=== PATIENT | female | born 1930 | race Hispanic/Latino ===

== ENCOUNTER → 2018-09-15 | Outpatient (CLI) | payer MEDICARE, OTHER ==
[~2018-09-15] MED LIST: ALENDRONATE SOD70 MG PO; AMLODIPINE BESYL5 MG PO; CIPRO500 MG PO; COUMADIN3 MG PO; DIOVAN HCT 1601 EACH PO; DIOVAN160 MG PO; FENOFIBRATE145 MG PO; FLECAINIDE ACE100 MG PO; FOSAMAX70 MG PO; GEMFIBROZIL600 MG PO; HYDROCHLOROTH12.5 MG PO; IOPAMIDOL 370 MG/ML 200 ML INFUS..BTL INJ ONE; JANTOVEN3 MG PO; METOPROLOL SUCC50 MG PO; OMEPRAZOLE MAGN20 MG PO; PANTOPRAZOLE SO40 MG PO; PRAVASTATIN SOD40 MG PO; SODIUM CHLORIDE 0.9% 50ML 50 ML ONE
[2018-09-15 09:09] LABS: BLOOD UREA NITROGEN 20 mg/dL (7-26); BUN/CREATININE RATIO 23 (6-25); CREATININE, SERUM 0.86 mg/dL (0.57-1.11); EST GLOMERULAR FILTRATION RATE > 60 ML/MIN (60-)
--- NOTE | 2018-09-15 10:07 | Diagnostic Imaging Report ---
EXAMINATION: CT of the abdomen and pelvis with contrast. TECHNIQUE: Spiral CT images of the abdomen and pelvis were performed from the lung bases to the lesser trochanters after the intravenous administration of 100 cc of Isovue-370 and the oral administration of water. Coronal and sagittal reformatted images were obtained. COMPARISON: None. CLINICAL HISTORY:Abdominal pain. Patient reports history of appendectomy, cholecystectomy, hysterectomy, and prior intestinal surgery. DISCUSSION: ABDOMEN/PELVIS: LOWER THORAX:Patchy opacity in the right middle lobe and lower lobe, partially visualized, likely representing atelectasis or scar. HEPATOBILIARY: No focal hepatic lesions. No intra-or extrahepatic biliary ductal dilation. The gallbladder has been removed. SPLEEN: No splenomegaly. PANCREAS: No focal masses or ductal dilatation. ADRENALS: No adrenal nodules. KIDNEYS/URETERS: Bilateral extrarenal pelves. No hydronephrosis or calculi. 4 cm exophytic hypoattenuating lesion projecting from the interpolar left kidney, average internal attenuation 5-10 Hounsfield units compatible with a simple cyst. Additional 1.6 cm simple cyst projecting from the lower pole of the left kidney. Additional subcentimeter hypoattenuating lesions bilaterally, too small to further characterize though likely to represent additional small cysts. PELVIC ORGANS/BLADDER: The urinary bladder is collapsed and poorly evaluated. The uterus is not identified and has presumably been removed. Peripherally calcified nodular structure in the rectovesical space may represent a calcified lymph node. PERITONEUM/RETROPERITONEUM: No ascites. No pneumoperitoneum. LYMPH NODES: No pelvic sidewall, retroperitoneal, or mesenteric lymphadenopathy. 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 Celiac and JEMAL origins are patent. Portal vein, splenic vein, and central superior mesenteric vein are patent. GI TRACT: The large bowel is notable for multiple diverticula scattered along the course of the sigmoid colon, without wall thickening or adjacent inflammatory change. The appendix is not identified compatible with prior appendectomy. There is no small bowel dilatation to suggest obstruction. BONES AND SOFT TISSUE: No osseous destructive lesions. Degenerative disc changes and facet arthropathy of the lumbar spine. Status post vertebral plasty at L3. Age indeterminate moderate compression deformity of T12 with approximately 50% loss of height and small amount of fragment retropulsion into the spinal canal. Postsurgical scar of the anterior abdominal wall. No additional focal soft tissue abnormalities. IMPRESSION: Age-indeterminate moderate compression deformity of T12 with superior endplate retropulsion into the spinal canal, without significant spinal canal stenosis. Correlate for point tenderness. No acute intra-abdominal or pelvic CT abnormalities. Large bowel diverticulosis without evidence of diverticulitis. 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 Partially visualized patchy opacity in the right middle lobe may reflect atelectasis or inflammatory process. CT scan of the chest without contrast should be considered for further evaluation. Signed by: Dr. Bradly Garcia M.D. on 09/15/2018 10:03 AM
== END ==
LOC: CT 08:31
PROVIDERS: ATTEND Internal Medicine Gastroenterology
DX: R10.84 Generalized abdominal pain (principal)
CPT/HCPCS: 36415; 74177; 82565; 84520; Q9967

== ENCOUNTER → 2018-10-05 | Outpatient (CLI) | payer MEDICARE, OTHER ==
[~2018-10-05] MED LIST changes: -IOPAMIDOL 370 MG/ML 200 ML INFUS..BTL INJ ONE; -SODIUM CHLORIDE 0.9% 50ML 50 ML ONE
--- NOTE | 2018-10-05 12:37 | Diagnostic Imaging Report ---
EXAMINATION: CT scan of the chest without contrast. TECHNIQUE: Spiral CT images of the chest were performed from the lung apices to the level of the adrenal glands. No intravenous contrast was administered per referring physician request. Coronal and sagittal reformatted images were obtained. COMPARISON: CT abdomen and pelvis 09/15/2018 CLINICAL HISTORY:Right middle lobe opacity identified on CT abdomen and pelvis DISCUSSION: ABSENCE OF INTRAVENOUS CONTRAST DECREASES SENSITIVITY FOR DETECTION OF FOCAL LESIONS AND VASCULAR PATHOLOGY. LINES/TUBES: None. LUNGS AND AIRWAYS: Cluster of small nodules in a Y shaped configuration in the right middle lobe corresponding to the abnormality identified on the comparison CT abdomen and pelvis. Superolateral to this, also within the right lower lobe is an additional cluster of nodular opacities in a tree-in-bud configuration. A cluster of nodules in a similar configuration laterally within the left upper lobe just lateral to the minor fissure seen on series 3 image 39. A similar tubular/nodular opacity anteriorly within the left lower lobe seen on series 3 image 65. Trace groundglass opacity in the dependent portions of the lower lobes compatible with subsegmental atelectasis. The trachea, mainstem bronchi, and central lobar bronchi are patent. PLEURA: No pneumothorax or pleural effusions. HEART AND MEDIASTINUM: Visualized portions of the thyroid gland are normal. There is borderline ectasia of the ascending thoracic aorta (3.8 cm). Great vessel origins are normal in configuration, with marked tortuosity of the central great vessels. Pulmonary outflow tract is of normal caliber. No pericardial effusion. H LYMPH NODES: No axillary, hilar, or mediastinal lymphadenopathy. ABDOMEN: Visualized portions of the liver, spleen, pancreas, and adrenals are unremarkable. BONES AND SOFT TISSUES: No osseous destructive lesions. Osteopenia with multilevel degenerative disc disease of the thoracic spine. Anterior compression deformity of T12 is again noted. Healed fracture deformities of multiple left-sided ribs. IMPRESSION: Clustered nodules in tree-in-bud/Y shaped and tubular configurations involving the right middle lobe, right upper lobe, and left lower lobe. Differential considerations include allergic bronchopulmonary aspergillosis (ABPA) as well as atypical mycobacterial infection. Bronchial atresia or endobronchial neoplasm is felt to be unlikely given the multifocality. Pulmonary consultation for possible bronchoscopy is suggested. Atherosclerotic vascular disease with borderline ectasia of the ascending thoracic aorta (3.8 cm). Signed by: Dr. Bradly Garcia M.D. on 10/05/2018 12:34 PM
== END ==
LOC: CT 11:24
PROVIDERS: ATTEND Internal Medicine Gastroenterology
DX: R91.8 Other nonspecific abnormal finding of lung field (principal)
CPT/HCPCS: 71250

== ENCOUNTER → 2018-12-01 | Outpatient (CLI) | payer MEDICARE, OTHER ==
--- NOTE | 2018-12-04 07:38 | Diagnostic Imaging Report ---
EXAM: CT Chest WITHOUT contrast 12/01/2018 4:21 PM INDICATION: ^[id number] ^[id number] ^CHRONIC BRONCHITIS COMPARISON: CT chest 10/05/2018 TECHNIQUE: Chest was scanned utilizing a multidetector helical scanner from the lung apex through the level of the adrenal glands without administration of IV contrast. Absence of intravenous contrast decreases sensitivity for detection of lymphadenopathy and vascular pathology. Coronal and sagittal reformations were obtained. Routine protocol was performed. IV CONTRAST: None COMPLICATIONS: None RADIATION DOSE: Total DLP: 418.3 mGy*cm Estimated effective dose: (DLP x 0.015 x size factor) mSv CTDIvol has been reviewed. It is below the limits set by the Radiation Protocol Committee (RPC). FINDINGS: LINES/ TUBES: None. LUNGS AND AIRWAYS: Persistent few bilateral small multifocal areas of tree-in-bud and tubular pulmonary nodules, worse in the right middle lobe, and mild central peribronchial wall thickening without bronchiectasis. No new consolidations or suspicious pulmonary nodules. PLEURA: The pleural spaces are clear. HEART AND MEDIASTINUM: The thyroid gland is normal. Round fluid attenuation structure in the left lower paratracheal region on series 2, image 47 is unchanged and may reflect fluid in the pericardial recess. No mediastinal, hilar or axillary lymphadenopathy. Left atrium enlargement. There is no pericardial effusion. Mild coronary artery calcifications. Borderline size of the ascending thoracic aorta (3.8 cm). Mild scattered atherosclerotic calcifications of the thoracic aorta. The main pulmonary artery is mildly enlarged measuring 3.3 cm and suggestive of mild pulmonary hypertension. UPPER ABDOMEN: Cholecystectomy. Suboptimally evaluated few small subcortical left renal cysts. BONES: Stable T12 compression deformity and remote posttraumatic deformity of a few left-sided ribs. SOFT TISSUES: Unremarkable. IMPRESSION: Stable bilateral few multifocal areas of tree-in-bud and tubular pulmonary nodules, worse in the right middle lobe, suggestive of bronchopulmonary aspergillosis (ABPA) or atypical mycobacterial infection. Consider correlation with bronchoscopy. No new consolidations or lymphadenopathy in the chest. Signed by: Dr. Dianne Phelps M.D. on 12/04/2018 7:34 AM
== END ==
LOC: CT 16:12
PROVIDERS: ATTEND Internal Medicine Critical Care Medicine
DX: J42 Unspecified chronic bronchitis (principal); J98.4 Other disorders of lung; K21.9 Gastro-esophageal reflux disease without esophagitis
CPT/HCPCS: 71250

== ENCOUNTER → 2019-08-03 | Outpatient (CLI) | payer MEDICARE, OTHER ==
--- NOTE | 2019-08-03 17:43 | Diagnostic Imaging Report ---
CT of the chest, without contrast, 08/03/2019. History: Chronic bronchitis. Comparison: 2018, 10/05/2018. Technique: Multidetector CT scanning of the chest was performed from the level of the thoracic inlet to the upper abdomen without IV or oral contrast. Dose reduction: The examination was performed according to departmental dose-optimization program which includes automated exposure control, adjustment of the mA and/or kV according to patient size and/or use of iterative reconstruction technique. Findings: The visualized portions of the thyroid gland are unremarkable. There is no axillary, mediastinal, or hilar adenopathy The heart is stably enlarged. There is unchanged fluid density structure in the lower left peritracheal region which may represent fluid within the pericardial recess. The ascending thoracic aorta is ectatic measuring 3.8 cm in diameter. The main pulmonary artery is stably prominent measuring 3.3 cm in diameter and may be suggestive of underlying pulmonary hypertension. The trachea and central airways are clear. Unchanged tree-in-bud opacities are present in the right upper lobe and are best appreciated on series 3 image 55 and in the right middle lobe which are best appreciated on series 3 image 64. No new consolidation or pulmonary nodules are identified. There is no pleural effusion. There is no pneumothorax. Limited evaluation of the upper abdomen is no focal hepatic lesions in the visualized portions of the liver. The patient is status post cholecystectomy. No acute osseous abnormalities are identified. IMPRESSION: 1. Unchanged tree-in-bud opacities in the right upper and middle lobe. No new consolidation or pulmonary nodules. 2. Ectasia of the ascending thoracic aorta, unchanged. 3.Mild prominence of the main pulmonary artery. Correlate with underlying pulmonary hypertension. Signed by: Hiram Cancino MD on 08/03/2019 5:40 PM
== END ==
LOC: CT 15:53
PROVIDERS: ATTEND Internal Medicine Critical Care Medicine
DX: J42 Unspecified chronic bronchitis (principal); K21.9 Gastro-esophageal reflux disease without esophagitis; J98.4 Other disorders of lung
CPT/HCPCS: 71250

== ENCOUNTER → 2019-08-14 | Outpatient (CLI) | payer MEDICARE, OTHER ==
[~2019-08-14] MED LIST changes: +LOSARTAN POTASS25 MG PO
--- NOTE | 2019-08-14 14:15 | Diagnostic Imaging Report ---
History:Fall, syncope Comparison studies:None Technique: Axial images were obtained from the skull base to the vertex. Coronal and sagittal images reconstructed from the axial data. Intravenous contrast: None Dose modulation, iterative reconstruction, and/or weight based adjustment of the mA/kV was utilized to reduce the radiation dose to as low as reasonably achievable. Findings: Scalp/skull: No abnormalities. Extra-axial spaces: No masses. No fluid collections. Brain sulci: Mildly prominent. Ventricles: Mild compensatory dilatation. No hydrocephalus. Parenchyma: Few hypodensities in the supratentorial white matter are small vessel ischemic changes. 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 No masses, hemorrhage, acute or chronic cortical vascular insults. Sellar/suprasellar region: No abnormalities. Craniocervical junction: Patent foramen magnum. No Chiari one malformation. Incidental findings: Atherosclerotic calcifications in the carotid siphons . Bilateral cataract surgery changes Impression: No acute abnormalities. Chronic findings: 1. Mild generalized volume loss. 2. Mild supratentorial white matter small vessel ischemic changes. Signed by: DR Haseeb Serrato M.D. on 08/14/2019 2:12 PM
== END ==
LOC: CT 12:53
DX: R55 Syncope and collapse (principal); Z91.81 History of falling; Z79.01 Long term (current) use of anticoagulants
CPT/HCPCS: 70450

== ENCOUNTER 2019-08-17 11:37 | Emergency (ER) | payer MEDICARE, OTHER ==
[~2019-08-17] VITALS: Ht 152.4 cm; Wt 51.3 kg
[~2019-08-17 11:37] MED LIST changes: -LOSARTAN POTASS25 MG PO
[2019-08-17] MEDS ORDERED: DEXAMETHASONE SOD PHOS 10 MG/1 ML VIAL IM ONE (12:45)
[2019-08-17] MEDS ORDERED: KETOROLAC TROMETHAMINE 60 MG/2 ML VIAL IM ONE (12:45)
--- OUTSIDE RECORDS SUMMARY | 2019-08-17 14:11 | XMS REPORT | Summary of Care ---
Author Author Wes Lopez, November Unknown Address [facility] Phone Unavailable Care Team Providers Care Shredder Operator Name Role Phone KEMAR PATRICIA M.D. Unavailable Unavailable BREN BYRD MD Unavailable Unavailable ANGELIQUE PRINGLE, MISAEL Fajardo Unavailable Unavailable BREN CASIANO MD Unavailable Unavailable NOÉ PRINGLE, NIDIA LIMON Unavailable Unavailable Unavailable Unavailable Functional Status Name Dates Details Functional status health issues are not documented Status: Name Dates Details Cognitive status health issues are not documented Status: Problems Name Dates Details Bilateral leg edema (782.3, R60.0) Status: Active Varicose veins (454.9, I83.90) Status: Active Coronary artery disease (414.00, I25.10) Status: Active Essential (primary) hypertension (401.9, I10) Status: Active Hyperlipidemia (272.4, E78.5) Status: Active Sinus bradycardia (427.89, R00.1) Status: Active Headache (784.0, R51) Status: Active Dizziness (780.4, R42) Status: Active Paroxysmal atrial fibrillation (427.31, I48.0) Status: Active Medications Name Dates Details Nitroglycerin 0.4 MG Sublingual Tablet Sublingual DESUELVA MICHAEL (1) TABLETA DEBAJO DE LA LENGUA ANDREAS NECESARIO PARA DOLOR DE PECHO. Quantity: 25 KEMAR PATRICIA M.D. * Start : 28-Mar-2018 Active Metoprolol Succinate ER 25 MG Oral Tablet Extended Release 24 Hour TOME MICHAEL (1) TABLETA(S) POR LA BOCA MICHAEL VEZ AL CHERI AL ACOSTARSE. * Quantity: 90 Refills: 1 * Start : 23-Dec-2014 Active Flecainide Acetate 100 MG Oral Tablet TOME MICHAEL (1) TABLETA(S) POR LA BOCA DOS VECES AL CHERI. * Quantity: 180 Refills: 0 BREN BYRD MD * Start : 23-Dec-2014 Active amLODIPine Besylate 5 MG Oral Tablet TAKE 1 TABLET IN THE AM THEN HALF A TAB IN THE PM * Quantity: 90 Refills: 0 BREN BYRD MD * Start : 09-Sep-2014 Active Pantoprazole Sodium 40 MG Oral Tablet Delayed Release TOME MICHAEL (1) TABLETA(S) POR LA BOCA DOS VECES AL CHERI. * Quantity: 180 Refills: 0 BREN BYRD MD * Start : 11-Jun-2015 Active Furosemide 40 MG Oral Tablet TOME MICHAEL (1) TABLETA(S) POR LA BOCA MICHAEL VEZ AL CHERI EN LA MANANA. NEEDED * Quantity: 90 Refills: 1 * Start : 28-Nov-2015 Active Compression Stocking 15-20 MMHD bilateral knee high * Quantity: 30 Refills: 1 KEMAR PATRICIA M.D. * Start : 11-Feb-2016 Active Jantoven 2 MG Oral Tablet TOME MICHAEL (1) TABLETA(S) POR LA BOCA DIARIO. * Quantity: 90 Refills: 1 BREN BYRD MD * Start : 05-May-2016 Active Losartan Potassium 50 MG Oral Tablet TOME MICHAEL (1) TABLETA(S) POR LA BOCA DOS VECES AL CHERI. * Quantity: 180 Refills: 2 BREN BYRD MD * Start : 21-Mar-2018 Active Atorvastatin Calcium 40 MG Oral Tablet TAKE 1 TABLET BEDTIME * Quantity: 90 Refills: 2 BREN BYRD MD * Start : 20-Apr-2019 Active Aspirin EC 81 MG Oral Tablet Delayed Release TAKE 1 TABLET DAILY. * Refills: 0 Active Allergies and Adverse Reactions Name Dates Details No Known Drug Allergies (Allergy) Status: Active Past Medical History Name Dates Details History of Atherosclerosis (440.9, I70.90) Status: Resolved History of Atrial fibrillation (427.31, I48.91) Status: Resolved History of Coronary Artery Disease (V12.59) Status: Resolved History of esophageal reflux (V12.79, Z87.19) Status: Resolved History of essential hypertension (V12.59, Z86.79) Status: Resolved History of hyperlipidemia (V12.29, Z86.39) Status: Resolved History of Osteoporosis (733.00, M81.0) Status: Resolved Procedures Procedure Dates Details History of Hysterectomy Completed History of Cataract Surgery Completed History of Appendectomy Completed History of Cholecystectomy Completed History of Shoulder Surgery Completed Immunization Name Dates Details Immunizations not documented Family History Name Dates Details Family history of Heart Disease (V17.49) Status: Active Family history of Hypertension (V17.49) Status: Active Social History Name Dates Details - Status: Name Dates Details Former smoker Current every day smoker Vital Signs Date Test Result Details [id number] BP Systolic 179 mm[Hg] Status: Comments: Location: RUE; Position: Sitting BP Diastolic 81 mm[Hg] Status: Comments: Location: RUE; Position: Sitting [id number] BP Systolic 170 mm[Hg] Status: Comments: Location: LUE; Position: Sitting BP Diastolic 79 mm[Hg] Status: Comments: Location: LUE; Position: Sitting Height 60 in Status: Weight 136 lb Status: Body Mass Index Calculated 26.56 kg/m2 Status: Body Surface Area Calculated 1.58 m2 Status: Heart Rate 60 /min Status: Results Date Description Value Details [id number] [QLH] PROTHROMBIN TIME-INR Comments: Reference Range 0.9-1.1Moderate-intensity Warfarin Therapy 2.0-3.0Higher-intensity Warfarin Therapy 3.0-4.0 REPORT COMMENT:FASTING:NO INR 2.4 (Above high threshold) Comments: Reference Range 0.9-1.1Moderate-intensity Warfarin Therapy 2.0-3.0Higher-intensity Warfarin Therapy 3.0-4.0 PT 23.7 {sec} (Above high threshold) Range: 9.0-11.5 Comments: For more information on this test, go to:http://education.[employer] Daily/faq/XKE302 Plan of Care Name Dates Details Planned Observations Planned Goals not documented Planned Encounters Appointment; BREN BYRD MD On: 15-Jun-2019 11:20 Interventions Provided Medication Changes* Flecainide Acetate 100 MG Oral Tablet - Renew Instructions Name Dates Details Instructions not documented Encounters Appointment; KEMAR PATRICIA M.D. Encounter Diagnosis: Problem not documented On: 25-Aug-2017 9:10 Appointment; KEMAR PATRICIA M.D. Encounter Diagnosis: Problem not documented On: 25-Aug-2017 9:15 Appointment; KEMAR PATRICIA M.D. Encounter Diagnosis: Problem not documented On: 23-Sep-2017 9:40 Appointment; SE, ECHO Encounter Diagnosis: Problem not documented On: 04-Oct-2017 13:00 Appointment; KEMAR PATRICIA M.D. Encounter Diagnosis: Problem not documented On: 13-Oct-2017 13:20 Appointment; SE, NUCLEAR Encounter Diagnosis: Problem not documented On: 15-Nov-2017 8:15 Appointment; KEMAR PATRICIA M.D. Encounter Diagnosis: Problem not documented On: 02-Dec-2017 11:00 Appointment; KEMAR PATRICIA M.D. Encounter Diagnosis: Problem not documented On: 02-Jun-2018 10:15 Appointment; KEMAR PATRICIA M.D. Encounter Diagnosis: Problem not documented On: 05-Sep-2018 14:00 Appointment; SE, VENOUS Encounter Diagnosis: Problem not documented On: 13-Sep-2018 14:00 Appointment; KEMAR PATRICIA M.D. Encounter Diagnosis: Problem not documented On: 22-Sep-2018 8:30 Appointment; BREN BYRD MD Encounter Diagnosis: Problem not documented On: 19-Jan-2019 9:30 Appointment; BREN BYRD MD Encounter Diagnosis: Problem not documented On: 19-Jan-2019 9:40 Appointment; SE, ECHO Encounter Diagnosis: Problem not documented On: 19-Jan-2019 11:00 Appointment; LEDON MODI Encounter Diagnosis: Problem not documented On: 22-Feb-2019 14:15 Appointment; BREN BYRD MD Encounter Diagnosis: Problem not documented On: 20-Apr-2019 10:40 Appointment; SE, ECHO Encounter Diagnosis: Problem not documented On: 24-Apr-2019 11:00 Appointment; BREN BYRD MD Encounter Diagnosis: Problem not documented On: 18-May-2019 10:20
--- OUTSIDE RECORDS SUMMARY | 2019-08-17 14:11 | XMS REPORT ---
Author Author [facility] Address Unknown Phone Unavailable Care Team Providers Care Chief Learning Officer Name Role Phone MISAEL MERINO Unavailable Unavailable Colton FRANKLIN Unavailable Unavailable MAL MERINO Unavailable Unavailable Problems This patient has no known problems. Allergies, Adverse Reactions, Alerts This patient has no known allergies or adverse reactions. Medications This patient has no known medications. Encounters Start Date/Time End Date/Time Encounter Type Admission Type Attending [facility] Facility Care Department Encounter ID 2019-07-24 11:54:00 2019-07-24 11:54:00 Outpatient [facility] [id number] Results Test Description Test Time Test Comments Text Results Atomic Results Result Comments CT BRAIN WO 2019-08-14 14:02:00 [place] [address] Patient Name: DENIA MORRELL MR #: [id number] : 1930 Age/Sex: 89/F Req #: [id number] Adm Physician: Ordered by: MISAEL MERINO MD Report #: [id number] Location: CT Room/Bed: Procedure: [id number] CT/CT BRAIN WO Exam Date: 08/14/19 Exam Time: 1339 REPORT STATUS: Signed History:Fall, syncope Comparison studies:None Techniqu e: Axial images were obtained from the skull base to the vertex. Coronal and sagittal images reconstructed from the axial data. Intravenous contrast: None Dose modulation, iterative reconstruction, and/or weight based adjustment of the mA/kV was utilized to reduce the radiation dose to as low as reasonably achievable. Findings: Scalp/skull: No abnormalities. Extra-axial spaces: No masses. No fluid collections. Brain sulci: Mildly prominent. Ventricles: Mild compensatory dilatation. No hydrocephalus. Parenchyma: Few hypodensities in the supratentorial white matter are small vessel ischemic changes. 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 No masses, hemorrhage, acute or chronic cortical vascular insults. Sellar/suprasellar region: No abnormalities. Craniocervical junction: Patent foramen magnum. No Chiari one malformation. Incidental findings: Atherosclerotic calcifications in the carotid siphons . Bilate ral cataract surgery changes Impression: No acute abnormalities. Chronic findings: 1. Mild generalized volume loss. 2. Mild supratentorial white matter small vessel ischemic changes. Signed by: DR Haseeb Serrato M.D. on 08/14/2019 2:12 PM Dictated By: HAESEB GUNTER MD 1412 Transcribed By: SILVINO on 08/14/19 141 COPY TO: MISAEL MERINO MD CT CHEST WO 2019-08-03 17:31:00 [place] [address] Patient Name: DENIA MORRELL MR #: [id number] : 1930 Age/Sex: 89/F Req #: [id number] Adm Physician: Ordered by: DEISY STACK MD Report #: [id number] Location: CT Room/Bed: Procedure: [id number] CT/CT CHEST WO Exam Date: 08/03/19 Exam Time: 1619 REPORT STATUS: Signed CT of the chest, without contrast, 08/03/2019. Histo ry: Chronic bronchitis. Comparison: 2018, 10/05/2018. Technique: Multidetector CT scanning of the chest was performed from the level of the thoracic inlet to the upper abdomen without IV or oral contrast. Dose reduction: The examination was performed according to departmental dose- optimization program which includes automated exposure control, adjustment of the mA and/or kV according to patient size and/or use of iterative reconstruction technique. Findings: The visualized portions of the thyroid gland are unremarkable. There is no axil mc, mediastinal, or hilar adenopathy The heart is stably enlarged. There is unchanged fluid density structure in the lower left peritracheal region which may represent fluid within the pericardial recess. The ascending thoracic aorta is ectatic measuring 3.8 cm in diameter. The main pulmonary artery is stably prominent measuring 3.3 cm in diameter and may be suggestive of underlying pulmonary hypertension. The trachea and central airways are clear. Unchanged tree-in-bud opacities are present in the right upper lobe and are best appreciated on series 3 image 55 and in the right middle lobe which are best appreciated on series 3 image 64. No new consolidation or pulmonary nodules are identified. There is no pleural effusion. There is no pneumothorax. Limited evaluation of the upper abdomen is no focal hepatic lesions in the visualized portions of the liver. The patient is status post cholecystectomy. No acute osseous abnormalities are identified. IMPRESSION: 1. Unchanged tree-in-bud opacities in the right upper and middle lobe. No new consolidation or pulmonary nodules. 2. Ectasia of the ascending thoracic aorta, unchanged. 3.Mild prominence of the main pulmonary artery. Correlate with underlying pulmonary hypertension. Signed by: Hiram Villalta MD on 08/03/2019 5:40 PM Dictated By: HIRAM VILLALTA MD 39 Transcribed By: SILVINO on 08/03/191739 COPY TO: DEISY STACK MD CT CHEST WO 2018-12-04 07:25:00 [place] [address] Patient Name: DENIA MORRELL MR #: [id number] : 1930 Age/Sex: 88/F Req #: [id number] Adm Physician: Ordered by: DEISY FRANKLIN MD Report #: [id number] Location: CT Room/Bed: Procedure: [id number] CT/CT CHEST WO Exam Date: 12/01/18 Exam Time: 1643 REPORT STATUS: Signed EXAM: CT Chest WITHOUT contrast 12/01/2018 4:21 PM INDICATION: [id number] CHRONIC BRONCHITIS COMPARISON: CT chest 10/05/2018 TECHNIQUE: Chest was scanned utilizing a multidetector helical scanner from the lung apex through the level of the adrenal glands without administration of IV contrast. Absence of intravenous contrast decreases sensitivity for detection of lymphadenopathy and vascular pathology. Coronal and sagittal reformations were obtained. Routine protocol was performed. IV CONTRAST: None COMPLICATIONS: None RADIATION DOSE: Total DLP: 418.3 mGy*cm Estimated effective dose: (DLP x 0.015 x size factor) mSv CTDIvol has been reviewed. It is below the limits set by the Radiation Protocol Committee (RPC). FINDINGS: LINES/ TUBES: None. LUNGS AND AIRWAYS: Persistent few bilateral small multifocal areas of tree-in-bud and tubular pulmonary nodules, worse in the right middle lobe, and mild central peribronchial wall thickening without bronchiectasis. No new consolidations or suspicious pulmonary nodules. PLEURA: The pleural spaces are clear. HEART AND MEDIASTINUM: The thyroid gland is normal. Round fluid attenuation structure in the left lower paratracheal region on series 2, image 47 is unchanged and may reflect fluid in the pericardial recess. No mediastinal, hilar or axillary lymphadenopathy. Left atrium enlargement. There is no pericardial effusion. Mild coronary artery calcifications. Borderline size of the ascending thoracic aorta (3.8 cm). Mild scattered atherosclerotic calcifications of the thoracic aorta. The main pulmonary artery is mildly enlarged measuring 3.3 cm and suggestive of mild pulmonary hypertension. UPPER ABDOMEN: Cholecystectomy. Suboptimally evaluated few small subcortical left renal cysts. BONES: Stable T12 compression deformity and remote posttraumatic deformity of a few left-sided ribs. SOFT TISSUES: Unremarkable. IMPRESSION: Stable bilateral few multifocal areas of tree-in-bud and tubular pulmonary nodules, worse in the right middle lobe, suggestive of bronchopulmonary aspergillosis (ABPA) or atypical mycobacterial infection. Consider correlation with bronchoscopy. No new consolidations or lymphadenopathy in the chest. Signed by: Dr. Mateo Gómez M.D. on 12/04/2018 7:34 AM Dictated By: MATEO GÓMEZ MD 3 Transcribed By: SILVINO on 12/04/18733 COPY TO: DEISY FRANKLIN MD, [facility] CT CHEST WO 2018-10-05 12:26:00 [place] [address] Patient Name: DENIA MORRELL MR #: [id number] : 1930 Age/Sex: 88/F Req #: [id number] Adm Physician: Ordered by: MAL MERINO MD Report #: [id number] Location: CT Room/Bed: Procedure: [id number] CT/CT CHEST WO Exam Date: 10/05/18 Exam Time: 1214 REPORT STATUS: Signed EXAMINATION: CT scan of the chest without contrast. BALBINA HNIQUE: Spiral CT images of the chest were performed from the lung apices to the level of the adrenal glands. No intravenous contrast was administered per referring physician request. Coronal and sagittal reformatted images were obtained. COMPARISON: CT abdomen and pelvis 09/15/2018 CLINICAL HISTORY:Right middle lobe opacity identified on CT abdomen and pelvis DISCUSSION: ABSENCE OF INTRAVENOUS CONTRAST DECREASES SENSITIVITY FOR DETECTION OF FOCAL LESIONS AND VASCULAR PATHOLOGY. LINES/TUBES: None. LUNGS AND AIRWAYS: Cluster of small nodules in a Y shaped configuration in the right middle lobe corresponding to the abnormality identified on the comparison CT abdomen and pelvis. Superolateral to this, also within the right lower lobe is an additional cluster of nodular opacities in a tree-in-bud configuration. A cluster of nodules in a similar configuration laterally within the left upper lobe just lateral to the minor fissure seen on series 3 image 39. A similar tubular/nodular opacity anteriorly within the left lower lobe seen on series 3 image 65. Trace groundglass opacity in the dependent portions of the lower lobes compatible with subsegmental atelectasis. The trachea, mainstem bronchi, and central lobar bronchi are patent. PLEURA: No pneumothorax or pleural effusions. HEART AND MEDIASTINUM: Visualized portions of the thyroid gland are normal. There is borderline ectasia of the ascending thoracic aorta (3.8 cm). Great vessel origins are normal in configuration, with marked tortuosity of the central great vessels. Pulmonary outflow tract is of normal caliber. No pericardial effusion. H LYMPH NODES: No axillary, hilar, or mediastinal lymphadenopathy. ABDOMEN: Visualized portions of the liver, spleen, pancreas, and adrenals are unremarkable. BONES AND SOFT TISSUES: No osseous destructive lesions. Osteopenia with multilevel degenerative disc disease of the thoracic spine. Anterior compression deformity of T12 is again noted. Healed fracture deformities of multiple left-sided ribs. IMPRESSION: Clustered nodules in tree-in-bud/Y shaped and tubular configurations involving the right middle lobe, right upper lobe, and left lower lobe. Differential considerations include allergic bronchopulmonary aspergillosis (ABPA) as well as atypical mycobacterial infection. Bronchial a tresia or endobronchial neoplasm is felt to be unlikely given the multifocality. Pulmonary consultation for possible bronchoscopy is suggested. Atherosclerotic vascular disease with borderline ectasia of the ascending thoracic aorta (3.8 cm). Signed by: Dr. Damari Alvarado M.D. on 10/05/2018 12:34 PM Dictated By: DAMARI ALVARADO MD 1234 Transcribed By: SILVINO on 10/05/18 1234 COPY TO: MAL MERINO MD CT ABDOMEN/PELVIS W 2018-09-15 09:51:00 [place] [address] Patient Name: DENIA MORRELL MR #: [id number] : 1930 Age/Sex: 88/F Req #: [id number] Adm Physician: Ordered by: MAL MERINO MD Report #: [id number] Location: CT Room/Bed: Procedure: [id number] CT/CT ABDOMEN/PELVIS W Exam Date: 09/15/18 Exam Time: 0936 REPORT STATUS: Signed EXAMINATION: CT of the abdomen and pelvis with contra st. TECHNIQUE: Spiral CT images of the abdomen and pelvis were performed from the lung bases to the lesser trochanters after the intravenous administration of 100 cc of Isovue-370 and the oral administration of water. Coronal and sagittal reformatted images were obtained. COMPARISON: None. CLINICAL HISTORY:Abdominal pain. Patient reports history of appendectomy, cholecystectomy, hysterectomy, and prior intestinal surgery. DISCUSSION: ABDOMEN/PELVIS: LOWER THORAX:Patchy opacity in the right middle lobe and lower lobe, partially visualized, likely representing atelectasis or scar. HEPATOBILIARY: No focal hepatic lesions. No intra-or extrahepatic biliary ductal dilation. The gallbladder has been removed. SPLEEN: No splenomegaly. PANCREAS: No focal masses or ductal dilatation. ADRENALS: No adrenal nodules. KIDNEYS/URETERS: Bilateral extrarenal pelves. No hydronephrosis or calculi. 4 cm exophytic hypoattenuating lesion projecting from the interpolar left kidney, average internal attenuation 5-10 Hounsfield units compatible with a simple cyst. Additional 1.6 cm simple cyst projecting from the lower pole of the left kidney. Additional subcentimeter hypoattenuating lesions bilaterally, too small to further characterize though likely to represent additional small cysts. PELVIC ORGANS/BLADDER: The urinary bladder is collapsed and poorly evaluated. The uterus is not identified and has presumably been removed. Peripherally calcified nodular structure in the rectovesical space may represent a calcified lymph node. PERITONEUM/RETROPERITONEUM: No ascites. No pneumoperitoneum. LYMPH NODES: No pelvic sidewall, retroperitoneal, or mesenteric lymphadenopathy. 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 Celiac and JEMAL origins are patent. Portal vein, splenic vein, and central superior mesenteric vein are patent. GI TRACT: The large bowel is notable for multiple diverticula scattered along the course of the sigmoid colon, without wall thickening or adjacent inflammatory change. The appendix is not identified compatible with prior appendectomy. There is no small bowel dilatation to suggest obstruction. BONES AND SOFT TISSUE: No osseous destructive lesions. Degenerative disc changes and facet arthropathy of the lumbar spine. Status post vertebral plasty at L3. Age indeterminate moderate compression deformity of T12 with approximately 50% loss of height and small amount of fragment retropulsion into the spinal canal. Postsurgical scar of the anterior abdominal wall. No additional focal soft tissue abnormalities. IMPRESSION: Age-indeterminate moderate compression deformity of T12 with superior endplate retropulsion into the spinal canal, without significant spinal canal stenosis. Correlate for point tenderness. No acute intra-abdominal or pelvic CT abnormalities. Large bowel diverticulosis without evidence of diverticulitis. 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 Partially visualized patchy opacity in the right middle lobe may reflect atelectasis or inflammatory process. CT scan of the chest without contrast should be considered for further evaluation. Signed by: Dr. Damari Alvarado M.D. on 09/15/2018 10:03 AM Dictated By: DAMARI ALVARADO MD 1003 Transcribed By: SILVINO on 09/15/18 1003 COPY TO: MAL MERINO MD
--- NOTE | 2019-08-17 14:16 | Diagnostic Imaging Report ---
TECHNIQUE: Frontal, oblique, and lateral views of the right wrist. INDICATION: 89-year-old woman with pain and swelling. COMPARISON: None. FINDINGS: Abnormal osseous structure adjacent to trapezium and second metacarpal. Otherwise, no acute fractures or dislocations. Degenerative changes at the first carpometacarpal joint. Other joint spaces are within normal limits. Calcifications in the region of the triangular fibrocartilage complex. Soft tissues are grossly unremarkable. IMPRESSION: Abnormal osseous structure adjacent to the trapezium and second metacarpal may represent an osteophyte or sequela of age-indeterminate trauma. Degenerative changes at the first carpometacarpal joint. Signed by: Lexx Connors MD on 08/17/2019 2:12 PM
[2019-08-17 15:31] VITALS: BP 127/65
[2019-09-19] MEDS ORDERED: LOSARTAN POTASS25 MG PO (09:49)
[2019-09-21] MEDS ORDERED: FLECAINIDE ACE100 MG PO (11:57)
== END 2019-08-17 15:15 | disposition home or self-care (01) ==
LOC: ER 11:37
DX: M19.031 Primary osteoarthritis, right wrist (principal); I10 Essential (primary) hypertension; I48.91 Unspecified atrial fibrillation
CPT/HCPCS: 29125; 36415; 73110; 84550; 99284; J1100; J1885

== ENCOUNTER → 2020-02-25 | Outpatient (CLI) | payer MEDICARE, OTHER ==
[~2020-02-25] MED LIST changes: +LOSARTAN POTASS25 MG PO
== END ==
LOC: RESP 13:56
PROVIDERS: ATTEND Internal Medicine Critical Care Medicine
DX: R06.09 Other forms of dyspnea (principal); J42 Unspecified chronic bronchitis; J98.4 Other disorders of lung; K21.9 Gastro-esophageal reflux disease without esophagitis
CPT/HCPCS: 94060; 94727; 94729

== ENCOUNTER 2020-07-13 17:45 | Emergency (ER) | payer MEDICARE, OTHER ==
[~2020-07-13] VITALS: Ht 152.4 cm; Wt 51.3 kg
--- NOTE | 2020-07-13 17:53 | NUR ---
CALLED TO TRIAGE PATIENT IN BATHROOM
--- NOTE | 2020-07-13 18:25 | NUR ---
OBTAINED BLOOD. IV NOT FUNCTIONING PATIENT EVALUATED BY DR. IGLESIAS IN TRIAGE
--- OUTSIDE RECORDS SUMMARY | 2020-07-13 18:35 | XMS REPORT | Continuity of Care Document ---
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 06/02/2020 [facility] LEFT HEART CATH Active 05/16/2020 [facility] ANTICOAG Active 04/02/2020 [facility] DYSPNEA ON EXERTION, CHEST PRESSURE Active 01/13/2020 [facility] RAPID HEART RATE Active 01/13/2020 [facility] CHEST PAIN Active 01/11/2020 [facility] ACUTE CHEST PAIN Active 01/11/2020 [facility] LEFT HEART CATH POSS PCI Active 01/09/2020 [facility] Weakness 10/02/2019 [facility] HYPOMAGNESEMIA, PALPITATIONS A ctive 08/24/2019 [facility] AFIB Active 08/24/2019 [facility] Encounter for screening mammogram for ma lignant neoplasm of breast 08/04/2018 02/18/2019 [facility] DX: Z12.31/M81.0NO PAIN,LUMPS OR DC* Active 07/25/2018 [facility] Unspecified fall, initial encounter 01/30/2018 02/02/2018 [facility] Multiple fractures of ribs, unspecified side, initial encounter for closed fracture 01/30/2018 02/02/2018 [facility] Urinary tract infection, site not specified 01/30/2018 02/02/2018 [facility] FAL Active 0 01/30/2018 [facility] Cervicalgia 07/25/2017 07/28/2017 [facility] Contusion of unspecified part of head, i nitial encounter 07/25/2017 07/28/2017 [facility] FALL Active 07/25/2017 [facility] DX:I65.29= OCCLUSION AND STENOSIS OF UNS Active 08/06/2016 [facility] Discharge Diagnosis: Acute lower UTI 12/26/2015 12/29/2015 [facility] UTI Active 0 12/26/2015 [facility] I86.8; VARICOSE VEINS OF OTHER SPECIFIED Active 12/01/2015 [facility] R92.8=OTHER ABNORMAL AND INCONCLUSIVE FI Active 10/07/2015 [facility] ROUTINE Active 09/17/2015 [facility] SCREENING Active 07/03/2014 [facility] UNK Active 0 12/26/2012 [facility] A-FIB WITH RVR Active 07/09/2011 [facility] OTHER Active 07/09/2011 [facility] [D]Chest pain Active Problem 12/26/2011 [facility] Atrial fibrillation Active Problem 12/26/2011 [facility] [D]Chest pain (context-dependent category) Active Problem 06/30/2020 [facility] Atrial fibrillation (disorder) Active Problem 09/2019 [facility] Hypertensive disorder, systemic arterial (disorder) Resolved Problem 06/30/2020 [facility] Reflux (finding) Resolved Problem 06/30/2020 [facility] Pain in left hip 08/06/2017 [facility] Age-related osteoporosis without current pathological fracture 02/18/2019 [facility] Hypertension Active 12/21/2013 well- controlled. [facility] Hyperlipidemia Active 12/21/2013 [facility] Coronary Artery Disease Active 12/21/2013 Stable with no angina [facility] Paroxysmal Atrial Fibrillation Active 12/21/2013 [facility] Osteoporosis Active 04/03/2013 [facility] Esophageal Reflux Active 04/03/2013 [facility] ATRIAL FIBRILLATION Active [facility] SCREEN MAMMOGRAM NEC Active [facility] JOINT PAIN-SHLDER Active [facility] ENCNTR SCREEN MAMMOGRAM FOR MALIGNANT NE Active [facility] OTH SYMPTOMS AND SIGNS INVOLVING THE CIR Active [facility] OTH ABN AND INCONCLUSIVE FINDINGS ON DX Active [facility] E78.5 Active [facility] HYPERLIPIDEMIA, UNSPECIFIED Ac tive [facility] PAROXYSMAL ATRIAL FIBRILLATION Active [facility] BRADYCARDIA, UNSPECIFIED Active [facility] VARICOSE VEINS OF OTHER SPECIFIED SITES Active [facility] PAIN IN UNSPECIFIED LIMB Active [facility] OCCLUSION AND STENOSIS OF UNSPECIFIED CA Active [facility] LOW BACK PAIN Active [facility] PLEURODYNIA Active [facility] HISTORY OF FALLING Active [facility] PAIN IN LEFT HIP Active [facility] AGE-RELATED OSTEOPOROSIS W/O CURRENT PAT Active [facility] HYPOMAGNESEMIA Active [facility] PALPITATIONS Active [facility] ANGINA PECTORIS, UNSPECIFIED A ctive [facility] Medications Medication Details Route Status Patient Instructions Ordering Provider Order Date Source Acetaminophen Notes: Do not ex ceed 4 gm/day. (Same as: Tylenol) Inactive 06/28/2020 [facility] Acetaminophen 300 MG / Codeine Phosphate 30 MG Oral Tablet [Tylenol with Codeine #3] Notes: Do not exceed 4gm/day of acetamin ophen. (Same as: Tylenol with Codeine # 3) Inactive 06/15/2020 [facility] Acetaminophen 300 MG / Codeine Phosphate 30 MG Oral Tablet [Tylenol with Codeine #3] Notes: Do not exceed 4gm/day of acetamin ophen. (Same as: Tylenol with Codeine # 3) No Longer Active 06/15/2020 [facility] Bumex Notes: (Same As: Bumex) No Longer Active 06/14/2020 [facility] clopidogrel Notes: (Same As: P lavix) No Longer Active 06/14/2020 [facility] Amlodipine Notes: (Same as: No rvasc) No Longer Active 06/14/2020 [facility] atorvastatin Notes: (Same as: Lipitor) No Longer Active 06/14/2020 [facility] Flecainide Notes: (Same as: Ta mbocor) No Longer Active 06/14/2020 [facility] Losartan Notes: (Same as: Coza ar) No Longer Active 06/14/2020 [facility] pantoprazole Notes: Tablet yobani uld not be chewed or crushed. (Same as: Protonix) N o Longer Active 06/13/2020 [facility] influenza virus vaccine, inactivated hig h-dose preservative-free intramuscular suspension Notes: (Same as: Fluzone High-Dose Quad) For 65 years of age of older (0.7 ml IM) Shake well before use No Longer Active 06/13/2020 [facility] Tylenol Notes: Max acetaminoph en 4000 mg/day (4 gm/day). (Same as: Tylenol Extra Strength) No Longer Active 06/13/2020 [facility] Morphine Notes: (Same as:MORPh ine Sulfate) No Longer Active 06/13/2020 [facility] Minocycline Notes: (Same as:Mi nocin) No milk/antacids/iron. No Longer Active 06/13/2020 [facility] minocycline 100 mg oral capsule 100 mg, PO, [id number], # 24 tab, 0 Refill(s), Pharmacy: [id number], 152.4, cm, 06/13/20 6:58:00 CDT, Height, 58.182, kg, 06/13/20 6:58:00 CDT, Weight Active 06/13/2020 [facility] Sodium Chloride 0.9% IV 1,000 mL 1,000 mL, Rate: 100 ml/hr, Infuse over: 10 hr, Route: IV, Dosing Weight 58.182 kg, Total Volume: 1,000, Start date: 05/30/20 10:15:00 CDT, Duration: 10 hr, Stop date: 05/30/20 20:14:00 CDT, 1.59, m2, 0 Inactive 05/30/2020 [facility] Acetaminophen Notes: Do not ex ceed 4 gm/day. (Same as: Tylenol) Inactive 05/30/2020 [facility] Morphine Notes: (Same as:MORPh ine Sulfate) Inactive 05/30/2020 [facility] Sodium Chloride 0.9% (Bolus) IV 174 mL, 100 ml/hr, Infuse Over: 1.7 hr, Route: IV, 174, Drug form: INJ, ONCE, Dosing Weight 58.182 kg, Start date: 05/30/20 7:32:00 CDT, Stop date: 05/30/20 7:32:00 CDT, 0 Inactive 05/30/2020 [facility] Ventolin HFA 2 puff, INHALATIO N, Q6H, 0 Refill(s) Active 05/30/2020 [facility] Bumex 1 mg, PO, Daily, 0 Refil l(s) Active 05/30/2020 [facility] Aspirin 81 MG Enteric Coated Tablet Notes: Do not crush or chew. (Same As: Ecotrin) Inactive 01/14/2020 [facility] Flecainide Notes: (Same as: Ta mbocor) Inactive 01/14/2020 [facility] 24 HR Metoprolol Tartrate 25 MG Extended Release Tablet [Toprol] Notes: (Same as: Toprol XL) Do Not Crush Inactive 01/14/2020 [facility] pantoprazole Notes: Tablet yobani uld not be chewed or crushed. Inactive 01/14/2020 [facility] Simethicone Notes: (Same as: M yl[place] Gas) Inactive 01/14/2020 [facility] clopidogrel Notes: (Same As: P lavix) No Longer Active 01/14/2020 [facility] Amlodipine Notes: (Same as: No rvasc) No Longer Active 01/14/2020 [facility] atorvastatin Notes: (Same as: Lipitor) No Longer Active 01/14/2020 [facility] Losartan Notes: (Same as: Coza ar) No Longer Active 01/14/2020 [facility] Nitroglycerin 0.4 MG Sublingual Tablet Notes: (Same as:Nitroquick, Nitrostat) "Do Not Crush" Sublingual tablet No Longer Active 01/14/2020 [facility] Gas-X Maximum Strength Notes: (Same as: Mylicon) Inactive 01/14/2020 [facility] Coumadin Notes: Nurse to jose j e documentation of patient education per anticoagulation policy. Avoid large intake of vitamin-K containing foods diet. (Same As: Coumadin) WASTE: F/P - P Waste Black; E - P Waste Black Hazardous Drug Group 3:Reproductive risk Hazardous Drug -- Refer to safe handling procedure PPE Matrix Inactive 01/14/2020 [facility] Aspirin 325 mg, Route: PO, Shekhar g form: TAB, ONCE, Dosing Weight 56.818, kg, Priority: STAT, Start date: 01/13/20 10:57:00 CDT, Stop date: 01/13/20 10:57:00 CDT Inactiv e 01/13/2020 [facility] simethicone 125 mg oral tablet, chewable 125 mg = 1 tab, CHEW, QID, X 12 day, # 48 tab, 0 Refill(s), Pharmacy: [facility] [place] [id number] Active 01/13/2020 [facility] clopidogrel 75 mg oral tablet 75 mg = 1 tab, PO, Daily, # 60 tab, 0 Refill(s), Pharmacy: [facility] [place] [facility] Active 01/13/2020 [facility] Aspirin 81 MG Enteric Coated Tablet 81 mg = 1 tab, PO, Daily, 0 Refill(s) Active 01/12/2020 [facility] clopidogrel 75 mg oral tablet 75 mg = 1 tab, PO, Daily, 0 Refill(s) Inactive 01/12/2020 [facility] Simethicone Notes: (Same as: Colton dia) Inactive 01/12/2020 [facility] Simethicone Notes: (Same as: Colton dia) Inactive 01/12/2020 [facility] Aspirin 81 MG Enteric Coated Tablet 81 mg, 1 tab, Route: PO, Drug form: ECTAB, Daily, Dosing Weight 50.909, kg, Start date: 01/12/20 9:00:00 CDT, Duration: 30 day, Stop date: 02/10/20 9:00:00 CDT, 0 Inactive 01/12/2020 [facility] clopidogrel Notes: (Same As: P lavix) Inactive 01/12/2020 [facility] Amlodipine Notes: (Same as: No rvasc) No Longer Active 01/12/2020 [facility] atorvastatin Notes: (Same as: Lipitor) No Longer Active 01/12/2020 [facility] Flecainide Notes: (Same as: Ta mbocor) No Longer Active 01/12/2020 [facility] Losartan Notes: (Same as: Coza ar) No Longer Active 01/11/2020 [facility] pantoprazole 40 mg, 1 tab, Rou te: PO, Drug form: ECTAB, BID, Dosing Weight 50.909, kg, Start date: 01/11/20 17:00:00 CDT, Duration: 30 day, Stop date: 02/10/20 9:00:00 CDT, 0 No Longer Active 01/11/2020 [facility] Warfarin Notes: Nurse to ensur e documentation of patient education per anticoagulation policy. Avoid large intake of vitamin-K containing foods diet. (Same As: Coumadin) WASTE: F/P - P Waste Black; E - P Waste Black Hazardous Drug Group 3:Reproductive risk Hazardous Drug -- Refer to safe handling procedure PPE Matrix No Longer Active 01/11/2020 [facility] Waiting for INR results Waiting for INR results, Waiting for INR results, Drug form: MISC, Route: MISC, ONCALL, 01/11/20 15:00:00 CDT, Duration: 30 day, Stop date: 02/10/20 14:59:00 CDT, 0 Inactive 01/11/2020 [facility] Sodium Chloride 0.9% IV 1,000 mL 1,000 mL, Rate: 100 ml/hr, Infuse over: 10 hr, Route: IV, Dosing Weight 50.909 kg, Total Volume: 1,000, Start date: 01/11/20 14:45:00 CDT, Duration: 10 hr, Stop date: 01/12/20 0:44:00 CDT, 1.48, m2, 0 No Longer Active 01/11/2020 [facility] Nitroglycerin 0.4 mg, 1 tab, R oute: SL, Drug form: TAB, Q5Min, Dosing Weight 50.909, kg, PRN Chest Pain, Start date: 01/11/20 14:45:00 CDT, Duration: 3 doses or times, Stop date: Limited # of times, 0 No Longer Active 01/11/2020 [facility] Albuterol 0.833 MG/ML / Ipratropium Brom rik 0.167 MG/ML Inhalant Solution [DuoNeb] Notes: (Same as: Duoneb) No Longer Active 01/11/2020 [facility] Dextrose 50% Syringe (D50W) 12 .5 gm, 25 mL, Route: IVP, Drug Form: INJ, Dosing Weight 59.091, kg, PRN, PRN Blood Glucose Results, Start date: 01/11/20 8:54:00 CDT, Duration: 30 day, Stop date: 02/10/20 8:53:00 CDT, 0 No Longer Active 01/11/2020 [facility] Glucagon 1 mg, Route: IM, Drug form: PDR/INJ, PRN, Dosing Weight 59.091, kg, PRN Blood Glucose Results, Start date: 01/11/20 8:54:00 CDT, Duration: 30 day, Stop date: 02/10/20 8:53:00 CDT, 0 No Longer Active 01/11/2020 [facility] Ondansetron Notes: (Same as: Anil burkett) MEDICATION WASTE Product Size: 4 mg Product Wasted: ___ mg No Longer Active 01/11/2020 [facility] normal saline 0.9% IV 1,000 mL 1,000 mL, Rate: 100 ml/hr, Infuse over: 10 hr, Route: IV, Dosing Weight 59.091 kg, Total Volume: 1,000, Start date: 01/11/20 8:25:00 CDT, Duration: 30 day, Stop date: 02/10/20 8:24:00 CDT, 1.6, m2, 0 Inactive 01/11/2020 [facility] Saline Flush 0.9% Notes: (Same as: BD Posiflush) No Longer Active 01/11/2020 [facility] Sodium Chloride 0.9% (Bolus) IV 1,000 mL, 1000 ml/hr, Infuse Over: 1 hr, Route: IV, 1,000, Drug form: INJ, ONCE, Priority: STAT, Dosing Weight 81.818 kg, Start date: 09/30/19 13:54:00 MOTOR 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 Avoid large intake of vitamin-K containing foods diet. (Same As: Coumadin) WASTE: F/P - P Waste Black; E - P Waste Black Inactive 08/25/2019 [facility] Calcium Carbonate 1500 MG / Cholecalcife rol 800 UNT Oral Tablet [Caltrate Plus D 600/800] 1 tab, PO, BID, # 60 tab, 0 Refill(s), Pharmacy: [facility] Active 08/25/2019 [facility] magnesium oxide 400 mg oral tablet 400 mg = 1 tab, PO, Daily, X 30 day, # 30 tab, 1 Refill(s), Pharmacy: [facility] [place] [facility] Active 08/25/2019 [facility] Magnesium Sulfate Notes: WASTE : F/P - Sink; E - Municipal Trash Bin Inactive 08/25/2019 [facility] Amlodipine Notes: (Same as: No rvasc) Inactive 08/25/2019 [facility] Losartan Notes: (Same as: Rose Marie ambriz) Inactive 08/25/2019 [facility] metoprolol succinate 25 mg oral capsule, extended release metoprolol succinate 25 mg oral capsule, extended release, 25 mg, Route: PO, Daily, 08/25/19 9:00:00 MOTOR VEHICLE CLERK, Duration: 30 day, Stop date: 09/23/19 9:00:00 MOTOR VEHICLE CLERK Inactive 08/25/2019 [facility] pantoprazole Notes: Tablet yobani uld not be chewed or crushed. (Same as: Protonix) Inactive 08/25/2019 [facility] metoprolol Notes: (Same as: To prol XL) Do Not Crush Inactive 08/25/2019 [facility] Flecainide Notes: (Same as: Ta mbocor) Inactive 08/25/2019 [facility] Amlodipine Notes: (Same as: No rvasc) Inactive 08/25/2019 [facility] amLODIPine 2.5 mg oral tablet 2.5 mg = 1 tab, PO, Bedtime, 0 Refill(s) Active 08/25/2019 [facility] calcium gluconate + Sodium Chloride 0.9% IV 100 mL Notes: WASTE: F/P - Sink; E - Municipal Trash Bin No Longer Active 08/25/2019 [facility] Dextrose 50% Syringe (D50W) 12 .5 gm, 25 mL, Route: IVP, Drug Form: INJ, Dosing Weight 59.091, kg, PRN, PRN Blood Glucose Results, Start date: 08/24/19 21:24:00 MOTOR VEHICLE CLERK, Duration: 30 day, Stop date: 09/23/19 21:23:00 MOTOR VEHICLE CLERK, 0 No Longer Active 08/25/2019 [facility] Glucagon 1 mg, Route: IM, Drug form: PDR/INJ, PRN, Dosing Weight 59.091, kg, PRN Blood Glucose Results, Start date: 08/24/19 21:24:00 MOTOR VEHICLE CLERK, Duration: 30 day, Stop date: 09/23/19 21:23:00 MOTOR VEHICLE CLERK, 0 No Longer Active 08/25/2019 [facility] Acetaminophen Notes: Do not ex ceed 4 gm/day. (Same as: Tylenol) No Longer Active 08/25/2019 [facility] Calcium Gluconate 3,000 mg, Ro brooks: IVPB, Drug form: INJ, ONCE, Dosing Weight 59.091, kg, Priority: STAT, Start date: 08/24/19 21:24:00 MOTOR VEHICLE CLERK, Stop date: 08/24/19 21:24:00 MOTOR VEHICLE CLERK Inactive 08/25/2019 [facility] Magnesium Sulfate Notes: WASTE : F/P - Sink; E - Municipal Trash Bin Inactive 08/25/2019 [facility] Calcium Gluconate Notes: WASTE : F/P - Sink; E - Municipal Trash Bin Inactive 08/25/2019 [facility] metoprolol succinate 25 mg oral capsule, extended release 25 mg = 1 cap, PO, Daily, 0 Refill(s) Active 07/24/2019 [facility] losartan 50 mg oral tablet 50 mg = 1 tab, PO, BID, 0 Refill(s) Active 07/24/2019 [facility] warfarin 2 mg oral tablet 2 mg = 1 tab, PO, Daily, 0 Refill(s) Active 07/24/2019 [facility] pantoprazole 40 mg oral enteric coated tablet 40 mg = 1 tab, PO, Daily, 0 Refill(s) Active 07/24/2019 [facility] amLODIPine 5 mg oral tablet 5 mg = 1 tab, PO, Daily, 0 Refill(s) Active 07/24/2019 [facility] atorvastatin 40 mg oral tablet 40 mg = 1 tab, PO, Bedtime, # 30 tab, 0 Refill(s) Active 07/24/2019 [facility] tramadol hydrochloride 50 MG Oral Tablet 50 mg = 1 tab, PO, Q8H, PRN Pain, X 7 day, # 21 tab, 0 Refill(s) Active 01/30/2018 [facility] tizanidine 2 mg oral tablet 2 mg = 1 tab, PO, Q8H, PRN for muscle spasms, # 21 tab, 0 Refill(s) Active 01/30/2018 [facility] Acetaminophen 300 MG / Codeine Phosphate 30 MG Oral Tablet [Tylenol with Codeine #3] 1 tab, PO, Q6H, PRN Pain, X 7 day, # 28 tab, 0 Refill(s) Active 01/30/2018 [facility] Fentanyl Notes: (Same as: Subl imaze) Preservative free. Inactive 01/30/2018 [facility] Cephalexin 500 MG Oral Capsule [Keflex] 500 mg = 1 cap, PO, TID, X 10 day, # 30 cap, 0 Refill(s) Active 12/26/2015 [facility] Rocephin 1 gm, Route: IVPB, Dr ug form: PDR/INJ, ONCE, Dosing Weight 61.818, kg, Priority: STAT, Start date: 12/26/15 10:51:00 CDT, Stop date: 12/26/15 10:51:00 CDT Inactive 12/26/2015 [facility] Tylenol 650 mg, Route: PO, Shekhar g form: TAB, ONCE, Dosing Weight 62.727, kg, Priority: STAT, Start date: 12/26/15 8:23:00 CDT, Stop date: 12/26/15 8:23:00 CDT Inactive 12/26/2015 [facility] Enoxaparin Sodium 40 MG/0.4ML Subcutaneous Solution ; Start Date: 07/16/2013; End Date: (Active) Active 07/16/2013 [facility] Diovan 160 MG Oral Tablet ; St art Date: 12/21/2012; End Date: (Active) Active 12/21/2012 [facility] Enoxaparin Sodium 40 MG/0.4ML Subcutaneous Solution ; Start Date: 12/21/2012; End Date: (Active) Active 12/21/2012 [facility] Pravastatin Sodium 40 MG Oral Tablet ; Start Date: 09/14/2012; End Date: (Active) Active 09/14/2012 [facility] Warfarin Sodium 3 MG Oral Tablet ; Start Date: 03/15/2012; End Date: (Active) Active 03/15/2012 [facility] Coumadin 5 mg, 1 tab, Route: P O, Drug form: TAB, Q5PM, Start date: 07/12/11 17:00:00, Duration: 30 day, Stop date: 08/10/11 17:00:00 PO No Longer Active Bapat 07/12 [facility] Sodium Chloride 0.45% IV 1,000 mL 1,000 mL, Rate: 125 ml/hr, Infuse over: 8 hr, Route: IV, Total Volume: 1,000, Start date: 07/12/11 11:03:00, Duration: 6 hr, Stop date: 07/13/11 1:02:00 IV No Longer Active Nm-Caze 07/12/2011 [facility] Protonix 40 mg, 1 tab, Route: PO, Drug form: ECTAB, Before Dinner, Start date: 07/11/11 16:30:00, Duration: 30 day, Stop date: 08/09/11 16:30:00 PO No Longer Active Bapat 07/11/2011 [facility] nitroglycerin 0.4 mg sublingual tablet 0.4 mg, 1 tab, Route: SL, Drug form: TAB, Q5Min, PRN Chest Pain, Start date: 07/11/11 15:22:00, Duration: 30 day, Stop date: 08/10/11 15:21:00 SL No Longer Active Bapat 07/11/2011 [facility] atropine 0.5 mg, 5 mL, Route: IVP, Drug form: INJ, PRN, PRN Bradycardia, Start date: 07/11/11 15:22:00, Duration: 30 day, Stop date: 08/10/11 15:21:00 IVP No Longer Active Bapat 07/11/2011 [facility] Lanoxin 0.125 mg, 0.5 mL, Rout e: IV, Drug form: INJ, QAM, Start date: 07/11/11 9:00:00, Duration: 30 day, Stop date: 08/09/11 9:00:00 IV No Longer Active Orellana 06/29 [facility] Prilosec 20 mg, Route: PO, Shekhar g form: DRC, Daily, Start date: 07/11/11 9:00:00, Duration: 30 day, Stop date: 08/09/11 9:00:00 PO No Longer Active Steve [facility] Diovan HCT 80 mg-12.5 mg oral tablet 2 tab, Route: PO, Drug Form: TAB, Daily, Start date: 07/11/11 9:00:00, Duration: 30 day, Stop date: 08/09/11 9:00:00 PO No Longer Active Steve 07/11/2011 [facility] gemfibrozil 600 mg, 1 tab, Rou te: PO, Drug form: TAB, BID, Start date: 07/11/11 9:00:00, Duration: 30 day, Stop date: 08/09/11 17:00:00 PO No Longer Active Steve 07/11/2011 [facility] hydrochlorothiazide 25 mg oral tablet 25 mg, 1 tab, Route: PO, Drug form: TAB, Daily, Start date: 07/11/11 9:00:00, Duration: 30 day, Stop date: 08/09/11 9:00:00 PO No Longer Active Steve 07/11/2011 [facility] Diovan 160 mg, 2 tab, Route: P O, Drug form: TAB, Daily, Start date: 07/11/11 9:00:00, Duration: 30 day, Stop date: 08/09/11 9:00:00 PO No Longer Active Steve 011 [facility] Lanoxin 0.25 mg, 1 mL, Route: IV, Drug form: INJ, ONCE, Start date: 07/10/11 19:20:00, Stop date: 07/10/11 19:20:00 IV No Longer Active Bapat 07/11/2011 [facility] Tylenol 650 mg, 2 tab, Route: PO, Drug form: TAB, Q6H, PRN Pain, Start date: 07/10/11 19:01:00, Duration: 30 day, Stop date: 08/09/11 19:00:00 PO No Longer Active Steve 07/11/2011 [facility] morphine Sulfate 2 mg, 1 mL, R oute: IVP, Drug form: INJ, Q4H, PRN Pain, Start date: 07/10/11 19:01:00, Duration: 30 day, Stop date: 08/09/11 19:00:00 IVP No Longer Active Steve 07/11/2011 [facility] [place] 5/325 oral tablet 1 tab, Route: PO, Drug Form: TAB, Q6H, PRN Pain, Start date: 07/10/11 19:01:00, Duration: 30 day, Stop date: 08/09/11 19:00:00 PO No Longer Active Steve 07/11/2011 [facility] Zofran 4 mg, 2 mL, Route: IV, Drug form: INJ, Q6H, PRN Nausea, Start date: 07/10/11 19:01:00, Duration: 30 day, Stop date: 08/09/11 19:00:00 IV No Longer Active [facility] 07/11/2011 [facility] Lopressor 5 mg, 5 mL, Route: I V, Drug form: INJ, Q4H, PRN Other -See Comment, Start date: 07/10/11 18:39:00, Duration: 30 day, Stop date: 08/09/11 18:38:00 [facility] Lovenox 60 mg, 0.6 mL, Route: SUB-Q, Drug form: INJ, [id number], Start date: 07/10/11 18:00:00, Duration: 30 day, Stop date: 08/09/11 6:00:00 SUB-Q No Longer Active Steve 07/11/2011 [facility] Lanoxin 0.25 mg, 1 mL, Route: IV, Drug form: INJ, ONCE, Start date: 07/10/11 13:20:00, Stop date: 07/10/11 13:20:00 IV No Longer Active Bapat 07/10/2011 [facility] metoprolol 50 mg, 1 tab, Route : PO, Drug form: TAB, Q12H, Hold for SBP < 90mmHg or HR < 60. First dose now., Start date: 07/10/11 9:00:00, Duration: 30 day, Stop date: 08/08/11 21:00:00 PO No Longer Active [facility] 07/10/2011 [facility] Saline Flush 0.9% 5 ml, Route: IVP, Drug Form: INJ, Q12H, Start date: 07/10/11 9:00:00, Duration: 30 day, Stop date: 08/08/11 21:00:00 IVP No Longer Active [facility] 07/10/2011 [facility] famotidine 20 mg, 1 tab, Route : PO, Drug form: TAB, Q12H, Start date: 07/10/11 9:00:00, Duration: 30 day, Stop date: 08/08/11 21:00:00 PO No Longer Active [facility] 07/10/2011 [facility] aspirin 325 mg tablet 325 mg, 1 tab, Route: PO, Drug form: TAB, Daily, Start date: 07/10/11 9:00:00, Duration: 30 day, Stop date: 08/08/11 9:00:00 PO No Longer Active [facility] 07/10/2011 [facility] diltiazem 125 mg + Sodium Chloride 0.9% (titrate) 100 mL 100 mL, Rate: Start at 5mg/hr. Titrate t o maintain HR < 100., Route: IV, Total Volume: 125, Titrate to off after metoprolol started, Duration: 30 day, Stop date: 08/09/11 6:53:00, Replace Every: 24 hr IV No Longer Active [facility] 07/10/2011 [facility] Saline Flush 0.9% 5 ml, Route: IVP, Drug Form: INJ, PRN, PRN Line Flush, Start date: 07/10/11 6:53:00, Duration: 30 day, Stop date: 08/09/11 6:52:00 IVP No Longer Active [facility] 07/10/2011 [facility] Saline Flush 0.9% 5 ml, Route: IVP, Drug Form: INJ, PRN, PRN Line Flush, Start date: 07/10/11 3:21:00, Duration: 30 day, Stop date: 08/09/11 3:20:00 IVP No Longer Active [facility] 07/10/2011 [facility] nitroglycerin 0.4 mg sublingual tablet 0.4 mg, 1 tab, SL, Q5Min, PRN, as needed for chest pain, Substitution Allowed SL Active 07/10/2011 [facility] Diovan HCT 160 mg-25 mg oral tablet 1 tab, PO, Daily, 30 tab, Substitution Allowed, Maintenance, TAB PO Active [facility] 07/10/2011 [facility] metoprolol 50 mg oral tablet 1 tab, PO, BID, 180 tab, Substitution Allowed, TAB PO Active 07/10/2011 [facility] gemfibrozil 600 mg oral tablet 600 mg, 1 tab, PO, BID, Substitution Allowed PO Active [facility] 07/10/2011 [facility] Fosamax PO, Daily, Substitutio n Allowed PO Active 07/10/2011 [facility] Prilosec 20 mg oral delayed release capsule 1 cap, PO, Daily, 30 cap, Substitution Allowed PO Active [facility] 07/10/2011 [facility] magnesium sulfate 2 gm, Route: IVPB, Drug form: INJ, ONCE, Total dose = 2 gm, Start date: 07/10/11 1:32:00, Duration: 1 doses or times, Stop date: 07/10/11 1:32:00 IVPB No Longer Active [facility] 07/10/2011 [facility] K-Dur 20 40 mEq, Route: PO, Dr quezada form: ERTAB, ONCE, Start date: 07/10/11 1:32:00, Stop date: 07/10/11 1:32:00 PO No Longer Active [facility] 07/10/2011 [facility] diltiazem 125 mg + Sodium Chloride 0.9% (titrate) 100 mL 100 mL, Rate: Titrate, Route: IV, Total Volume: 125 ml, Duration: 30 day, Stop date: 08/09/11 0:37:00, Replace Every: 24 hr IV No Longer Active [facility] 07/10/2011 [facility] Cardizem 15 mg, Route: IVP, Dr quezada form: INJ, ONCE, Priority: STAT, Start date: 07/09/11 22:12:00, Stop date: 07/09/11 22:12:00 IVP No Longer Active Bhupinder 07/2011 [facility] aspirin 325 mg tablet 325 mg, 1 tab, Route: PO, Drug form: TAB, ONCE, Priority: STAT, Start date: 07/09/11 22:06:00, Stop date: 07/09/11 22:06:00 PO No Longer Active [facility] 07/10/2011 [facility] Saline Flush 0.9% 5 ml, Route: IVP, Drug Form: INJ, PRN, PRN Line Flush, Start date: 07/09/11 22:06:00, Duration: 24 hr, Stop date: 07/10/11 22:05:00 IVP No Longer Active [facility] 07/10/2011 [facility] Alendronate Sodium 70 MG Oral Tablet ; Start Date: ; End Date: (Active) Inactive [facility] Omeprazole 20 MG Oral Capsule Delayed Release ; Start Date: ; End Date: (Active) Inactive [facility] Hydrochlorothiazide 12.5 MG Oral Capsule ; Start Date: ; End Date: (Active) Inactive [facility] Nitrostat 0.4 MG Sublingual Tablet Sublingual ; Start Date: ; End Date: (Active) Inactive [facility] Flecainide Acetate 100 MG Oral Tablet ; Start Date: ; End Date: (Active) Inactive [facility] Metoprolol Succinate ER 50 MG Oral Table t Extended Release 24 Hour ; Start Date: ; End Date: 08/1899 (Active) Inactive [facility] Gemfibrozil 600 MG Oral Tablet ; Start Date: ; End Date: (Active) Inactive [facility] AmLODIPine Besylate 5 MG Oral Tablet ; Start Date: ; End Date: (Active) Inactive [facility] Metoprolol Succinate ER 50 MG Oral Table t Extended Release 24 Hour ; Start Date: ; End Date: 08/1899 (Active) Inactive [facility] Lopid 600 MG Oral Tablet (Act billy) Active [facility] Hydrochlorothiazide 12.5 MG Oral Capsule (Active) Active [facility] Allergies, Adverse Reactions, Alerts Substance Category Reaction Severity Reaction type Status Date Reported Comments Source No Known Medication Allergies Assertion Drug aller gy [facility] No Known Drug Allergies drug a llergy drug aller gy Active [facility] Immunizations Immunization Date Given Site Status Last Updated Comments Source influenza virus vaccine, inactivated 08/25/2019 Left deltoid completed [facility] Results Order Name Results Value Reference Range Date Interpretation Comments Source IMMUNOLOGY Coronavirus (COVID-19) NA A Not Detected *NA* (06/27/20 8:15 PM) Not Detected 06/28/2020 [facility] URINE AND STOOL UA Color Yellow *NA* (06/27/20 6:56 PM) Yellow 06/27/2020 [facility] URINE AND STOOL UA Turbidity Clear (06/27/20 6:56 PM) Clear 06/27/2020 [facility] URINE AND STOOL UA Spec Grav 1.015 <=1.030 06/27/2020 [facility] URINE AND STOOL UA pH 6.0 5.0 - 8.0 06/27/2020 [facility] URINE AND STOOL UA Protein 100 mg/dL Negative mg/dL 06/27/2020 [facility] URINE AND STOOL UA Glucose Negative (06/27/20 6:56 PM) Negative 06/27/2020 [facility] URINE AND STOOL UA Ketones Negative *NA* (06/27/20 6:56 PM) Negative 06/27/2020 [facility] URINE AND STOOL UA Bili Negative *NA* (06/27/20 6:56 PM) Negative 06/27/2020 [facility] URINE AND STOOL UA Blood Small *ABN* (06/27/20 6:56 PM) Negative 06/27/2020 [facility] URINE AND STOOL UA Urobilinogen 0.2 0.1 - 1.0 06/27/2020 [facility] URINE AND STOOL UA Nitrite Negative (06/27/20 6:56 PM) Negative 06/27/2020 [facility] URINE AND STOOL UA Leuk Est Trace *ABN* (06/27/20 6:56 PM) Negative 06/27/2020 [facility] URINE AND STOOL UA Sq Epi Few /LPF Few /LPF 06/27/2020 [facility] URINE AND STOOL UA WBC 0-2 /HPF 0 - 5 06/27/2020 [facility] URINE AND STOOL UA RBC None Seen (06/27/20 6:56 PM) 0 - 2 06/27/2020 [facility] URINE AND STOOL UA Bacteria Occasional /HPF None Seen /HPF 06/27/[address] [facility] [address] CARDIAC ENZYMES Total CK 34 12 - 191 06/27/2020 [facility] CARDIAC ENZYMES Troponin-I <0.02 0.00 - 0.40 06/27/2020 [facility] CHEM PANEL Glucose Lvl 117 70 - 99 06/27/2020 [facility] BUN 19 7 - 22 06/27/2020 [facility] CHEM PANEL Creatinine Lvl 0.98 0.50 - 1.40 06/27/2020 [facility] PANEL Sodium Lvl 137 135 - 145 06/27/2020 [facility] PANEL Potassium Lvl 4.1 3.5 - 5.1 06/27/2020 [facility] PAN[facility] Chloride Lvl 101 95 - 109 06/27/2020 [facility] PAN[facility] CO2 25 24 - 32 06/27/2020 [facility] Calcium Lvl 8.9 8.5 - 10.5 06/27/2020 [facility] Total Protein 7.0 6.4 - 8.4 06/27/2020 [facility] PANEL Albumin Lvl 3.3 3.5 - 5.0 06/27/2020 [facility] PAN[facility] ALT 32 0 - 65 06/27/2020 [facility] AST 21 0 - 37 06/27/2020 [facility] Alk Phos 76 39 - 136 06/27/2020 [facility] PANEL Bili Total 0.5 0.2 - 1.3 06/27/2020 [facility] AGAP 15.1 10.0 - 20.0 06/27/2020 [facility] B/C Ratio 19 6 - 25 06/27/2020 [facility] Globulin 3.7 2.7 - 4.2 06/27/2020 [facility] A/G Ratio 0.9 0.7 - 1.6 06/27/2020 [facility] PANEL eGFR 52 06/27/2020 Result Comment: The eGFR is calculated using the CKD-EPI formula. In most young, healthy individuals the eGFR will be >90 mL/min/1.73m2. The eGFR declines with age. An eGFR of 60-89 may be normal in some populations, particularly the elderly, for whom the CKD-EPI formula has not been extensively validated. Use of the eGFR is not recommended in the following populations:

Individuals with unstable creatinine concentrations, including patients and those with serious co-morbid conditions.

Patients with extremes in muscle mass or diet.

The data above are obtained from the National Kidney Disease Education Program (NKDEP) which additionally recommends that when the eGFR is used in patients with extremes of body mass index for purposes of drug dosing, the eGFR should be multiplied by the estimated BMI. [facility] CHEM PANEL Magnesium Lvl 1.7 1.8 - 2.4 06/27/2020 [facility] CHEM PANEL Phosphorus 3.2 2.5 - 4.5 06/27/2020 [facility] HEMATOLOGY WBC 10.9 3.7 - 10.4 06/27/2020 [facility] HEMATOLOGY RBC 3.61 4.20 - 5.40 06/27/2020 [facility] HEMATOLOGY Hgb 11.2 12.0 - 16.0 06/27/2020 [facility] HEMATOLOGY Hct 33.3 36.0 - 48.0 06/27/2020 [facility] MCV 92.1 80.0 - 98.0 06/27/2020 [facility] MCH 31.0 27.0 - 31.0 06/27/2020 [facility] MCHC 33.6 32.0 - 36.0 06/27/2020 [facility] RDW 14.0 11.5 - 14.5 06/27/2020 [facility] Platelet 192 133 - 450 06/27/2020 [facility] HEMATOLOGY MPV 9.6 7.4 - 10.4 06/27/2020 [facility] HEMATOLOGY PT 14.4 12.0 - 14.7 06/27/2020 [facility] HEMATOLOGY INR 1.11 0.85 - 1.17 06/27/2020 [facility] HEMATOLOGY PTT 24.7 22.9 - 35.8 06/27/2020 [facility] HEMATOLOGY Segs 76.1 45.0 - 75.0 06/27/2020 [facility] HEMATOLOGY Lymphocytes 10.6 20.0 - 40.0 06/27/2020 [facility] HEMATOLOGY Monocytes 9.6 2.0 - 12.0 06/27/2020 [facility] HEMATOLOGY Eosinophils 3.3 0.0 - 4.0 06/27/2020 [facility] HEMATOLOGY Basophils 0.4 0.0 - 1.0 06/27/2020 [facility] HEMATOLOGY Neutrophils # 8.3 1.5 - 8.1 06/27/2020 [facility] HEMATOLOGY Lymphocytes # 1.1 1.0 - 5.5 06/27/2020 [facility] HEMATOLOGY Monocytes # 1.0 0.0 - 0.8 06/27/2020 [facility] HEMATOLOGY Eosinophils # 0.4 0.0 - 0.5 06/27/2020 [facility] CHEM PANEL Glucose Lvl 116 70 - 99 06/13/2020 [facility] CHEM PANEL BUN 20 7 - 22 06/13/2020 [facility] CHEM PANEL Creatinine Lvl 1.14 0.50 - 1.40 06/13/2020 [facility] CHEM PANEL Sodium Lvl 141 135 - 145 06/13/2020 [facility] CHEM PANEL Potassium Lvl 4.1 3.5 - 5.1 06/13/2020 [facility] CHEM PANEL Chloride Lvl 108 95 - 109 06/13/2020 [facility] CHEM PANEL CO2 27 24 - 32 06/13/2020 [facility] CHEM PANEL Calcium Lvl 9.6 8.5 - 10.5 06/13/2020 [facility] CHEM PANEL AGAP 10.1 10.0 - 20.0 06/13/2020 [facility] CHEM PANEL eGFR 43 06/13/2020 Result Comment: The eGFR is calculated using the CKD-EPI formula. In most young, healthy individuals the eGFR will be >90 mL/min/1.73m2. The eGFR declines with age. An eGFR of 60-89 may be normal in some populations, particularly the elderly, for whom the CKD-EPI formula has not been extensively validated. Use of the eGFR is not recommended in the following populations:

Individuals with unstable creatinine concentrations, including patients and those with serious co-morbid conditions.

Patients with extremes in muscle mass or diet.

The data above are obtained from the National Kidney Disease Education Program (NKDEP) which additionally recommends that when the eGFR is used in patients with extremes of body mass index for purposes of drug dosing, the eGFR should be multiplied by the estimated BMI. [facility] HEMATOLOGY WBC 8.2 3.7 - 10.4 06/13/2020 [facility] HEMATOLOGY RBC 3.71 4.20 - 5.40 06/13/2020 [facility] HEMATOLOGY Hgb 11.4 12.0 - 16.0 06/13/2020 [facility] HEMATOLOGY Hct 33.6 36.0 - 48.0 06/13/2020 [facility] HEMATOLOGY MCV 90.5 80.0 - 98.0 06/13/2020 [facility] HEMATOLOGY MCH 30.6 27.0 - 31.0 06/13/2020 [facility] HEMATOLOGY MCHC 33.9 32.0 - 36.0 06/13/2020 [facility] HEMATOLOGY RDW 13.5 11.5 - 14.5 06/13/2020 [facility] HEMATOLOGY Platelet 257 133 - 450 06/13/2020 [facility] HEMATOLOGY MPV 9.3 7.4 - 10.4 06/13/2020 [facility] HEMATOLOGY PT 14.7 12.0 - 14.7 06/13/2020 [facility] HEMATOLOGY INR 1.14 0.85 - 1.17 06/13/2020 [facility] HEMATOLOGY PTT 23.0 22.9 - 35.8 06/13/2020 [facility] HEMATOLOGY Segs 68.1 45.0 - 75.0 06/13/2020 [facility] HEMATOLOGY Lymphocytes 23.8 20.0 - 40.0 06/13/2020 [facility] HEMATOLOGY Monocytes 6.2 2.0 - 12.0 06/13/2020 [facility] HEMATOLOGY Eosinophils 1.3 0.0 - 4.0 06/13/2020 [facility] HEMATOLOGY Basophils 0.6 0.0 - 1.0 06/13/2020 [facility] HEMATOLOGY Neutrophils # 5.6 1.5 - 8.1 06/13/2020 [facility] HEMATOLOGY Lymphocytes # 2.0 1.0 - 5.5 06/13/2020 [facility] HEMATOLOGY Monocytes # 0.5 0.0 - 0.8 06/13/2020 [facility] HEMATOLOGY Eosinophils # 0.1 0.0 - 0.5 06/13/2020 [facility] HEMATOLOGY Basophils # 0.1 0.0 - 0.2 06/13/2020 [facility] IMMUNOLOGY Coronavirus (COVID-19) NA A Not Detected *NA* (06/10/20 9:54 AM) Not Detected 06/10/2020 [facility] CHEM PANEL Glucose Lvl 113 70 - 99 05/30/2020 [facility] CHEM PANEL BUN 22 7 - 22 05/30/2020 [facility] CHEM PANEL Creatinine Lvl 1.24 0.50 - 1.40 05/30/2020 [facility] CHEM PANEL Sodium Lvl 140 135 - 145 05/30/2020 [facility] CHEM PANEL Potassium Lvl 3.9 3.5 - 5.1 05/30/2020 [facility] CHEM PANEL Chloride Lvl 106 95 - 109 05/30/2020 [facility] CHEM PANEL CO2 27 24 - 32 05/30/2020 [facility] CHEM PANEL Calcium Lvl 9.9 8.5 - 10.5 05/30/2020 [facility] CHEM PANEL AGAP 10.9 10.0 - 20.0 05/30/2020 [facility] CHEM PANEL eGFR 39 05/30/2020 Result Comment: The eGFR is calculated using the CKD-EPI formula. In most young, healthy individuals the eGFR will be >90 mL/min/1.73m2. The eGFR declines with age. An eGFR of 60-89 may be normal in some populations, particularly the elderly, for whom the CKD-EPI formula has not been extensively validated. Use of the eGFR is not recommended in the following populations:

Individuals with unstable creatinine concentrations, including patients and those with serious co-morbid conditions.

Patients with extremes in muscle mass or diet.

The data above are obtained from the National Kidney Disease Education Program (NKDEP) which additionally recommends that when the eGFR is used in patients with extremes of body mass index for purposes of drug dosing, the eGFR should be multiplied by the estimated BMI. [facility] HEMATOLOGY WBC 9.9 3.7 - 10.4 05/30/2020 [facility] HEMATOLOGY RBC 3.93 4.20 - 5.40 05/30/2020 [facility] HEMATOLOGY Hgb 12.2 12.0 - 16.0 05/30/2020 [facility] HEMATOLOGY Hct 35.5 36.0 - 48.0 05/30/2020 [facility] HEMATOLOGY MCV 90.4 80.0 - 98.0 05/30/2020 [facility] HEMATOLOGY MCH 30.9 27.0 - 31.0 05/30/2020 [facility] HEMATOLOGY MCHC 34.2 32.0 - 36.0 05/30/2020 [facility] HEMATOLOGY RDW 13.7 11.5 - 14.5 05/30/2020 [facility] HEMATOLOGY Platelet 235 133 - 450 05/30/2020 [facility] MPV 9.1 7.4 - 10.4 05/30/2020 [facility] PT 15.6 12.0 - 14.7 05/30/2020 [facility] HEMATOLOGY INR 1.23 0.85 - 1.17 05/30/2020 [facility] HEMATOLOGY PTT 24.4 22.9 - 35.8 05/30/2020 [facility] HEMATOLOGY Segs 63.9 45.0 - 75.0 05/30/2020 [facility] HEMATOLOGY Lymphocytes 26.1 20.0 - 40.0 05/30/2020 [facility] HEMATOLOGY Monocytes 7.6 2.0 - 12.0 05/30/2020 [facility] HEMATOLOGY Eosinophils 1.8 0.0 - 4.0 05/30/2020 [facility] HEMATOLOGY Basophils 0.6 0.0 - 1.0 05/30/2020 [facility] HEMATOLOGY Neutrophils # 6.3 1.5 - 8.1 05/30/2020 [facility] HEMATOLOGY Lymphocytes # 2.6 1.0 - 5.5 05/30/2020 [facility] HEMATOLOGY Monocytes # 0.8 0.0 - 0.8 05/30/2020 [facility] HEMATOLOGY Eosinophils # 0.2 0.0 - 0.5 05/30/2020 [facility] HEMATOLOGY Basophils # 0.1 0.0 - 0.2 05/30/2020 [facility] IMMUNOLOGY Coronavirus (COVID-19) NA A Not Detected *NA* (05/27/20 9:30 AM) Not Detected 05/27/2020 [facility] HEMATOLOGY POC INR 3.3 0.9 - 1.2 02/19/2020 [facility] HEMATOLOGY POC PT 37.4 12.0 - 14.7 02/19/2020 [facility] HEMATOLOGY POC INR 2.7 0.9 - 1.2 01/22/2020 [facility] HEMATOLOGY POC PT 30.9 12.0 - 14.7 01/22/2020 [facility] CARDIAC ENZYMES Troponin-I <0.02 0.00 - 0.40 01/14/2020 [facility] CHEM PANEL Glucose Lvl 94 70 - 99 01/14/2020 [facility] CHEM PANEL BUN 15 7 - 22 01/14/2020 [facility] CHEM PANEL Creatinine Lvl 0.84 0.50 - 1.40 01/14/2020 [facility] CHEM PANEL Sodium Lvl 141 135 - 145 01/14/2020 [facility] CHEM PANEL Potassium Lvl 4.2 3.5 - 5.1 01/14/2020 [facility] CHEM PANEL Chloride Lvl 108 95 - 109 01/14/2020 [facility] CHEM PANEL CO2 27 24 - 32 01/14/2020 [facility] CHEM PANEL Calcium Lvl 9.0 8.5 - 10.5 01/14/2020 [facility] CHEM PANEL Total Protein 6.6 6.4 - 8.4 01/14/2020 [facility] CHEM PANEL Albumin Lvl 3.3 3.5 - 5.0 01/14/2020 [facility] CHEM PANEL ALT 22 0 - 65 01/14/2020 [facility] CHEM PANEL AST 21 0 - 37 01/14/2020 [facility] CHEM PANEL Alk Phos 52 39 - 136 01/14/2020 [facility] CHEM PANEL Bili Total 0.7 0.2 - 1.3 01/14/2020 [facility] CHEM PANEL AGAP 10.2 10.0 - 20.0 01/14/2020 [facility] CHEM PANEL B/C Ratio 18 6 - 25 01/14/2020 [facility] CHEM PANEL Globulin 3.3 2.7 - 4.2 01/14/2020 [facility] CHEM PANEL A/G Ratio 1.0 0.7 - 1.6 01/14/2020 [facility] CHEM PANEL eGFR 63 01/14/2020 Result Comment: The eGFR is calculated using the CKD-EPI formula. In most young, healthy individuals the eGFR will be >90 mL/min/1.73m2. The eGFR declines with age. An eGFR of 60-89 may be normal in some populations, particularly the elderly, for whom the CKD-EPI formula has not been extensively validated. Use of the eGFR is not recommended in the following populations:

Individuals with unstable creatinine concentrations, including patients and those with serious co-morbid conditions.

Patients with extremes in muscle mass or diet.

The data above are obtained from the National Kidney Disease Education Program (NKDEP) which additionally recommends that when the eGFR is used in patients with extremes of body mass index for purposes of drug dosing, the eGFR should be multiplied by the estimated BMI. [facility] HEMATOLOGY WBC 9.2 3.7 - 10.4 01/14/2020 [facility] HEMATOLOGY RBC 3.43 4.20 - 5.40 01/14/2020 [facility] HEMATOLOGY Hgb 10.7 12.0 - 16.0 01/14/2020 [facility] HEMATOLOGY Hct 30.8 36.0 - 48.0 01/14/2020 [facility] HEMATOLOGY MCV 89.9 80.0 - 98.0 01/14/2020 [facility] HEMATOLOGY MCH 31.3 27.0 - 31.0 01/14/2020 [facility] HEMATOLOGY MCHC 34.8 32.0 - 36.0 01/14/2020 [facility] HEMATOLOGY RDW 13.9 11.5 - 14.5 01/14/2020 [facility] HEMATOLOGY Platelet 203 133 - 450 01/14/2020 [facility] HEMATOLOGY MPV 9.3 7.4 - 10.4 01/14/2020 [facility] HEMATOLOGY PTT 30.5 22.9 - 35.8 01/14/2020 [facility] HEMATOLOGY PT 22.0 12.0 - 14.7 01/14/2020 [facility] HEMATOLOGY INR 1.89 0.85 - 1.17 01/14/2020 [facility] HEMATOLOGY Segs 69.8 45.0 - 75.0 01/14/2020 [facility] HEMATOLOGY Lymphocytes 19.9 20.0 - 40.0 01/14/2020 [facility] HEMATOLOGY Monocytes 7.9 2.0 - 12.0 01/14/2020 [facility] HEMATOLOGY Eosinophils 1.9 0.0 - 4.0 01/14/2020 [facility] HEMATOLOGY Basophils 0.5 0.0 - 1.0 01/14/2020 [facility] HEMATOLOGY Neutrophils # 6.4 1.5 - 8.1 01/14/2020 [facility] HEMATOLOGY Lymphocytes # 1.8 1.0 - 5.5 01/14/2020 [facility] HEMATOLOGY Monocytes # 0.7 0.0 - 0.8 01/14/2020 [facility] HEMATOLOGY Eosinophils # 0.2 0.0 - 0.5 01/14/2020 [facility] CARDIAC ENZYMES Troponin-I <0.02 0.00 - 0.40 01/14/2020 [facility] CARDIAC ENZYMES Total CK 95 12 - 191 01/13/2020 [facility] CARDIAC ENZYMES Troponin-I <0.02 0.00 - 0.40 01/13/2020 [facility] CARDIAC ENZYMES BNP 60 <=100 pg/mL 01/13/2020 [facility] CHEM PANEL Glucose Lvl 96 70 - 99 01/13/2020 [facility] CHEM PANEL BUN 18 7 - 22 01/13/2020 [facility] CHEM PANEL Creatinine Lvl 1.04 0.50 - 1.40 01/13/2020 [facility] CHEM PANEL Sodium Lvl 137 135 - 145 01/13/2020 [facility] CHEM PANEL Potassium Lvl 4.3 3.5 - 5.1 01/13/2020 [facility] CHEM PANEL Chloride Lvl 108 95 - 109 01/13/2020 [facility] CHEM PANEL CO2 22 24 - 32 01/13/2020 [facility] CHEM PANEL Calcium Lvl 9.4 8.5 - 10.5 01/13/2020 [facility] CHEM PANEL Total Protein 7.7 6.4 - 8.4 01/13/2020 [facility] CHEM PANEL Albumin Lvl 3.8 3.5 - 5.0 01/13/2020 [facility] CHEM PANEL ALT 22 0 - 65 01/13/2020 [facility] CHEM PANEL AST 24 0 - 37 01/13/2020 [facility] CHEM PANEL Alk Phos 58 39 - 136 01/13/2020 [facility] CHEM PANEL Bili Total 0.5 0.2 - 1.3 01/13/2020 [facility] CHEM PANEL AGAP 11.3 10.0 - 20.0 01/13/2020 [facility] CHEM PANEL B/C Ratio 17 6 - 25 01/13/2020 [facility] CHEM PANEL Globulin 3.9 2.7 - 4.2 01/13/2020 [facility] CHEM PANEL A/G Ratio 1.0 0.7 - 1.6 01/13/2020 [facility] CHEM PANEL eGFR 48 01/13/2020 Result Comment: The eGFR is calculated using the CKD-EPI formula. In most young, healthy individuals the eGFR will be >90 mL/min/1.73m2. The eGFR declines with age. An eGFR of 60-89 may be normal in some populations, particularly the elderly, for whom the CKD-EPI formula has not been extensively validated. Use of the eGFR is not recommended in the following populations:

Individuals with unstable creatinine concentrations, including patients and those with serious co-morbid conditions.

Patients with extremes in muscle mass or diet.

The data above are obtained from the National Kidney Disease Education Program (NKDEP) which additionally recommends that when the eGFR is used in patients with extremes of body mass index for purposes of drug dosing, the eGFR should be multiplied by the estimated BMI. [facility] CHEM PANEL Magnesium Lvl 2.2 1.8 - 2.4 01/13/2020 [facility] HEMATOLOGY WBC 11.0 3.7 - 10.4 01/13/2020 [facility] HEMATOLOGY RBC 3.86 4.20 - 5.40 01/13/2020 [facility] HEMATOLOGY Hgb 11.9 12.0 - 16.0 01/13/2020 [facility] HEMATOLOGY Hct 35.1 36.0 - 48.0 01/13/2020 [facility] HEMATOLOGY MCV 90.9 80.0 - 98.0 01/13/2020 [facility] HEMATOLOGY MCH 30.9 27.0 - 31.0 01/13/2020 [facility] HEMATOLOGY MCHC 34.0 32.0 - 36.0 01/13/2020 [facility] HEMATOLOGY RDW 14.2 11.5 - 14.5 01/13/2020 [facility] HEMATOLOGY Platelet 237 133 - 450 01/13/2020 [facility] HEMATOLOGY MPV 9.8 7.4 - 10.4 01/13/2020 [facility] HEMATOLOGY PT 21.2 12.0 - 14.7 01/13/2020 [facility] HEMATOLOGY INR 1.81 0.85 - 1.17 01/13/2020 [facility] HEMATOLOGY PTT 26.2 22.9 - 35.8 01/13/2020 [facility] HEMATOLOGY Segs 69.2 45.0 - 75.0 01/13/2020 [facility] HEMATOLOGY Lymphocytes 22.3 20.0 - 40.0 01/13/2020 [facility] HEMATOLOGY Monocytes 7.2 2.0 - 12.0 01/13/2020 [facility] HEMATOLOGY Eosinophils 0.9 0.0 - 4.0 01/13/2020 [facility] HEMATOLOGY Basophils 0.4 0.0 - 1.0 01/13/2020 [facility] HEMATOLOGY Neutrophils # 7.6 1.5 - 8.1 01/13/2020 [facility] HEMATOLOGY Lymphocytes # 2.5 1.0 - 5.5 01/13/2020 [facility] HEMATOLOGY Monocytes # 0.8 0.0 - 0.8 01/13/2020 [facility] HEMATOLOGY Eosinophils # 0.1 0.0 - 0.5 01/13/2020 [facility] HEMATOLOGY PT 20.8 12.0 - 14.7 01/12/2020 [facility] HEMATOLOGY INR 1.77 0.85 - 1.17 01/12/2020 [facility] Trig 119 <=149 mg/dL 01/12/2020 [facility] Chol 125 <=199 mg/dL 01/12/2020 [facility] HDL 58 >=61 mg/dL 01/12/2020 [facility] CHD Risk 2.16 3.90 - 5.80 01/12/2020 [facility] LDL (Calculated) 43 <=99 mg/dL 01/12/2020 [facility] VLDL 24 01/12/2020 [facility] CHEM PANEL Creatinine Lvl 0.87 0.50 - 1.40 01/11/2020 [facility] CHEM PANEL eGFR 60 01/11/2020 Result Comment: The eGFR is calculated using the CKD-EPI formula. In most young, healthy individuals the eGFR will be >90 mL/min/1.73m2. The eGFR declines with age. An eGFR of 60-89 may be normal in some populations, particularly the elderly, for whom the CKD-EPI formula has not been extensively validated. Use of the eGFR is not recommended in the following populations:

Individuals with unstable creatinine concentrations, including patients and those with serious co-morbid conditions.

Patients with extremes in muscle mass or diet.

The data above are obtained from the National Kidney Disease Education Program (NKDEP) which additionally recommends that when the eGFR is used in patients with extremes of body mass index for purposes of drug dosing, the eGFR should be multiplied by the estimated BMI. [facility] HEMATOLOGY PT 20.4 12.0 - 14.7 01/11/2020 [facility] HEMATOLOGY INR 1.72 0.85 - 1.17 01/11/2020 [facility] HEMATOLOGY Hgb 11.9 12.0 - 16.0 01/11/2020 [facility] URINE AND STOOL UA Turbidity Clear (01/11/20 8:23 AM) Clear 01/11/2020 [facility] URINE AND STOOL UA Spec Grav 1.005 <=1.030 01/11/2020 [facility] URINE AND STOOL UA pH 8.0 5.0 - 8.0 01/11/2020 [facility] URINE AND STOOL UA Protein Negative mg/dL Negative mg/dL 01/11/[address] [facility] [address] URINE AND STOOL UA Glucose Negative mg/dL Negative mg/dL 01/11/[address] [facility] [address] URINE AND STOOL UA Ketones Negative mg/dL Negative mg/dL 01/11/[address] [facility] [address] URINE AND STOOL UA Bili Negative *NA* (01/11/20 8:23 AM) Negative 01/11/2020 [facility] URINE AND STOOL UA Blood Negative (01/11/20 8:23 AM) Negative 01/11/2020 [facility] URINE AND STOOL UA Nitrite Negative (01/11/20 8:23 AM) Negative 01/11/2020 [facility] URINE AND STOOL UA Leuk Est Negative (01/11/20 8:23 AM) Negative 01/11/2020 [facility] URINE AND STOOL UA Sq Epi Occasional /LPF Few /LPF 01/11/2020 [facility] URINE AND STOOL UA RBC 4 0 - 2 01/11/2020 [facility] URINE AND STOOL UA Color Ltyellow 01/11/2020 [facility] URINE AND STOOL UA Urobilinogen <=1.0 mg/dL 0.1 - 1.0 01/11/[address] [facility] [address] CARDIAC ENZYMES Total CK 67 12 - 191 01/11/2020 [facility] CARDIAC ENZYMES Troponin-I <0.02 0.00 - 0.40 01/11/2020 [facility] CARDIAC ENZYMES BNP 65 <=100 pg/mL 01/11/2020 [facility] CHEM PANEL Glucose Lvl 122 70 - 99 01/11/2020 [facility] CHEM PANEL BUN 18 7 - 22 01/11/2020 [facility] CHEM PANEL Creatinine Lvl 1.09 0.50 - 1.40 01/11/2020 [facility] CHEM PANEL Sodium Lvl 139 135 - 145 01/11/2020 [facility] CHEM PANEL Potassium Lvl 3.9 3.5 - 5.1 01/11/2020 [facility] CHEM PANEL Chloride Lvl 106 95 - 109 01/11/2020 [facility] CHEM PANEL CO2 22 24 - 32 01/11/2020 [facility] CHEM PANEL Calcium Lvl 9.5 8.5 - 10.5 01/11/2020 [facility] CHEM PANEL Total Protein 7.4 6.4 - 8.4 01/11/2020 [facility] CHEM PANEL Albumin Lvl 3.7 3.5 - 5.0 01/11/2020 [facility] CHEM PANEL ALT 24 0 - 65 01/11/2020 [facility] CHEM PANEL AST 27 0 - 37 01/11/2020 [facility] CHEM PANEL Alk Phos 53 39 - 136 01/11/2020 [facility] CHEM PANEL Bili Total 0.7 0.2 - 1.3 01/11/2020 [facility] CHEM PANEL AGAP 14.9 10.0 - 20.0 01/11/2020 [facility] CHEM PANEL B/C Ratio 17 6 - 25 01/11/2020 [facility] CHEM PANEL Globulin 3.7 2.7 - 4.2 01/11/2020 [facility] CHEM PANEL A/G Ratio 1.0 0.7 - 1.6 01/11/2020 [facility] CHEM PANEL eGFR 46 01/11/2020 Result Comment: The eGFR is calculated using the CKD-EPI formula. In most young, healthy individuals the eGFR will be >90 mL/min/1.73m2. The eGFR declines with age. An eGFR of 60-89 may be normal in some populations, particularly the elderly, for whom the CKD-EPI formula has not been extensively validated. Use of the eGFR is not recommended in the following populations:

Individuals with unstable creatinine concentrations, including patients and those with serious co-morbid conditions.

Patients with extremes in muscle mass or diet.

The data above are obtained from the National Kidney Disease Education Program (NKDEP) which additionally recommends that when the eGFR is used in patients with extremes of body mass index for purposes of drug dosing, the eGFR should be multiplied by the estimated BMI. [facility] CHEM PANEL Magnesium Lvl 2.0 1.8 - 2.4 01/11/2020 [facility] CHEM PANEL Phosphorus 1.9 2.5 - 4.5 01/11/2020 [facility] HEMATOLOGY WBC 10.7 3.7 - 10.4 01/11/2020 [facility] RBC 3.98 4.20 - 5.40 01/11/2020 [facility] Hgb 12.1 12.0 - 16.0 01/11/2020 [facility] Hct 35.6 36.0 - 48.0 01/11/2020 [facility] MCV 89.6 80.0 - 98.0 01/11/2020 [facility] MCH 30.5 27.0 - 31.0 01/11/2020 [facility] MCHC 34.1 32.0 - 36.0 01/11/2020 [facility] RDW 14.2 11.5 - 14.5 01/11/2020 [facility] Platelet 260 133 - 450 01/11/2020 [facility] MPV 10.1 7.4 - 10.4 01/11/2020 [facility] D-Dimer <0.27 01/11/2020 [facility] PT 19.5 12.0 - 14.7 01/11/2020 [facility] INR 1.63 0.85 - 1.17 01/11/2020 [facility] PTT 29.0 22.9 - 35.8 01/11/2020 [facility] Segs 71.4 45.0 - 75.0 01/11/2020 [facility] HEMATOLOGY Lymphocytes 20.6 20.0 - 40.0 01/11/2020 [facility] HEMATOLOGY Monocytes 6.1 2.0 - 12.0 01/11/2020 [facility] HEMATOLOGY Eosinophils 1.3 0.0 - 4.0 01/11/2020 [facility] HEMATOLOGY Basophils 0.6 0.0 - 1.0 01/11/2020 [facility] HEMATOLOGY Neutrophils # 7.6 1.5 - 8.1 01/11/2020 [facility] HEMATOLOGY Lymphocytes # 2.2 1.0 - 5.5 01/11/2020 [facility] HEMATOLOGY Monocytes # 0.7 0.0 - 0.8 01/11/2020 [facility] HEMATOLOGY Eosinophils # 0.1 0.0 - 0.5 01/11/2020 [facility] HEMATOLOGY Basophils # 0.1 0.0 - 0.2 01/11/2020 [facility] HEMATOLOGY POC INR 4.0 0.9 - 1.2 11/05/2019 [facility] HEMATOLOGY POC PT 45.0 12.0 - 14.7 11/05/2019 [facility] HEMATOLOGY POC INR 2.8 0.9 - 1.2 10/24/2019 [facility] HEMATOLOGY POC PT 32.2 12.0 - 14.7 10/24/2019 [facility] HEMATOLOGY POC INR 2.9 0.9 - 1.2 10/15/2019 [facility] HEMATOLOGY POC PT 32.9 12.0 - 14.7 10/15/2019 [facility] HEMATOLOGY POC INR 1.5 0.9 - 1.2 10/04/2019 [facility] HEMATOLOGY POC PT 17.5 12.0 - 14.7 10/04/2019 [facility] HEMATOLOGY POC INR 1.3 0.9 - 1.2 10/01/2019 [facility] HEMATOLOGY POC PT 15.9 12.0 - 14.7 10/01/2019 [facility] CARDIAC ENZYMES Total CK 34 12 - 191 09/30/2019 [facility] CARDIAC ENZYMES Troponin-I <0.02 0.00 - 0.40 09/30/2019 [facility] CHEM PANEL Glucose Lvl 104 70 - 99 09/30/2019 [facility] CHEM PANEL BUN 22 7 - 22 09/30/2019 [facility] CHEM PANEL Creatinine Lvl 0.94 0.50 - 1.40 09/30/2019 [facility] CHEM PANEL Sodium Lvl 143 135 - 145 09/30/2019 [facility] CHEM PANEL Potassium Lvl 3.9 3.5 - 5.1 09/30/2019 [facility] CHEM PANEL Chloride Lvl 113 95 - 109 09/30/2019 [facility] CHEM PANEL CO2 26 24 - 32 09/30/2019 [facility] CHEM PANEL Calcium Lvl 9.1 8.5 - 10.5 09/30/2019 [facility] CHEM PANEL Total Protein 6.6 6.4 - 8.4 09/30/2019 [facility] CHEM PANEL Albumin Lvl 3.4 3.5 - 5.0 09/30/2019 [facility] CHEM PANEL ALT 23 0 - 65 09/30/2019 [facility] CHEM PANEL AST 25 0 - 37 09/30/2019 [facility] CHEM PANEL Alk Phos 53 39 - 136 09/30/2019 [facility] CHEM PANEL Bili Total 0.2 0.2 - 1.3 09/30/2019 [facility] CHEM PANEL AGAP 7.9 10.0 - 20.0 09/30/2019 [facility] CHEM PANEL B/C Ratio 23 6 - 25 09/30/2019 [facility] CHEM PANEL Globulin 3.2 2.7 - 4.2 09/30/2019 [facility] CHEM PANEL A/G Ratio 1.1 0.7 - 1.6 09/30/2019 [facility] CHEM PANEL eGFR 55 09/30/2019 Result Comment: The eGFR is calculated using the CKD-EPI formula. In most young, healthy individuals the eGFR will be >90 mL/min/1.73m2. The eGFR declines with age. An eGFR of 60-89 may be normal in some populations, particularly the elderly, for whom the CKD-EPI formula has not been extensively validated. Use of the eGFR is not recommended in the following populations:

Individuals with unstable creatinine concentrations, including patients and those with serious co-morbid conditions.

Patients with extremes in muscle mass or diet.

The data above are obtained from the National Kidney Disease Education Program (NKDEP) which additionally recommends that when the eGFR is used in patients with extremes of body mass index for purposes of drug dosing, the eGFR should be multiplied by the estimated BMI. [facility] CHEM PANEL Lipase Lvl 150 73 - 393 09/30/2019 [facility] HEMATOLOGY WBC 7.7 3.7 - 10.4 09/30/2019 [facility] HEMATOLOGY RBC 3.76 4.20 - 5.40 09/30/2019 [facility] HEMATOLOGY Hgb 11.4 12.0 - 16.0 09/30/2019 [facility] HEMATOLOGY Hct 33.9 36.0 - 48.0 09/30/2019 [facility] HEMATOLOGY MCV 90.0 80.0 - 98.0 09/30/2019 [facility] MCH 30.3 27.0 - 31.0 09/30/2019 [facility] MCHC 33.7 32.0 - 36.0 09/30/2019 [facility] HEMATOLOGY RDW 14.4 11.5 - 14.5 09/30/2019 [facility] HEMATOLOGY Platelet 179 133 - 450 09/30/2019 [facility] MPV 10.4 7.4 - 10.4 09/30/2019 [facility] HEMATOLOGY PT 16.6 12.0 - 14.7 09/30/2019 [facility] HEMATOLOGY INR 1.33 0.85 - 1.17 09/30/2019 [facility] PTT 25.7 22.9 - 35.8 09/30/2019 [facility] HEMATOLOGY Segs 77.3 45.0 - 75.0 09/30/2019 [facility] HEMATOLOGY Lymphocytes 13.6 20.0 - 40.0 09/30/2019 [facility] HEMATOLOGY Monocytes 7.0 2.0 - 12.0 09/30/2019 [facility] HEMATOLOGY Eosinophils 1.7 0.0 - 4.0 09/30/2019 [facility] HEMATOLOGY Basophils 0.4 0.0 - 1.0 09/30/2019 [facility] Neutrophils # 5.9 1.5 - 8.1 09/30/2019 [facility] Lymphocytes # 1.0 1.0 - 5.5 09/30/2019 [facility] Monocytes # 0.5 0.0 - 0.8 09/30/2019 [facility] HEMATOLOGY Eosinophils # 0.1 0.0 - 0.5 09/30/2019 [facility] URINE AND STOOL UA Turbidity Clear (09/30/19 2:31 PM) Clear 09/30/2019 [facility] URINE AND STOOL UA Spec Grav 1.004 <=1.030 09/30/2019 [facility] URINE AND STOOL UA pH 7.0 5.0 - 8.0 09/30/2019 [facility] URINE AND STOOL UA Protein Negative mg/dL Negative mg/dL 09/30/2019 [facility] URINE AND STOOL UA Glucose Negative mg/dL Negative mg/dL 09/30/[address] [facility] [address] URINE AND STOOL UA Ketones Negative mg/dL Negative mg/dL 09/30/2019 [facility] URINE AND STOOL UA Bili Negative *NA* (09/30/19 2:31 PM) Negative 09/30/2019 [facility] URINE AND STOOL UA Blood Small *ABN* (09/30/19 2:31 PM) Negative 09/30/2019 [facility] URINE AND STOOL UA Nitrite Negative (09/30/19 2:31 PM) Negative 09/30/2019 [facility] URINE AND STOOL UA Leuk Est Negative (09/30/19 2:31 PM) Negative 09/30/2019 [facility] URINE AND STOOL UA Sq Epi Occasional /LPF Few /LPF 09/30/2019 [facility] URINE AND STOOL UA WBC <1 0 - 5 09/30/2019 [facility] URINE AND STOOL UA RBC 1 0 - 2 09/30/2019 [facility] URINE AND STOOL UA Bacteria Occasional /HPF None Seen /HPF 09/30/2019 [facility] URINE AND STOOL UA Color Ltyellow 09/30/2019 [facility] URINE AND STOOL UA Urobilinogen <=1.0 mg/dL 0.1 - 1.0 09/30/2019 [facility] HEMATOLOGY POC INR 1.6 0.9 - 1.2 09/18/2019 [facility] HEMATOLOGY POC PT 19.0 12.0 - 14.7 09/18/2019 [facility] HEMATOLOGY POC INR 3.9 0.9 - 1.2 08/27/2019 [facility] HEMATOLOGY POC PT 43.6 12.0 - 14.7 08/27/2019 [facility] CARDIAC ENZYMES Troponin-I <0.02 0.00 - 0.40 08/25/2019 [facility] CHEM PANEL Magnesium Lvl 1.6 1.8 - 2.4 08/25/2019 [facility] CHEM PANEL Phosphorus 3.2 2.5 - 4.5 08/25/2019 [facility] CHEM PANEL Glucose Lvl 97 70 - 99 08/25/2019 [facility] CHEM PANEL BUN 15 7 - 22 08/25/2019 [facility] CHEM PANEL Creatinine Lvl 0.71 0.50 - 1.40 08/25/2019 [facility] CHEM PANEL Sodium Lvl 144 135 - 145 08/25/2019 [facility] CHEM PANEL Potassium Lvl 3.4 3.5 - 5.1 08/25/2019 [facility] CHEM PANEL Chloride Lvl 108 95 - 109 08/25/2019 [facility] CHEM PANEL CO2 30 24 - 32 08/25/2019 [facility] CHEM PANEL AGAP 9.4 10.0 - 20.0 08/25/2019 [facility] CHEM PANEL Calcium Lvl 8.0 8.5 - 10.5 08/25/2019 [facility] CHEM PANEL B/C Ratio 21 6 - 25 08/25/2019 [facility] CHEM PANEL Total Protein 6.7 6.4 - 8.4 08/25/2019 [facility] CHEM PANEL Albumin Lvl 2.9 3.5 - 5.0 08/25/2019 [facility] CHEM PANEL Globulin 3.8 2.7 - 4.2 08/25/2019 [facility] CHEM PANEL A/G Ratio 0.8 0.7 - 1.6 08/25/2019 [facility] CHEM PANEL ALT 20 0 - 65 08/25/2019 [facility] CHEM PANEL AST 20 0 - 37 08/25/2019 [facility] CHEM PANEL Alk Phos 63 39 - 136 08/25/2019 [facility] CHEM PANEL Bili Total 0.4 0.2 - 1.3 08/25/2019 [facility] CHEM PANEL eGFR 77 08/25/2019 Result Comment: The eGFR is calculated using the CKD-EPI formula. In most young, healthy individuals the eGFR will be >90 mL/min/1.73m2. The eGFR declines with age. An eGFR of 60-89 may be normal in some populations, particularly the elderly, for whom the CKD-EPI formula has not been extensively validated. Use of the eGFR is not recommended in the following populations:

Individuals with unstable creatinine concentrations, including patients and those with serious co-morbid conditions.

Patients with extremes in muscle mass or diet.

The data above are obtained from the National Kidney Disease Education Program (NKDEP) which additionally recommends that when the eGFR is used in patients with extremes of body mass index for purposes of drug dosing, the eGFR should be multiplied by the estimated BMI. [facility] HEMATOLOGY WBC 8.4 3.7 - 10.4 08/25/2019 [facility] HEMATOLOGY RBC 3.60 4.20 - 5.40 08/25/2019 [facility] HEMATOLOGY Hgb 10.6 12.0 - 16.0 08/25/2019 [facility] HEMATOLOGY Hct 31.6 36.0 - 48.0 08/25/2019 [facility] HEMATOLOGY MCV 87.9 80.0 - 98.0 08/25/2019 [facility] HEMATOLOGY MCH 29.4 27.0 - 31.0 08/25/2019 [facility] HEMATOLOGY MCHC 33.4 32.0 - 36.0 08/25/2019 [facility] HEMATOLOGY RDW 13.6 11.5 - 14.5 08/25/2019 [facility] HEMATOLOGY Platelet 249 133 - 450 08/25/2019 [facility] HEMATOLOGY MPV 9.8 7.4 - 10.4 08/25/2019 [facility] HEMATOLOGY PTT 43.4 22.9 - 35.8 08/25/2019 [facility] HEMATOLOGY PT 33.0 12.0 - 14.7 08/25/2019 [facility] HEMATOLOGY INR 3.14 0.85 - 1.17 08/25/2019 [facility] CHEM PANEL Vitamin D, 25-OH, Total 3 5.8 30.0 - 100.0 08/25/2019 [facility] PARATHYROID PROFILE PTH Intact 120.6 18.4 - 80.1 08/25/2019 [facility] PARATHYROID PROFILE Ca Ion WB 0.88 1.05 - 1.25 08/25/2019 Result Comment: Critical Result(s) carl d to James Mandujano at 08/24/2019 23:21 by AR. Read back OK. [facility] PARATHYROID PROFILE Ca Norm WB 0.89 1.05 - 1.25 08/25/2019 Result Comment: Critical Result(s) carl d to James Mandujano at 08/24/2019 23:22 by AR. Read back OK. [facility] CARDIAC ENZYMES Troponin-I <0.02 0.00 - 0.40 08/25/2019 [facility] CARDIAC ENZYMES BNP 175 <=100 pg/mL 08/25/2019 [facility] CHEM PANEL Glucose Lvl 110 70 - 99 08/25/2019 [facility] CHEM PANEL BUN 17 7 - 22 08/25/2019 [facility] CHEM PANEL Creatinine Lvl 0.95 0.50 - 1.40 08/25/2019 [facility] CHEM PANEL Sodium Lvl 143 135 - 145 08/25/2019 [facility] CHEM PANEL Potassium Lvl 3.7 3.5 - 5.1 08/25/2019 [facility] CHEM PANEL Chloride Lvl 109 95 - 109 08/25/2019 [facility] CHEM PANEL CO2 25 24 - 32 08/25/2019 [facility] CHEM PANEL AGAP 12.7 10.0 - 20.0 08/25/2019 [facility] CHEM PANEL Calcium Lvl 6.9 8.5 - 10.5 08/25/2019 Result Comment: Specimen slightly hemoly zed. 08/24/2019 19:07 iko

Critical Result(s) called to Nolberto at 08/24/2019 19:07 by armando. Read back OK. [facility] CHEM PANEL B/C Ratio 18 6 - 25 08/25/2019 [facility] CHEM PANEL Total Protein 7.7 6.4 - 8.4 08/25/2019 [facility] CHEM PANEL Albumin Lvl 3.2 3.5 - 5.0 08/25/2019 [facility] CHEM PANEL Globulin 4.5 2.7 - 4.2 08/25/2019 [facility] CHEM PANEL A/G Ratio 0.7 0.7 - 1.6 08/25/2019 [facility] CHEM PANEL ALT 26 0 - 65 08/25/2019 [facility] CHEM PANEL AST 33 0 - 37 08/25/2019 [facility] CHEM PANEL Alk Phos 76 39 - 136 08/25/2019 [facility] CHEM PANEL Bili Total 0.4 0.2 - 1.3 08/25/2019 [facility] CHEM PANEL eGFR 54 08/25/2019 Result Comment: The eGFR is calculated using the CKD-EPI formula. In most young, healthy individuals the eGFR will be >90 mL/min/1.73m2. The eGFR declines with age. An eGFR of 60-89 may be normal in some populations, particularly the elderly, for whom the CKD-EPI formula has not been extensively validated. Use of the eGFR is not recommended in the following populations:

Individuals with unstable creatinine concentrations, including patients and those with serious co-morbid conditions.

Patients with extremes in muscle mass or diet.

The data above are obtained from the National Kidney Disease Education Program (NKDEP) which additionally recommends that when the eGFR is used in patients with extremes of body mass index for purposes of drug dosing, the eGFR should be multiplied by the estimated BMI. [facility] CHEM PANEL Lipase Lvl 196 73 - 393 08/25/2019 [facility] CHEM PANEL Magnesium Lvl 0.8 1.8 - 2.4 08/25/2019 [facility] CHEM PANEL Phosphorus 2.6 2.5 - 4.5 08/25/2019 [facility] HEMATOLOGY WBC 11.5 3.7 - 10.4 08/25/2019 [facility] HEMATOLOGY RBC 4.03 4.20 - 5.40 08/25/2019 [facility] HEMATOLOGY Hgb 12.0 12.0 - 16.0 08/25/2019 [facility] HEMATOLOGY Hct 36.0 36.0 - 48.0 08/25/2019 [facility] HEMATOLOGY MCV 89.1 80.0 - 98.0 08/25/2019 [facility] HEMATOLOGY MCH 29.7 27.0 - 31.0 08/25/2019 [facility] HEMATOLOGY MCHC 33.3 32.0 - 36.0 08/25/2019 [facility] HEMATOLOGY RDW 13.7 11.5 - 14.5 08/25/2019 [facility] HEMATOLOGY Platelet 275 133 - 450 08/25/2019 [facility] HEMATOLOGY MPV 10.1 7.4 - 10.4 08/25/2019 [facility] HEMATOLOGY PT 34.5 12.0 - 14.7 08/25/2019 [facility] HEMATOLOGY INR 3.32 0.85 - 1.17 08/25/2019 [facility] HEMATOLOGY PTT 34.8 22.9 - 35.8 08/25/2019 [facility] HEMATOLOGY Segs 61.1 45.0 - 75.0 08/25/2019 [facility] HEMATOLOGY Lymphocytes 27.2 20.0 - 40.0 08/25/2019 [facility] HEMATOLOGY Monocytes 8.1 2.0 - 12.0 08/25/2019 [facility] HEMATOLOGY Eosinophils 2.7 0.0 - 4.0 08/25/2019 [facility] HEMATOLOGY Basophils 0.9 0.0 - 1.0 08/25/2019 [facility] HEMATOLOGY Neutrophils # 7.0 1.5 - 8.1 08/25/2019 [facility] HEMATOLOGY Lymphocytes # 3.1 1.0 - 5.5 08/25/2019 [facility] HEMATOLOGY Monocytes # 0.9 0.0 - 0.8 08/25/2019 [facility] HEMATOLOGY Eosinophils # 0.3 0.0 - 0.5 08/25/2019 [facility] HEMATOLOGY Basophils # 0.1 0.0 - 0.2 08/25/2019 [facility] HEMATOLOGY POC INR 2.8 0.9 - 1.2 08/13/2019 [facility] HEMATOLOGY POC PT 31.8 12.0 - 14.7 08/13/2019 [facility] HEMATOLOGY POC INR 1.9 0.9 - 1.2 08/01/2019 [facility] HEMATOLOGY POC PT 22.5 12.0 - 14.7 08/01/2019 [facility] HEMATOLOGY POC INR 1.6 0.9 - 1.2 07/24/2019 [facility] HEMATOLOGY POC PT 18.5 12.0 - 14.7 07/24/2019 [facility] URINE AND STOOL UA WBC 4 0 - 5 01/30/2018 [facility] URINE AND STOOL UA RBC 2 0 - 2 01/30/2018 [facility] URINE AND STOOL UA Sq Epi Occasional /LPF Few /LPF 01/30/2018 [facility] URINE AND STOOL UA Bacteria Many /HPF None Seen /HPF 01/30/2018 [facility] URINE AND STOOL UA Color Ltyellow 01/30/2018 [facility] URINE AND STOOL UA Urobilinogen <=1.0 mg/dL 0.1 - 1.0 01/30/2018 [facility] URINE AND STOOL UA Blood Negative (01/30/18 4:01 PM) Negative 01/30/2018 [facility] URINE AND STOOL UA Nitrite Negative (01/30/18 4:01 PM) Negative 01/30/2018 [facility] URINE AND STOOL UA Leuk Est Negative (01/30/18 4:01 PM) Negative 01/30/2018 [facility] URINE AND STOOL UA Glucose Negative mg/dL Negative mg/dL 01/30/2018 [facility] URINE AND STOOL UA Ketones Negative mg/dL Negative mg/dL 01/30/2018 [facility] URINE AND STOOL UA Protein 30 mg/dL Negative mg/dL 01/30/2018 [facility] URINE AND STOOL UA pH 7.0 5.0 - 8.0 01/30/2018 [facility] URINE AND STOOL UA Bili Negative *NA* (01/30/18 4:01 PM) Negative 01/30/2018 [facility] URINE AND STOOL UA Turbidity Clear (01/30/18 4:01 PM) Clear 01/30/2018 [facility] URINE AND STOOL UA Spec Grav 1.010 <=1.030 01/30/2018 [facility] CARDIAC ENZYMES Troponin-I <0.02 0.00 - 0.40 01/30/2018 [facility] CARDIAC ENZYMES BNP 327 <=100 pg/mL 01/30/2018 [facility] CHEM PANEL A/G Ratio 1.1 0.7 - 1.6 01/30/2018 [facility] CHEM PANEL Globulin 3.8 2.7 - 4.2 01/30/2018 [facility] CHEM PANEL AGAP 10.2 10.0 - 20.0 01/30/2018 [facility] CHEM PANEL B/C Ratio 24 6 - 25 01/30/2018 [facility] CHEM PANEL eGFR 55 01/30/2018 Result Comment: The eGFR is calculated using the CKD-EPI formula. In most young, healthy individuals the eGFR will be >90 mL/min/1.73m2. The eGFR declines with age. An eGFR of 60-89 may be normal in some populations, particularly the elderly, for whom the CKD-EPI formula has not been extensively validated. Use of the eGFR is not recommended in the following populations:

Individuals with unstable creatinine concentrations, including patients and those with serious co-morbid conditions.

Patients with extremes in muscle mass or diet.

The data above are obtained from the National Kidney Disease Education Program (NKDEP) which additionally recommends that when the eGFR is used in patients with extremes of body mass index for purposes of drug dosing, the eGFR should be multiplied by the estimated BMI. [facility] CHEM PANEL Alk Phos 44 39 - 136 01/30/2018 [facility] CHEM PANEL AST 45 0 - 37 01/30/2018 [facility] CHEM PANEL ALT 36 0 - 65 01/30/2018 [facility] CHEM PANEL Albumin Lvl 4.0 3.5 - 5.0 01/30/2018 [facility] CHEM PANEL Total Protein 7.8 6.4 - 8.4 01/30/2018 [facility] CHEM PANEL Calcium Lvl 9.3 8.5 - 10.5 01/30/2018 [facility] CHEM PANEL CO2 31 24 - 32 01/30/2018 [facility] CHEM PANEL Chloride Lvl 106 95 - 109 01/30/2018 [facility] CHEM PANEL Potassium Lvl 4.2 3.5 - 5.1 01/30/2018 [facility] CHEM PANEL Sodium Lvl 143 135 - 145 01/30/2018 [facility] CHEM PANEL Creatinine Lvl 0.95 0.50 - 1.40 01/30/2018 [facility] CHEM PANEL BUN 23 7 - 22 01/30/2018 [facility] CHEM PANEL Bili Total 0.5 0.2 - 1.3 01/30/2018 [facility] CHEM PANEL Glucose Lvl 102 70 - 99 01/30/2018 [facility] HEMATOLOGY MPV 10.3 7.4 - 10.4 01/30/2018 [facility] Platelet 229 133 - 450 01/30/2018 [facility] RDW 13.9 11.5 - 14.5 01/30/2018 [facility] MCH 30.3 27.0 - 31.0 01/30/2018 [facility] MCV 89.0 80.0 - 98.0 01/30/2018 [facility] Hct 36.7 36.0 - 48.0 01/30/2018 [facility] Hgb 12.5 12.0 - 16.0 01/30/2018 [facility] MCHC 34.1 32.0 - 36.0 01/30/2018 [facility] WBC 12.0 3.7 - 10.4 01/30/2018 [facility] RBC 4.12 4.20 - 5.40 01/30/2018 [facility] Basophils # 0.1 0.0 - 0.2 01/30/2018 [facility] Monocytes # 0.5 0.0 - 0.8 01/30/2018 [facility] Lymphocytes # 1.5 1.0 - 5.5 01/30/2018 [facility] Segs-Bands # 9.9 1.5 - 8.1 01/30/2018 [facility] Basophils 0.4 0.0 - 1.0 01/30/2018 [facility] Eosinophils 0.3 0.0 - 4.0 01/30/2018 [facility] Lymphocytes 12.4 20.0 - 40.0 01/30/2018 [facility] Monocytes 4.1 2.0 - 12.0 01/30/2018 [facility] Segs 82.8 45.0 - 75.0 01/30/2018 [facility] ELECTROLYTES AGAP 13.0 10.0 - 20.0 07/25/2017 [facility] ELECTROLYTES eGFR 69 07/25/2017 Result Comment: The eGFR is calculated using the CKD-EPI formula. In most young, healthy individuals the eGFR will be >90 mL/min/1.73m2. The eGFR declines with age. An eGFR of 60-89 may be normal in some populations, particularly the elderly, for whom the CKD-EPI formula has not been extensively validated. Use of the eGFR is not recommended in the following populations:

Individuals with unstable creatinine concentrations, including patients and those with serious co-morbid conditions.

Patients with extremes in muscle mass or diet.

The data above are obtained from the National Kidney Disease Education Program (NKDEP) which additionally recommends that when the eGFR is used in patients with extremes of body mass index for purposes of drug dosing, the eGFR should be multiplied by the estimated BMI. [facility] ELECTROLYTES Chloride Lvl 105 95 - 109 07/25/2017 [facility] ELECTROLYTES CO2 25 24 - 32 07/25/2017 [facility] ELECTROLYTES Calcium Lvl 8.4 8.5 - 10.5 07/25/2017 [facility] ELECTROLYTES Potassium Lvl 4.0 3.5 - 5.1 07/25/2017 [facility] ELECTROLYTES Creatinine Lvl 0.7 9 0.50 - 1.40 07/25/2017 [facility] ELECTROLYTES Glucose Lvl 110 70 - 99 07/25/2017 [facility] ELECTROLYTES BUN 20 7 - 22 07/25/2017 [facility] ELECTROLYTES Sodium Lvl 139 135 - 145 07/25/2017 [facility] HEMATOLOGY Basophils # 0.1 0.0 - 0.2 07/25/2017 [facility] HEMATOLOGY Eosinophils # 0.2 0.0 - 0.5 07/25/2017 [facility] HEMATOLOGY Lymphocytes # 1.6 1.0 - 5.5 07/25/2017 [facility] HEMATOLOGY Monocytes # 0.5 0.0 - 0.8 07/25/2017 [facility] RBC Morph Juli l (07/25/17 9:51 AM) 07/25/2017 [facility] Plt Morph Juli l (07/25/17 9:51 AM) 07/25/2017 [facility] HEMATOLOGY Segs 72.4 45.0 - 75.0 07/25/2017 [facility] HEMATOLOGY Basophils 0.6 0.0 - 1.0 07/25/2017 [facility] HEMATOLOGY Lymphocytes 19.0 20.0 - 40.0 07/25/2017 [facility] HEMATOLOGY Monocytes 6.2 2.0 - 12.0 07/25/2017 [facility] HEMATOLOGY Eosinophils 1.8 0.0 - 4.0 07/25/2017 [facility] HEMATOLOGY Segs-Bands # 6.1 1.5 - 8.1 07/25/2017 [facility] HEMATOLOGY INR 2.42 0.85 - 1.17 07/25/2017 [facility] HEMATOLOGY PT 26.6 12.0 - 14.7 07/25/2017 [facility] PTT 35.0 22.9 - 35.8 07/25/2017 [facility] MPV 9.8 7.4 - 10.4 07/25/2017 [facility] HEMATOLOGY Platelet 235 133 - 450 07/25/2017 [facility] HEMATOLOGY RDW 13.8 11.5 - 14.5 07/25/2017 [facility] MCHC 34.8 32.0 - 36.0 07/25/2017 [facility] MCH 31.1 27.0 - 31.0 07/25/2017 [facility] HEMATOLOGY MCV 89.2 80.0 - 98.0 07/25/2017 [facility] HEMATOLOGY Hct 37.1 36.0 - 48.0 07/25/2017 [facility] HEMATOLOGY WBC 8.5 3.7 - 10.4 07/25/2017 [facility] HEMATOLOGY Hgb 12.9 12.0 - 16.0 07/25/2017 [facility] RBC 4.15 4.20 - 5.40 07/25/2017 [facility] CHEM PANEL eGFR 59 08/24/2016 Result Comment: The eGFR is calculated using the CKD-EPI formula. In most young, healthy individuals the eGFR will be >90 mL/min/1.73m2. The eGFR declines with age. An eGFR of 60-89 may be normal in some populations, particularly the elderly, for whom the CKD-EPI formula has not been extensively validated. Use of the eGFR is not recommended in the following populations:

Individuals with unstable creatinine concentrations, including patients and those with serious co-morbid conditions.

Patients with extremes in muscle mass or diet.

The data above are obtained from the National Kidney Disease Education Program (NKDEP) which additionally recommends that when the eGFR is used in patients with extremes of body mass index for purposes of drug dosing, the eGFR should be multiplied by the estimated BMI. [facility] CHEM PANEL POC Creatinine 0.9 0.5 - 1.4 08/24/2016 [facility] CHEM PANEL Lactic Acid Lvl 2.1 0.5 - 2.2 12/26/2015 [facility] ELECTROLYTES AGAP 9.5 10.0 - 20.0 12/26/2015 [facility] ELECTROLYTES eGFR 62 12/26/2015 Result Comment: The eGFR is calculated using the CKD-EPI formula. In most young, healthy individuals the eGFR will be >90 mL/min/1.73m2. The eGFR declines with age. An eGFR of 60-89 may be normal in some populations, particularly the elderly, for whom the CKD-EPI formula has not been extensively validated. Use of the eGFR is not recommended in the following populations:

Individuals with unstable creatinine concentrations, including patients and those with serious co-morbid conditions.

Patients with extremes in muscle mass or diet.

The data above are obtained from the National Kidney Disease Education Program (NKDEP) which additionally recommends that when the eGFR is used in patients with extremes of body mass index for purposes of drug dosing, the eGFR should be multiplied by the estimated BMI. [facility] ELECTROLYTES Glucose Lvl 131 70 - 99 12/26/2015 [facility] ELECTROLYTES BUN 21 7 - 22 12/26/2015 [facility] ELECTROLYTES Sodium Lvl 140 135 - 145 12/26/2015 [facility] ELECTROLYTES Creatinine Lvl 0.8 7 0.50 - 1.40 12/26/2015 [facility] ELECTROLYTES CO2 27 24 - 32 12/26/2015 [facility] ELECTROLYTES Chloride Lvl 107 95 - 109 12/26/2015 [facility] ELECTROLYTES Potassium Lvl 3.5 3.5 - 5.1 12/26/2015 [facility] ELECTROLYTES Calcium Lvl 8.4 8.5 - 10.5 12/26/2015 [facility] HEMATOLOGY PTT 31.9 22.9 - 35.8 12/26/2015 [facility] INR 2.33 0.85 - 1.17 12/26/2015 [facility] PT 25.9 12.0 - 14.7 12/26/2015 [facility] MCHC 33.1 32.0 - 36.0 12/26/2015 [facility] RDW 12.8 11.5 - 14.5 12/26/2015 [facility] Platelet 183 133 - 450 12/26/2015 [facility] MPV 10.8 7.4 - 10.4 12/26/2015 [facility] WBC 14.1 3.7 - 10.4 12/26/2015 [facility] Hgb 10.9 12.0 - 16.0 12/26/2015 [facility] Hct 32.9 36.0 - 48.0 12/26/2015 [facility] MCH 29.5 27.0 - 31.0 12/26/2015 [facility] HEMATOLOGY MCV 89.0 80.0 - 98.0 12/26/2015 [facility] HEMATOLOGY RBC 3.70 4.20 - 5.40 12/26/2015 [facility] HEMATOLOGY Lymphocytes 4.7 20.0 - 40.0 12/26/2015 [facility] HEMATOLOGY Segs 87.1 45.0 - 75.0 12/26/2015 [facility] HEMATOLOGY Lymphocytes # 0.7 1.0 - 5.5 12/26/2015 [facility] HEMATOLOGY Monocytes # 1.0 0.0 - 0.8 12/26/2015 [facility] HEMATOLOGY Segs-Bands # 12.3 1.5 - 8.1 12/26/2015 [facility] HEMATOLOGY Basophils # 0.1 0.0 - 0.2 12/26/2015 [facility] HEMATOLOGY Basophils 0.6 0.0 - 1.0 12/26/2015 [facility] HEMATOLOGY Monocytes 6.8 2.0 - 12.0 12/26/2015 [facility] HEMATOLOGY Eosinophils 0.8 0.0 - 4.0 12/26/2015 [facility] HEMATOLOGY Eosinophils # 0.1 0.0 - 0.5 12/26/2015 [facility] URINE AND STOOL UA Urobilinogen <=1.0 mg/dL 0.1 - 1.0 12/26/2015 [facility] URINE AND STOOL UA Color Ltyellow 12/26/2015 [facility] URINE AND STOOL UA Ketones Negative mg/dL Negative mg/dL 12/26/2015 [facility] URINE AND STOOL UA Bili Negative *NA* (12/26/15 8:29 AM) Negative 12/26/2015 [facility] URINE AND STOOL UA Blood Moderate *ABN* (12/26/15 8:29 AM) Negative 12/26/2015 [facility] URINE AND STOOL UA Protein 100 mg/dL Negative mg/dL 12/26/2015 [facility] URINE AND STOOL UA Glucose Negative mg/dL Negative mg/dL 12/26/[address] [facility] [address] URINE AND STOOL UA Spec Grav 1.012 <=1.030 12/26/2015 [facility] URINE AND STOOL UA pH 5.0 5.0 - 8.0 12/26/2015 [facility] URINE AND STOOL UA Turbidity Clear (12/26/15 8:29 AM) Clear 12/26/2015 [facility] URINE AND STOOL UA RBC 7 0 - 2 12/26/2015 [facility] URINE AND STOOL UA Bacteria Occasional /HPF None Seen /HPF 12/26/2015 [facility] URINE AND STOOL UA Sq Epi Occasional /LPF Few /LPF 12/26/2015 [facility] URINE AND STOOL UA WBC 163 0 - 5 12/26/2015 [facility] URINE AND STOOL UA Nitrite Negative (12/26/15 8:29 AM) Negative 12/26/2015 [facility] URINE AND STOOL UA Leuk Est Moderate *ABN* (12/26/15 8:29 AM) Negative 12/26/2015 [facility] CHEMISTRY CO2 25.0 24 - 32 07/13/2011 Normal [facility] CHEMISTRY Calcium Lvl 9.2 8.5 - 10.5 07/13/2011 Normal [facility] CHEMISTRY Sodium Lvl 142.0 135 - 145 07/13/2011 Normal [facility] CHEMISTRY Creatinine Lvl 0.9 0.5 - 1.4 07/13/2011 Normal [facility] CHEMISTRY Potassium Lvl 3.8 3.5 - 5.1 07/13/2011 Normal [facility] CHEMISTRY Chloride Lvl 106.0 95 - 109 07/13/2011 Normal [facility] CHEMISTRY BUN 22.0 7 - 22 07/13/2011 Normal [facility] CHEMISTRY Glucose Lvl 104.0 07/13/2011 NA <sup>2</sup>Interpretive Data: Reference Ranges : 0 - 7 days : 41 - 90 mg/dL 7 days - 150 yrs : 70 - 99 mg/dL (fasting), based on the clinical recommendations of the [place] [employer]. [facility] CHEMISTRY AGAP 14.8 10.0 - 20.0 07/13/2011 Normal [facility] HEMATOLOGY Basophils # 0.0 0.0 - 0.2 07/13/2011 Normal [facility] HEMATOLOGY Monocytes # 0.5 0.0 - 0.8 07/13/2011 Normal [facility] HEMATOLOGY Eosinophils # 0.1 0.0 - 0.5 07/13/2011 Normal [facility] HEMATOLOGY Lymphocytes # 1.3 1.0 - 5.5 07/13/2011 Normal [facility] HEMATOLOGY Segs-Bands # 2.7 1.5 - 8.1 07/13/2011 Normal [facility] HEMATOLOGY Basophils 0.5 0.0 - 1.0 07/13/2011 Normal [facility] HEMATOLOGY Eosinophils 2.1 0.0 - 4.0 07/13/2011 Normal [facility] HEMATOLOGY Monocytes 10.1 2.0 - 12.0 07/13/2011 Normal [facility] HEMATOLOGY Lymphocytes 29.1 20.0 - 40.0 07/13/2011 Normal [facility] HEMATOLOGY Segs 58.2 45.0 - 75.0 07/13/2011 Normal [facility] HEMATOLOGY MPV 10.9 7.4 - 10.4 07/13/2011 HI [facility] HEMATOLOGY Platelet 204.0 133 - 450 07/13/2011 Normal [facility] HEMATOLOGY RDW 12.7 11.5 - 14.5 07/13/2011 Normal [facility] MCHC 36.3 32.0 - 36.0 07/13/2011 HI [facility] HEMATOLOGY MCH 32.5 27.0 - 31.0 07/13/2011 [facility] HEMATOLOGY MCV 89.4 81.0 - 99.0 07/13/2011 Normal [facility] Hgb 11.0 12.0 - 16.0 07/13/2011 LOW [facility] HEMATOLOGY Hct 30.3 36.0 - 48.0 07/13/2011 LOW [facility] HEMATOLOGY WBC 4.6 3.7 - 10.4 07/13/2011 Normal [facility] RBC 3.39 4.20 - 5.40 07/13/2011 LOW [facility] INR 1.04 0.85 - 1.17 07/13/2011 Normal <sup>6</sup>Interpretive Data: RECOMMEND ED RANGES FOR PROTIME INR: 2.0-3.0 for most medical and surgical thromboembolic states. 2.5-3.5 for artificial heart valves and recurrent embolism. INR SHOULD BE USED ONLY FOR PATIENTS ON STABLE ANTICOAGULANT THERAPY. [facility] HEMATOLOGY PT 13.6 12.0 - 14.7 07/13/2011 Normal [facility] PT 13.7 12.0 - 14.7 07/12/2011 Normal [facility] HEMATOLOGY INR 1.05 0.85 - 1.17 07/12/2011 Normal <sup>7</sup>Interpretive Data: RECOMMEND ED RANGES FOR PROTIME INR: 2.0-3.0 for most medical and surgical thromboembolic states. 2.5-3.5 for artificial heart valves and recurrent embolism. INR SHOULD BE USED ONLY FOR PATIENTS ON STABLE ANTICOAGULANT THERAPY. [facility] HEMATOLOGY Basophils 0.5 0.0 - 1.0 07/11/2011 Normal [facility] HEMATOLOGY Monocytes 9.3 2.0 - 12.0 07/11/2011 Normal [facility] Segs-Bands # 2.6 1.5 - 8.1 07/11/2011 Normal [facility] HEMATOLOGY Lymphocytes # 2.1 1.0 - 5.5 07/11/2011 Normal [facility] HEMATOLOGY Eosinophils 2.7 0.0 - 4.0 07/11/2011 Normal [facility] HEMATOLOGY Lymphocytes 38.8 20.0 - 40.0 07/11/2011 Normal [facility] HEMATOLOGY Segs 48.7 45.0 - 75.0 07/11/2011 Normal [facility] HEMATOLOGY Basophils # 0.0 0.0 - 0.2 07/11/2011 Normal [facility] HEMATOLOGY Eosinophils # 0.1 0.0 - 0.5 07/11/2011 Normal [facility] HEMATOLOGY Monocytes # 0.5 0.0 - 0.8 07/11/2011 Normal [facility] HEMATOLOGY MCHC 35.5 32.0 - 36.0 07/11/2011 Normal [facility] HEMATOLOGY Platelet 202.0 133 - 450 07/11/2011 Normal [facility] HEMATOLOGY MPV 11.1 7.4 - 10.4 07/11/2011 [facility] HEMATOLOGY Hct 31.3 36.0 - 48.0 07/11/2011 LOW [facility] HEMATOLOGY MCH 32.3 27.0 - 31.0 07/11/2011 [facility] HEMATOLOGY RDW 12.8 11.5 - 14.5 07/11/2011 Normal [facility] HEMATOLOGY MCV 91.2 81.0 - 99.0 07/11/2011 Normal [facility] HEMATOLOGY WBC 5.4 3.7 - 10.4 07/11/2011 Normal [facility] HEMATOLOGY Hgb 11.1 12.0 - 16.0 07/11/2011 LOW [facility] HEMATOLOGY RBC 3.43 4.20 - 5.40 07/11/2011 LOW [facility] CHEMISTRY Total CK 75.0 12 - 191 07/10/2011 Normal [facility] CHEMISTRY Troponin-I 0.02 0.00 - 0.40 07/10/2011 Normal [facility] CHEMISTRY Magnesium Lvl 2.4 1.8 - 2.4 07/10/2011 Normal [facility] CHEMISTRY Phosphorus 4.0 2.5 - 4.5 07/10/2011 Normal [facility] CHEMISTRY Albumin Lvl 3.8 3.5 - 5.0 07/10/2011 Normal [facility] CHEMISTRY ALT 24.0 0 - 65 07/10/2011 Normal [facility] CHEMISTRY Calcium Lvl 9.6 8.5 - 10.5 07/10/2011 Normal [facility] CHEMISTRY Alk Phos 38.0 39 - 136 07/10/2011 LOW [facility] CHEMISTRY Bili Total 0.4 0.2 - 1.3 07/10/2011 Normal [facility] CHEMISTRY AST 15.0 0 - 37 07/10/2011 Normal [facility] CHEMISTRY BUN 23.0 7 - 22 07/10/2011 [facility] CHEMISTRY Creatinine Lvl 0.9 0.5 - 1.4 07/10/2011 Normal [facility] CHEMISTRY Sodium Lvl 145.0 135 - 145 07/10/2011 Normal [facility] CHEMISTRY Potassium Lvl 4.3 3.5 - 5.1 07/10/2011 Normal [facility] CHEMISTRY Chloride Lvl 111.0 95 - 109 07/10/2011 [facility] CHEMISTRY CO2 26.0 24 - 32 07/10/2011 Normal [facility] CHEMISTRY Total Protein 7.5 6.4 - 8.4 07/10/2011 Normal [facility] CHEMISTRY Glucose Lvl 106.0 07/10/2011 NA <sup>3</sup>Interpretive Data: Reference Ranges : 0 - 7 days : 41 - 90 mg/dL 7 days - 150 yrs : 70 - 99 mg/dL (fasting), based on the clinical recommendations of the [employer]. [facility] CHEMISTRY B/C Ratio 26.0 6 - 25 07/10/2011 [facility] CHEMISTRY AGAP 12.3 10.0 - 20.0 07/10/2011 Normal [facility] CHEMISTRY A/G Ratio 1.0 0.7 - 1.6 07/10/2011 Normal [facility] CHEMISTRY Globulin 3.7 2.0 - 4.0 07/10/2011 Normal [facility] CHEMISTRY TSH 1.96 0.360 - 3.740 07/10/2011 Normal [facility] HEMATOLOGY MCV 90.6 81.0 - 99.0 07/10/2011 Normal [facility] HEMATOLOGY Hct 31.1 36.0 - 48.0 07/10/2011 LOW [facility] HEMATOLOGY RBC 3.44 4.20 - 5.40 07/10/2011 LOW [facility] HEMATOLOGY Hgb 11.1 12.0 - 16.0 07/10/2011 LOW [facility] HEMATOLOGY MPV 10.8 7.4 - 10.4 07/10/2011 [facility] HEMATOLOGY Platelet 209.0 133 - 450 07/10/2011 Normal [facility] HEMATOLOGY MCH 32.2 27.0 - 31.0 07/10/2011 [facility] HEMATOLOGY RDW 13.1 11.5 - 14.5 07/10/2011 Normal [facility] HEMATOLOGY MCHC 35.6 32.0 - 36.0 07/10/2011 Normal [facility] HEMATOLOGY WBC 5.1 3.7 - 10.4 07/10/2011 Normal [facility] HEMATOLOGY Eosinophils # 0.1 0.0 - 0.5 07/10/2011 Normal [facility] HEMATOLOGY Eosinophils 2.0 0.0 - 4.0 07/10/2011 Normal [facility] HEMATOLOGY Basophils # 0.0 0.0 - 0.2 07/10/2011 Normal [facility] HEMATOLOGY Lymphocytes # 1.8 1.0 - 5.5 07/10/2011 Normal [facility] HEMATOLOGY Segs-Bands # 2.6 1.5 - 8.1 07/10/2011 Normal [facility] HEMATOLOGY Monocytes # 0.5 0.0 - 0.8 07/10/2011 Normal [facility] HEMATOLOGY Basophils 0.4 0.0 - 1.0 07/10/2011 Normal [facility] Lymphocytes 35.7 20.0 - 40.0 07/10/2011 Normal [facility] HEMATOLOGY Monocytes 10.5 2.0 - 12.0 07/10/2011 Normal [facility] HEMATOLOGY Segs 51.4 45.0 - 75.0 07/10/2011 Normal [facility] BACTERIAL - SEROLOGY MRSA by PCR Negative 1 (07/10/2011 03:30:00) ?? 07/10/2011 Normal <sup>1</sup>Interpretive Data: INTERPRETATION: Negative......No MRSA DNA detected by PCR Positive......MRSA DNA detected by PCR ASSAY LIMITATIONS: This is a screening test for colonization by MRSA. A positive test result indicates the patient is colonized by MRSA, but does not necessarily mean that an infection is present or that treatment is necessary. Likewise, a negative test does not exclude colonization or infection. Patients should be evaluated clinically for symptoms and signs of infection before making therapeutic decisions. Routine decolonization is discouraged and should only be considered for select patients after consultation with an infectious diseases specialist. [facility] CHEMISTRY BNP 126.0 <<=100 07/10/2011 [facility] <sup>5</sup>Interpretive Data: Elevated results are in line with increasing severity of congestive heart failure. Minor elevations between 100 and 300 may be seen with Myocardial Ischemia, Sodium retaining drugs, and compensated/treated heart failure. [facility] CHEMISTRY Phosphorus 3.1 2.5 - 4.5 07/10/2011 Normal [facility] CHEMISTRY Magnesium Lvl 1.5 1.8 - 2.4 07/10/2011 LOW [facility] CHEMISTRY Troponin-I <0.02 0.00 - 0.40 07/10/2011 Normal [facility] CHEMISTRY CK MB 1.1 0.5 - 3.6 07/10/2011 Normal [facility] CHEMISTRY Total CK 110.0 12 - 191 07/10/2011 Normal [facility] CHEMISTRY Bili Total 0.4 0.2 - 1.3 07/10/2011 Normal [facility] CHEMISTRY Alk Phos 44.0 39 - 136 07/10/2011 Normal [facility] CHEMISTRY ALT 30.0 0 - 65 07/10/2011 Normal [facility] CHEMISTRY Albumin Lvl 4.1 3.5 - 5.0 07/10/2011 Normal [facility] CHEMISTRY AST 27.0 0 - 37 07/10/2011 Normal [facility] CHEMISTRY A/G Ratio 1.0 0.7 - 1.6 07/10/2011 Normal [facility] CHEMISTRY Globulin 4.0 2.0 - 4.0 07/10/2011 Normal [facility] CHEMISTRY B/C Ratio 24.0 6 - 25 07/10/2011 Normal [facility] CHEMISTRY AGAP 18.4 10.0 - 20.0 07/10/2011 Normal [facility] CHEMISTRY Chloride Lvl 105.0 95 - 109 07/10/2011 Normal [facility] CHEMISTRY Potassium Lvl 3.4 3.5 - 5.1 07/10/2011 LOW [facility] CHEMISTRY Calcium Lvl 9.5 8.5 - 10.5 07/10/2011 Normal [facility] CHEMISTRY CO2 22.0 24 - 32 07/10/2011 LOW [facility] CHEMISTRY Total Protein 8.1 6.4 - 8.4 07/10/2011 Normal [facility] CHEMISTRY Sodium Lvl 142.0 135 - 145 07/10/2011 Normal [facility] CHEMISTRY Glucose Lvl 141.0 07/10/2011 NA <sup>4</sup>Interpretive Data: Reference Ranges : 0 - 7 days : 41 - 90 mg/dL 7 days - 150 yrs : 70 - 99 mg/dL (fasting), based on the clinical recommendations of the [place] [employer]. [facility] CHEMISTRY Creatinine Lvl 1.0 0.5 - 1.4 07/10/2011 Normal [facility] CHEMISTRY BUN 24.0 7 - 22 07/10/2011 [facility] CHEMISTRY CK MB Index 1.0 0.0 - 2.5 07/10/2011 Normal [facility] PTT 25.7 22.9 - 35.8 07/10/2011 Normal <sup>9</sup>Interpretive Data: Heparin T herapeutic Range: 57 - 92 Seconds [facility] HEMATOLOGY PT 13.0 12.0 - 14.7 07/10/2011 Normal [facility] INR 0.98 0.85 - 1.17 07/10/2011 Normal <sup>8</sup>Interpretive Data: RECOMMEND ED RANGES FOR PROTIME INR: 2.0-3.0 for most medical and surgical thromboembolic states. 2.5-3.5 for artificial heart valves and recurrent embolism. INR SHOULD BE USED ONLY FOR PATIENTS ON STABLE ANTICOAGULANT THERAPY. [facility] Pathology Reports No Data Provided for This Section Diagnostic Reports Report Value Date Source Chest 1view DX PROCEDURE INFOR MATION: Exam: XR Chest, 1 View Exam date and time: 06/27/2020 6:01 PM Age: 89 years old Clinical indication: /weakness TECHNIQUE: Imaging protocol: XR of the chest Views: 1 view. COMPARISON: CHEST 2 VIEWS DX 06/15/2020 9:19 AM FINDINGS: Tubes, catheters and devices: Left-sided dual-chamber pacemaker is stable. Lungs: Emphysematous changes of the lungs are seen. No consolidation is noted. Pleural space: Unremarkable. No pleural effusion. No pneumothorax. Heart/Mediastinum: Heart size is within normal limits. Vasculature is unremarkable. Bones/joints: Osseous structures are stable. IMPRESSION: No acute cardiopulmonary disease. Hiram Vargas MD On 06/27/2020 18:10:57; [id number] 06/27/2020 [facility] Chest 2 views DX PROCEDURE INF ORMATION: Exam: XR Chest, 2 Views Exam date and time: 06/15/2020 9:19 AM Age: 89 years old Clinical indication: /follow up on left pneumothorax; () TECHNIQUE: Imaging protocol: XR of the chest Views: 2 views. COMPARISON: CHEST 2 VIEWS DX 06/14/2020 9:50 AM FINDINGS: Tubes, catheters and devices: Customary positioning of pacemaker/cardiac device leads. Lungs: Otherwise no new consolidation. Pleural space: Stable faint pleural line at the left lung apex, not changed. Heart/Mediastinum: Unremarkable. No cardiomegaly. Bones/joints: Unremarkable. IMPRESSION: 1. Stable faint left apical pleural line , suspicious for small pneumothorax. This has not increased in size. 2. Otherwise no change. No new consolida tion. Maricruz Brooks MD On 06/15/2020 09:33:05; [id number] 06/15/2020 [facility] 2 views DX PROCEDURE INF ORMATION: Exam: XR Chest, 2 Views Exam date and time: 06/14/2020 9:50 AM Age: 89 years old Clinical indication: Device placement; Cardiac pacemaker placement or adjustment; Additional info: Line placement/status post ppm/icd implantation TECHNIQUE: Imaging protocol: XR of the chest Views: 2 views. COMPARISON: CHEST 1V FOR PLACEMENT DX 06/13/2020 11:30 AM FINDINGS: Tubes, catheters and devices: Left subclavian pacemaker again seen and stable in position. Lungs: Stable lung volumes. No confluent reticular opacities. Small calcified granulomas suspected in the left lung. Pleural space: No significant pleural effusion. Left-sided pneumothorax is present and estimated at 15% in size. There is no right-sided pneumothorax. Heart/Mediastinum: Heart and mediastinal contours are stable. Bones/joints: Stable in appearance. IMPRESSION: Left-sided pneumothorax now visualized estimated at 15%. Findings discussed with Dr. Wells at the time of dictation. Suzy Guthrie MD On 06/14/2020 15:10:33; [id number] 06/14/2020 [facility] 1 v for Placement DX PRO CEDURE INFORMATION: Exam: XR Chest, 1 View Exam date and time: 06/13/2020 11:30 AM Age: 89 years old Clinical indication: Line placement/status post ppm/icd implantation TECHNIQUE: Imaging protocol: XR of the chest Views: 1 view. COMPARISON: CHEST 1VIEW DX 01/13/2020 10:52 AM FINDINGS: Left chest wall pacemaker obscures portions of this exam. Catheter overlying the right mid thorax is of indeterminate origin. Lungs: Mild decreased lung volumes. No consolidation. Pleural space: Unremarkable. No pleural effusion. No pneumothorax. Heart/Mediastinum: Cardiac silhouette size shows minimal enlargement. Vasculature is unremarkable. Bones/joints: Unremarkable. IMPRESSION: Postprocedural pacemaker placement without visible pneumothorax. Jhonny Marmolejo MD On 06/13/2020 11:57:53; [id number] 06/13/2020 [facility] DX PROCEDURE INFOR MATION: Exam: XR Chest, 1 View Exam date and time: 01/13/2020 10:52 AM Age: 89 years old Clinical indication: Other: Palpitations; Additional info: /palpitations () TECHNIQUE: Imaging protocol: XR of the chest Views: 1 view. COMPARISON: CHEST 1VIEW DX 01/11/2020 6:36 AM FINDINGS: Tubes, catheters and devices: EKG leads overlie the chest. Lungs: There are patchy interstitial changes. There is an indeterminate nodular opacity at the right mid to basilar lung zone. No lobar consolidation. Pleural space: No pleural effusion. No pneumothorax. Heart/Mediastinum: The cardiac silhouette is enlarged. There is a coronary stent in the left coronary distribution. Vasculature: Atheromatous changes are present in the aorta. Bones/joints: There are degenerative changes at the shoulders. There are osteophytes of the thoracolumbar spine. Post treatment changes of cement augmentation visible at the inferior collimation of the radiograph. IMPRESSION: 1. Indeterminate nodular density at the right mid to basilar lung zone. 2. Patchy interstitial changes favored t o be related to scarring or senescent change. Jackelyn Sethi MD On 01/13/2020 11:18:15; [id number] 01/13/2020 [facility] DX PROCEDURE INFOR MATION: Exam: XR Chest, 1 View Exam date and time: 01/11/2020 6:36 AM Age: 89 years old Clinical indication: /cp, SOB TECHNIQUE: Imaging protocol: XR of the chest Views: 1 view. COMPARISON: CHEST 1VIEW DX 09/30/2019 1:51 PM FINDINGS: Lungs: Mild decreased lung volumes. No consolidation. Bibasilar atelectasis. Pleural space: Unremarkable. No pleural effusion. No pneumothorax. Heart/Mediastinum: Heart size is within normal limits. Atherosclerotic calcifications. Bones/joints: Unremarkable. Degenerative changes of the thoracic spine. IMPRESSION: No acute cardiopulmonary findings. Arya Galicia MD On 01/11/2020 07:56:42; [id number] 01/11/2020 [facility] Brain wo contrast CT Radiation Dose CTDIVOL = 0 (mGy): DLP = 977.84 (mGy-cm) PROCEDURE INFORMATION: Exam: CT Head Without Contrast Exam date and time: 09/30/2019 6:47 PM Age: 89 years old Clinical indication: /ams TECHNIQUE: Imaging protocol: Computed tomography of the head without contrast. Total DLP: 977.84 mGy-cm Radiation optimization: All CT scans at this facility use at least one of these dose optimization techniques: automated exposure control; mA and/or kV adjustment per patient size (includes targeted exams where dose is matched to clinical indication); or iterative reconstruction. COMPARISON: No relevant prior studies available. FINDINGS: Brain: There is mild atrophy. No acute infarct or intracranial hemorrhage is present. No significant white matter disease. Ventricles: Normal. No ventriculomegaly. Bones/joints: Unremarkable. No acute fracture. Sinuses: Visualized sinuses are unremarkable. No fluid levels. Mastoid air cells: Visualized mastoid air cells are well aerated. Soft tissues: Unremarkable. Vasculature: Distal internal carotid arterial calcifications. IMPRESSION: No acute intracranial abnormality. Lacho Reyes MD On 09/30/2019 19:14:55; [id number] 09/30/2019 [facility] DX PROCEDURE INFOR MATION: Exam: XR Chest, 1 View Exam date and time: 09/30/2019 1:51 PM Age: 89 years old Clinical indication: Weakness TECHNIQUE: Imaging protocol: XR of the chest Views: 1 view. COMPARISON: No relevant prior studies available. FINDINGS: Lungs: No focal infiltrate identified within the lungs and no edema. Pleural space: No pleural effusions and no pneumothorax. Heart/Mediastinum: Mild enlargement of the cardiac silhouette. Thoracic aorta is mildly tortuous. Mediastinal structures otherwise unremarkable. Bones/joints: Degenerative changes are seen about the thoracic and visualized cervical spine. Degenerative changes are seen about both glenohumeral joints. Decreased bilateral acromiohumeral space suggests changes of chronic bilateral rotator cuff tears. IMPRESSION: 1. Mild enlargement of the cardiac silho uette. 2. No focal infiltrate within the lungs. Kaiser Walker MD On 09/30/2019 14:55:07; [id number] 09/30/2019 [facility] DX PROCEDURE INFOR MATION: Exam: XR Chest, 1 View Exam date and time: 08/24/2019 8:00 PM Age: 89 years old Clinical indication: Chest pain; Additional info: /cp TECHNIQUE: Imaging protocol: XR of the chest Views: 1 view. COMPARISON: CR RIBS UNILATERAL 3 VIEWS W PA CHEST DX, LEFT 01/30/2018 1:54 PM FINDINGS: Lungs: No air space disease appreciated. Pleural space: No pleural effusion or pneumothorax appreciated. Heart/Mediastinum: No acute pathology appreciated. The cardiomediastinal silhouette appears enlarged, though, also exaggerated by portable technique. Bones/joints: Marked degenerative changes of the shoulders bilaterally, likely chronic rotator cuff pathology. IMPRESSION: 1. Cardiomegaly, otherwise no acute path ology appreciated. Follow up recommended if ongoing clinical concern. 2. Degenerative changes of the shoulders as above. Rula Obrien MD On 08/24/2019 20:49:46; [id number] 08/24/2019 [facility] Breast Mammo Scrn SILVANO incl CAD MA BILATERAL DIGITAL SCREENING MAMMOGRAM WITH CAD: 07/31/2018 CLINICAL: /Routine. Current study was evaluated with a Computer Aided Detection (CAD) system. COMPARISON:Comparison is made to exams dated: 10/13/2015 mammogram, 09/17/2015 mammogram, 07/30/2014 mammogram, 07/27/2013 mammogram, 12/24/2011 mammogram, and 12/23/2010 mammogram - [facility]. TECHNIQUE: Mammographic views were obtained using digital acquisition. Storie Version 1.3 was utilized for computer aided detection. FINDINGS: There are scattered fibroglandular densities in both breasts. Technologist indicates the exam is limited secondary to the patient's underlying medical condition. Optimal positioning was not allowed and the patient had difficulty holding still. Best images obtained were submitted. There are benign vascular calcifications and calcifications in the right breast. There also are benign calcifications in the left breast. No significant masses, calcifications, or other findings are seen in either breast. There has been no significant interval change. IMPRESSION: BENIGN RECOMMENDATION:There is no mammographic evidence of malignancy. A 1 year screening mammogram is recommended.(08/01/2019) This exam was interpreted at [id number] for [facility]. Liu rodriguez/danielle:07/31/2018 10:42:47 Executive Assistant To General Counsel(s): Gabriella Carolina, [facility] letter sent: BI-RADS 1/2 Mammogram BI-RADS: 2 Benign 07/31/2018 [facility] Bone Density Scan Study: Bone Density Scan Clinical Indication: - M81.0 Age-related osteoporosis without current pathological fracture; Images of the left forearm and left hip have been performed using Hologic Discovery SL scanner. COMPARISON: None FINDINGS: The left hip bone mineral density is 76% of the peak reference bone mass with a T-score of -1.7. Left hip BMD is 0.737 g/cm2. Left femoral neck BMD is 0.557 g/cm2 and T-score of -2.7. The left forearm bone mineral density is 72% of the peak reference bone mass with a T-score -3.0. Left forearm average BMD is 0.415 g/cm2. IMPRESSION: 1. Osteoporosis of the left femoral neck . 2. Osteopenia of the total left hip. 3. Osteoporosis of the left forearm The World Health Organization has established that OSTEOPOROSIS occurs at -2.5 or more standard deviations (SD) below peak bone mass (T-score on the Hologic report). OSTEOPENIA (low bone mass) occurs at greater than -1.0 standard deviations to -2.5 standard deviations below peak bone mass. SL: [id number] 07/31/2018 [facility] Spine thoracic wo contrast CT Clinical Indication: Fall, upper back pain Comparison: 07/25/2017 Technique: Multi-detector CT imaging of the thoracic spine is performed. Coronal and sagittal reconstructions were obtained. CT Radiation Dose DLP 584.93 mGy-cm FINDINGS: ALIGNMENT AND GENERAL ASSESSMENT: There is mild kyphosis of the thoracic spine. There are no acute fractures or subluxations of the thoracic spine. There is a moderate chronic compression fracture at T12 with 30% height loss. There is osteonecrosis along the superior aspects of the vertebral body. There is 3 mm retropulsion of the posterior superior aspects of T12 without significant spinal stenosis. DISK SPACES AND SOFT TISSUES: MRI has higher sensitivity and specificity for disc and soft tissue disease. There are no disk protrusions or extrusions noted. Mild to moderate multilevel anterolateral osteophytes are again seen. There is no central or foraminal stenosis noted. VISUALIZED THORAX: The lungs are clear and the visualized heart and mediastinum are unremarkable. If there is further concern, CT myelogram or MRI of the thoracic spine may be performed for complete assessment. IMPRESSION: 1. No acute fractures or subluxations of the thoracic spine. 2. Chronic moderate compression fracture at T12 with 30% height loss and 3 mm retropulsion of the posterior superior aspects. No significant spinal stenosis. Osteonecrosis noted along the superior aspects of T12. SL: [id number] 01/30/2018 [facility] Spine cervical wo contrast CT (ER) PROCEDURE: CT CERVICAL SPINE WITHOUT CONTRAST Clinical Indication: Patient tripped and fell while walking in the garage.. Comparison: 07/25/2017 CT cervical spine. Technique: Multi-detector CT imaging of the cervical spine is performed. Coronal and sagittal reconstructions were obtained. DLP 582.02 mGy-cm FINDINGS: ALIGNMENT AND GENERAL ASSESSMENT: No fracture or malalignment through the cervicothoracic junction. The craniocervical junction is normal. The atlantodental alignment is normal. The posterior elements are intact. The intervertebral disc spaces are maintained. SOFT TISSUES: Survey of the intraspinal soft tissues is limited by this modality. The prevertebral and paraspinal soft tissues are normal. IMPRESSION: Negative CT of the cervical spine. END IMPRESSION [id number] 01/30/2018 [facility] Brain wo contrast CT Patient N chikis: DENIA MORRELL : 1930; Age: 87 years y/o Female MR: [id number] Study: Brain wo contrast CT 01/30/2018 1:48 PM CDT Ordering Physician: Andre Peterson MD Clinical Indication: - fall pain; Comparison: 07/25/2017 TECHNIQUE: CT images were obtained from the foramen magnum to the vertex without the use of intravenous contrast on a multidetector CT. Coronal and sagittal reconstructions were obtained. CT radiation dose DLP: 981 mGy-cm FINDINGS: There is no evidence of acute intracranial hemorrhage, subacute territorial infarct, mass effect, midline shift, extra-axial fluid collection, hydrocephalus or other acute abnormalities. There is moderate generalized cerebral volume loss with associated ventricular prominence. There are moderate nonspecific supratentorial white matter ill- defined hypodensities likely representing chronic small vessel ischemic changes in this age. There are no chronic territorial infarcts. There are calcifications in the carotid siphons and intradural vertebral arteries. Advanced degenerative changes in the left TM joint with osteophyte formation. The paranasal sinuses and mastoids are clear. If there is further concern for intracranial pathology or acute stroke, further assessment with an MRI of the brain should be considered. IMPRESSION: Moderate age-related changes without evidence of acute intracranial process. SL: [id number] 01/30/2018 [facility] Ankle 3 views DX Patient Name: DENIA MORRELL : 1930; Age: 87 years y/o Female MR: [id number] * LEFT ANKLE, 3 views History: Injury, trauma to left ankle. Status post fall Technique: Frontal, lateral, and oblique radiographs of the left ankle were obtained. FINDINGS: There is no evidence of fracture, dislocation, or acute change. The ankle mortise is intact. There are no degenerative changes or other significant osseous abnormalities. IMPRESSION: 1. Negative left ankle. SL: [id number] 01/30/2018 [facility] Knee 3 views DX Patient Name: DENIA MORRELL : 1930 Age: 87 years, Female MR: [id number] Study: Knee 3 views DX 01/30/2018 1:16 PM CDT Examination: Knee, left, 3 views Indication: Pain. Fall. Clinical information: - pain, fall. Comparison: None Findings: Bones: No acute displaced fracture. No expansile lytic or sclerotic lesion. Joints: The joint spaces are well-maintained. No dislocation. No effusion. Soft tissues: The soft tissues are unremarkable. IMPRESSION: No acute radiographic abnormality. SL: [id number] 01/30/2018 [facility] Hip 2/3 views uni w pelvis DX Patient Name: DENIA MORRELL : 1930 Age: 87 years, Female MR: [id number] Study: Hip 2/3 views uni w pelvis DX 01/30/2018 1:16 PM CDT Examination: Hip, left, 2 views. Pelvis, one view Indication: Fall. Pain. Clinical information: - pain, fall. Comparison: Left hip 08/03/2017 Findings: Bones: No acute displaced fracture. No expansile lytic or sclerotic lesion. Joints: The joint spaces are well-maintained. No dislocation. No effusion. Soft tissues: The soft tissues are unremarkable. IMPRESSION: No acute radiographic abnormality. SL: [id number] 01/30/2018 [facility] Ribs unilateral 3 views w PA chest DX Patient Name: DENIA MORRELL : 1930 Age: 87 years, Female MR: [id number] Study: Ribs unilateral 3 views w PA chest DX 01/30/2018 1:16 PM CDT Examination: Chest, PA. RIBS, left, 3 views. Indication: Pain. Injury after fall. Clinical information: - fall, pain. Comparison: Portable chest 08/03/2017 Findings: Lines/tubes: None. Heart: Normal cardiac silhouette. Vessels: The pulmonary vasculature is within normal limits. Atherosclerotic calcifications of the aortic arch. Mediastinum: No mediastinal or hilar mass or lymphadenopathy. Lungs: No parenchymal mass. No focal consolidation. Pleura: No pleural effusion. No pneumothorax. Soft tissues: Normal. No axillary mass or lymphadenopathy. Bones: No acute osseous abnormality. Degenerative changes of the thoracic spine. Transverse nondisplaced acute fractures of the left lateral 4th and 5th ribs. Kyphoplasty changes of L3. IMPRESSION: Left lateral 4th and 5th rib fractures. No pneumothorax. Otherwise, no acute radiographic abnormality. : [id number] 01/30/2018 [facility] Hip 2/3 views uni DX Left hip 2views: There is no fracture or dislocation. There are no other significant osseous, articular or soft tissue abnormalities. IMPRESSION: No acute radiographic abnormality of the left hip. [id number] 08/03/2017 [facility] Ribs unilateral DX Left RIBS: There is generalized osteoporosis. There are no visible fractures or other acute osseous abnormalities. Degenerative changes in the thoracic spine are noted. Previous kyphoplasty at L3 is noted. There are no acute intrathoracic abnormalities. IMPRESSION: No acute radiographic abnormalities of the ribs. If there is still a clinical concern, bone scan may be helpful to exclude occult fractures. [id number] 08/03/2017 [facility] Spine lumbar 2 or 3 views DX L umbar spine 3 views: There is generalized osteoporosis. There is mild curvature to the right at L2. There is mild superior endplate compression of L3 with cement in the L3 vertebral body consistent with previous vertebroplasty. No other compressions or acute osseous abnormalities are seen. Mild osteophyte formation at L2-L3 is noted. The disc spaces are normal in width. Atherosclerotic calcification in the aortoiliac segment is noted. The SI joints are normal. IMPRESSION: Old L3 compression, post vertebroplasty. There are no other acute radiographic abnormalities in the lumbar spine. [id number] 08/03/2017 [facility] Brain wo contrast CT EXAM: Bra in wo contrast CT PROVIDED CLINICAL HISTORY: Fall. Contusion. Patient taking anticoagulants. TECHNIQUE: Contiguous axial images from the skull base to the vertex without intravenous contrast. Coronal and sagittal reformats. EXPOSURE: Total exam DLP is 981.8 mGy-cm. COMPARISON: CT Brain performed 06/16/2008. FINDINGS: BRAIN: No acute transcortical infarct. No brain parenchymal contusion or edema. No intracranial hemorrhage or other fluid collection. No intracranial mass. No clinically significant white matter disease. Prominent but age- consistent global parenchymal volume loss. Atherosclerotic calcifications in the intracranial carotid arteries. VENTRICLES / CISTERNS / SHIFT: No hydrocephalus. No significant effacement of the basal cisterns or foramen magnum. No significant midline shift. BONES / SCALP: Superficial soft tissue injury, including a moderate-sized left parietal-occipital scalp contusion/hematoma. No acute depressed fracture of the calvarium or skull base. No aggressive bone lesions. IMAGED SINUSES / MASTOIDS: No significant paranasal sinus fluid. No significant sinus mucosal thickening. No significant fluid in the imaged mastoid air cells. IMPRESSION: Superficial soft tissue injury. No definite CT evidence of acute intracranial abnormality. No acute calvarial or skull base fracture. No significant interval change of the intracranial findings. SL: MAYTE 07/25/2017 [facility] Spine cervical wo contrast CT Study: Spine cervical wo contrast CT Clinical Indication: CT DLP-475.16 - fall, neck pain Comparison: None Technique: Multiple axial CT images of the cervical spine were performed without the administration of intravenous contrast. Coronal and sagittal reconstructions were obtained. CT Radiation Dose DLP 475.16 mGy-cm FINDINGS: Anatomic alignment is maintained across the cervical spine. No acute fracture or dislocation is seen. There is mild degenerative disc disease throughout cervical spine with superimposed areas of uncovertebral arthrosis. Moderate-severe facet arthrosis throughout cervical spine is also seen. Moderate right neural foraminal narrowing at C4-C5 is seen. Moderate-severe left neural foraminal narrowing at C5-C6 is present. Paravertebral soft tissues are unremarkable. The lung apices are clear. IMPRESSION: 1. No acute bony abnormality of the cerv ical spine. SL: [id number] 07/25/2017 [facility] Chest/Abdomen/Pelvis wo IV contrast CT Study: Chest/Abdomen/Pelvis wo IV contrast CT Clinical Indication: CT DLP-1071.42 - fall, midline thoracic and lumbar pain Comparison: None Technique: Multiple axial CT images of the chest, abdomen, and pelvis were acquired without the administration of intravenous contrast. Coronal and sagittal reconstructions were obtained. CT Radiation Dose DLP 1071.42 mGy-cm Findings: Heart is mildly enlarged. Pericardium is unremarkable. Aortic annular, coronary artery, and thoracic aortic calcifications are seen. No pathologic mediastinal, hilar, or axillary adenopathy is seen. Calcified right hilar lymph node are seen. Peripheral cluster of nodules measuring 1.4 x 1.2 cm in the right middle lobe is seen. Larger peripheral cluster of nodules measuring 2 x 1.1 cm is also noted in the right middle lobe. Additional linear cluster of nodules measuring 1.3 cm in the left lower lobe is also seen. There is no pleural effusion or pneumothorax. Patient is status post cholecystectomy. Multiple bilateral renal hypodense cysts are seen with largest measuring 3.8 cm in the left kidney. Liver, pancreas, spleen, and adrenal glands are within the normal limits imposed by the lack of intravenous contrast. Extensive arterial calcifications are seen. Urinary bladder is well-distended. Patient is status post hysterectomy. Scattered sigmoid diverticula are seen. The appendix is not clearly visualized. No intraperitoneal free air, free fluid, or pathologic adenopathy is seen. Small, fat-containing bilateral inguinal hernias are seen. Contusions in the lateral subcutaneous soft tissues overlying the left buttocks are seen. Bones are demineralized. Chronic, mild compression deformity of the L3 vertebral body is seen, status post prior vertebral body augmentation. No acute bony fracture is seen. IMPRESSION: 1. No evidence of acute injury to the ch est, abdomen, or pelvis. 2. Multiple nodular opacities in the rig ht middle and left lower lobes. This may represent sequela of prior atypical infectious disease process. Follow-up CT of the chest in 3 months time is recommended to assess stability. SL: [id number] 07/25/2017 [facility] Neck CTA Patient Name: DENIA MORRELL : 1930; Age: 86 years y/o Female MR: [id number] Study: Neck CTA 08/24/2016 8:22 AM [employer] VEH[employer] Clinical Indication: I65.29 Occlusion and stenosis of unspecified carotid artery; CT dose DLP 272 mGycm; Cre - 0.9; GFR - 59; 75 visi Comparison: CT cervical spine from 06/28/2008 TECHNIQUE: Sequential trans-axial images of the neck were obtained with a multi- detector helical CT after iodinated contrast administration. Coronal and sagittal reconstructions and were obtained, along with 3D post-processing imaging for exam interpretation. FINDINGS: CTA NECK: VASCULAR EVALUATION: Normal 3 vessel arch anatomy is seen. Mild atherosclerotic disease of the origins of the great vessels is noted. The common carotid arteries are widely patent bilaterally. There is a small, noncalcified atherosclerotic plaque in the right carotid bulb, producing up to 10% luminal narrowing. Minimal atherosclerotic disease of the left carotid bulb is seen without significant narrowing. The internal and external carotid artery origins are widely patent. The cervical internal carotid arteries are widely patent. There is no significant stenosis by NASCET criteria. Bilateral cervical segments of the vertebral arteries are widely patent. The source images show no evidence of dissections. Any reported ICA stenosis directly references the distal internal carotid diameter as the denominator for stenosis measurement. NON-VASCULAR STRUCTURES: Degenerative changes of the cervical spine are seen. IMPRESSION: Mild atherosclerotic disease of the bilateral carotid bulbs. No significant stenosis by NASCET criteria. : [id number] 08/24/2016 [facility] Ext Lower Venous Doppler Unilat US Clinical Indication: I86.8 Varicose veins of other specified sites; right leg pain and swelling Comparison: None Right lower extremity venous Doppler ultrasound exam Common femoral, superficial femoral and popliteal venous segments demonstrate normal flow and compressibility. Normal distal augmentation. Specifically no evidence for deep vein thrombosis. Greater saphenous vein is normal caliber 3 mm proximal thigh and 2.7 mm in the calf. There is relatively insignificant short duration reflux noted within the greater saphenous vein up to 0.6 seconds only in the proximal calf. No varicose veins are demonstrated sonographically. The lesser saphenous vein is 2 mm in diameter with no significant reflux. IMPRESSION: No evidence for deep vein thrombosis within the right lower extremity. No significant varicose veins are demonstrated. No significant superficial venous incompetence is otherwise noted. : [id number] 12/03/2015 [facility] Foot 2 views DX Right foot 2 v iews: There is no fracture or dislocation. There are no other significant osseous, articular or soft tissue abnormalities. IMPRESSION: No acute radiographic abnormality of the right foot. [id number] 10/27/2015 [facility] Breast Complete Uni US - BREAS T COMPLETE UNI US/R ULTRASOUND OF RIGHT BREAST AND RIGHT AXILLA: 10/13/2015 CLINICAL: Density abnormal mammogram, mammographic nodule/density. Comparison is made to exams dated: 10/13/2015 mammogram, 09/17/2015 mammogram, 07/30/2014 mammogram, 07/27/2013 mammogram, 12/24/2011 mammogram and 12/23/2010 mammogram - [facility]. Color flow and real-time ultrasound of the right breast and axilla were performed. Nathan scale images of the real-time examination were reviewed. All 4 quadrants, the retroareolar region and axilla are evaluated in this exam. No abnormalities were seen sonographically in the right breast or the right axilla. IMPRESSION: BENIGN There is no sonographic evidence of malignancy. There is no sonographic abnormality seen in the right breast to correspond with the initial mammographic density which is consistent with normal fibroglandular tissue. Return to annual mammogram screening schedule is recommended. Liu Bower M.D. jt/:10/13/2015 11:34:41 Executive Assistant To General Counsel: Eder Summers, [facility] This exam was dictated and interpreted by [id number] for [facility]. letter sent: Normal exam Ultrasound BI-RADS: 2 Benign 10/13/2015 [facility] Digital Mammo DX Uni MA - DIGI NOAH MAMMO DX UNI MA/R UNILATERAL RIGHT DIGITAL DIAGNOSTIC MAMMOGRAM WITH CAD: 10/13/2015 CLINICAL: Mammographic Abnormality. Current study was evaluated with a Computer Aided Detection (CAD) system. Comparison is made to exams dated: 09/17/2015 mammogram, 07/30/2014 mammogram, 07/27/2013 mammogram, 12/24/2011 mammogram, 12/23/2010 mammogram and 12/09/2009 mammogram - [facility]. There are scattered fibroglandular densities in the right breast. The previously described nodular density in the right breast largely effaces on today's additional imaging, representing fibroglandular tissue. However ultrasound will be performed for confirmation. There are benign vascular calcifications in the right breast. There also are benign scattered calcifications in the right breast. No significant masses, calcifications, or other findings are seen in the breast. There has been no significant interval change. IMPRESSION: INCOMPLETE: NEEDS ADDITIONAL IMAGING EVALUATION The previously described nodular density in the right breast largely effaces on today's additional imaging, representing fibroglandular tissue. However ultrasound will be performed for confirmation and to exclude underlying pathology. SUMMARY: Ultrasound will be performed at this time; please see dedicated separate report. Liu Bower M.D. jt/penrad:10/13/2015 11:29:41 Executive Assistant To General Counsel: Padma Sheffield, [facility] This exam was dictated and interpreted by [id number] for [facility]. Mammogram BI-RADS: 0 Indeterminate 10/13/2015 [facility] Digital Mammo Screening Silvano MA - DIGITAL MAMMO SCREENING SILVANO MA BILATERAL DIGITAL SCREENING MAMMOGRAM WITH CAD: 09/17/2015 CLINICAL: Routine. Current study was evaluated with a Computer Aided Detection (CAD) system. Comparison is made to exams dated: 07/30/2014 mammogram, 07/27/2013 mammogram, 12/24/2011 mammogram, 12/23/2010 mammogram, 12/09/2009 mammogram and 12/06/2008 mammogram - [facility]. There are scattered fibroglandular densities in both breasts. There are benign vascular calcifications in both breasts. There also are benign scattered calcifications in both breasts. There is a nodular density in the right breast anterior depth central to the nipple seen on the craniocaudal view only. No other significant masses, calcifications, or other findings are seen in either breast. IMPRESSION: INCOMPLETE: NEEDS ADDITIONAL IMAGING EVALUATION The nodular density in the right breast is indeterminate. Right diagnostic mammogram with possible ultrasound is recommended (spot compression, rolled views, and lateral view). Liu Bower M.D. jt/penrad:09/17/2015 13:26:50 Executive Assistant To General Counsel: Mariama Sanchez, [facility] This exam was dictated and interpreted by [id number] for [facility]. letter sent: Additional Imaging Mammogram BI-RADS: 0 Indeterminate 09/17/2015 [facility] Chest 2 views DX Examination: Chest x-ray, 2 views History: R05 Cough, R09.89 Other specified symptoms and signs involving the circulatory and respiratory systems Comparison: 12/26/2012 Findings: The lungs are clear and without focal consolidation. The cardiomediastinal silhouette is within normal limits. No pleural effusion or pneumothorax is seen. The osseous structures are without focal abnormality. IMPRESSION: No acute cardiopulmonary disease. SL: 16 07/30/2015 [facility] Consultation Notes No Data Provided for This Section Discharge Summaries No Data Provided for This Section History and Physicals No Data Provided for This Section Vital Signs Vital Sign Value Date Comments Source Temperature Oral (F) 98.4 F 06/28/2020 [facility] Heart Rate 83 06/28/2020 [facility] Respitory Rate 18 06/28/2020 [facility] Systolic (mm Hg) 138 06/28/2020 [facility] Diastolic (mm Hg) 86 06/28/2020 [facility] Height 152.4 cm 06/27/2020 [facility] BMI Calculated 25.44 06/27/2020 [facility] Weight 59.091 06/27/2020 [facility] Systolic (mm Hg) 150 06/27/2020 [facility] Diastolic (mm Hg) 65 06/27/2020 [facility] Heart Rate 84 06/27/2020 [facility] Respitory Rate 16 06/27/2020 [facility] Temperature Oral (F) 100.3 F 06/27/2020 [facility] Respitory Rate 18 06/15/2020 [facility] Temperature Oral (F) 98.1 F 06/15/2020 [facility] Heart Rate 65 06/15/2020 [facility] Systolic (mm Hg) 104 06/15/2020 [facility] Diastolic (mm Hg) 59 06/15/2020 [facility] Temperature Oral (F) 98.2 F 06/15/2020 [facility] Heart Rate 67 06/15/2020 [facility] Respitory Rate 18 06/15/2020 [facility] Systolic (mm Hg) 125 06/15/2020 [facility] Diastolic (mm Hg) 59 06/15/2020 [facility] Respitory Rate 16 06/15/2020 [facility] Systolic (mm Hg) 123 06/15/2020 [facility] Diastolic (mm Hg) 63 06/15/2020 [facility] Heart Rate 75 06/15/2020 [facility] Temperature Oral (F) 98 F 06/14/2020 [facility] Height 152.4 cm 06/13/2020 [facility] Weight 58.182 06/13/2020 [facility] BMI Calculated 25.05 06/13/2020 [facility] Respitory Rate 30 05/30/2020 [facility] Systolic (mm Hg) 173 05/30/2020 [facility] Diastolic (mm Hg) 75 05/30/2020 [facility] Respitory Rate 30 05/30/2020 [facility] Systolic (mm Hg) 176 05/30/2020 [facility] Diastolic (mm Hg) 79 05/30/2020 [facility] Respitory Rate 23 05/30/2020 [facility] Systolic (mm Hg) 176 05/30/2020 [facility] Diastolic (mm Hg) 70 05/30/2020 [facility] Temperature Oral (F) 98.1 F 05/30/2020 [facility] Height 152.4 cm 05/30/2020 [facility] Weight 58.182 05/30/2020 [facility] BMI Calculated 25.05 05/30/2020 [facility] Temperature Oral (F) 97.8 F 01/14/2020 [facility] Heart Rate 66 01/14/2020 [facility] Respitory Rate 18 01/14/2020 [facility] Systolic (mm Hg) 115 01/14/2020 [facility] Diastolic (mm Hg) 69 01/14/2020 [facility] Temperature Oral (F) 98.1 F 01/14/2020 [facility] Heart Rate 76 01/14/2020 [facility] Respitory Rate 18 01/14/2020 [facility] Systolic (mm Hg) 146 01/14/2020 [facility] Diastolic (mm Hg) 73 01/14/2020 [facility] Temperature Oral (F) 98.3 F 01/14/2020 [facility] Heart Rate 73 01/14/2020 [facility] Respitory Rate 18 01/14/2020 [facility] Systolic (mm Hg) 125 01/14/2020 [facility] Diastolic (mm Hg) 64 01/14/2020 [facility] Height 152.4 cm 01/13/2020 [facility] Weight 58.182 01/13/2020 [facility] BMI Calculated 25.05 01/13/2020 [facility] Height 165.1 cm 01/13/2020 [facility] BMI Calculated 20.84 01/13/2020 [facility] Weight 56.818 01/13/2020 [facility] Temperature Oral (F) 98.6 F 01/12/2020 [facility] Heart Rate 70 01/12/2020 [facility] Respitory Rate 18 01/12/2020 [facility] Systolic (mm Hg) 119 01/12/2020 [facility] Diastolic (mm Hg) 57 01/12/2020 [facility] Temperature Oral (F) 98.4 F 01/12/2020 [facility] Heart Rate 79 01/12/2020 [facility] Respitory Rate 18 01/12/2020 [facility] Systolic (mm Hg) 106 01/12/2020 [facility] Diastolic (mm Hg) 54 01/12/2020 [facility] Temperature Oral (F) 98.7 F 01/12/2020 [facility] Heart Rate 68 01/12/2020 [facility] Respitory Rate 17 01/12/2020 [facility] Systolic (mm Hg) 126 01/12/2020 [facility] Diastolic (mm Hg) 63 01/12/2020 [facility] Height 152.4 cm 01/11/2020 [facility] Weight 50.909 01/11/2020 [facility] BMI Calculated 21.92 01/11/2020 [facility] BMI Calculated 25.44 01/11/2020 [facility] Height 152.4 cm 01/11/2020 [facility] BMI Calculated 25.44 01/11/2020 [facility] Weight 59.091 01/11/2020 [facility] Heart Rate 65 10/01/2019 [facility] Respitory Rate 18 10/01/2019 [facility] Systolic (mm Hg) 163 10/01/2019 [facility] Diastolic (mm Hg) 63 10/01/2019 [facility] Temperature Oral (F) 98.3 F 09/30/2019 [facility] Heart Rate 72 09/30/2019 [facility] Respitory Rate 17 09/30/2019 [facility] Systolic (mm Hg) 138 09/30/2019 [facility] Diastolic (mm Hg) 56 09/30/2019 [facility] Systolic (mm Hg) 150 09/30/2019 [facility] Diastolic (mm Hg) 84 09/30/2019 [facility] Heart Rate 70 09/30/2019 [facility] Respitory Rate 18 09/30/2019 [facility] Temperature Oral (F) 98.7 F 09/30/2019 [facility] Height 162.56 cm 09/30/2019 [facility] BMI Calculated 30.96 09/30/2019 [facility] Weight 81.818 09/30/2019 [facility] Temperature Oral (F) 98.9 F 08/25/2019 [facility] Heart Rate 59 08/25/2019 [facility] Respitory Rate 18 08/25/2019 [facility] Systolic (mm Hg) 135 08/25/2019 [facility] Diastolic (mm Hg) 73 08/25/2019 [facility] Heart Rate 62 08/25/2019 [facility] Temperature Oral (F) 98.1 F 08/25/2019 [facility] Heart Rate 59 08/25/2019 [facility] Respitory Rate 17 08/25/2019 [facility] Systolic (mm Hg) 143 08/25/2019 [facility] Diastolic (mm Hg) 77 08/25/2019 [facility] Respitory Rate 16 08/25/2019 [facility] Systolic (mm Hg) 137 08/25/2019 [facility] Diastolic (mm Hg) 64 08/25/2019 [facility] Temperature Oral (F) 97.9 F 08/25/2019 [facility] Height 152.4 cm 08/25/2019 [facility] Weight 60.455 08/25/2019 [facility] BMI Calculated 26.03 08/25/2019 [facility] Height 154.94 cm 08/24/2019 [facility] BMI Calculated 24.61 08/24/2019 [facility] Weight 59.091 08/24/2019 [facility] Heart Rate 65 01/30/2018 [facility] Systolic (mm Hg) 145 01/30/2018 [facility] Diastolic (mm Hg) 64 01/30/2018 [facility] Respitory Rate 17 01/30/2018 [facility] Temperature Oral (F) 97.9 F 01/30/2018 [facility] Heart Rate 59 01/30/2018 [facility] Systolic (mm Hg) 159 01/30/2018 [facility] Diastolic (mm Hg) 56 01/30/2018 [facility] Respitory Rate 20 01/30/2018 [facility] Respitory Rate 20 01/30/2018 [facility] Heart Rate 58 01/30/2018 [facility] Systolic (mm Hg) 159 01/30/2018 [facility] Diastolic (mm Hg) 56 01/30/2018 [facility] Weight 59.545 01/30/2018 [facility] BMI Calculated 25.64 01/30/2018 [facility] Height 152.4 cm 01/30/2018 [facility] Temperature Oral (F) 98.7 F 01/30/2018 [facility] Systolic (mm Hg) 145 07/25/2017 [facility] Diastolic (mm Hg) 54 07/25/2017 [facility] Temperature Oral (F) 98.2 F 07/25/2017 [facility] Respitory Rate 15 07/25/2017 [facility] Temperature Oral (F) 97.9 F 07/25/2017 [facility] Systolic (mm Hg) 145 07/25/2017 [facility] Diastolic (mm Hg) 54 07/25/2017 [facility] Respitory Rate 14 07/25/2017 [facility] Respitory Rate 16 07/25/2017 [facility] Systolic (mm Hg) 164 07/25/2017 [facility] Diastolic (mm Hg) 58 07/25/2017 [facility] Temperature Oral (F) 98 F 07/25/2017 [facility] Weight 59.091 07/25/2017 [facility] BMI Calculated 25.44 07/25/2017 [facility] Height 152.4 cm 07/25/2017 [facility] Heart Rate 60 07/25/2017 [facility] Systolic (mm Hg) 108 12/26/2015 [facility] Diastolic (mm Hg) 48 12/26/2015 [facility] Temperature Oral (F) 99.3 F 12/26/2015 [facility] Heart Rate 58 12/26/2015 [facility] Respitory Rate 20 12/26/2015 [facility] Systolic (mm Hg) 116 12/26/2015 [facility] Diastolic (mm Hg) 53 12/26/2015 [facility] Heart Rate 64 12/26/2015 [facility] Temperature Oral (F) 99.9 F 12/26/2015 [facility] Respitory Rate 20 12/26/2015 [facility] Respitory Rate 20 12/26/2015 [facility] Systolic (mm Hg) 140 12/26/2015 [facility] Diastolic (mm Hg) 54 12/26/2015 [facility] Heart Rate 66 12/26/2015 [facility] Temperature Oral (F) 102.4 F 12/26/2015 [facility] Weight 61.818 12/26/2015 [facility] Height 152.4 cm 12/26/2015 [facility] BMI Calculated 26.62 12/26/2015 [facility] Diastolic (mm Hg) 65.0 07/13/2011 [facility] Systolic (mm Hg) 132.0 07/13/2011 [facility] Respitory Rate 20.0 07/13/2011 [facility] Heart Rate 58.0 07/13/2011 [facility] Temperature Oral (F) 98.3 F 07/13/2011 [facility] Diastolic (mm Hg) 62.0 07/13/2011 [facility] Respitory Rate 20.0 07/13/2011 [facility] Heart Rate 56.0 07/13/2011 [facility] Temperature Oral (F) 98.4 F 07/13/2011 [facility] Systolic (mm Hg) 114.0 07/13/2011 [facility] Temperature Oral (F) 97.3 F 07/13/2011 [facility] Diastolic (mm Hg) 57.0 07/13/2011 [facility] Heart Rate 63.0 07/13/2011 [facility] Systolic (mm Hg) 115.0 07/13/2011 [facility] Respitory Rate 18.0 07/13/2011 [facility] Weight 62.727 07/10/2011 [facility] Height 152.4 cm 07/10/2011 [facility] Encounters Location Location Details Encounter Type Encounter Number Reason For Visit Attending Provider ADM Date DC Date Status Source [facility] Inpatient [id number] JULIANNA KRAFTAT 07/09/2011 07/13/2011 Discharged [facility] Outpatient [id number] SCREENING LUIS HINOJOSA 12/24/2011 Active [facility] [id number] 12/21/2012 12/22/2012 [facility] [id number] 02/19/2013 02/19/2013 [facility] [id number] 02/21/2013 02/22/2013 [facility] [id number] 03/12/2013 03/13/2013 [facility]UD[facility] [id number] 04/02/2013 04/03/2013 [facility]UDIT [id number] 07/16/2013 07/16/2013 [facility] AUDIT [id number] 07/30/2013 07/30/2013 [facility]UD[facility] [id number] 09/12/2013 09/12/2013 [facility] EST, Provi yesica: BAPAT,JULIANNA, Status: Pen, Time: 9:30 AM [id number] 09/13/19 14 07/30/2013 [facility]UD[facility] [id number] 09/13/2013 09/13/2013 [facility] [id number] 09/17/2013 09/17/2013 [facility] [id number] 09/24/2013 09/24/2013 [facility] [id number] 10/09/2013 10/09/2013 [facility] [id number] 10/26/2013 10/26/2013 [facility] [id number] 11/06/2013 11/06/2013 [facility] AUD[facility] [id number] 11/21/2013 11/21/2013 [facility]UD[facility] [id number] 12/21/2013 12/21/2013 [facility] EST, Provi yesica: BAPAT,JULIANNA, Status: Pen, Time: 10:15 AM [id number] 01/12/20 14 12/21/[address] [facility] Outpatient [id number] Souheil Grady 07/30/2014 07/31/2014 [facility] Outpatient [id number] Souheil Grady 07/30/2015 07/31/2015 [facility] Outpatient [id number] Souheil Grady 09/17/2015 09/18/2015 [facility] Outpatient [id number] Souheil Grady 10/13/2015 10/14/2015 [facility] Outpatient [id number] Eitan Delgado 016 10/28/2015 [facility] Outpatient [id number] Eitan Argueta Delgado 016 12/04/2015 [facility] [id number] [place] Nazarioeal 12/26/2015 12/26/2015 [facility] Outpatient [id number] Eiatn Argueta Delgado 016 08/25/2016 [facility] Emergency [id number] Jayson Chukwuma 07/25/2017 07/25/2017 [facility] Outpatient [id number] Souheil Grady 08/03/2017 08/04/2017 [facility] Emergency [id number] Jayson Chukwuma 01/30/2018 01/30/2018 [facility] Outpatient [id number] Souheil Grady 05/09/2018 05/09/2018 [facility] Outpatient [id number] Souheil Grady 07/31/2018 08/01/2018 [facility] Recurring [id number] Jean Eduard 07/24/2019 08/23/2019 [facility] Observation [id number] Marcial Fungyas 08/24/2019 08/25/2019 [facility] Recurring [id number] Jean Eduard 08/27/2019 08/29/2019 [facility] Recurring [id number] Jean Heltonrique 09/07/2019 10/07/2019 [facility] Emergency [id number] Maria G Stacy 09/30/2019 10/01/2019 [facility] Recurring [id number] Jean Eduard 10/08/2019 11/07/2019 [facility] Recurring [id number] Jean Eduard 11/20/2019 12/20/2019 [facility] Recurring [id number] Jean Eduard 12/26/2019 01/25/2020 [facility] Observation [id number] Felipe Movva 01/11/2020 01/13/2020 [facility] Observation [id number] Loni Mcneill 01/13/2020 01/14/2020 [facility] Recurring [id number] [facility] 02/19/2020 03/20/2020 [facility] Recurring [id number] [facility] 04/02/2020 05/02/2020 [facility] Recurring [id number] Jean Cooper 020 06/14/2020 [facility] Bedded Outpatient [id number] [facility] 05/30/2020 05/30/2020 [facility] Bedded Outpatient [id number] [facility] 06/13/2020 06/15/2020 [facility] Emergency [id number] Jayson Melchor 06/27/2020 06/28/2020 [facility] DS [id number] UNK NIDIA ZUNIGAN Active [facility] Procedures Procedure Code Date Perfomer Comments Source Appendectomy [id number] [facility] Cataract extraction<sup>1</sup> [id number] OU [facility] Cholecystectomy [id number] [facility] Hysterectomy [id number] [facility] Operation<sup>2</sup> [id number] bladder suspension [facility] Primary decompression of thoracic spinal cord and fusion of joint of thoracic spine [id number] [facility] Assessment and Plan Assessment and Plan Date Source Extracted from:Title: Clinical Document Author: Neeraj Peterson MD Date: 06/15/20 Pulmonary/Critical Care Medicine progess note Neeraj Peterson MD SUBJECTIVE: Seen and examined. Patient is breathing much better. Patient daughter is at the bedside. X-ray results reviewed and discussed with them OBJECTIVE: Vitals Tmp(F) Tmp(C) Ttype BP MAP Pulse RR SpO2 FIO2 ETCO2 06/15 07:41 ---- ---- ---- - ---- --- --- 18 99 5.0L/m --- 06/15 07:19 98.1 36.72 oral 104/59 --- 65 -- 100 --- --- 06/14 23:00 98.2 36.78 oral 125/59 --- 67 18 99 --- --- 06/14 21:09 ---- ---- ---- - ---- --- --- -- 100 5.0L/m --- 06/14 21:07 ---- ---- ---- - ---- --- --- 16 100 5.0L/m --- 24 Hr Tmax: 98.2F (36.78c) at 06/14 23:0 0 Vital Signs are the last 5 in the past 48 hours. 24 Hr Tmin: 98F (36.67c) at 06/14 15:27 Weights are the last 5 in 60 days, plus initial. Date Wt(kg) Wt(lb) Ht(cm) Ht(in) Method BMI BSA 06/13 (initial) 58.18 128.00 Estimated 25.1 1.57 06/13 152.40 60.00 Stated (no point of care glucose results charte d in last 24 hours) Most Recent Scores: 06/15/20 [place] Coma Score 15 06/15/20 Yash Score 21 06/15/20 [place] Fall Score 10 Lines, Tubes, and Drains: 06/13/2020 20:00 Peripheral Lines: Forea rm Right 20 gauge Over the needle catheter Surgical Procedures: (no date) DUAL CHAMBER PACEMAKER IMPL ANT [id number] (primary surgeon unspecified) Labs (Last four charted values) WBC 8.2 (JUN 13) Hgb L 11.4 (JUN 13) Hct L 33.6 (JUN 13) Plt 257 (JUN 13) Na 141 (JUN 13) K 4.1 (JUN 13) CO2 27 (JUN 13) Cl 108 (JUN 13) Cr 1.14 (JUN 13) BUN 20 (JUN 13) Glucose Random H 116 (JUN 13) Ca 9.6 (JUN 13) PT 14.7 (JUN 13) INR 1.14 (JUN 13) PTT 23.0 (JUN 13) RADIOLOGY: 1. Stable faint left apical pleural line , suspicious for small pneumothorax. This has not increased in size. 2. Otherwise no change. No new consolida tion. ASSESSMENT and EXAM: HEENT:normocephalic, atraumatic Skin: no rash Chest: symmetrical expansion, no wheezing, no rales, no crackles, left subclavian area pacemaker in the place Heart: Regular rhythm, no murmurs Abdomen: Soft, nontender, bowel sounds present Ext: no edema POWER EQUIPMENT TECHNOLOGY INSTRUCTOR: alert and oriented, no focal neurological deficits DIAGNOSES and PROBLEMS: Left small pneumothorax Status post pacemaker placement for sick sinus syndrome PLAN and TREATMENT: Seen and examined. Patient is hemodynamically stable. She is oxygenating very well. Her pneumothorax appears smaller on current chest x-ray. Precautions to be taken discussed with patient and her daughter. She will undergo chest x-ray on Tuesday Current medications reviewed Okay to discharge home Scheduled Meds (8): 06/13/20 amLODIPine 2.5 mg PO Bedtime 06/13/20 atorvastatin 40 mg PO Bedtime 06/14/20 bumetanide (Bumex) 1 mg PO Adiel y 06/14/20 clopidogrel 75 mg PO Daily 06/13/20 flecainide 100 mg PO Q12H 06/13/20 losartan 50 mg PO BID 06/13/20 minocycline 100 mg PO [id number] 06/13/20 pantoprazole 40 mg PO BID-Befor e Meals Unscheduled Meds (1): 06/13/20 influenza virus vaccine, inacti vated (influenza virus vaccine, inactivated high-dose preservative-free intramuscular suspension) 0.7 mL IM ONCALL Extracted from:Title: Consult Note Author: Neeraj Peterson MD Date: 06/14/20 Sick sinus syndrome(I49.5) Left-sided pneumothorax From pulmonary standpoint patient is a 50% pneumothorax which was not seen yesterday after pacemaker placement. She is hemodynamic stable. She is oxygenating well. I spoke with the patient's daughter and the wooden fence erector gas station attendant. We will keep her in the hospital. Initiate on 5 L of humidified oxygen overnight. Chest x-ray PA and lateral in the morningif stable she can be discharged home. 06/15/2020 [facility] Extracted from:Title: Progress Note Author: Angelito Segovia MD Date: 01/12/20 Unstable anginastatus post cardiac catheterizationwith severe disease in the LAD, status post angioplasty and stenting of the LAD with the deployment of a 2.0 x 15 mm Resolute [place] drug-eluting stent in the distal LAD to cover the distal lesion. Patient with no recurrent symptomswill continue on aspirinPlavixand warfarinas recommended by cardiologyand await clearancefor discharge Hypertensionblood pressure remains adequately controlled Paroxysmal atrial fibrillation, ventricular rate controlled , continue on anticoagulant Dyslipidemiawe will continue on statins Pending clearance from cardiologyfor discharge Extracted from:Title: General Admission H&P * Author: Felipe Negron MD Date: 01/11/20 Impression and Plan CP: Pt scheduled for OP angioram to evaluate for CAD. Cardiology consulted from ER and possible angiogram today AF: On flecainide and metoprolol at home and warfarin for anticoag. Now rate controlled. Hold meds for now. Warfarin held HTN: On losartan at home. Hold for now COPD: Well controlled. Prn nebs DVT prophylaxis SCD Code status CPR Dispo: Home once stable 01/13/2020 [facility] Extracted from:Title: Clinical Document Author: Marcial Canela MD Date: 08/25/19 Discharge Summary Name: Marielos Alicea Record Number: [id number] Admission Date: 08/24/2019 Discharge Date: 08/25/2019 Copies to: Dr. Hema Grady Diagnoses: Hypocalcemia A. fib with RVR Hyp hypokalemia Hypomagnesemia Hypocalcemia Diabetes Hypertension next hyperlipidemia Osteoporosis Procedures: Chief Complaint I have a palpitation and weakness HPI: See the HPI PMH: See the HPI Hospital course: 89-year-old female with multiple medical problem came to the ER with after having A. fib with RVR and palpitation and generalized weakness. Patient heart rate is back to the baseline after starting home medication. Patient was seen by the wooden fence erector. Patient has a low magnesium. The magnesium has been replaced. Patient also has a low calcium. The calcium has been replaced. Patient was seen by the first aid teacher and the wooden fence erector. Tobacco Buyer thinks patient has A. fib with because of the low magnesium and calcium. Now patient is back to the baseline. Endocrine recommended to having a calcium and magnesium at home to take every day. Right now patient is symptomatically free. Discharge condition: Stable Recent signficant physical findings: Vitals are stable Recent significant lab and radiology results: Labs (Last four charted values) WBC 8.4 (AUG 25) H 11.5 (AUG 24) Hgb L 10.6 (AUG 25) 12.0 (AUG 24) Hct L 31.6 (AUG 25) 36.0 (AUG 24) Plt 249 (AUG 25) 275 (AUG 24) Na 144 (AUG 25) 143 (AUG 24) K L 3.4 (AUG 25) 3.7 (AUG 24) CO2 30 (AUG 25) 25 (AUG 24) Cl 108 (AUG 25) 109 (AUG 24) Cr 0.71 (AUG 25) 0.95 (AUG 24) BUN 15 (AUG 25) 17 (AUG 24) Glucose Random 97 (AUG 25) H 110 (AUG 24) Mg L 1.6 (AUG 25) C 0.8 (AUG 24) Phos 3.2 (AUG 25) 2.6 (AUG 24) Ca L 8.0 (AUG 25) C 6.9 (AUG 24) PT H 33.0 (AUG 25) H 34.5 (AUG 24) INR H 3.14 (AUG 25) H 3.32 (AUG 24) PTT H 43.4 (AUG 25) 34.8 (AUG 24) Troponin <0.02 (AUG 25) <0.02 (AUG 24) Discharge therapy: Medications continue home medications We will add magnesium oxide 4 mg p.o. daily also Caltrate D1 tablet twice daily Diet healthy heart diet Activity as tolerated Follow up with Dr. Dominic redd Extracted from:Title: History and Physical Author: Siria Estrada MD Date: 08/24/19 89-year-old F with PMH of paroxysmal atr ial fibrillation,and HTN admitted for hypocalcemia, paroxysmal atrial fibrillation hypomagnesemia 1.Hypocalcemia(E83.51) Calcium 6.9, corrected for albumin 7.5, PTH 120 --Endocrinology consult --Calcium gluconate 3 g IV ordered --Follow-up vitamin D level 2.Paroxysmal atrial fibrillation(I48.0) CHADSVASC 4 on coumadin, INR 3.2 --Continue flecainide, metoprolol --Monitor INR and resume Coumadin --Cardiology consult 3.Hypomagnesemia(E83.42) Magnesium 0.8. Likely due to diuretic use --Replace for goal of 2.0 Ordered: Admit/Condition, 08/24/19 21:22:00 [employer], Status: Out Patient with Observation Services, Telemetry Capable Location, Expected LOS: 1 Midnight, Tommy Flores MD, Admit MD Review/Approve Yes, Isolation: No Isolation, [place] Precautions, Hypomagnesemia | Palpitat... 4.HTN (hypertension)(I10) Continue losartanandamlodipine Already on Coumadin Home once stable 08/25/2019 [facility] Plan of Care Plan of Care Date Source UTP Adult Vital Signs 02/01/2012 Routine [QLH] PROTHROMBIN TIME-INR 02/21/2013 Routine[QLH] PROTHROMBIN TIME-INR 03/12/2013 Routine[QLH] PROTHROMBIN TIME-INR 09/13/2013 Routine[QLH] LIPID PANEL Routine[QLH] CMP W/EGFR Routine 12/21/2013 [facility] UTP Adult Vital Signs 02/01/2012 Routine [QLH] PROTHROMBIN TIME-INR 02/21/2013 Routine[QLH] PROTHROMBIN TIME-INR 03/12/2013 Routine[QLH] PROTHROMBIN TIME-INR 09/13/2013 Routine[QLH] LIPID PANEL Routine[QLH] CMP W/EGFR Routine 11/21/2013 [facility] UTP Adult Vital Signs 02/01/2012 Routine [QLH] PROTHROMBIN TIME-INR 02/21/2013 Routine[QLH] PROTHROMBIN TIME-INR 03/12/2013 Routine[QLH] PROTHROMBIN TIME-INR 09/13/2013 Routine[QLH] LIPID PANEL Routine[QLH] CMP W/EGFR Routine 11/06/2013 [facility] UTP Adult Vital Signs 02/01/2012 Routine [QLH] PROTHROMBIN TIME-INR 02/21/2013 Routine[QLH] PROTHROMBIN TIME-INR 03/12/2013 Routine[QLH] PROTHROMBIN TIME-INR 09/13/2013 Routine[QLH] LIPID PANEL Routine[QLH] CMP W/EGFR Routine 10/26/2013 [facility] UTP Adult Vital Signs 02/01/2012 Routine [QLH] PROTHROMBIN TIME-INR 02/21/2013 Routine[QLH] PROTHROMBIN TIME-INR 03/12/2013 Routine[QLH] PROTHROMBIN TIME-INR 09/13/2013 Routine[QLH] LIPID PANEL Routine[QLH] CMP W/EGFR Routine 10/09/2013 [facility] UTP Adult Vital Signs 02/01/2012 Routine [QLH] PROTHROMBIN TIME-INR 02/21/2013 Routine[QLH] PROTHROMBIN TIME-INR 03/12/2013 Routine[QLH] PROTHROMBIN TIME-INR 09/13/2013 Routine[QLH] LIPID PANEL Routine[QLH] CMP W/EGFR Routine 09/24/2013 [facility] UTP Adult Vital Signs 02/01/2012 Routine [QLH] PROTHROMBIN TIME-INR 02/21/2013 Routine[QLH] PROTHROMBIN TIME-INR 03/12/2013 Routine[QLH] PROTHROMBIN TIME-INR 09/13/2013 Routine[QLH] LIPID PANEL Routine[QLH] CMP W/EGFR Routine 09/17/2013 [facility] UTP Adult Vital Signs 02/01/2012 Routine [QLH] LIPID PANEL 01/26/2013 Routine[QLH] PROTHROMBIN TIME-INR 02/21/2013 Routine[QLH] PROTHROMBIN TIME-INR 03/12/2013 Routine[QLH] PROTHROMBIN TIME-INR 09/13/2013 Routine[QLH] LIPID PANEL Routine[QLH] CMP W/EGFR Routine 09/13/2013 [facility] UTP Adult Vital Signs 02/01/2012 Routine [QLH] LIPID PANEL 01/26/2013 Routine[QLH] PROTHROMBIN TIME-INR 02/21/2013 Routine[QLH] PROTHROMBIN TIME-INR 03/12/2013 Routine 09/12/2013 [facility] UTP Adult Vital Signs 02/01/2012 Routine [QLH] LIPID PANEL 01/26/2013 Routine[QLH] PROTHROMBIN TIME-INR 02/21/2013 Routine[QLH] PROTHROMBIN TIME-INR 03/12/2013 Routine 07/30/2013 [facility] UTP Adult Vital Signs 02/01/2012 Routine [QLH] LIPID PANEL 01/26/2013 Routine[QLH] PROTHROMBIN TIME-INR 02/21/2013 Routine[QLH] PROTHROMBIN TIME-INR 03/12/2013 Routine 07/16/2013 [facility] UTP Adult Vital Signs 02/01/2012 Routine [QLH] PROTHROMBIN TIME-INR 03/12/2013 Routine[QLH] LIPID PANEL 01/26/2013 Routine[QLH] PROTHROMBIN TIME-INR 02/21/2013 Routine 04/03/2013 [facility] UTP Adult Vital Signs 02/01/2012 Routine [QLH] PROTHROMBIN TIME-INR 02/21/2013 Routine[QLH] LIPID PANEL 01/26/2013 Routine[QLH] PROTHROMBIN TIME-INR 03/12/2013 Routine 03/13/2013 [facility] [QLH] PROTHROMBIN TIME-INR 02/21/2013 [facility] Vital Signs 02/01/2012 Routine[QLH] LIPID PANEL 01/26/2013 Routine 02/22/2013 [facility] UTP Adult Vital Signs 02/01/2012 Routine [[facility]] LIPID PANEL 01/26/2013 Routine 02/19/2013 [facility] UTP Adult Vital Signs 02/01/2012 Routine [[facility]] LIPID PANEL 01/26/2013 Routine 12/22/2012 [facility] Social History Social History Date Source Social History TypeResponse Alcohol Never Substance Abuse Use: None. Smoking Status Former smoker; Exposure to Tobacco Smoke None; Cigarette Smoking Last 365 Days No; Reg Smoking Cessation Counseling No entered on: 06/13/20 01/11/2020 [facility] Caffeine Use (Active) Former Smoker (V15.82); (Active) Smoking Cigarettes For 1 Pack-years (305.1); (Active) 12/21/2013 [facility] Family History Value Date S ource Sororal history of Heart Disease (V17.49 ); (Active) Sororal history of Hypertension (V17.49); (Active) 12/21/2013 [facility] Sororal history of Heart Disease (V17.49 ); (Active) Sororal history of Hypertension (V17.49); (Active) 11/21/2013 [facility] Sororal history of Heart Disease (V17.49 ); (Active) Sororal history of Hypertension (V17.49); (Active) 11/06/2013 [facility] Sororal history of Heart Disease (V17.49 ); (Active) Sororal history of Hypertension (V17.49); (Active) 10/26/2013 [facility] Sororal history of Heart Disease (V17.49 ); (Active) Sororal history of Hypertension (V17.49); (Active) 10/09/2013 [facility] Sororal history of Heart Disease (V17.49 ); (Active) Sororal history of Hypertension (V17.49); (Active) 09/24/2013 [facility] Sororal history of Heart Disease (V17.49 ); (Active) Sororal history of Hypertension (V17.49); (Active) 09/17/2013 [facility] Sororal history of Heart Disease (V17.49 ); (Active) Sororal history of Hypertension (V17.49); (Active) 09/13/2013 [facility] Sororal history of Heart Disease (V17.49 ); (Active) Sororal history of Hypertension (V17.49); (Active) 09/12/2013 [facility] Sororal history of Heart Disease (V17.49 ); (Active) Sororal history of Hypertension (V17.49); (Active) 07/30/2013 [facility] Sororal history of Heart Disease (V17.49 ); (Active) Sororal history of Hypertension (V17.49); (Active) 07/16/2013 [facility] Sororal history of Heart Disease (V17.49 ); (Active) Sororal history of Hypertension (V17.49); (Active) 04/03/2013 [facility] Sororal history of Hypertension (V17.49) ; (Active) Sororal history of Heart Disease (V17.49); (Active) 03/13/2013 [facility] Sororal history of Hypertension (V17.49) ; (Active) Sororal history of Heart Disease (V17.49); (Active) 02/22/2013 [facility] Sororal history of Heart Disease (V17.49 ); (Active) Sororal history of Hypertension (V17.49); (Active) 02/19/2013 [facility] Sororal history of Heart Disease (V17.49 ); (Active) Sororal history of Hypertension (V17.49); (Active) 12/22/2012 [facility] Advance Directives Order Name Results Value Date Source Advance Directives Advance Dir ectives No Advance Directives available. 12/21/2013 [facility] Advance Directives Advance Dir ectives No Advance Directives available. 11/21/2013 [facility] Advance Directives Advance Dir ectives No Advance Directives available. 11/06/2013 [facility] Advance Directives Advance Dir ectives No Advance Directives available. 10/26/2013 [facility] Advance Directives Advance Dir ectives No Advance Directives available. 10/09/2013 [facility] Advance Directives Advance Dir ectives No Advance Directives available. 09/24/2013 [facility] Advance Directives Advance Dir ectives No Advance Directives available. 09/17/2013 [facility] Advance Directives Advance Dir ectives No Advance Directives available. 09/13/2013 [facility] Advance Directives Advance Dir ectives No Advance Directives available. 09/12/2013 [facility] Advance Directives Advance Dir ectives No Advance Directives available. 07/30/2013 [facility] Advance Directives Advance Dir ectives No Advance Directives available. 07/16/2013 [facility] Advance Directives Advance Dir ectives No Advance Directives available. 04/03/2013 [facility] Advance Directives Advance Dir ectives No Advance Directives available. 03/13/2013 [facility] Advance Directives Advance Dir ectives No Advance Directives available. 02/22/2013 [facility] Advance Directives Advance Dir ectives No Advance Directives available. 02/19/2013 [facility] Advance Directives Advance Dir ectives No Advance Directives available. 12/22/2012 [facility] Functional Status No Data Provided for This Section
--- OUTSIDE RECORDS SUMMARY | 2020-07-13 18:36 | XMS REPORT | Continuity of Care Document ---
Author Author [facility] t Organization [facility] Address [address] [place] [address] Phone Unavailable Care Team Providers Care Teleradiologist Name Role Phone ANGELIQUE PRINGLE, MISAEL PCP Chica Melchor Attphys Silvino Mcneill Attphys Liana Turner Attphys Colton FRANKLIN Attphys Unavailable Liana Byrd Attphys Felipe Negron Attphys CEDRICK MORENO M.D. Attphys Unavailable Nan Stacy Attphys [phone] JEAN BYRD MD Attphys Unavailable SE, ECHO Attphys Unavailable RolaArnie yost Marcial Attphys Lonny LIVINGSTON Attphys Unavailable GRADY, SOUHEIL Attphys Unavailable ELDON MODI Attphys Unavailable MAL GRADY Attphys Unavailable KEMAR MONTESINOS M.D. Attphys Unavailabl e SE, VENOUS Attphys Unavailable Natasha Gradyheil Attphys SE, NUCLEAR Attphys Unavailable Puneet Montesinos Attphys [phone] RobertsEarnest Az Attphys [phone] Silvino Mcneill Admphys Felipe Negron Admphys Arnie Canela Admphys Natasha Grady Admphys Payers Payer Name Policy Type Policy Number Effective Date Expiration Date Tana jimenez Miscellaneous Ppo [id number] 00:00:00 [facility] Medicare A & B [id number] 1997 00:00:00 [facility] Problems Condition Name Condition Details Condition Category Status Onset Date Resolution Date Last Treatment Date Treating Clinician Comments Source ANTICOAGULATION ANTI COAGULATION Active 07/04/2020 [facility] Diagnosis Active 2020-07-04 00:00:00 2020-07-11 12:43:00 [facility] WEAKNESS WEAK NESS Active 06/27/2020 [facility] Diagnosis Active 2020-06-27 00:00:00 2020-06-27 17:47:00 [facility] DUAL CHAMBER PACEMAKER IMPLANT DUAL CHAMBER PACEMAKER IMPLANT Active 06/02/2020 [facility] Diagnosis Active 2020-06-02 00:00 :00 2020-06-13 12:18:00 [facility] LEFT HEART CATH LEFT HEART CATH Active 05/16/2020 [facility] Diagnosis Active 2020-05-16 00:00:00 2020-06-03 13:24:00 [facility] ANTICOAG ANTI COAG Active 04/02/2020 [facility] Diagnosis Active 2020-04-02 00:00:00 2020-04-07 09:22:00 [facility] DYSPNEA ON EXERTION, CHEST PRESSURE DYSPNEA ON EXERTION, CHEST PRESSURE Active 01/13/2020 [facility] Diagnosis Active 2020-01-13 00:00:00 2020-01-14 14:25:00 [facility] RAPID HEART RATE RAPI D HEART RATE Active 01/13/2020 [facility] Diagnosis Active 2020-01-13 00:00:00 2020-01-13 12:50:00 [facility] CHEST PAIN CHES T PAIN Active 01/11/2020 [facility] Diagnosis Active 2020-01-11 00:00:00 2020-01-11 08:55:00 [facility] ACUTE CHEST PAIN ACUT E CHEST PAIN Active 01/11/2020 [facility] Diagnosis Active 2020-01-11 00:00:00 2020-01-14 11:28:00 [facility] LEFT HEART CATH POSS PCI LEFT HEART CATH POSS PCI Active 01/09/2020 [facility] Diagnosis Active 2020-01-09 00:00:00 2020-02-11 13:31:00 [facility] HYPOMAGNESEMIA, PALPITATIONS H YPOMAGNESEMIA, PALPITATIONS Active 08/24/2019 [facility] Active 08-24 00:00:00 2019-08-25 07:39:00 [facility] zuñiga AFIB AFIB Active 08/24/2019 [facility] Diagnosis Active 2019-08-24 00:00:00 2019-08-24 21:25:00 [facility] DX: Z12.31/M81.0NO PAIN,LUMPS OR DC* DX: Z12.31/M81.0NO PAIN,LUMPS OR DC* Active 07/25/2018 [facility] Diagnosis Active 2018-07-25 00:00:00 2018-08-01 15:46:00 [facility] FAL FAL Active 01/30/2018 [facility] Diagnosis Active 2018-01-30 00:00:00 2018-01-30 13:30:00 [facility] F[facility] FALL Active 07/25/2017 [facility] Diagnosis Active 2017-07-25 00:00:00 2017-10-12 11:38:00 [facility] DX:I65.29= OCCLUSION AND STENOSIS OF UNS DX:I65.29= OCCLUSION AND STENOSIS OF UNS Active 08/06/2016 [facility] Diagnosis Active 2016-08-06 00:00:00 2016-08-24 07:59:00 [facility] UTI Active 12/26/2015 [facility] Diagnosis Active 2015-12-26 00:00:00 2015-12-26 08:57:00 [facility] I86.8; VARICOSE VEINS OF OTHER SPECIFIED I86.8; VARICOSE VEINS OF OTHER SPECIFIED Active 12/01/2015 [facility] Diagnosis Ac tive 2015-12-01 00:00:00 2015-12-03 10:51:00 [facility] R92.8=OTHER ABNORMAL AND INCONCLUSIVE FI R92.8=OTHER ABNORMAL AND INCONCLUSIVE FI Active 10/07/2015 [facility] Diagnosis A ctive 2015-10-07 00:00:00 2015-10-13 10:08:00 [place] ROUTINE ROUT INE Active 09/17/2015 [facility] Active 2015-09-17 00:00:00 2015-09-17 09:55:00 [place] Pyelonephritis Pyelonephritis Problem Active 2014-08-12 00:00:00 [facility] SCREENING SCRE ENING Active 07/03/2014 [facility] Active 2014-07-03 00:00:00 2014-07-30 08:35:00 [place] UNK UNK Active 12/26/2012 [facility] Active 2012-12-26 00:00:00 2012-12-26 15:42:00 [place] A-FIB WITH RVR A-FI B WITH RVR Active 07/09/2011 [facility] Active 2011-07-09 00:00:00 2011-07-13 15:34:00 [place] OTHER OTHE R Active 07/09/2011 [facility] Active 2011-07-09 00:00:00 2011-07-09 23:53:00 [place] History of Coronary Artery Disease History of Coronary Artery Di sease Problem Resolved [facility] History of Atherosclerosis History of Atherosclerosis Problem Resolved [facility] History of Atrial fibrillation History of Atrial fibrillation Probl em Resolved [facility] History of esophageal reflux History of esophageal reflux Problem Re solved [facility] History of essential hypertension History of essential hypertens ion Problem Resolved [facility] History of hyperlipidemia History of hyperlipidemia Problem Resolved [facility] History of Osteoporosis History of Osteoporosis Problem Resolved [facility] Bilateral leg edema Bilateral leg edema Problem Active [facility] Varicose veins Varicose veins Problem Active [facility] Coronary artery disease Coronary artery disease Problem Active [facility] Essential (primary) hypertension Essential (primary) hypertensio n Problem Active [facility] Hyperlipidemia Hyperlipidemia Problem Active [facility] Sinus bradycardia Sinus bradycardia Problem Active [facility] Headache [facility] Dizziness Dizziness Problem Active [facility] Paroxysmal atrial fibrillation Paroxysmal atrial fibrillation Problem Active [facility] Ear noise/buzzing Ear noise/buzzing Problem Active [facility] Pain in left hip Pain in left hip 08/06/2017 [facility] Problem 2017-08-06 06:19:18 [place] Hypertensive disorder, systemic arterial (disorder) Hypertensive disorder, systemic arterial (disorder) Resolved Problem 06/30/2020 [facility] Problem Resolved 2020-06-30 09:16:56 [facility] Reflux (finding) Refl ux (finding) Resolved Problem 06/30/2020 [facility] Problem Resolved 2020-06-30 09:16:56 [facility] [D]Chest pain [D]C hest pain Active Problem 12/26/2011 [facility] Problem Active 2011-12-26 08:38:44 [facility] Atrial fibrillation Atri al fibrillation Active Problem 12/26/2011 [facility] Problem Active 2011-12-26 08:38:4 4 [facility] [D]Chest pain (context-dependent category) [D]Chest pain (context-dependent category) Active Problem 06/30/2020 [facility] Problem Active 2020-06-30 09:16:56 [place] Atrial fibrillation (disorder) Atrial fibrillation (disorder) Active Problem 06/30/2020 [facility] Problem Active 2020-06-30 09:16:56 [facility] Hypertension Hype rtension Active 12/21/2013 well-controlled. [facility] Problem Active 2013-12-21 17:03: 25 [facility] Hyperlipidemia Hype rlipidemia Active 12/21/2013 [facility] Problem Active 2013-12-21 17:03:25 [facility] Coronary Artery Disease Syed nary Artery Disease Active 12/21/2013 Stable with no angina [facility] Problem Active 2013-12-21 17:03:25 [facility] Paroxysmal Atrial Fibrillation Paroxysmal Atrial Fibrillation Active 12/21/2013 [facility] Problem Active 2013-12-21 17:03:25 [facility] Osteoporosis Oste oporosis Active 04/03/2013 [facility] Problem Active 2013-04-03 04:23:03 [facility] Esophageal Reflux Esop hageal Reflux Active 04/03/2013 [facility] Problem Active 2013-04-03 04:23:03 [facility] SCREEN MAMMOGRAM NEC SCRE EN MAMMOGRAM NEC Active [facility] Diagnosis Active 2014-07-30 08:35:00 [facility] [place] JOINT PAIN-SHLDER JOIN T PAIN-SHLDER Active [facility] Diagnosis Active 2011-12-24 09:27:00 [facility] ENCNTR SCREEN MAMMOGRAM FOR MALIGNANT NE ENCNTR SCREEN MAMMOGRAM FOR MALIGNANT NE Active [facility] Diagnosis Active 2018-08-01 15:46:00 [facility] OTH SYMPTOMS AND SIGNS INVOLVING THE CIR OTH SYMPTOMS AND SIGNS INVOLVING THE CIR Active [facility] Diagnosis Active 2015-07-30 09:59:00 [facility] OTH ABN AND INCONCLUSIVE FINDINGS ON DX OTH ABN AND INCONCLUSIVE FINDINGS ON DX Active [facility] Diagnosis Active 2015-10-13 10:08:00 [facility] E78.5 E78. 5 Active [facility] Active 2015-10-27 10:56:00 [facility] HYPERLIPIDEMIA, UNSPECIFIED HY PERLIPIDEMIA, UNSPECIFIED Active [facility] Active 2015-10-27 10:56 :00 [facility] PAROXYSMAL ATRIAL FIBRILLATION PAROXYSMAL ATRIAL FIBRILLATION Active [facility] Diagnosis Active 2015-10-27 10:56:00 [facility] BRADYCARDIA, UNSPECIFIED VANDANA YCARDIA, UNSPECIFIED Active [facility] Active 2015-10-27 10:56:00 [facility] VARICOSE VEINS OF OTHER SPECIFIED SITES VARICOSE VEINS OF OTHER SPECIFIED SITES Active [facility] Diagnosis Active 2015-12-03 10:30:00 [facility] PAIN IN UNSPECIFIED LIMB PAIN IN UNSPECIFIED LIMB Active [facility] Diagnosis Active 2015-12-03 10:51:00 [facility] OCCLUSION AND STENOSIS OF UNSPECIFIED CA OCCLUSION AND STENOSIS OF UNSPECIFIED CA Active [facility] Diagnosis Active 2016-08-24 07:59:00 [facility] LOW BACK PAIN LOW BACK PAIN Active [facility] Active 2017-08-03 10:33:00 [facility] PLEURODYNIA PLEU RODYNIA Active [facility] Diagnosis Active 2017-08-03 10:33:00 [place] HISTORY OF FALLING HIST ORY OF FALLING Active [facility] Diagnosis Active 2017-08-03 10:33:00 [facility] [place] PAIN IN LEFT HIP PAIN IN LEFT HIP Active [facility] Diagnosis Active 2017-08-03 10:33:00 [facility] AGE-RELATED OSTEOPOROSIS W/O CURRENT PAT AGE-RELATED OSTEOPOROSIS W/O CURRENT PAT Active [facility] Diagnosis Active 2018-08-01 15:46:00 [facility] HYPOMAGNESEMIA HYPO MAGNESEMIA Active [facility] Diagnosis Active 2019-08-25 07:39:00 [facility] PALPITATIONS PALP ITATIONS Active [facility] Active 2019-08-25 07:39:00 [facility] ANGINA PECTORIS, UNSPECIFIED A NGINA PECTORIS, UNSPECIFIED Active [facility] Diagnosis Active 2020-02-11 1 3:31:00 [facility] Fever, unspecified Feve r, unspecified 06/27/2020 06/30/2020 [facility] Problem 2020-06-27 17:00:00 2020-06-30 09:16 :56 2020-06-30 09:16:56 [place] Other fatigue Othe r fatigue 06/27/2020 06/30/2020 [facility] Problem 2020-06-27 17:00:00 2020-06-30 09:16:56 2 09:16:56 [place] Weakness Weak ness 09/30/2019 10/02/2019 [facility] Problem 2019-09-30 18:00:00 2019-10-02 22:55:24 2019-10-02 22:55:24 [place] Encounter for screening mammogram for malignant neopla sm of breast Encounter for screening mammogram for malignant neoplasm of breast 08/04/2018 02/18/2019 [facility] Problem 2018-08-04 04: 35:21 2019-02-18 11:11:14 2019-02-18 11:11:14 [place] Unspecified fall, initial encounter Unspecified fall, initial encounter 01/30/2018 02/02/2018 [facility] 2018-01-30 05:00:00 2018-02-02 02:47:06 2018-02-02 02:47:06 [place] Multiple fractures of ribs, unspecified side, initial encounter for closed fracture Multiple fractur es of ribs, unspecified side, initial encounter for closed fracture 01/30/2018 02/02/2018 [facility] Problem 2018-01-30 05:00:00 2018-02-02 02:47:06 2018-02-02 02:47:06 [place] Urinary tract infection, site not specified Urinary tract infection, site not specified 01/30/2018 02/02/2018 [facility] 2018-01-30 05:00:00 2018-02-02 02:47:06 2018-02-02 02:47:06 [place] Cervicalgia Cerv icalgia 07/25/2017 07/28/2017 [facility] Problem 2017-07-25 06:00:00 2017-07-28 03:59:02 2 03:59:02 [place] Contusion of unspecified part of head, initial encount er Contusion of unspecified part of head, initial encounter 07/25/2017 07/28/2017 [facility] 2017-07-25 06:00:00 2017-07-28 03:59:02 2017-07-28 03:59:02 [facility] Discharge Diagnosis: Acute lower UTI Discharge Diagnosis: Acute lower UTI 12/26/2015 12/29/2015 [facility] Problem 2015-12-26 05:00:00 2015-12-29 03:00:31 2015-12-29 03:00:31 [place] Allergies, Adverse Reactions, Alerts Allergy Name Allergy Type Status Severity Reaction(s) Onset Date Inacti ve Date Treating Clinician Comments Source No Known Medication Allergies No Known Medication Allergies Active [facility] No Known Drug Allergies No Known Drug Allergies Active [facility] Family History Family Member Diagnosis Comments Start Date Stop Date Source Sister Family history of Heart Disease [facility] Sister Family history of Hypertension [facility] Unknown Family Member Family History 2012-12-22 00:36:22 2 00:36:22 [place] Social History Social Habit Start Date Stop Date Quantity Comments Source Social History 2013-12-21 17:03:25 2013-12-21 17:03:25 [facility] Smoking Status Start Date Stop Date Source Ex-smoker (finding) [facility] Smokes tobacco daily (finding) [facility] Medications Ordered Medication Name Filled Medication Name Start Date Stop Da te Current Medication? Ordering Clinician Indication Dosage Frequency Signature (SIG) Comments Components Source Acetaminophen 2020-06-28 01:11:00 Yes Notes: Do not exceed 4 gm/day. (Same as: Tylenol) [facility] Acetaminophen 300 MG / Codeine Phosphate 30 MG Oral Tablet [Tylenol with Codeine #3] 2020-06-15 07:04:00 No Notes: Do not exceed 4gm/day of acetaminophen. (Same as: Tylenol with Codeine # 3) [facility] Acetaminophen 300 MG / Codeine Phosphate 30 MG Oral Tablet [Tylenol with Codeine #3] 2020-06-15 01:09:00 No Notes: Do not exceed 4gm/day of acetaminophen. (Same as: Tylenol with Codeine # 3) [facility] Bumex 2020-06-14 14:00:00 No Notes: (Same A s: Bumex) [facility] clopidogrel 2020-06-14 14:00:00 No Notes: ( Same As: Plavix) [facility] Amlodipine 2020-06-14 02:00:00 No Notes: (S chikis as: Norvasc) [facility] atorvastatin 2020-06-14 02:00:00 No Notes: (Same as: Lipitor) [facility] Flecainide 2020-06-14 02:00:00 No Notes: (S chikis as: Tambocor) [facility] Losartan 2020-06-14 02:00:00 No Notes: (Mor e as: Cozaar) [facility] pantoprazole 2020-06-13 21:30:00 No Notes: Tablet should not be chewed or crushed. (Same as: Protonix) [facility] influenza virus vaccine, inactivated hig h-dose preservative-free intramuscular suspension 2020-06-13 17:46:19 No Notes: (Same as: Fluzone High-Dose Quad) For 65 years of age of older (0.7 ml IM) Shake well before use [facility] Tylenol 2020-06-13 17:01:00 No Notes: Max acetaminophen 4000 mg/day (4 gm/day). (Same as: Tylenol Extra Strength) [facility] Morphine 2020-06-13 16:49:00 No Not es: (Same as:MORPhine Sulfate) [facility] Minocycline 2020-06-13 16:00:00 No Notes: (Same as:Minocin) No milk/antacids/iron. [facility] minocycline 100 mg oral capsule 2020-06-13 15:29:00 Yes 100 mg, PO, [id number], # 24 tab, 0 Refill(s), Pharmacy: [facility] [place] [address], 152.4, cm, 06/13/20 6:58:00 CDT, Height, 58.182, kg, 06/13/20 6:58:00 CDT, Weight [facility] Sodium Chloride 0.9% IV 1,000 mL 2020-05-30 15:15:00 No 1,000 mL, Rate: 100 ml/hr, Infuse over: 10 hr, Route: IV, Dosing Weight 58.182 kg, Total Volume: 1,000, Start date: 05/30/20 10:15:00 CDT, Duration: 10 hr, Stop date: 05/30/20 20:14:00 CDT, 1.59, m2, 0 [facility] Acetaminophen 2020-05-30 15:15:00 No Notes: Do not exceed 4 gm/day. (Same as: Tylenol) [facility] Morphine 2020-05-30 15:15:00 Yes Not es: (Same as:MORPhine Sulfate) [facility] Sodium Chloride 0.9% (Bolus) IV 2020-05-30 12:32:00 Yes 174 mL, 100 ml/hr, Infuse Over: 1.7 hr, Route: IV, 174, Drug form: INJ, ONCE, Dosing Weight 58.182 kg, Start date: 05/30/20 7:32:00 CDT, Stop date: 05/30/20 7:32:00 CDT, 0 [facility] Ventolin HFA 2020-05-30 12:15:00 Yes 2 puff, INHALATION, Q6H, 0 Refill(s) [facility] Bumex 2020-05-30 12:15:00 Yes 1 mg, PO, Adiel y, 0 Refill(s) [facility] Aspirin 81 MG Enteric Coated Tablet 2020-01-14 14:00:00 No Notes: Do not crush or chew. (Same As: Ecotrin) [facility] Flecainide 2020-01-14 14:00:00 No Notes: (S chikis as: Tambocor) [facility] 24 HR Metoprolol Tartrate 25 MG Extended Release Tablet [Top rol] 2020-01-14 14:00:00 No Notes: (Same as: Toprol XL) D o Not Crush [facility] pantoprazole 2020-01-14 14:00:00 No Notes: Tablet should not be chewed or crushed. [facility] Simethicone 2020-01-14 14:00:00 No Notes: (Same as: Mylanta Gas) [facility] clopidogrel 2020-01-14 04:00:00 No Notes: ( Same As: Plavix) [facility] Amlodipine 2020-01-14 03:30:00 No Notes: (S chikis as: Norvasc) [facility] atorvastatin 2020-01-14 03:30:00 No Notes: (Same as: Lipitor) [facility] Losartan 2020-01-14 03:30:00 No Notes: (Mor e as: Cozaar) [facility] Nitroglycerin 0.4 MG Sublingual Tablet 2020-01-14 03:07:00 No Notes: (Same as:Nitroquick, Nitrostat) "Do Not Crush" Sublingual tablet [place] Gas-X Maximum Strength 2020-01-14 01:30:00 No Notes: (Same as: Sergio) [place] Coumadin 2020-01-14 01:15:00 No Notes: Nurse to ensure documentation of patient education per anticoagulation policy. Avoid large intake of vitamin- K containing foods diet. (Same As: Coumadin) WASTE: F/P - P Waste Black; E - P Waste Black Hazardous Drug Group 3:Reproductive risk Hazardous Drug -- Refer to safe handling procedure PPE [facility] [place] [facility] Aspirin 2020-01-13 15:57:00 No 325 mg, Route: PO, Drug form: TAB, ONCE, Dosing Weight 56.818, kg, Priority: STAT, Start date: 01/13/20 10:57:00 CDT, Stop date: 01/13/20 10:57:00 CDT [facility] simethicone 125 mg oral tablet, chewable 2020-01-13 00:13:00 Yes 125 mg = 1 tab, CHEW, QID, X 12 day, # 48 tab, 0 Refill(s), Pharmacy: [facility] [place] [address] [place] clopidogrel 75 mg oral tablet 2020-01-13 00:12:00 Yes 75 mg = 1 tab, PO, Daily, # 60 tab, 0 Refill(s), Pharmacy: [facility] [place] [address] [facility] Aspirin 81 MG Enteric Coated Tablet 2020-01-12 23:11:00 Yes 81 mg = 1 tab, PO, Daily, 0 Refill(s) [facility] Rebecca colon clopidogrel 75 mg oral tablet 2020-01-12 23:11:00 No 75 mg = 1 tab, PO, Daily, 0 Refill(s) [facility] Simethicone 2020-01-12 14:33:00 No Notes: ( Same as: Sergio) [facility] [place] Simethicone 2020-01-12 14:23:00 No Notes: ( Same as: Sergio) [place] Aspirin 81 MG Enteric Coated Tablet 2020-01-12 14:00:00 No 81 mg, 1 tab, Route: PO, Drug form: ECTAB, Daily, Dosing Weight 50.909, kg, Start date: 01/12/20 9:00:00 CDT, Duration: 30 day, Stop date: 02/10/20 9:00:00 CDT, 0 [facility] clopidogrel 2020-01-12 14:00:00 No Notes: ( Same As: Plavix) [facility] Amlodipine 2020-01-12 02:00:00 No Notes: (S chikis as: Norvasc) [facility] atorvastatin 2020-01-12 02:00:00 No Notes: (Same as: Lipitor) [facility] Flecainide 2020-01-12 02:00:00 No Notes: (S chikis as: Tambocor) [facility] Losartan 2020-01-11 22:00:00 No Notes: (Mor e as: Cozaar) [facility] pantoprazole 2020-01-11 22:00:00 No 40 mg, 1 tab, Route: PO, Drug form: ECTAB, BID, Dosing Weight 50.909, kg, Start date: 01/11/20 17:00:00 CDT, Duration: 30 day, Stop date: 02/10/20 9:00:00 CDT, 0 [facility] Warfarin 2020-01-11 22:00:00 No Notes: Nurse to ensure documentation of patient education per anticoagulation policy. Avoid large intake of vitamin- K containing foods diet. (Same As: Coumadin) WASTE: F/P - P Waste Black; E - P Waste Black Hazardous Drug Group 3:Reproductive risk Hazardous Drug -- Refer to safe handling procedure PPE [facility] [place] Waiting for INR results 2020-01-11 20:00:00 No Waiting for INR results, Waiting for INR results, Drug form: MISC, Route: MISC, ONCALL, 01/11/20 15:00:00 CDT, Duration: 30 day, Stop date: 02/10/20 14:59:00 CDT, 0 [facility] Sodium Chloride 0.9% IV 1,000 mL 2020-01-11 19:45:00 No 1,000 mL, Rate: 100 ml/hr, Infuse over: 10 hr, Route: IV, Dosing Weight 50.909 kg, Total Volume: 1,000, Start date: 01/11/20 14:45:00 CDT, Duration: 10 hr, Stop date: 01/12/20 0:44:00 CDT, 1.48, m2, 0 [facility] Nitroglycerin 2020-01-11 19:45:00 No 0.4 mg, 1 tab, Route: SL, Drug form: TAB, Q5Min, Dosing Weight 50.909, kg, PRN Chest Pain, Start date: 01/11/20 14:45:00 CDT, Duration: 3 doses or times, Stop date: Limited # of times, 0 [place] Albuterol 0.833 MG/ML / Ipratropium Brom rik 0.167 MG/ML Inhalant Solution [DuoNeb] 2020-01-11 14:15:00 No Notes: (S chikis as: Duoneb) [place] Dextrose 50% Syringe (D50W) 2020-01-11 13:54:00 No 12.5 gm, 25 mL, Route: IVP, Drug Form: INJ, Dosing Weight 59.091, kg, PRN, PRN Blood Glucose Results, Start date: 01/11/20 8:54:00 CDT, Duration: 30 day, Stop date: 02/10/20 8:53:00 CDT, 0 [place] Glucagon 2020-01-11 13:54:00 No 1 mg, Route: IM, Drug form: PDR/INJ, PRN, Dosing Weight 59.091, kg, PRN Blood Glucose Results, Start date: 01/11/20 8:54:00 CDT, Duration: 30 day, Stop date: 02/10/20 8:53:00 CDT, 0 [place] Ondansetron 2020-01-11 13:54:00 No Notes: (Same as: Ger) MEDICATION WASTE Product Size: 4 mg Product Wasted: ___ mg [place] normal saline 0.9% IV 1,000 mL 2020-01-11 13:25:00 No 1,000 mL, Rate: 100 ml/hr, Infuse over: 10 hr, Route: IV, Dosing Weight 59.091 kg, Total Volume: 1,000, Start date: 01/11/20 8:25:00 CDT, Duration: 30 day, Stop date: 02/10/20 8:24:00 CDT, 1.6, m2, 0 [facility] Saline Flush 0.9% 2020-01-11 11:49:00 No Notes: (Same as: BD Posiflush) [place] Sodium Chloride 0.9% (Bolus) IV 2019-09-30 19:54:00 No 1,000 mL, 1000 ml/hr, Infuse Over: 1 hr, Route: IV, 1,000, Drug form: INJ, ONCE, Priority: STAT, Dosing Weight 81.818 kg, Start date: 09/30/19 13:54:00 [employer], Stop date: 09/30/19 13:54:00 [employer]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 Avoid large intake of vitamin- K containing foods diet. (Same As: Coumadin) WASTE: F/P - P Waste Black; E - P Waste Black [facility] Calcium Carbonate 1500 MG / Cholecalcife rol 800 UNT Oral Tablet [Caltrate Plus D 600/800] 2019-08-25 17:38:00 Yes 1 tab, PO, BID, # 60 tab, 0 Refill(s), Pharmacy: [facility] magnesium oxide 400 mg oral tablet 2019-08-25 17:38:00 Yes 400 mg = 1 tab, PO, Daily, X 30 day, # 30 tab, 1 Refill(s), Pharmacy: [facility] Magnesium Sulfate 2019-08-25 16:20:00 No Notes: WASTE: F/P - Sink; E - Municipal Trash Bin [facility] Amlodipine 2019-08-25 15:00:00 No Notes: (S chikis as: Norvasc) [facility] Losartan 2019-08-25 15:00:00 No Notes: (Mor e as: Cozaar) [facility] metoprolol succinate 25 mg oral capsule, extended release 2019-08-25 15:00:00 No metoprolol suc cinate 25 mg oral capsule, extended release, 25 mg, Route: PO, Daily, 08/25/19 9:00:00 [employer], Duration: 30 day, Stop date: 09/23/19 9:00:00 [employer]OR [facility] pantoprazole 2019-08-25 15:00:00 No Notes: Tablet should not be chewed or crushed. (Same as: Protonix) M [facility] [place] metoprolol 2019-08-25 15:00:00 No Notes: (Same as: Toprol XL) Do Not Crush [facility] Flecainide 2019-08-25 06:35:00 No Notes: (S chikis as: Tambocor) [facility] Amlodipine 2019-08-25 06:34:00 No Notes: (S chikis as: Norvasc) [facility] amLODIPine 2.5 mg oral tablet 2019-08-25 04:31:00 Yes 2.5 mg = 1 tab, PO, Bedtime, 0 Refill(s) [facility] calcium gluconate + Sodium Chloride 0.9% IV 100 mL 2019-07-30 8 04:14:00 No Notes: WASTE: F/P - Sink; E - Municipal Trash B in [facility] Dextrose 50% Syringe (D50W) 2019-08-25 03:24:00 No 12.5 gm, 25 mL, Route: IVP, Drug Form: INJ, Dosing Weight 59.091, kg, PRN, PRN Blood Glucose Results, Start date: 08/24/19 21:24:00 [employer]OR, Duration: 30 day, Stop date: 09/23/19 21:23:00 H[employer] 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 (Same as: Tylenol) [facility] Calcium Gluconate 2019-08-25 03:24:00 No 3,000 mg, Route: IVPB, Drug form: INJ, ONCE, Dosing Weight 59.091, kg, Priority: STAT, Start date: 08/24/19 21:24:00 [employer]PECTOR, Stop date: 08/24/19 21:24:00 H[employer] INSPECTOR [facility] Magnesium Sulfate 2019-08-25 01:46:00 No Notes: WASTE: F/P - Sink; E - [employer] Trash Bin [facility] Calcium Gluconate 2019-08-25 01:46:00 No Notes: WASTE: F/P - Sink; E - [facility]um[facility] 1 MG Oral Tablet Bumetanide 1 MG Oral Tablet 2019-08-09 00:00:00 Yes JEAN BYRD MD 1 QD TAKE 1 TABLET DAILY [facility] metoprolol succinate 25 mg oral capsule, extended release 2019-07-24 21:06:00 Yes 25 mg = 1 cap, PO, Daily, 0 Refi ll(s) [facility] losartan 50 mg oral tablet 2019-07-24 21:02:00 Yes 50 mg = 1 tab, PO, BID, 0 Refill(s) [facility] warfarin 2 mg oral tablet 2019-07-24 21:02:00 Yes 2 mg = 1 tab, PO, Daily, 0 Refill(s) [facility] pantoprazole 40 mg oral enteric coated tablet 2019-07-24 21:02:0 0 Yes 40 mg = 1 tab, PO, Daily, 0 Refill(s) [facility] amLODIPine 5 mg oral tablet 2019-07-24 21:02:00 Yes 5 mg = 1 tab, PO, Daily, 0 Refill(s) [facility] atorvastatin 40 mg oral tablet 2019-07-24 21:02:00 Yes 40 mg = 1 tab, PO, Bedtime, # 30 tab, 0 Refill(s) [facility] Atorvastatin Calcium 40 MG Oral Tablet Atorvastatin Calcium 40 MG Oral Tablet 2019-04-20 00:00:00 Yes JEAN BYRD MD 1 TOME MICHAEL (1) TABLETA(S) POR LA BOCA AL ACOSTARSE. [facility] Nitroglycerin 0.4 MG Sublingual Tablet Sublingual Nitr oglycerin 0.4 MG Sublingual Tablet Sublingual 2018-03-28 00:00:00 Yes JEAN BYRD MD DESUELVA MICHAEL (1) TABLETA DEBAJO DE LA LENGUA ANDREAS NECESARIO PARA DOLOR DE PECHO. [facility] Losartan Potassium 50 MG Oral Tablet Losartan Potassium 50 M G Oral Tablet 2018-03-21 00:00:00 Yes JEAN BYRD MD 1 Q 0.5D TOME MICHAEL (1) TABLETA(S) POR LA BOCA DOS VECES AL CHERI. [facility] tramadol hydrochloride 50 MG Oral Tablet 2018-01-30 23:20:00 Yes 50 mg = 1 tab, PO, Q8H, PRN Pain, X 7 day, # 21 tab, 0 Refill(s) [place] tizanidine 2 mg oral tablet 2018-01-30 22:33:00 Yes 2 mg = 1 tab, PO, Q8H, PRN for muscle spasms, # 21 tab, 0 Refill(s) [place] Acetaminophen 300 MG / Codeine Phosphate 30 MG Oral Tablet [Tylenol with Codeine #3] 2018-01-30 22:32:00 Yes 1 tab, PO, Q6H, PRN Pain, X 7 day, # 28 tab, 0 Refill(s) [place] Fentanyl 2018-01-30 18:49:00 No Notes: (Same as: Sublimaze) Preservative free. [place] Jantoven 2 MG Oral Tablet Jantoven 2 MG Oral Tablet 2016-05-05 00:00: 00 Yes JEAN BYRD MD 1 QD TOME MICHAEL (1) TABLETA(S) POR LA BOCA DIARIO. [facility] Compression Stocking Compression Stocking 2016-02-11 00:00:00 Yes KEMAR MENDIETA M.D. 15-20 MMHD bilateral knee hig h [facility] Cephalexin 500 MG Oral Capsule [Keflex] 2015-12-26 18:40:00 Yes 500 mg = 1 cap, PO, TID, X 10 day, # 30 cap, 0 Refill(s) [place] Rocephin 2015-12-26 15:51:00 No 1 gm, Route: IVPB, Drug form: PDR/INJ, ONCE, Dosing Weight 61.818, kg, Priority: STAT, Start date: 12/26/15 10:51:00 CDT, Stop date: 12/26/15 10:51:00 CDT [place] Tylenol 2015-12-26 13:23:00 No 650 mg, Route: PO, Drug form: TAB, ONCE, Dosing Weight 62.727, kg, Priority: STAT, Start date: 12/26/15 8:23:00 CDT, Stop date: 12/26/15 8:23:00 CDT [place] Pantoprazole Sodium 40 MG Oral Tablet Delayed Release Pantoprazole Sodium 40 MG Oral Tablet Delayed Release 2015-06-11 00:00:00 Yes CEDRICK MORENO M.D. 1 Q0.5D TOME MICHAEL (1) TABLETA(S) POR LA BOCA DOS VECES AL CHERI. [facility] Flecainide Acetate 100 MG Oral Tablet Flecainide Acetate 100 MG Oral Tablet 2014-12-23 00:00:00 Yes CEDRICK MORENO M.D. Q0 .5D TOME MICHAEL (1) TABLETA(S) POR LA BOCA DOS VECES AL CHERI. [facility] amLODIPine Besylate 5 MG Oral Tablet amLODIPine Besylate 5 M G Oral Tablet 2014-09-09 00:00:00 Yes CEDRICK MORENO M.DJanae TOME MICHAEL (1) TABLETA(S) POR LA BOCA EN LA MANANA Y MEDIA (1/2) TABLETA EN LA TARDE. [facility] Ciprofloxacin Hcl (Cipro) 500 Mg Tablet, 500 Mg Oral C iprofloxacin Hcl (Cipro) 500 Mg Tablet, 500 Mg Oral 2014-08-16 00:00:00 2014-11-19 00:00:00 No Misael Grady Md 500 Every 12 Hours [facility] Hydrochlorothiazide 12.5 MG Oral Capsule 2013-12-21 17:03:25 Yes (Active) [place] Lopid 600 MG Oral Tablet 2013-07-30 23:02:16 Yes (Active) [place] Enoxaparin Sodium 40 MG/0.4ML Subcutaneous Solution 2012-08 06:00:00 Yes ; Start Date: 07/16/2013; End Date: 08/1899 (Active) [place] Diovan 160 MG Oral Tablet 2012-12-21 05:00:00 Yes ; Start Date: 12/21/2012; End Date: (Active) [place] Enoxaparin Sodium 40 MG/0.4ML Subcutaneous Solution 12-21 05:00:00 Yes ; Start Date: 12/21/2012; End Date: 08/1899 (Active) [place] Pravastatin Sodium 40 MG Oral Tablet 2012-09-14 06:00:00 Ye s ; Start Date: 09/14/2012; End Date: (Active) [place] Warfarin Sodium 3 MG Oral Tablet 2012-03-15 05:00:00 Yes ; Start Date: 03/15/2012; End Date: (Active) [place] Coumadin 2011-07-12 23:00:00 No Aguilar N Bapat 5 mg, 1 tab, Route: PO, Drug form: TAB, Q5PM, Start date: 07/12/11 17:00:00, Duration: 30 day, Stop date: 08/10/11 17:00:00 [place] Sodium Chloride 0.45% IV 1,000 mL 2011-07-12 17:03:00 No Haytham Silvino Al-Azzeh 1,000 mL, Rate: 125 ml/hr, Infuse over: 8 hr, Route: IV, Total Volume: 1,000, Start date: 07/12/11 11:03:00, Duration: 6 hr, Stop date: 07/13/11 1:02:00 [place] Protonix 2011-07-11 22:30:00 No Aguilar N Bapat 40 mg, 1 tab, Route: PO, Drug form: ECTAB, Before Dinner, Start date: 07/11/11 16:30:00, Duration: 30 day, Stop date: 08/09/11 16:30:00 [place] nitroglycerin 0.4 mg sublingual tablet 2011-07-11 21:22:00 No Aguilar N Bapat 0.4 mg, 1 tab, R oute: SL, Drug form: TAB, Q5Min, PRN Chest Pain, Start date: 07/11/11 15:22:00, Duration: 30 day, Stop date: 08/10/11 15:21:00 [facility] atropine 2011-07-11 21:22:00 No Aguilar N Bapat 0.5 mg, 5 mL, Route: IVP, Drug form: INJ, PRN, PRN Bradycardia, Start date: 07/11/11 15:22:00, Duration: 30 day, Stop date: 08/10/11 15:21:00 [facility] Lanoxin 2011-07-11 15:00:00 No Leo MatthewLeod Orellana 0.125 mg, 0.5 mL, Route: IV, Drug form: INJ, QAM, Start date: 07/11/11 9:00:00, Duration: 30 day, Stop date: 08/09/11 9:00:[address] [facility] Prilosec 2011-07-11 15:00:00 No Alan Deven Steve 20 mg, Route: PO, Drug form: DRC, Daily, Start date: 07/11/11 9:00:00, Duration: 30 day, Stop date: 08/09/11 9:00:00 [facility] HCT 80 mg-12.5 mg oral tablet 2011-07-11 15:00:00 No Alan Deven Steve 2 tab, Route: PO , Drug Form: TAB, Daily, Start date: 07/11/11 9:00:00, Duration: 30 day, Stop date: 08/09/11 9:00:00 [facility] gemfibrozil 2011-07-11 15:00:00 No Alan Deven Steve 600 mg, 1 tab, Route: PO, Drug form: TAB, BID, Start date: 07/11/11 9:00:00, Duration: 30 day, Stop date: 08/09/11 17:00:00 [facility] hydrochlorothiazide 25 mg oral tablet 2011-07-11 15:00:00 No Alan Deven Steve 25 mg, 1 tab, Ro brooks: PO, Drug form: TAB, Daily, Start date: 07/11/11 9:00:00, Duration: 30 day, Stop date: 08/09/11 9:00:00 [facility] 15[facility]:00 No Alan Deven Steve 160 mg, 2 tab, Route: PO, Drug form: TAB, Daily, Start date: 07/11/11 9:00:00, Duration: 30 day, Stop date: 08/09/11 9:00:00 [facility] Lanoxin 2011-07-11 01:20:00 No Aguilar N Bapat 0.25 mg, 1 mL, Route: IV, Drug form: INJ, ONCE, Start date: 07/10/11 19:20:00, Stop date: 07/10/11 19:20:00 [facility] Tylenol 2011-07-11 01:01:00 No Alan Deven Steve 650 mg, 2 tab, Route: PO, Drug form: TAB, Q6H, PRN Pain, Start date: 07/10/11 19:01:00, Duration: 30 day, Stop date: 08/09/11 19:00:00 Delmy ri Jaya morphine Sulfate 2011-07-11 01:01:00 No Alan Deven Mo k 2 mg, 1 mL, Route: IVP, Drug form: INJ, Q4H, PRN Pain, Start date: 07/10/11 19:01:00, Duration: 30 day, Stop date: 08/09/11 19:00:00 [facility] [place] 5/325 oral tablet 2011-07-11 01:01:00 No Alan Enr ique Steve 1 tab, Route: PO, Drug Form: TAB, Q6H, PRN Pain, Start date: 07/10/11 19:01:00, Duration: 30 day, Stop date: 08/09/11 19:00:00 [facility] Zofran 2011-07-11 01:01:00 No Alan Deven Steve 4 mg, 2 mL, Route: IV, Drug form: INJ, Q6H, PRN Nausea, Start date: 07/10/11 19:01:00, Duration: 30 day, Stop date: 08/09/11 19:00:00 Delmy Fiore Lopressor 2011-07-11 00:39:00 No Aguilar N Bapat 5 mg, 5 mL, Route: IV, Drug form: INJ, Q4H, PRN Other -See Comment, Start date: 07/10/11 18:39:00, Duration: 30 day, Stop date: 08/09/11 18:38:00 [facility] Lovenox 2011-07-11 00:00:00 No Alan Deven Steve 60 mg, 0.6 mL, Route: SUB-Q, Drug form: INJ, [id number], Start date: 07/10/11 18:00:00, Duration: 30 day, Stop date: 08/09/11 6:00:00 [place] Lanoxin 2011-07-10 19:20:00 No Aguilar Townsend Bapat 0.25 mg, 1 mL, Route: IV, Drug form: INJ, ONCE, Start date: 07/10/11 13:20:00, Stop date: 07/10/11 13:20:00 [facility] metoprolol 2011-07-10 15:00:00 No Leo Wolfe Orellana 50 mg, 1 tab, Route: PO, Drug form: TAB, Q12H, Hold for SBP < 90mmHg or HR < 60. First dose now., Start date: 07/10/11 9:00:00, Duration: 30 day, Stop date: 08/08/11 21:00:00 [facility] Saline Flush 0.9% 2011-07-10 15:00:00 No Alan Mirandarique M ok 5 ml, Route: IVP, Drug Form: INJ, Q12H, Start date: 07/10/11 9:00:00, Duration: 30 day, Stop date: 08/08/11 21:00:00 [facility]ot[facility] 2011-07-10 15:00:00 No Alan Mirandarique Steve 20 mg, 1 tab, Route: PO, Drug form: TAB, Q12H, Start date: 07/10/11 9:00:00, Duration: 30 day, Stop date: 08/08/11 21:00:00 [facility] darlene aspirin 325 mg tablet 2011-07-10 15:00:00 No Pierre Tamayo Boester 325 mg, 1 tab, Route: PO, Drug form: TAB, Daily, Start date: 07/10/11 9:00:00, Duration: 30 day, Stop date: 08/08/11 9:00:00 [facility] diltiazem 125 mg + Sodium Chloride 0.9% (titrate) 100 mL 2011-07-10 12:54:00 No Leo Orellana 100 mL, Rate: Start at 5mg/hr. Titrate to maintain HR < 100., Route: IV, Total Volume: 125, Titrate to off after metoprolol started, Duration: 30 day, Stop date: 08/09/11 6:53:00, Replace Every: 24 hr [place] Saline Flush 0.9% 2011-07-10 12:53:00 No Pierre Tamayo Pablo laurent 5 ml, Route: IVP, Drug Form: INJ, PRN, PRN Line Flush, Start date: 07/10/11 6:53:00, Duration: 30 day, Stop date: 08/09/11 6:52:00 [place] Saline Flush 0.9% 2011-07-10 09:21:00 No Alan mendiola 5 ml, Route: IVP, Drug Form: INJ, PRN, PRN Line Flush, Start date: 07/10/11 3:21:00, Duration: 30 day, Stop date: 08/09/11 3:20:00 [place] nitroglycerin 0.4 mg sublingual tablet 2011-07-10 07:53:46 Yes 0.4 mg, 1 tab, SL, Q5Min, PRN, as needed for chest pain, Substitution Allowed [place] Diovan HCT 160 mg-25 mg oral tablet 2011-07-10 07:53:28 Yes Alan Deven Steve 1 tab, PO, Daily, 30 tab, Substitution A llowed, Maintenance, TAB [facility] Jaya metoprolol 50 mg oral tablet 2011-07-10 07:52:21 Yes 1 tab, PO, BID, 180 tab, Substitution Allowed, TAB Bobby rial Jaya gemfibrozil 600 mg oral tablet 2011-07-10 07:51:09 Yes Alan Deven Steve 600 mg, 1 tab, PO, BID, Substitution Allowed [facility] Jaya Fosamax 2011-07-10 07:50:13 Yes PO, Daily, S ubstitution Allowed [facility] [place] Prilosec 20 mg oral delayed release capsule 2011-07-10 07: 50:00 Yes Alan Deven Steve 1 cap, PO, Daily, 30 cap, Substitution Allowed [facility] Jaya magnesium sulfate 2011-07-10 07:32:00 No Pierre Tamayo Pablo ster 2 gm, Route: IVPB, Drug form: INJ, ONCE, Total dose = 2 gm, Start date: 07/10/11 1:32:00, Duration: 1 doses or times, Stop date: 07/10/11 1:32:00 [facility] K-Dur 20 2011-07-10 07:32:00 No Pierre Tamayo Boester 40 mEq, Route: PO, Drug form: ERTAB, ONCE, Start date: 07/10/11 1:32:00, Stop date: 07/10/11 1:32:00 [facility] diltiazem 125 mg + Sodium Chloride 0.9% (titrate) 100 mL 2011-07-10 06:38:00 No Pierre Tamayo Boester 100 mL , Rate: Titrate, Route: IV, Total Volume: 125 ml, Duration: 30 day, Stop date: 08/09/11 0:37:00, Replace Every: 24 hr [facility] Cardizem 2011-07-10 04:12:00 No Pierre Tamayo Boester 15 mg, Route: IVP, Drug form: INJ, ONCE, Priority: STAT, Start date: 07/09/11 22:12:00, Stop date: 07/09/11 22:12:00 [facility] aspirin 325 mg tablet 2011-07-10 04:06:00 No Pierre Tamayo Boester 325 mg, 1 tab, Route: PO, Drug form: TAB, ONCE, Priority: STAT, Start date: 07/09/11 22:06:00, Stop date: 07/09/11 22:06:00 [facility] Saline Flush 0.9% 2011-07-10 04:06:00 No Aguilar Townsend Bapa t 5 ml, Route: IVP, Drug Form: INJ, PRN, PRN Line Flush, Start date: 07/09/11 22:06:00, Duration: 24 hr, Stop date: 07/10/11 22:05:00 [facility] Alendronate Sodium 70 MG Oral Tablet Ye s ; Start Date: ; End Date: (Active) [facility] Omeprazole 20 MG Oral Capsule Delayed Release 06:00:0 0 Yes ; Start Date: ; End Date: (Active) [place] Hydrochlorothiazide 12.5 MG Oral Capsule Yes ; Start Date: ; End Date: (Active) [place] Nitrostat 0.4 MG Sublingual Tablet Sublingual 06:00:0 0 Yes ; Start Date: ; End Date: (Active) [place] Flecainide Acetate 100 MG Oral Tablet Y es ; Start Date: ; End Date: (Active) [place] Metoprolol Succinate ER 50 MG Oral Tablet Extended Release 2 4 Hour Yes ; Start Date: 0; End Date: (Active) [place] Gemfibrozil 600 MG Oral Tablet Yes ; Start Date: ; End Date: (Active) [place] AmLODIPine Besylate 5 MG Oral Tablet Ye s ; Start Date: ; End Date: (Active) [place] Metoprolol Succinate ER 50 MG Oral Tablet Extended Release 2 4 Hour Yes ; Start Date: 0; End Date: (Active) [place] Alendronate Sodium (Fosamax) 70 Mg Tablet Alendronate Sodium (Fosamax) 70 Mg Tablet Yes 70 Wkly [facility] Amlodipine Besylate 5 Mg Tablet Amlodipine Besylate 5 Mg Tablet Yes 5 Twice A Day [facility] Fenofibrate Nanocrystallized (Fenofibrate) 145 Mg Tabl et Fenofibrate Nanocrystallized (Fenofibrate) 145 Mg Tablet Yes 145 Daily [facility] Flecainide Acetate 100 Mg Tablet Flecainide Acetate 100 Mg Tablet Yes 100 Twice A Day [facility] Metoprolol Succinate 50 Mg Tab.er.24h Metoprolol Succinate 50 Mg Ta b.er.24h Yes 50 Bedtime [facility] Pantoprazole Sodium (Protonix) 40 Mg Tablet. Pantopr azole Sodium (Protonix) 40 Mg Tablet. Yes 40 Daily [facility] Pravastatin Sodium 40 Mg Tablet Pravastatin Sodium 40 Mg Tablet Yes 40 Bedtime [facility] Valsartan (Diovan) 160 Mg Tab Valsartan (Diovan) 160 Mg Tab Yes 160 Daily [facility] Warfarin Sodium (Coumadin*) 3 Mg Tablet Warfarin Sodium (Cou madin*) 3 Mg Tablet Yes 1.5 Daily [facility] Aspirin EC 81 MG Oral Tablet Delayed Release Aspirin E C 81 MG Oral Tablet Delayed Release Yes 1 QD TAKE 1 TABLET DAILY. [facility] Alendronate Sodium 70 Mg Tablet, 70 Mg Oral Alendronat e Sodium 70 Mg Tablet, 70 Mg Oral 2016-10-25 00:00:00 No 70 Qweek [facility] Amlodipine Besylate 5 Mg Tablet, 5 Mg Oral Amlodipine Besylate 5 Mg Tablet, 5 Mg Oral 2016-10-25 00:00:00 No 5 Daily [facility] Flecainide Acetate 100 Mg Tablet, 100 Mg Oral Flecaini de Acetate 100 Mg Tablet, 100 Mg Oral 2016-10-25 00:00:00 No 100 Daily [facility] Gemfibrozil 600 Mg Tablet, 600 Mg Oral Gemfibrozil 600 Mg Tablet , 600 Mg Oral 2016-10-25 00:00:00 No 600 Daily [facility] Metoprolol Succinate 50 Mg Tab.er.24h, 50 Mg Oral Meto prolol Succinate 50 Mg Tab.er.24h, 50 Mg Oral 2016-10-25 00:00:00 No 50 D aily [facility] Omeprazole Magnesium 20 Mg Capsule., 20 Mg Oral Omep razole Magnesium 20 Mg Capsule., 20 Mg Oral 2016-10-25 00:00:00 No [facility] Pravastatin Sodium 40 Mg Tablet, 40 Mg Oral Pravastati n Sodium 40 Mg Tablet, 40 Mg Oral 2016-10-25 00:00:00 No 40 Daily [facility] Valsartan/Hydrochlorothiazide (Diovan Hc t 160-12.5 Mg Tab) 1 Each Tablet, Oral Valsartan/Hydrochlorothiazide (Diovan Hc t 160-12.5 Mg Tab) 1 Each Tablet, Oral 2016-10-25 00:00:00 No Daily [facility] Warfarin Sodium (Jantoven) 3 Mg Tablet, 3 Mg Oral Warf charley Sodium (Jantoven) 3 Mg Tablet, 3 Mg Oral 2016-10-25 00:00:00 No 3 Marlena ly [facility] Hydrochlorothiazide 12.5 Mg Tablet, 12.5 Mg Oral [place] chlorothiazide 12.5 Mg Tablet, 12.5 Mg Oral 2015-04-01 00:00:00 No 12.5 Marlena ly [facility] Valsartan (Diovan) 160 Mg Tab, 160 Mg Oral Valsartan ( Diovan) 160 Mg Tab, 160 Mg Oral 2015-04-01 00:00:00 No 160 Twice A Day [facility] Vital Signs Vital Name Observation Time Observation Value Comments Source Temperature Oral (F) 2020-06-28 01:17:00 98.4 F [facility] Heart Rate 2020-06-28 01:17:00 [facility] [place] Respitory Rate 2020-06-28 01:17:00 Delmy cohn [place] Systolic (mm Hg) 2020-06-28 01:17:00 Bobby rial [place] Diastolic (mm Hg) 2020-06-28 01:17:00 Mem orial [facility] Height 2020-06-27 22:15:00 152.4 cm [facility] BMI Calculated 2020-06-27 22:15:00 Delmy al Jaya Weight 2020-06-27 22:15:00 [facility] Jaya Systolic (mm Hg) 2020-06-27 22:15:00 Bobby rial [place] Diastolic (mm Hg) 2020-06-27 22:15:00 Mem orial Jaya Heart Rate 2020-06-27 22:15:00 [facility] Respitory Rate 2020-06-27 22:15:00 Memori al [place] Temperature Oral (F) 2020-06-27 22:15:00 100.3 F [facility] [place] Respitory Rate 2020-06-15 12:41:00 Memori al Jaya Temperature Oral (F) 2020-06-15 12:19:00 98.1 F [facility] [place] Heart Rate 2020-06-15 12:19:00 [facility] [place] Systolic (mm Hg) 2020-06-15 12:19:00 Bobby rial Jaya Diastolic (mm Hg) 2020-06-15 12:19:00 Mem orial [place] Temperature Oral (F) 2020-06-15 04:00:00 98.2 F [facility] Heart Rate 2020-06-15 04:00:00 [facility] [place] Respitory Rate 2020-06-15 04:00:00 Memori al [facility] Systolic (mm Hg) 2020-06-15 04:00:00 Bobby rial [place] Diastolic (mm Hg) 2020-06-15 04:00:00 Mem orial [place] Respitory Rate 2020-06-15 02:07:00 Memori al [place] Systolic (mm Hg) 2020-06-15 01:31:00 Bobby rial [place] Diastolic (mm Hg) 2020-06-15 01:31:00 Mem orial Jaya Heart Rate 2020-06-15 01:31:00 [facility] Temperature Oral (F) 2020-06-14 20:27:00 98 F [facility] [place] Height 2020-06-13 11:58:00 152.4 cm [facility] [place] Weight 2020-06-13 11:58:00 [facility] [place] BMI Calculated 2020-06-13 11:58:00 Memori al [facility] Respitory Rate 2020-05-30 17:47:00 Memori al [place] Systolic (mm Hg) 2020-05-30 17:47:00 Bobby rial Jaya Diastolic (mm Hg) 2020-05-30 17:47:00 Mem orial [place] Respitory Rate 2020-05-30 17:30:00 Memori al [place] Systolic (mm Hg) 2020-05-30 17:30:00 Bobby rial [place] Diastolic (mm Hg) 2020-05-30 17:30:00 Mem orial [place] Respitory Rate 2020-05-30 17:00:00 Memori al [place] Systolic (mm Hg) 2020-05-30 17:00:00 Bobby rial [place] Diastolic (mm Hg) 2020-05-30 17:00:00 Mem orial Jaya Temperature Oral (F) 2020-05-30 12:12:00 98.1 F [facility] Height 2020-05-30 11:52:00 152.4 cm [facility] [place] Weight 2020-05-30 11:52:00 [facility] BMI Calculated 2020-05-30 11:52:00 [facility] [place] Temperature Oral (F) 2020-01-14 16:31:00 97.8 F [facility] Heart Rate 2020-01-14 16:31:00 [facility] Respitory Rate 2020-01-14 16:31:00 [facility] [place] Systolic (mm Hg) 2020-01-14 16:31:00 [facility] Diastolic (mm Hg) 2020-01-14 16:31:00 [facility] [place] Temperature Oral (F) 2020-01-14 12:31:00 98.1 F [facility] Heart Rate 2020-01-14 12:31:00 [facility] Respitory Rate 2020-01-14 12:31:00 [facility] Systolic (mm Hg) 2020-01-14 12:31:00 Bobby rial [place] Diastolic (mm Hg) 2020-01-14 12:31:00 [facility] Temperature Oral (F) 2020-01-14 09:14:00 98.3 F [facility] [place] Heart Rate 2020-01-14 09:14:00 [facility] Respitory Rate 2020-01-14 09:14:00 [facility] Systolic (mm Hg) 2020-01-14 09:14:00 Bobby rial [place] Diastolic (mm Hg) 2020-01-14 09:14:00 [facility] Height 2020-01-13 18:25:00 152.4 cm [facility] Weight 2020-01-13 18:25:00 [facility] [place] BMI Calculated 2020-01-13 18:25:00 [facility] [place] Height 2020-01-13 15:43:00 165.1 cm [facility] [place] BMI Calculated 2020-01-13 15:43:00 [facility] [place] Weight 2020-01-13 15:43:00 [facility] Temperature Oral (F) 2020-01-12 20:35:00 98.6 F [facility] [place] Heart Rate 2020-01-12 20:35:00 [facility] [place] Respitory Rate 2020-01-12 20:35:00 [facility] [place] Systolic (mm Hg) 2020-01-12 20:35:00 Bobby rial [place] Diastolic (mm Hg) 2020-01-12 20:35:00 [facility] Temperature Oral (F) 2020-01-12 16:45:00 98.4 F [facility] [place] Heart Rate 2020-01-12 16:45:00 [facility] [place] Respitory Rate 2020-01-12 16:45:00 [facility] Systolic (mm Hg) 2020-01-12 16:45:00 Bobby rial [place] Diastolic (mm Hg) 2020-01-12 16:45:00 [facility] Temperature Oral (F) 2020-01-12 13:12:00 98.7 F [facility] [place] Heart Rate 2020-01-12 13:12:00 [facility] Respitory Rate 2020-01-12 13:12:00 [facility] Systolic (mm Hg) 2020-01-12 13:12:00 [facility] Diastolic (mm Hg) 2020-01-12 13:12:00 [facility] [place] Height 2020-01-11 14:39:00 152.4 cm [facility] [place] Weight 2020-01-11 14:39:00 [facility] BMI Calculated 2020-01-11 14:39:00 [facility] [place] BMI Calculated 2020-01-11 11:49:00 [facility] Height 2020-01-11 11:24:00 152.4 cm [facility] BMI Calculated 2020-01-11 11:24:00 [facility] Weight 2020-01-11 11:24:00 [facility] Systolic blood pressure 2019-12-11 13:24:00 139 mm[Hg] Loca tion: LUE; Position: Sitting [facility] Diastolic blood pressure 2019-12-11 13:24:00 72 mm[Hg] Loc ation: LUE; Position: Sitting [facility] Body height 2019-12-11 13:24:00 60 [in_us] [facility] Weight 2019-12-11 13:24:00 130 [lb_av] [facility] Body mass index (BMI) [Ratio] 2019-12-11 13:24:00 25.39 kg/m2 [facility] Heart Rate 2019-12-11 13:24:00 80 /min [facility] Systolic blood pressure 2019-11-14 15:23:00 124 mm[Hg] Loca tion: LUE; Position: Sitting [facility] Diastolic blood pressure 2019-11-14 15:23:00 66 mm[Hg] Loc ation: LUE; Position: Sitting [facility] Body height 2019-11-14 15:23:00 60 [in_us] [facility] Weight 2019-11-14 15:23:00 130 [lb_av] [facility] Body mass index (BMI) [Ratio] 2019-11-14 15:23:00 25.39 kg/m2 [facility] Heart Rate 2019-11-14 15:23:00 68 /min [facility] Systolic blood pressure 2019-10-17 10:50:00 129 mm[Hg] Loca tion: LUE; Position: Sitting [facility] Diastolic blood pressure 2019-10-17 10:50:00 78 mm[Hg] Loc ation: LUE; Position: Sitting [facility] Body height 2019-10-17 10:50:00 60 [in_us] [facility] Weight 2019-10-17 10:50:00 130 [lb_av] [facility] Body mass index (BMI) [Ratio] 2019-10-17 10:50:00 25.39 kg/m2 [facility] Heart Rate 2019-10-17 10:50:00 71 /min Location: L Radial; [facility] Heart Rate 2019-10-01 00:00:00 [facility] Rate 2019-10-01 00:00:00 Delmy cohn [place] Systolic (mm Hg) 2019-10-01 00:00:00 Bobby kahn [place] Diastolic (mm Hg) 2019-10-01 00:00:00 [facility] Temperature Oral (F) 2019-09-30 19:20:00 98.3 F [facility] Heart Rate 2019-09-30 19:20:00 [facility] [place] Respitory Rate 2019-09-30 19:20:00 [facility] Systolic (mm Hg) 2019-09-30 19:20:00 [facility] Diastolic (mm Hg) 2019-09-30 19:20:00 [facility] Systolic (mm Hg) 2019-09-30 19:13:00 [facility] Diastolic (mm Hg) 2019-09-30 19:13:00 Mem [facility] [place] Heart Rate 2019-09-30 19:13:00 [facility] [place] Respitory Rate 2019-09-30 19:13:00 [facility] [place] Temperature Oral (F) 2019-09-30 19:13:00 98.7 F [facility] [place] Height 2019-09-30 19:13:00 162.56 cm [facility] BMI Calculated 2019-09-30 19:13:00 [facility] Weight 2019-09-30 19:13:00 [facility] BP Systolic 2019-09-18 10:00:00 124 mm[Hg] Location: JOCELYN Positi on: Sitting [facility] BP Diastolic 2019-09-18 10:00:00 56 mm[Hg] Location: THANH; Positi on: Sitting [facility] Height 2019-09-18 10:00:00 60 [in_us] [facility] Weight 2019-09-18 10:00:00 130 [lb_av] [facility] Body Mass Index Calculated 2019-09-18 10:00:00 25.39 kg/m2 [facility] Heart Rate 2019-09-18 10:00:00 51 /min [facility] Temperature Oral (F) 2019-08-25 17:52:00 98.9 F [facility] [place] Heart Rate 2019-08-25 17:52:00 [facility] [place] Respitory Rate 2019-08-25 17:52:00 [facility] [place] Systolic (mm Hg) 2019-08-25 17:52:00 Bobby rial [place] Diastolic (mm Hg) 2019-08-25 17:52:00 Mem [facility] [place] Heart Rate 2019-08-25 14:30:00 [facility] [place] Temperature Oral (F) 2019-08-25 13:26:00 98.1 F [facility] [place] Heart Rate 2019-08-25 13:26:00 [facility] Respitory Rate 2019-08-25 13:26:00 [facility] [place] Systolic (mm Hg) 2019-08-25 13:26:00 [facility] Diastolic (mm Hg) 2019-08-25 13:26:00 Mem [facility] [place] Respitory Rate 2019-08-25 09:15:00 [facility] Systolic (mm Hg) 2019-08-25 09:15:00 [facility] Diastolic (mm Hg) 2019-08-25 09:15:00 [facility] Temperature Oral (F) 2019-08-25 09:15:00 97.9 F [facility] Height 2019-08-25 04:31:00 152.4 cm [facility] Weight 2019-08-25 04:31:00 [facility] [place] BMI Calculated 2019-08-25 04:31:00 [facility] [place] Height 2019-08-24 23:29:00 154.94 cm [facility] [place] BMI Calculated 2019-08-24 23:29:00 [facility] Weight 2019-08-24 23:29:00 [facility] [place] BP Systolic 2019-05-18 10:27:00 179 mm[Hg] Location: RUE; Positi on: Sitting [facility] BP Diastolic 2019-05-18 10:27:00 81 mm[Hg] Location: RUE; Positi on: Sitting [facility] BP Systolic 2019-05-18 10:21:00 170 mm[Hg] Location: LUE; Positi on: Sitting [facility] BP Diastolic 2019-05-18 10:21:00 79 mm[Hg] Location: LUE; Positi on: Sitting [facility] Height 2019-05-18 10:21:00 60 [in_us] [facility] Weight 2019-05-18 10:21:00 136 [lb_av] [facility] Body Mass Index Calculated 2019-05-18 10:21:00 26.56 kg/m2 [facility] Heart Rate 2019-05-18 10:21:00 60 /min [facility] BP Systolic 2019-04-20 11:18:00 173 mm[Hg] Location: LUE; Positi on: Sitting [facility] BP Diastolic 2019-04-20 11:18:00 78 mm[Hg] Location: LUE; Positi on: Sitting [facility] BP Systolic 2019-04-20 11:15:00 166 mm[Hg] Location: RUE; Positi on: Sitting [facility] BP Diastolic 2019-04-20 11:15:00 72 mm[Hg] Location: RUE; Positi on: Sitting [facility] Height 2019-04-20 11:15:00 60 [in_us] [facility] Weight 2019-04-20 11:15:00 136 [lb_av] [facility] Body Mass Index Calculated 2019-04-20 11:15:00 26.56 kg/m2 [facility] Heart Rate 2019-04-20 11:15:00 58 /min [facility] BP Systolic 2019-01-19 09:20:00 132 mm[Hg] Location: LUE; Positi on: Sitting [facility] BP Diastolic 2019-01-19 09:20:00 64 mm[Hg] Location: NATIVIDADE; Positi on: Sitting [facility] Height 2019-01-19 09:20:00 60 [in_us] [facility] Weight 2019-01-19 09:20:00 136 [lb_av] [facility] Body Mass Index Calculated 2019-01-19 09:20:00 26.56 kg/m2 [facility] Heart Rate 2019-01-19 09:20:00 59 /min [facility] BP Systolic 2018-09-22 08:35:00 140 mm[Hg] [facility] BP Diastolic 2018-09-22 08:35:00 90 mm[Hg] [facility] Height 2018-09-22 08:35:00 60 [in_us] [facility] Weight 2018-09-22 08:35:00 135 [lb_av] [facility] Body Mass Index Calculated 2018-09-22 08:35:00 26.37 kg/m2 [facility] Heart Rate 2018-09-22 08:35:00 56 /min [facility] BP Systolic 2018-09-05 14:33:00 132 mm[Hg] Location: LUE; Positi on: Sitting [facility] BP Diastolic 2018-09-05 14:33:00 76 mm[Hg] Location: LUE; Positi on: Sitting [facility] Height 2018-09-05 14:33:00 60 [in_us] [facility] Weight 2018-09-05 14:33:00 137 [lb_av] [facility] Body Mass Index Calculated 2018-09-05 14:33:00 26.76 kg/m2 [facility] Heart Rate 2018-09-05 14:33:00 52 /min Location: L Radial; [facility] BP Systolic 2018-06-02 10:30:00 142 mm[Hg] Position: Sitting [facility] BP Diastolic 2018-06-02 10:30:00 63 mm[Hg] Position: Sitting [facility] Height 2018-06-02 10:30:00 60 [in_us] [facility] Weight 2018-06-02 10:30:00 133 [lb_av] [facility] Body Mass Index Calculated 2018-06-02 10:30:00 25.98 kg/m2 [facility] Heart Rate 2018-06-02 10:30:00 50 /min Quality: Normal [facility] Heart Rate 2018-01-30 23:23:00 [facility] [place] Systolic (mm Hg) 2018-01-30 23:23:00 [facility] Diastolic (mm Hg) 2018-01-30 23:23:00 [facility] Respitory Rate 2018-01-30 23:23:00 [facility] [place] Temperature Oral (F) 2018-01-30 23:23:00 97.9 F [facility] [place] Heart Rate 2018-01-30 20:29:00 [facility] Systolic (mm Hg) 2018-01-30 20:29:00 [facility] Diastolic (mm Hg) 2018-01-30 20:29:00 [facility] Respitory Rate 2018-01-30 20:29:00 [facility] [place] Respitory Rate 2018-01-30 20:24:00 [facility] [place] Heart Rate 2018-01-30 20:24:00 [facility] [place] Systolic (mm Hg) 2018-01-30 20:24:00 Bobby rial [place] Diastolic (mm Hg) 2018-01-30 20:24:00 [facility] Weight 2018-01-30 18:03:00 [facility] BMI Calculated 2018-01-30 18:03:00 Delmy Fiore Height 2018-01-30 18:03:00 152.4 cm [facility] Oral (F) 2018-01-30 18:03:00 98.7 F [facility] BP Systolic 2017-12-02 11:03:00 146 mm[Hg] [facility] BP Diastolic 2017-12-02 11:03:00 80 mm[Hg] [facility] Height 2017-12-02 11:03:00 60 [in_us] [facility] Weight 2017-12-02 11:03:00 138 [lb_av] [facility] Body Mass Index Calculated 2017-12-02 11:03:00 26.95 kg/m2 [facility] Heart Rate 2017-12-02 11:03:00 55 /min [facility] BP Systolic 2017-10-13 13:09:00 171 mm[Hg] [facility] BP Diastolic 2017-10-13 13:09:00 67 mm[Hg] [facility] Weight 2017-10-13 13:09:00 130 [lb_av] [facility] Body Mass Index Calculated 2017-10-13 13:09:00 25.39 kg/m2 [facility] Height 2017-10-13 13:09:00 60 [in_us] [facility] Heart Rate 2017-10-13 13:09:00 59 /min [facility] BP Systolic 2017-09-23 10:03:00 138 mm[Hg] Location: JOCELYN Aleman on: Sitting [facility] BP Diastolic 2017-09-23 10:03:00 60 mm[Hg] Location: THANH; Ash on: Sitting [facility] Height 2017-09-23 10:03:00 60 [in_us] [facility] Weight 2017-09-23 10:03:00 130.6 [lb_av] [facility] Body Mass Index Calculated 2017-09-23 10:03:00 25.51 kg/m2 [facility] Heart Rate 2017-09-23 10:03:00 51 /min Location: L Radial; [facility] Systolic (mm Hg) 2017-07-25 18:52:00 [facility] Diastolic (mm Hg) 2017-07-25 18:52:00 [facility] Temperature Oral (F) 2017-07-25 18:52:00 98.2 F [facility] [place] Respitory Rate 2017-07-25 18:52:00 [facility] [place] Temperature Oral (F) 2017-07-25 18:24:00 97.9 F [facility] Systolic (mm Hg) 2017-07-25 18:24:00 [facility] Diastolic (mm Hg) 2017-07-25 18:24:00 [facility] Respitory Rate 2017-07-25 18:24:00 [facility] [place] Respitory Rate 2017-07-25 17:45:00 [facility] [place] Systolic (mm Hg) 2017-07-25 17:45:00 Bobby rial [place] Diastolic (mm Hg) 2017-07-25 17:45:00 [facility] Temperature Oral (F) 2017-07-25 15:23:00 98 F [facility] [place] Weight 2017-07-25 15:23:00 [facility] BMI Calculated 2017-07-25 15:23:00 [facility] Height 2017-07-25 15:23:00 152.4 cm [facility] [place] Heart Rate 2017-07-25 15:23:00 [facility] Systolic (mm Hg) 2015-12-26 18:46:00 Bobby rial [place] Diastolic (mm Hg) 2015-12-26 18:46:00 [facility] Temperature Oral (F) 2015-12-26 18:46:00 99.3 F [facility] [place] Heart Rate 2015-12-26 18:46:00 [facility] Respitory Rate 2015-12-26 18:46:00 [facility] Systolic (mm Hg) 2015-12-26 16:35:00 [facility] Diastolic (mm Hg) 2015-12-26 16:35:00 Mem o[facility] [place] Heart Rate 2015-12-26 16:35:00 [facility] [place] Temperature Oral (F) 2015-12-26 16:35:00 99.9 F [facility] [place] Respitory Rate 2015-12-26 16:35:00 [facility] [place] Respitory Rate 2015-12-26 14:34:00 [facility] [place] Systolic (mm Hg) 2015-12-26 14:34:00 [facility] Diastolic (mm Hg) 2015-12-26 14:34:00 [facility] Heart Rate 2015-12-26 14:34:00 [facility] [place] Temperature Oral (F) 2015-12-26 14:34:00 102.4 F [facility] [place] Weight 2015-12-26 13:24:00 [facility] [place] Height 2015-12-26 13:24:00 152.4 cm [facility] BMI Calculated 2015-12-26 13:24:00 [facility] Diastolic (mm Hg) 2011-07-13 18:00:00 [facility] Systolic (mm Hg) 2011-07-13 18:00:00 Bobby rial [place] Respitory Rate 2011-07-13 18:00:00 [facility] [place] Heart Rate 2011-07-13 18:00:00 [facility] [place] Temperature Oral (F) 2011-07-13 18:00:00 98.3 F [facility] [place] Diastolic (mm Hg) 2011-07-13 14:00:00 [facility] Respitory Rate 2011-07-13 14:00:00 [facility] [place] Heart Rate 2011-07-13 14:00:00 [facility] Temperature Oral (F) 2011-07-13 14:00:00 98.4 F [facility] Systolic (mm Hg) 2011-07-13 14:00:00 Bobby rial [place] Temperature Oral (F) 2011-07-13 10:00:00 97.3 F [facility] [place] Diastolic (mm Hg) 2011-07-13 10:00:00 Mem [facility] [place] Heart Rate 2011-07-13 10:00:00 [facility] [place] Systolic (mm Hg) 2011-07-13 10:00:00 Bobby [facility] Respitory Rate 2011-07-13 10:00:00 [facility] Weight 2011-07-10 04:00:00 [facility] Height 2011-07-10 04:00:00 152.4 cm [facility] [place] Procedures Procedure Date / Time Performed Performing Clinician Sour e [QL] BASIC METABOLIC PANEL W/EGFR 2019-09-18 00:00:00 [facility] [QL] TSH, 3RD GENERATION W/REFLEX TO FT4 2019-09-18 00:00:00 [facility] [QLH] MAGNESIUM 2019-09-18 00:00:00 [facility] [L] Calcium, Serum 2019-09-18 00:00:00 [facility] Computed tomography of brain without radiopaque contrast 201 05-10-17 00:00:00 MISAEL GRADY [facility] Computed tomography of chest without contrast 2019-08-03 00: 00:00 DEISY STACK [facility] [[facility]] CMP W/EGFR 2019-07-13 00:00:00 [facility] [[facility]] CBC (INCLUDES DIFF/PLT) 2019-07-13 00:00:00 [facility] [[facility]] PROTHROMBIN W/INR + PARTIAL THROMBOPLASTIN TIMES 00:00:00 [facility] [[facility]] CMP W/EGFR 2019-04-20 00:00:00 [facility] Echo (In Office) 2019-01-19 00:00:00 [facility] [[facility]] CBC (INCLUDES DIFF/PLT) 2019-01-19 00:00:00 [facility] [[facility]] CMP W/EGFR 2019-01-19 00:00:00 [facility] [[facility]] LIPID PANEL 2019-01-19 00:00:00 [facility] [[facility]] PROTHROMBIN TIME-INR 2019-01-19 [facility] PROTHROMBIN TIME-INR 2018-12-19 00:00[facility] Computed tomography of chest without contrast 2018-12-01 00: 00:00 DEISY FRANKLIN [facility] [[facility]] PROTHROMBIN TIME-INR 2018-06-14 00:00:00 [facility] PROTHROMBIN TIME-INR 2017-11-04 00:00:[facility] [N] Nuclear Test-Exercise Treadmill Stress Perfusion 2017-10-17 00:00:00 [facility] [[facility]] LIPID PANEL 2017-09-23 00:00:00 [facility] [QLH] TSH, 3RD GENERATION 2017-09-23 00:00:00 [facility] [QL] HEMOGLOBIN A1c 2017-09-23 00:00:00 [facility] History of Cataract Surgery [facility] History of Appendectomy [facility] of Shoulder Surgery [facility] Appendectomy [facility] Cataract extraction<sup>1</sup> [facility] Cholecystectomy [facility] Hysterectomy [facility] Operation<sup>2</sup> [facility] decompression of thoracic spinal cord and fusion of joint of thoracic spine [facility] Plan of Care Planned Activity Planned Date Details Comments Source Diagnostic Test Pending 2018-12-19 00:00:00 [QL] PROTHROMBI N TIME-INR [code = [QL] PROTHROMBIN TIME-INR] [facility] Diagnostic Test Pending 2017-10-20 00:00:00 [N] Nuclear Test -Exercise Treadmill Stress Perfusion [code = [N] Nuclear Test-Exercise Treadmill Stress Perfusion] [facility] Diagnostic Test Pending 2017-10-20 00:00:00 [N] Nuclear Test -Exercise Treadmill Stress Perfusion [code = [N] Nuclear Test-Exercise Treadmill Stress Perfusion] [facility] Future Scheduled Test 2013-12-21 17:03:25 Plan of Care [code = 1877 6-5] [facility] Scheduled Test 2013-11-21 19:02:16 Plan of Care [code = 1877 6-5] [facility] Scheduled Test 2013-11-06 18:31:55 Plan of Care [code = 1877 6-5] [facility] Scheduled Test 2013-10-26 22:47:26 Plan of Care [code = 1877 6-5] [facility] Scheduled Test 2013-10-09 19:33:25 Plan of Care [code = 1877 6-5] [facility] Scheduled Test 2013-09-24 15:46:34 Plan of Care [code = 1877 6-5] [facility] Scheduled Test 2013-09-17 22:36:23 Plan of Care [code = 1877 6-5] [facility] Scheduled Test 2013-09-13 16:17:25 Plan of Care [code = 1877 6-5] [facility] Scheduled Test 2013-09-12 22:27:11 Plan of Care [code = 1877 6-5] [facility] Scheduled Test 2013-07-30 23:02:16 Plan of Care [code = 1877 6-5] [facility] Scheduled Test 2013-07-16 17:30:11 Plan of Care [code = 1877 6-5] [facility] Scheduled Test 2013-04-03 04:23:03 Plan of Care [code = 1877 6-5] [facility] Scheduled Test 2013-03-13 03:47:36 Plan of Care [code = 1877 6-5] [facility] Scheduled Test 2013-02-22 03:42:32 Plan of Care [code = 1877 6-5] [facility] Scheduled Test 2013-02-19 20:02:08 Plan of Care [code = 1877 6-5] [facility] Scheduled Test 2012-12-22 00:36:22 Plan of Care [code = 1877 6-5] [facility] Scheduled Test [QLH] CMP W/EGFR [code = [ QLH] CMP W/EGFR] Before next appointment [facility] Scheduled Test [QLH] CBC (INCLUDE S DIFF/PLT) [code = [QLH] CBC (INCLUDES DIFF/PLT)] Before next appointment [facility] Future Scheduled Test [QLH] CMP W/EGFR [code = [ QLH] CMP W/EGFR] Before next appointment [facility] Scheduled Test [QLH] CBC (INCLUDE S DIFF/PLT) [code = [QLH] CBC (INCLUDES DIFF/PLT)] Before next appointment [facility] Future Scheduled Test [QLH] CMP W/EGFR [code = [ QLH] CMP W/EGFR] Before next appointment [facility] Scheduled Test [QLH] CBC (INCLUDE S DIFF/PLT) [code = [QLH] CBC (INCLUDES DIFF/PLT)] Before next appointment [facility] Future Scheduled Test [QLH] BASIC METABO LIC PANEL W/EGFR [code = [QLH] BASIC METABOLIC PANEL W/EGFR] Before next appointment [facility] Future Scheduled Test [QLH] TSH, 3RD GEN ERATION W/REFLEX TO FT4 [code = [QLH] TSH, 3RD GENERATION W/REFLEX TO FT4] Before next appointment [facility] Future Scheduled Test [QLH] MAGNESIUM [code = [Q LH] MAGNESIUM] Before next appointment [facility] Future Scheduled Test [L] Calcium, Serum [code = [L] Calcium, Serum] Before next appointment [facility] Future Scheduled Test [QLH] BASIC METABO LIC PANEL W/EGFR [code = [QLH] BASIC METABOLIC PANEL W/EGFR] Before next appointment [facility] Future Scheduled Test [QLH] TSH, 3RD GEN ERATION W/REFLEX TO FT4 [code = [QLH] TSH, 3RD GENERATION W/REFLEX TO FT4] Before next appointment [facility] Future Scheduled Test [QLH] MAGNESIUM [code = [Q LH] MAGNESIUM] Before next appointment [facility] Future Scheduled Test [L] Calcium, Serum [code = [L] Calcium, Serum] Before next appointment [facility] Future Scheduled Test [QLH] BASIC METABO LIC PANEL W/EGFR [code = [QLH] BASIC METABOLIC PANEL W/EGFR] Before next appointment [facility] Future Scheduled Test [QLH] TSH, 3RD GEN ERATION W/REFLEX TO FT4 [code = [QLH] TSH, 3RD GENERATION W/REFLEX TO FT4] Before next appointment [facility] Future Scheduled Test [QLH] MAGNESIUM [code = [Q LH] MAGNESIUM] Before next appointment [facility] Future Scheduled Test [L] Calcium, Serum [code = [L] Calcium, Serum] Before next appointment [facility] Encounters Start Date/Time End Date/Time Encounter Type Admission Type Attendi [facility] Care Department Encounter ID Source 2020-07-10 08:00:00 2020-07-10 08:00:00 Outpatient MHSE CAR [id number] 2020-06-27 17:12:32 2020-06-27 21:32:00 [facility] [id number] 2020-06-27 17:12:32 2020-06-27 21:32:00 Outpatient Jayson Melchor SE SE [id number] 2020-06-27 17:12:00 2020-06-27 17:12:00 Emergency E MHSE MHSE [id number] 2020-06-13 06:12:00 2020-06-15 11:47:00 Outpatient Al-Azze h, Haytham Silvino MHSE MHSE [id number] 2020-06-13 06:12:00 2020-06-15 11:47:00 Outpatient Al-Azze h, Haytham Silvino MHSE MHSE [id number] 2020-05-15 00:00:00 2020-06-13 23:59:00 Outpatient Jean Parada R MHSE MHSE [id number] 2020-06-13 06:12:00 2020-06-13 06:12:00 Outpatient MHSE CAR [id number] 2020-05-30 06:36:00 2020-05-30 12:45:00 Outpatient Al-Azze h, Haytham Silvino MHSE MHSE [id number] 2020-05-30 06:36:00 2020-05-30 12:45:00 Outpatient Al-Azze h, Haytham Silvino MHSE MHSE [id number] 2020-05-30 06:36:00 2020-05-30 06:36:00 Outpatient MHSE CAR [id number] 2020-05-15 00:00:00 2020-05-15 00:00:00 Outpatient MHSE CAR [id number] 2020-04-02 00:00:00 2020-05-01 23:59:00 Outpatient Al-Azze h, Haytham Silvino MHSE MHSE [id number] 2020-04-02 00:00:00 2020-04-02 00:00:00 Outpatient MHSE CAR 9[facility] 2020-02-19 09:45:00 2020-03-19 23:59:00 Outpatient Al-Azze h, Haytham Silvino MHSE MHSE [id number] 2020-02-19 09:45:00 2020-02-19 09:45:00 Outpatient MHSE CAR [id number] 2019-12-26 00:00:00 2020-01-24 23:59:00 Outpatient Jean Byrd R MHSE MHSE [id number] 2020-01-13 10:43:16 2020-01-14 13:20:00 Outpatient Al-Azze h, Haytham Silvino MHSE MHSE [id number] 2020-01-13 12:40:00 2020-01-13 12:40:00 Outpatient E MHSE MED [id number] 2020-01-11 06:23:15 2020-01-12 19:23:00 Outpatient Felipe Negron MHSE MHSE [id number] 2020-01-11 08:27:00 2020-01-11 08:27:00 Outpatient E MHSE MED [id number] 2020-01-09 13:15:00 2020-01-09 13:15:00 Outpatient MHSE CAR [id number] 2019-12-26 00:00:00 2019-12-26 00:00:00 Outpatient MHSE CAR [id number] 2019-11-20 10:00:00 2019-12-19 23:59:00 Outpatient Jean Byrd R MHSE MHSE [id number] 2019-12-11 13:00:00 2019-12-11 13:00:00 Appointment; CEDRICK MORENO M.D. TRANG, AMANDA, M.D. [facility] [place] [id number] [facility] 2019-11-20 10:00:00 2019-11-20 10:00:00 Outpatient MHSE CAR 9[facility] 2019-11-14 15:20:00 2019-11-14 15:20:00 Appointment; CEDRICK MORENO M.D. TRANG, AMANDA, M.D. [facility] [id number] [facility] 2019-11-14 15:00:00 2019-11-14 15:00:00 Appointment; CEDRICK MORENO M.D. TRANG, AMANDA, M.D. [facility] [place] [id number] [facility] 2019-10-08 11:21:00 2019-11-06 23:59:00 Outpatient Jean Byrd R MHSE MHSE [id number] 2019-10-17 10:40:00 2019-10-17 10:40:00 Appointment; CEDRICK MORENO M.D. TRANG, AMANDA, M.D. [facility] [place] [id number] [facility] 2019-10-08 11:21:00 2019-10-08 11:21:00 Outpatient MHSE CAR [id number] 2019-09-07 10:20:00 2019-10-06 23:59:00 Outpatient Jean Byrd MHSE MHSE [id number] 2019-09-30 13:12:13 2019-09-30 21:34:00 Outpatient F Maria G santizo MHSE MHSE [id number] 2019-09-30 13:12:00 2019-09-30 13:12:00 Emergency E MHSE MHSE [id number] 2019-09-18 10:00:00 2019-09-18 10:00:00 Appointment; CEDRICK MORENO M.D. TRANG, AMANDA, M.D. [facility] [id number] [facility] 2019-09-14 09:50:00 2019-09-14 09:50:00 Appointment; EBER BYRD MD MANRIQUE, CARLOS, MD [facility] for Advanced Heart Failure [facility] [id number] [facility] 2019-09-10 08:45:00 2019-09-10 08:45:00 Appointment; SE, ECHO SE, ECHO UTP UTP [id number] [facility] 2019-09-07 10:20:00 2019-09-07 10:20:00 Outpatient MHSE CAR [id number] 2019-08-27 10:58:00 2019-08-28 20:00:00 Outpatient Jean Byrd MHSE MHSE [id number] 2019-08-27 10:58:00 2019-08-27 10:58:00 Outpatient MHSE CAR [id number] 2019-08-24 17:27:51 2019-08-25 13:52:00 Outpatient Selena Canela MHSE MHSE [id number] 2019-08-24 21:22:00 2019-08-24 21:22:00 Outpatient E MHSE MED [id number] 2019-07-24 11:54:00 2019-08-22 23:59:00 Outpatient Jean Byrd MHSE MHSE [id number] 2019-08-17 11:37:00 2019-08-17 15:15:00 Departed Emergency Room 1 [facility] [id number] [facility] 2019-08-14 12:53:00 2019-08-14 12:53:00 Registered Clinic 3 MISAEL GRADY [facility] [id number] [facility] 2019-08-03 15:53:00 2019-08-03 15:53:00 Registered Clinic 3 DEISY FRANKLIN [facility] [id number] [facility] 2019-07-24 11:54:00 2019-07-24 11:54:00 Outpatient [facility] CAR [id number] 2019-07-13 14:40:00 2019-07-13 14:40:00 Appointment; EBER BYRD MD MANRIQUE, CARLOS, MD UTP EP [facility] [id number] [facility] 2019-07-13 14:20:00 2019-07-13 14:20:00 Appointment; EBER BYRD MD MANRIQUE, CARLOS, MD [facility] [id number] [facility] 2019-05-18 10:20:00 2019-05-18 10:20:00 Appointment; EBER BYDR MD MANRIQUE, CARLOS, MD UTP EP [facility] [id number] [facility] 2019-04-24 11:00:00 2019-04-24 11:00:00 Appointment; SE, ECHO SE, ECHO UTP UTP [id number] [facility] 2019-04-20 10:40:00 2019-04-20 10:40:00 Appointment; EBER BYRD MD MANRIQUE, CARLOS, MD UTP EP [facility] [id number] [facility] 2019-02-22 14:15:00 2019-02-22 14:15:00 Appointment; ELDON MODI JOSE UTP UTP [id number] [facility] 2019-01-19 11:00:00 2019-01-19 11:00:00 Appointment; SE, ECHO SE, ECHO [facility] [id number] [facility] 09:40:00 2019-01-19 09:40:00 Appointment; EBER BYRD MD MANRIQUE, CARLOS, MD [facility] [id number] [facility] 2019-01-19 09:30:00 2019-01-19 09:30:00 Appointment; EBER BYRD MD MANRIQUE, CARLOS, MD [facility] [id number] [facility] 2018-12-01 16:12:00 2018-12-01 16:12:00 Registered Clinic 3 DEISY FRANKLIN [facility] [id number] [facility] 2018-09-22 08:30:00 2018-09-22 08:30:00 Appointment; KEMAR MONTESINOS M.D. ESCOBAR CAMARGO, JORGE, M.D. [facility] Cardiology at [facility] outheast [id number] [facility] 2018-09-13 14:00:00 2018-09-13 14:00:00 Appointment; SE, VENOUS SE, VENOUS UTP UTP [id number] [facility] 2018-09-05 14:00:00 2018-09-05 14:00:00 Appointment; KEMAR MONTESINOS M.D. ESCOBAR CAMARGO, JORGE, M.D. UTP Cardiology at [facility] outheast [id number] [facility] 2018-07-31 08:59:00 2018-07-31 23:59:00 Outpatient Grady, S ouheil Sadik [facility] [id number] 2018-06-02 10:15:00 2018-06-02 10:15:00 Appointment; KEMAR MONTESINOS M.D. ESCOBAR CAMARGO, JORGE, M.D. UTP Cardiology at [facility] outheast [id number] [facility] 2018-05-09 10:00:00 2018-05-09 10:00:00 Outpatient Grady, S ouheil Sadik MHSE MHSE [id number] 2018-05-09 10:00:00 2018-05-09 10:00:00 Outpatient Grady, S ouheil Sadik MHSE MHSE [id number] 2018-01-30 13:01:00 2018-01-30 18:27:00 Outpatient Jayson Melchor [facility] [id number] 2017-12-02 11:00:00 2017-12-02 11:00:00 Appointment; KEMAR MONTESINOS M.D. ESCOBAR CAMARGO, JORGE, M.D. UTP [facility] [id number] [facility] 2017-11-15 08:15:00 2017-11-15 08:15:00 Appointment; SE, NUCLEAR SE, NUCLEAR UTP UTP [id number] [facility] 2017-10-25 08:00:00 2017-10-25 08:00:00 Appointment; SE, NUCLEAR SE, NUCLEAR UTP UTP [id number] [facility] 2017-10-13 13:20:00 2017-10-13 13:20:00 Appointment; KEMAR MONTESINOS M.D. ESCOBAR CAMARGO, JORGE, M.D. UTP Cardiology at [facility] [id number] [facility] 2017-10-04 13:00:00 2017-10-04 13:00:00 Appointment; SE, ECHO SE, ECHO UTP UTP [id number] [facility] 2017-09-23 09:40:00 2017-09-23 09:40:00 Appointment; KEMAR MONTESINOS M.D. ESCOBAR CAMARGO, JORGE, M.D. UTP Cardiology at [facility] [id number] [facility] 2017-09-09 09:50:00 2017-09-09 09:50:00 Appointment; KEMAR MONTESINOS M.D. ESCOBAR CAMARGO, JORGE, M.D. UTP Cardiology at [facility] [id number] [facility] 2017-08-25 09:15:00 2017-08-25 09:15:00 Appointment; KEMAR MONTESINOS M.D. ESCOBAR CAMARGO, JORGE, M.D. UTP UTP [id number] [facility] 2017-08-25 09:10:00 2017-08-25 09:10:00 Appointment; KEMAR MONTESINOS M.D. ESCOBAR CAMARGO, JORGE, M.D. [facility] UTP [id number] [facility] 2017-08-03 10:28:00 2017-08-03 23:59:00 Outpatient Tana Grady MHSE MHSE [id number] 2017-07-25 09:16:00 2017-07-25 12:52:00 Outpatient Jayson Melchor MHSE MHSE [id number] 2017-02-24 09:00:00 2017-02-24 09:00:00 Appointment; KEMAR MONTESINOS M.D. ESCOBAR CAMARGO, JORGE, M.D. [facility] UTP [id number] [facility] 2016-08-24 07:49:00 2016-08-24 23:59:00 Outpatient E Kemar Mariano SE MHSE [id number] 2016-08-06 10:45:00 2016-08-06 10:45:00 Appointment; KEMAR MONTESINOS M.D. ESCOBAR CAMARGO, JORGE, M.D. [facility] UTP [id number] [facility] 2016-02-11 15:00:00 2016-02-11 15:00:00 Appointment; KEMAR MONTESINOS M.D. ESCOBAR CAMARGO, JORGE, M.D. [facility] UTP [id number] [facility] 2016-02-06 15:30:00 2016-02-06 15:30:00 Appointment; KEMAR MONTESINOS M.D. ESCOBAR CAMARGO, JORGE, M.D. [facility] UTP [id number] [facility] 2015-12-26 07:59:00 2015-12-26 13:56:00 Outpatient Az Shah MHSE MHSE [id number] 2015-12-03 10:33:00 2015-12-03 23:59:00 Outpatient E Kemar Mariano SE SE [id number] 2015-11-28 14:30:00 2015-11-28 14:30:00 Appointment; KEMAR MONTESINOS M.D. ESCOBAR CAMARGO, JORGE, M.D. UTP UTP [id number] [facility] 2015-10-27 10:53:00 2015-10-27 23:59:00 Outpatient E Kemar Mariano Mario MHSE MHSE [id number] 2015-10-24 15:10:00 2015-10-24 15:10:00 Appointment; KEMAR MONTESINOS M.D. ESCOBAR CAMARGO, JORGE, M.D. [facility] UTP [id number] [facility] 2015-10-22 11:00:00 2015-10-22 11:00:00 Appointment; SE, ECHO SE, ECHO UTP UTP [id number] [facility] 2015-10-13 09:56:00 2015-10-13 23:59:00 Outpatient Grady, S ouheil Sadik MHSE MHSE [id number] 2015-09-17 09:53:00 2015-09-17 23:59:00 Outpatient Grady, S ouheil Sadik MHSE MHSE [id number] 2015-07-30 09:42:00 2015-07-30 23:59:00 Outpatient Grday, S ouheil Sadik MHSE MHSE [id number] 2014-07-30 08:35:00 2014-07-30 23:59:00 Outpatient Grady, S ouheil Sadik MHIE MHIE [id number] 2013-12-21 12:03:26 2013-12-21 12:03:25 Outpatient MHIE MHIE [id number] 2013-11-21 14:02:17 2013-11-21 14:02:16 Outpatient MHIE MHIE [id number] 2013-11-06 13:31:55 2013-11-06 13:31:55 Outpatient MHIE MHIE [id number] 2013-10-26 16:47:27 2013-10-26 16:47:26 Outpatient MHIE MHIE [id number] 2013-10-09 13:33:26 2013-10-09 13:33:25 Outpatient MHIE MHIE [id number] 2013-09-24 09:46:34 2013-09-24 09:46:34 Outpatient IE IE [id number] 2013-09-17 16:36:24 2013-09-17 16:36:23 Outpatient IE IE [id number] 2013-09-13 10:17:26 2013-09-13 10:17:25 Outpatient IE IE [id number] 2013-09-12 16:27:12 2013-09-12 16:27:11 Outpatient IE IE [id number] 2013-07-30 17:02:16 2013-07-30 17:02:16 Outpatient IE [facility] [id number] 2013-07-16 11:30:12 2013-07-16 11:30:11 Outpatient IE IE [id number] 2013-04-02 23:23:24 2013-04-02 23:23:03 Outpatient IE IE [id number] 2013-03-12 22:47:56 2013-03-12 22:47:36 Outpatient IE IE [id number] 2013-02-21 22:42:54 2013-02-21 22:42:32 Outpatient IE [facility] [id number] 2013-02-19 15:02:08 2013-02-19 15:02:08 Outpatient IE [facility] [id number] 2012-12-21 19:36:42 2012-12-21 19:36:22 Outpatient IE [facility] [id number] Results Test Description Test Time Test Comments Results Result Comments Source IMMUNOLOGY 2020-06-28 01:15:00 Not Detected *NA*(06/27/20 8:15 PM) [facility] URINE AND STOOL 2020-06-27 23:56:00 Yellow *NA*(06/27/20 6 :56 PM) [facility] 2020-06-27 23:56:00 Clear (06/27/20 6:56 P M) [facility] URINE AND STOOL 2020-06-27 23:56:00 Test Item UA Spec Grav (test code = UA Spec Grav) 1.015 1 [facility] [id number] 23:56:00* Test Item Value Reference Range Interpretation Comments UA pH (test code = UA pH) 6.0 1 5.0-8.0 [facility] [id number] 23:56:00Negative (06/27/20 6:56 PM) [facility] IEPKJ1594-37-47 23:56:00Negative *NA*(06/27/20 6:56 PM)[facility] KVFYU7567-66-18 23:56:00Negative *NA*(06/27/20 6:56 PM)[facility] NIWWB7769-65-48 23:56:00Small *ABN*(06/27/20 6:56 PM)[facility] RAMCV4915-99-84 23:56:000.2[facility] ADKZE6657-14-38 23:56:00Negative (06/27/20 6:56 PM)[facility] ZXPDL8314-97-10 23:56:00Trace *ABN*(06/27/20 6:56 PM)[facility] TTKTW2514-12-28 23:56:00None Seen (06/27/20 6:56 PM)[facility]ann[facility]ARDIAC HULZOLJ9181-59-22 22:35:0034[facility]ann[facility]IAC XYPATYE7874-20-06 22:35:00< 0.02[facility] HermannCHEM TTAND6139-70-51 22:35:14151Azpzkqkt HermannCHEM PANEL 2020-06-27 22:35:0019[facility]annCHEM HUGVM8081-71-25 22:35:000.98[facility]annCHEM ALSPP2545-82-87 22:35:68657Ndkpwwii HermannCHEM BDFPO8428-98-60 22:35:004.1[facility]annCHEM EROVT8193-47-96 22:35:44744Oeubmexw HermannCHEM XDDTT0027-79-67 22:35:0025[facility] HermannCHEM CULOC2979-09-53 22:35:008.9 [facility] YNGWK8229-98-71 22:35:007.0[facility]annCHEM PANEL 2020-06-27 22:35:003.3[facility]annCHEM JVWQY9933-74-50 22:35:0032[facility]annCHEM SNVEM9398-52-12 22:35:0021[facility] HermannCHEM CHQEA0420-88-64 22:35:0076[facility] HermannCHEM GRGWE4720-02-43 22:35:000.5[facility]annCHEM YRTBK8900-66-33 22:35:0015.1[facility]annCHEM XFDCI7601-41-06 22:35:00* Test Item Value Reference Range Interpretation Comments B/C Ratio (test code = B/C Ratio) 19 1 6-25 [facility] AYDNZ0100-61-34 22:35:003.7[facility]annCHEM PANEL 2020-06-27 22:35:00* Test Item Value Reference Range Interpretation Comments A/G Ratio (test code = A/G Ratio) 0.9 1 0.7-1.6 [facility] RGJFW8842-39-01 22:35:0052[facility] HermannCHEM PANEL 2020-06-27 22:35:001.7[facility]annCHEM OCTZT7798-40-51 22:35:003.2[facility] NgmeqkdMYNNJQUPVP7037-73-82 22:35:0010.9[facility] LwdzawpZGXYCUOCZB0719-53-95 22:35:003.61[facility] JdayecjUDSVLGTJQL2138-17-69 22:35:0011.2[facility] RRZMZOBREY9266-21-41 22:35:0033.3[facility] XijlgzbOOVRUSOPPW2788-01-86 22:35:00 92.1[facility] YrernltDRWEOCBWFU0110-11-16 22:35:00* Test Item Value Reference Range Interpretation Comments MCH (test code = MCH) 31.0 pg 27.0-31.0 [facility] ArncvupDYKEJIZOJO4653-22-46 22:35:0033.6[facility]annHEMATOLOGY 2020-06-27 22:35:0014.0[facility] VqpvebwFACMSSDHMU2917-90-10 22:35:08258Fnxemgnp PtnorghNXMCPCFZMZ6751-95-27 22:35:009.6[facility] PzukzihOXGAOLVYSV6249-10-67 22:35:00* Test Item Value Reference Range Interpretation Comments PT (test code = PT) 14.4 s 12.0-14.7 Memorial YgdokxwRTKMSYNKFI8871-69-67 22:35:00* Test Item Value Reference Range Interpretation Comments INR (test code = INR) 1.11 1 0.85-1.17 Memorial BfmzxgnXJSMWTVEKX1282-52-41 22:35:00* Test Item Value Reference Range Interpretation Comments PTT (test code = PTT) 24.7 s 22.9-35.8 Memorial LxnpvhmSJSMGANNRQ6358-87-86 22:35:0076.1[facility]annHEMATOLOGY 2020-06-27 22:35:0010.6[facility] DadxaaiQXYZRLXRNS0789-51-37 22:35:009.6[facility] YtrmvlcUUOQOALXYO4603-97-43 22:35:003.3[facility] GjcpqeuHQIZJLEMCC5912-59-69 22:35:000.4[facility] GuevdxlPZPLWSPUDR9812-05-64 22:35:008.3[facility] HTWIQIUMZA7209-89-11 22:35:001.1[facility] VrsuqskECNGQNQSYD5969-78-06 22:35:001.0 [facility] RseokstHLEZWXPUGC8809-70-02 22:35:000.4[facility] HermannCHEM PANEL 2020-06-13 12:08:83414Exkmuurq HermannCHEM LCNAH6583-12-26 12:08:0020[facility] HermannCHEM BBPXO9211-96-58 12:08:001.14[facility]annCHEM QHKEX7062-42-86 12:08:39461Zsknyfuf HermannCHEM JNPSB1717-91-83 12:08:004.1[facility] HermannCHEM WDHTY6429-41-76 12:08:17657Hapgnhlx HermannCHEM NDUOM2407-99-64 12:08:0027 [facility]annCHE[facility] FCZVA8830-00-19 12:08:009.6[facility] HermannCHEM PANEL 2020-06-13 12:08:0010.1[facility] HermannCHEM GZMHF4108-88-48 12:08:0043[facility] VohkhuxPUVPDQUTUN6159-16-42 12:08:008.2[facility] ZndjsrtGLNFQVIUHX3204-37-61 12:08:003.71[facility] WpaupdpOQSRIBQCRP0058-15-05 12:08:0011.4[facility] LCYVWSJCYJ1286-47-63 12:08:0033.6[facility] UdbdtuxJKAUBRZOJV3156-39-77 12:08:00 90.5[facility] ZeugaubBVWAZDTYIM1322-69-75 12:08:00* Test Item Value Reference Range Interpretation Comments MCH (test code = MCH) 30.6 pg 27.0-31.0 Memorial LwxmwqkJXFMLRVJGV7406-30-22 12:08:0033.9[facility] HermannHEMATOLOGY 2020-06-13 12:08:0013.5[facility] ZkikhjaANPQUQSCCX2812-58-32 12:08:72603Kndxadvi OlpqikiFMQXGNMFOY8057-62-86 12:08:009.3[facility] UncyffnTLHUZAWEXD2620-85-37 12:08:00* Test Item Value Reference Range Interpretation Comments PT (test code = PT) 14.7 s 12.0-14.7 Memorial HzuodfyKBMTJXHWCQ4686-41-54 12:08:00* Test Item Value Reference Range Interpretation Comments INR (test code = INR) 1.14 1 0.85-1.17 [facility] MucfhsbNLHUXHYPYK3625-22-16 12:08:00* Test Item Value Reference Range Interpretation Comments PTT (test code = PTT) 23.0 s 22.9-35.8 [facility] BufgcglCSOEPSNRRV7217-54-51 12:08:0068.1[facility] HermannHEMATOLOGY 2020-06-13 12:08:0023.8[facility] ZvbpkmsFVRAQSIMUH5697-40-11 12:08:006.2[facility] SmmjxwrQFCDRUWIAO0587-76-53 12:08:001.3[facility] QxgodcnBUVTEMYZSD1176-53-86 12:08:000.6[facility] ClakhjlAVSYCTAGPM9760-19-74 12:08:005.6[facility] IOTXBDQQKQ0127-21-55 12:08:002.0[facility] IbbwplmDRLFYCZWSS2272-05-53 12:08:000.5 Memorial TkobtamVBGUYLVEGC3924-76-87 12:08:000.1[facility]annHEMATOLOGY 2020-06-13 12:08:000.1[facility] DjqkwmmAOILNTWFWE4036-72-61 14:54:00Not Detected *NA*(06/10/20 9:54 AM)[facility]annCHEM WJBLN1412-27-43 12:05:48084Prvzubjd HermannCHEM NZVGC0650-84-09 12:05:0022[facility] HermannCHEM ZCPEU3008-64-90 12:05:001.24[facility] HermannCHEM ITJDF1916-14-42 12:05:09442Xewuhqir HermannCHEM TILYZ9971-92-81 12:05:003.9[facility] HermannCHEM SCRQO6658-58-38 12:05:69715 [facility]annCHEM UAYUK2797-12-88 12:05:0027[facility] HermannCHEM PANEL 2020-05-30 12:05:009.9[facility] HermannCHEM FAEEP6042-33-74 12:05:0010.9[facility] HermannCHEM RYKHL1920-48-51 12:05:0039[facility] LckavqaWEBVUSPLXI3120-26-23 12:05:009.9[facility] PxmxvgsXPCQMVUNPF9918-91-47 12:05:003.93[facility] JNIYGUZIXX2754-49-02 12:05:0012.2[facility] FgxkkroYMNIQTWKGT2117-45-54 12:05:00 35.5[facility] CiezatcWPCDZRLFPL9311-86-44 12:05:0090.4[facility]annHEMATOLOGY 2020-05-30 12:05:00* Test Item Value Reference Range Interpretation Comments MCH (test code = MCH) 30.9 pg 27.0-31.0 [facility] TuupvbrGEYUAIJWFL9709-16-58 12:05:0034.2[facility]annHEMATOLOGY 2020-05-30 12:05:0013.7[facility] WzzbtfmWRFWZLAREG0062-42-88 12:05:11461Qalaupil DpjnwytJLETYUILJR8767-53-36 12:05:009.1[facility] VqclhlbSQFMIXDBSN6150-75-59 12:05:00* Test Item Value Reference Range Interpretation Comments PT (test code = PT) 15.6 s 12.0-14.7 [facility] KzhasysXFEOXQLJLA9433-18-15 12:05:00* Test Item Value Reference Range Interpretation Comments INR (test code = INR) 1.23 1 0.85-1.17 [facility] BzcqgglKIWGTSLMVK1017-68-43 12:05:00* Test Item Value Reference Range Interpretation Comments PTT (test code = PTT) 24.4 s 22.9-35.8 [facility] WbdwfxxVLERJITLJD1126-31-74 12:05:0063.9[facility]OLOGY 2020-05-30 12:05:0026.1[facility] HsnqyndGDFFOFXYQN6550-43-64 12:05:007.6[facility] FjbcremXGFJLDPVRL2974-16-02 12:05:001.8[facility] ZejcsysBZOLHTRSHU6401-44-46 12:05:000.6[facility] RknkbsnILZKYBRLCF0468-22-82 12:05:006.3[facility] J[facility] JKMNZUWTEN1380-08-38 12:05:002.6[facility] WjqbnknVXERFBUSPT7172-10-80 12:05:000.8 [facility] ZmbwpbrAPEMKNCCVO8921-91-81 12:05:000.2[facility]OLOGY 2020-05-30 12:05:000.1[facility] NsxeoggNEQLKONRPC9793-10-84 14:30:00Not Detected *NA*(05/27/20 9:30 AM)[facility] FvmuznuGGDJSWAEKI5854-45-33 15:12:00* Test Item Value Reference Range Interpretation Comments POC INR (test code = POC INR) 3.3 1 0.9-1.2 [facility] SxcrynkRUCULHOEVV0678-97-91 15:12:00* Test Item Value Reference Range Interpretation Comments POC PT (test code = POC PT) 37.4 s 12.0-14.7 [facility] [id number] 13:30:00 [place] [id number] Patient Name: DENIA MORRELL MR #: [id number] : 1930 Age/Sex: 89/F Req #: [id number] Adm Physician: Ordered by: DEISY FRANKLIN MD Report #: [id number] Location: CT Room/Bed: Procedure: [id number] CT/CT CHES T WO Exam Date: 02/11/20 Exam Time: 1351 REPORT STATUS: Signed CT of the chest, with out contrast. History: Bronchitis, lung nodules. Comparison: CT chest without contrast from 08/03/2019, 12/01/2018, 10/05/2018. Technique: Mult idetector CT scanning of the chest was performed from the level of the apices to the upper abdomen without contrast. Coronal and sagittal multiplanar refor mations were obtained. RADIATION DOSE: Total DLP: 458.30 mGy*cm Dose modulation, iterative reconstruction, and/or weight based adjustment of the mA/kV was utilized to reduce the radiation dose to as low as reasonably achievable. FINDINGS: The thyroid and remaining visualized structures wi thin the base of the neck demonstrate no significant abnormalities. The a scending thoracic aorta is ectatic measuring up to 3.8 cm in maximal AP diamet er, unchanged from the prior examination. The thoracic aorta is otherwise norm al in course with atherosclerotic calcifications within its course and branch vessels including the coronary arteries. Suspected stent noted within the LAD. The main pulmonary artery is prominent measuring 3.4 cm in maximal caliber, u nchanged. The heart is enlarged, unchanged from the prior examination. No abno rmal pericardial fluid is present. There is no abnormal axillary, mediastinal, or hilar lymph node enlargement. The trachea and proximal airways are ballesteros nt. Examination of the lungs again demonstrates stable appearing clustered/dolores e-in-bud opacities predominantly within the right middle lobe but also involvi ng to a lesser extent the right upper lobe and left lower lobe. Findings are u nchanged from prior examinations dating back to 10/05/2018. There is no evidence for consolidation, pneumothorax, mass, new/suspicious nodule, or pleural effu rashi. Limited views of the upper abdomen demonstrate no significant abnorma lities. Cholecystectomy clips noted within the right upper quadrant. Partially visualized left renal cyst noted. Stable moderate compression deformity noted of the T12 vertebral body. The osseous structures otherwise demonstrate degenerative changes without evidence for acute fracture or destructive proces s. The extrathoracic soft tissues are unremarkable. IMPRESSION: S table appearing tree-in-bud opacities are again identified, unchanged from mitesh or examinations dating back to 10/05/2018. No new pulmonary nodule or consolidat ion identified. Stable ectasia of the thoracic aorta. Stable prominenc e of the main pulmonary artery. Signed by: Dr. Reno Campos MD on 0 1:47 PM Dictated By: RENO CAMPOS MD 46 Transcribed By: SILVINO on 02/11/201346 COPY T O: DEISY FRANKLIN MD, [facility] OGINQDIFRX4074-39-35 15:29:00* Test Item Value Reference Range Interpretation Comments POC INR (test code = POC INR) 2.7 1 0.9-1.2 [facility] VvbvvfsWYPULUDPFZ4018-57-54 15:29:00* Test Item Value Reference Range Interpretation Comments POC PT (test code = POC PT) 30.9 s 12.0-14.7 [facility] BZVHZJP1917-90-58 08:42:00<0.02[facility]CHE[facility] NRVXU1741-42-23 08:42:0094[facility] VLBQR2100-39-98 08:42:0015 [facility] ICTBY3411-15-01 08:42:000.84[facility]annCHE[facility] PANEL 2020-01-14 08:42:71428Vevzzelc [facility]annCHE[facility] ZVPVX1274-15-08 08:42:004.2[facility] TENJV2316-35-46 08:42:21886Xhpdpxau [facility]annCHE[facility] MYCWT2000-07-30 08:42:0027[facility] KPQIB7223-68-69 08:42:009.0[facility] BOWMF5180-27-02 08:42:006.6[facility] LSUXV8739-74-44 08:42:003.3 [facility] NIIUK1330-44-68 08:42:0022[facility]CHE[facility] PANEL 2020-01-14 08:42:0021[facility] CJZNF0276-73-83 08:42:0052[facility] IUABC8346-89-31 08:42:000.7[facility] ATBMW5041-71-77 08:42:0010.2[facility] XJCNH2302-14-56 08:42:00* Test Item Value Reference Range Interpretation Comments B/C Ratio (test code = B/C Ratio) 18 1 6-25 [facility] XSMPF2826-60-58 08:42:003.3[facility]annCHE[facility] PANEL 2020-01-14 08:42:00* Test Item Value Reference Range Interpretation Comments A/G Ratio (test code = A/G Ratio) 1.0 1 0.7-1.6 [facility] SGDCL7309-82-63 08:42:0063[facility]annHEMATOLOGY 2020-01-14 08:42:009.2[facility] NcyxezjNFCXUPMTOI5368-93-51 08:42:003.43[facility] UrihqkeWPGTFXVVSY9278-36-40 08:42:0010.7[facility] DrrfviaUSRBHGSVDT3937-04-08 08:42:0030.8[facility] GyqciohKKVJNULSVH9218-96-67 08:42:0089.9[facility] KONEAXYUTZ0913-11-08 08:42:00* Test Item Value Reference Range Interpretation Comments MCH (test code = MCH) 31.3 pg 27.0-31.0 [facility] ZpptyetYQTGHXESEG2659-86-69 08:42:0034.8[facility]annHEMATOLOGY 2020-01-14 08:42:0013.9[facility] FjaczgtQXXEBDNRDW0649-19-74 08:42:13086Uuxrujfz GhpmfpyFCLTWUAFBW9042-66-81 08:42:009.3[facility] FxmxzztXQIXPEQQGY3761-07-97 08:42:00* Test Item Value Reference Range Interpretation Comments PTT (test code = PTT) 30.5 s 22.9-35.8 [facility] DejjqphDRKJSBSYTK9968-55-46 08:42:00* Test Item Value Reference Range Interpretation Comments PT (test code = PT) 22.0 s 12.0-14.7 [facility] CnerpzeXSJFCCSVSZ1449-72-34 08:42:00* Test Item Value Reference Range Interpretation Comments INR (test code = INR) 1.89 1 0.85-1.17 [facility] LlganmySIEESITIBC5743-70-65 08:42:0069.8[facility]annHEMATOLOGY 2020-01-14 08:42:0019.9[facility] ZeadprjYEQXSLMUFE9328-34-27 08:42:007.9[facility] JmvyhfjTOSYPZWSUX6115-59-27 08:42:001.9[facility] PbpeehaJCNVWFHBZV8862-37-82 08:42:000.5[facility] TevfrqwXESVUKHRMS5048-66-31 08:42:006.4[facility] UPQOJVBHJJ0389-27-25 08:42:001.8[facility] TovjbitXSCKXZQULT9253-45-76 08:42:000.7 [facility] CgxrblnJRHGNAQHGS5808-95-83 08:42:000.2[facility]annCARDIAC ENZYMES 2020-01-14 04:01:00<0.02[facility] VHNBLRW4297-86-10 15:58:0095 [facility] TCKUTWB5295-00-20 15:58:00<0.02[facility] TXADRQE1370-65-43 15:58:0060[facility]annCHE[facility] ATPLD4963-83-18 15:58:0096 [facility] CBASI1468-99-44 15:58:0018[facility]annCHE[facility] PANEL 2020-01-13 15:58:001.04[facility]CHE[facility] UEGFV7878-19-91 15:58:42202Cjvlugdx [facility]annCHE[facility] WXALX3720-24-73 15:58:004.3[facility] YSCIP0974-89-49 15:58:84856Qoaddeau [facility]annCHE[facility] YCABA7356-12-58 15:58:0022[facility] NRNOQ1946-28-87 15:58:009.4[facility] QACQG6823-59-18 15:58:007.7 [facility] QRKXE7769-85-02 15:58:003.8[facility]annCHE[facility] PANEL 2020-01-13 15:58:0022[facility] AUWMW2230-70-45 15:58:0024[facility] LQHIP3562-73-37 15:58:0058[facility]CHE[facility] EWKIL1372-29-49 15:58:000.5[facility] EWOTJ8165-16-93 15:58:0011.3[facility]CHE[facility] WUHJX2856-54-11 15:58:00* Test Item Value Reference Range Interpretation Comments B/C Ratio (test code = B/C Ratio) 17 1 6-25 [facility] UAREI5765-12-10 15:58:003.9[facility]annCHE[facility] PANEL 2020-01-13 15:58:00* Test Item Value Reference Range Interpretation Comments A/G Ratio (test code = A/G Ratio) 1.0 1 0.7-1.6 [facility] VHJBF6137-99-78 15:58:0048[facility]annCHEM PANEL 2020-01-13 15:58:002.2[facility] WhwkmdcRESIKQNPGZ0557-44-39 15:58:0011.0[facility] MdaxgplYCOEYTWNZT6184-81-31 15:58:003.86[facility] VlbmwduTIVTMTTWSU3754-27-81 15:58:0011.9[facility] DzryrvoLFHYYIVEJD3161-36-43 15:58:0035.1[facility] VMTRTXSSNQ5646-83-89 15:58:0090.9[facility] NldltmdHMXLNNIEHZ4707-96-34 15:58:00* Test Item Value Reference Range Interpretation Comments MCH (test code = MCH) 30.9 pg 27.0-31.0 [facility] FfwcgurIHKBJBXZUA9544-97-79 15:58:0034.0[facility]annHEMATOLOGY 2020-01-13 15:58:0014.2[facility] XhsdxkxHFNEKPWCKX5012-34-81 15:58:14858Hhlbwztx QoplnzjNGURPIBQNC4235-33-04 15:58:009.8[facility] LovrbopDCQZAWNVDF1353-00-05 15:58:00* Test Item Value Reference Range Interpretation Comments PT (test code = PT) 21.2 s 12.0-14.7 [facility] CdmccfqRTUSVPCQHD2392-65-82 15:58:00* Test Item Value Reference Range Interpretation Comments INR (test code = INR) 1.81 1 0.85-1.17 [facility] YkylvykQUJWOIWFBB8391-31-86 15:58:00* Test Item Value Reference Range Interpretation Comments PTT (test code = PTT) 26.2 s 22.9-35.8 [facility] HcphpenTNBANZMBGW5088-62-60 15:58:0069.2[facility]annHEMATOLOGY 2020-01-13 15:58:0022.3[facility] CxpfvixDKEURUFHQU1314-62-03 15:58:007.2[facility] SvcuqtrKBQDFRODXB6257-30-84 15:58:000.9[facility] UywevlpRJUBIWYNZE0137-82-02 15:58:000.4[facility] AlkdxalJLABMPPWHE6935-57-56 15:58:007.6[facility] EHTENNWTUT5508-34-36 15:58:002.5[facility] YydjulyGDIZNFJKDR4339-08-77 15:58:000.8 [facility] CagntfcACTSDLFZNZ8506-25-17 15:58:000.1[facility]annHEMATOLOGY 2020-01-12 12:54:00* Test Item Value Reference Range Interpretation Comments PT (test code = PT) 20.8 s 12.0-14.7 [facility] QmduwvfUHYUNFUNUB5410-86-31 12:54:00* Test Item Value Reference Range Interpretation Comments INR (test code = INR) 1.77 1 0.85-1.17 [facility] LgaajcfYRJXRY5863-65-14 12:54:95795Tmynroft AqlrnubRHHIGZ5543-27-36 12:54:77279Yleypwyf KnvbctjRTHPGT3413-66-78 12:54:0058[facility] HermannLIPIDS 2020-01-12 12:54:00* Test Item Value Reference Range Interpretation Comments CHD Risk (test code = CHD Risk) 2.16 1 3.90-5.80 [facility] UnbsxaqDQQSNH5623-64-91 12:54:0043[facility] LinfuzhVIRTAE6081-12-49 12:54:00* Test Item Value Reference Range Interpretation Comments VLDL (test code = VLDL) 24 1 [facility]annCHE[facility] UJOOP6697-47-94 22:06:000.87[facility]annCHEM PANEL 2020-01-11 22:06:0060[facility] FkctgzeCTMVGAXJMO0722-47-91 22:06:00* Test Item Value Reference Range Interpretation Comments PT (test code = PT) 20.4 s 12.0-14.7 [facility] OecrgewXMMYUULVZI0370-50-26 22:06:00* Test Item Value Reference Range Interpretation Comments INR (test code = INR) 1.72 1 0.85-1.17 [facility] UjetnpoGXBISFPKST9047-11-87 22:06:0011.9[facility]UR[facility] STOOL 2020-01-11 13:23:00Clear (01/11/20 8:23 AM)[facility] 2020-01-11 13:23:00* Test Item Value Reference Range Interpretation Comments UA Spec Grav (test code = UA Spec Grav) 1.005 1 [facility] OFVRW8184-30-07 13:23:00* Test Item Value Reference Range Interpretation Comments UA pH (test code = UA pH) 8.0 1 5.0-8.0 [facility] IKGGY1674-00-55 13:23:00Negative *NA*(01/11/20 8:23 AM) [facility] LXRJY9401-74-94 13:23:00Negative (01/11/20 8:23 AM) [facility] BANMJ4425-74-47 13:23:00Negative (01/11/20 8:23 AM) [facility] FTYEA5490-90-86 13:23:00Negative (01/11/20 8:23 AM) [facility] BAQXV1853-09-45 13:23:004[facility]annCARDIAC OYLEODP3877-68-95 12:23:0067[facility] ZYVYVIM1173-70-06 12:23:00< 0.02[facility]annCARD[facility]AC QENCDDJ5716-75-51 12:23:0065[facility]annCHEM SNNAW1920-04-87 12:23:10688Ckdxmeob [facility]annCHEM YNXSH0905-70-05 12:23:0018 [facility]CHE[facility] ENPSN5897-69-79 12:23:001.09[facility]annCHEM PANEL 2020-01-11 12:23:82586Btagscfs HermannCHEM DAQVO4948-65-13 12:23:003.9[facility]annCHEM LUDRP5349-63-09 12:23:16779Tijdkxkl [facility]CHE[facility] YQXZT1535-19-49 12:23:0022[facility]CHE[facility] KJCMT3864-53-07 12:23:009.5[facility]annCHE[facility] TQLCY9710-03-78 12:23:007.4[facility]annCHE[facility] LBKAU6714-81-00 12:23:003.7 [facility]CHE[facility] XQXPS0968-37-55 12:23:0024[facility]annCHEM PANEL 2020-01-11 12:23:0027[facility]annCHE[facility] IBWMQ7641-41-48 12:23:0053[facility]annCHEM GADSD9255-05-18 12:23:000.7[facility]annCHE[facility] XYDAC9240-64-84 12:23:0014.9[facility]annCHEM AZLIN6179-25-59 12:23:00* Test Item Value Reference Range Interpretation Comments B/C Ratio (test code = B/C Ratio) 17 1 6-25 [facility] MNCZN4317-81-16 12:23:003.7[facility]annCHEM PANEL 2020-01-11 12:23:00* Test Item Value Reference Range Interpretation Comments A/G Ratio (test code = A/G Ratio) 1.0 1 0.7-1.6 [facility] QFJGE4938-97-40 12:23:0046[facility]annCHEM PANEL 2020-01-11 12:23:002.0[facility]annCHEM NECRS3880-91-46 12:23:001.9[facility] IyeqiusOIFVVLYNHX7321-04-29 12:23:0010.7[facility] OuosmerSEJAQPEOMF1689-33-91 12:23:003.98[facility] ZsfzipnXJGNAMUUEL8907-72-76 12:23:0012.1[facility] HDWRICIKQR0848-90-64 12:23:0035.6[facility] XaergthKLYEUXLKHL3264-83-22 12:23:00 89.6[facility] OhqlbcrZCQJCPGPUJ3306-02-82 12:23:00* Test Item Value Reference Range Interpretation Comments MCH (test code = MCH) 30.5 pg 27.0-31.0 [facility] VbtcikwJZJJPDFLBS4227-58-60 12:23:0034.1[facility]annHEMATOLOGY 2020-01-11 12:23:0014.2[facility] FbjbkvqMBZJDBVUFF8874-37-33 12:23:79215Tiakrwny XndouzyWUSJDKCJQV9336-33-85 12:23:0010.1[facility] RkjepgvYFVYXJWZAQ0191-47-58 12:23:00<0.27[facility] VdloxawNXVWOCLLNP4460-87-29 12:23:00* Test Item Value Reference Range Interpretation Comments PT (test code = PT) 19.5 s 12.0-14.7 [facility] VgsnxhkKTHQSHVMMJ5666-81-64 12:23:00* Test Item Value Reference Range Interpretation Comments INR (test code = INR) 1.63 1 0.85-1.17 [facility] LhhftqaFOFLPTTHIY0384-33-56 12:23:00* Test Item Value Reference Range Interpretation Comments PTT (test code = PTT) 29.0 s 22.9-35.8 [facility] OwlpqknRZIQRVBRWC5335-01-44 12:23:0071.4[facility]annHEMATOLOGY 2020-01-11 12:23:0020.6[facility] OnsobaxHBSLYKYKLI2273-36-58 12:23:006.1[facility] KmujwlaDQJIWRAZMF1349-60-54 12:23:001.3[facility] VldsilaLPTUMJAQDK5584-79-38 12:23:000.6[facility] GxrfkowUNCWKTHHTF7184-51-61 12:23:007.6[facility] WIQBDMJVPZ4378-22-33 12:23:002.2[facility] DsxjtpxGAORBPIVAI4078-36-54 12:23:000.7 [facility]GcsphbrGTSWZGNAVK0604-74-60 12:23:000.1[facility]annHEMATOLOGY 2020-01-11 12:23:000.1[facility] JeghsqxRVKCMUOOGF1406-52-10 15:02:00* Test Item Value Reference Range Interpretation Comments POC INR (test code = POC INR) 4.0 1 0.9-1.2 [facility]xqhdAUJWFEKTMN4907-64-14 15:02:00* Test Item Value Reference Range Interpretation Comments POC PT (test code = POC PT) 45.0 s 12.0-14.7 [facility] SystemNxkqgdmNMKTOTKILT3110-46-64 15:32:00* Test Item Value Reference Range Interpretation Comments POC INR (test code = POC INR) 2.8 1 0.9-1.2 [facility] SystemVovpfspVPKTUJFCVB2344-68-47 15:32:00* Test Item Value Reference Range Interpretation Comments POC PT (test code = POC PT) 32.2 s 12.0-14.7 [facility] SystemDabpxsrWCMECXBMDO1628-89-53 16:34:00* Test Item Value Reference Range Interpretation Comments POC INR (test code = POC INR) 2.9 1 0.9-1.2 [facility] SystemKqgvmdqGFIPXZZDTO8957-87-01 16:34:00* Test Item Value Reference Range Interpretation Comments POC PT (test code = POC PT) 32.9 s 12.0-14.7 [facility] SystemFtepcjrKGACQFAMMQ8284-22-70 17:23:00* Test Item Value Reference Range Interpretation Comments POC INR (test code = POC INR) 1.5 1 0.9-1.2 [facility] SystemIvuvwewXPAQVGBFFC0995-23-28 17:23:00* Test Item Value Reference Range Interpretation Comments POC PT (test code = POC PT) 17.5 s 12.0-14.7 [facility] SystemTbqxggfZESIIOGULE2349-61-17 16:07:00* Test Item Value Reference Range Interpretation Comments POC INR (test code = POC INR) 1.3 1 0.9-1.2 [facility] SystemUaggugkRQTIVCOYZH1608-27-84 16:07:00* Test Item Value Reference Range Interpretation Comments POC PT (test code = POC PT) 15.9 s 12.0-14.7 [facility] KNTZYQA8528-56-17 20:31:0034[facility] TKEIVRZ8157-58-29 20:31:00<0.02[facility]annCHEM FBROG9653-33-22 20:31:93707 [facility]CHE[facility] PYMJU2918-42-32 20:31:0022[facility]annCHEM PANEL 2019-09-30 20:31:000.94[facility]annCHEM FHTLC0893-87-98 20:31:64090Pbwpubvd [facility]CHE[facility] GDQFN3777-30-25 20:31:003.9[facility]CHE[facility] YKMTK8343-87-61 20:31:35355Ikuvvqya [facility]annCHEM EKHEA2972-65-96 20:31:0026[facility]annCHE[facility] POYRD9786-69-37 20:31:009.1[facility]annCHE[facility] PBVCL9625-31-10 20:31:006.6 [facility]CHE[facility] DJOYF8521-09-44 20:31:003.4[facility]annCHEM PANEL 2019-09-30 20:31:0023[facility]annCHE[facility] RAZTI6899-32-15 20:31:0025[facility]annCHE[facility] JMCPG8751-06-68 20:31:0053[facility]annCHE[facility] QAFWQ4184-31-79 20:31:000.2[facility]annCHE[facility] HIRML2095-97-81 20:31:007.9[facility]annCHE[facility] SOMEV9829-33-08 20:31:00* Test Item Value Reference Range Interpretation Comments B/C Ratio (test code = B/C Ratio) 23 1 6-25 [facility]CHE[facility] PEKPT9540-77-94 20:31:003.2[facility]annCHEM PANEL 2019-09-30 20:31:00* Test Item Value Reference Range Interpretation Comments A/G Ratio (test code = A/G Ratio) 1.1 1 0.7-1.6 [facility] NDMLH0719-07-18 20:31:0055[facility]annCHEM PANEL 2019-09-30 20:31:87731Cxyvjkdh LozbjrvLQYXHHULHO6392-50-05 20:31:007.7[facility] HbytcmcQSMTJRLSMA3522-43-15 20:31:003.76[facility] GtspdgmACBEKBRAOI2712-20-83 20:31:0011.4[facility] LutgvujEWLKZGSWZM5192-92-62 20:31:0033.9[facility] BVUJRCIFDG4705-39-37 20:31:0090.0[facility] PytqyeaWSRGBHZVLD8010-35-52 20:31:00* Test Item Value Reference Range Interpretation Comments MCH (test code = MCH) 30.3 pg 27.0-31.0 [facility] NfgtakeBKOFUQUJZS3393-58-88 20:31:0033.7[facility]annHEMATOLOGY 2019-09-30 20:31:0014.4[facility] VbolvhzXEUGNJPGNQ9626-15-30 20:31:54468Opazmrvg VrluginFBPCENTWSI0335-37-12 20:31:0010.4[facility] GtfmjyzRDINADWODE3243-53-07 20:31:00* Test Item Value Reference Range Interpretation Comments PT (test code = PT) 16.6 s 12.0-14.7 [facility] XgrhxkrQIAPLKAZIC3791-35-57 20:31:00* Test Item Value Reference Range Interpretation Comments INR (test code = INR) 1.33 1 0.85-1.17 [facility] KfvfsfzTQWZEADYQM0570-58-18 20:31:00* Test Item Value Reference Range Interpretation Comments PTT (test code = PTT) 25.7 s 22.9-35.8 [facility] RhzxxfiZRQPEWTDUV9604-93-48 20:31:0077.3[facility]annHEMATOLOGY 2019-09-30 20:31:0013.6[facility] OvmptsbGFSKQBYNSU3768-49-69 20:31:007.0[facility] BvszqbgQBANPHDRCP9204-35-18 20:31:001.7[facility] BftgehcCGUWMKUSPA1640-07-02 20:31:000.4[facility] PbeyjwsNOOUYEJKBS8866-64-60 20:31:005.9[facility] IQPBEPGGDG4042-15-70 20:31:001.0[facility] BireoibJTWDBOYXGD9972-71-03 20:31:000.5 [facility] SxrcimoULOUCTEGAC7310-48-81 20:31:000.1[facility] 2019-09-30 20:31:00Clear (09/30/19 2:31 PM)[facility] 2019-09-30 20:31:00* Test Item Value Reference Range Interpretation Comments UA Spec Grav (test code = UA Spec Grav) 1.004 1 [facility] UYWTQ9680-19-43 20:31:00* Test Item Value Reference Range Interpretation Comments UA pH (test code = UA pH) 7.0 1 5.0-8.0 [facility] RGQZB9482-04-32 20:31:00Negative *NA*(09/30/19 2:31 PM) [facility] QNFSF9438-61-84 20:31:00Small *ABN*(09/30/19 2:31 PM) [facility] JBWQJ4020-55-97 20:31:00Negative (09/30/19 2:31 PM) [facility] GOPSV7264-36-33 20:31:00Negative (09/30/19 2:31 PM) [facility] YANSY1768-32-28 20:31:00<1[facility] CSCTY7985-17-17 20:31:001[facility] HiaanjpQSXCIBJEWN8085-34-08 15:31:00* Test Item Value Reference Range Interpretation Comments POC INR (test code = POC INR) 1.6 1 0.9-1.2 [facility] UqnddmkMLTZTNBGDJ1685-96-00 15:31:00* Test Item Value Reference Range Interpretation Comments POC PT (test code = POC PT) 19.0 s 12.0-14.7 [facility]] BASIC METABOLIC PANEL W/ONEF3857-88-72 11:10:01* Test Item Value Reference Range Interpretation Comments Glucose Lvl (test code = 2345-7) 95 mg/dl 70-99 Adult reference range values reflect the clinical guidelinesof the [place] [employer]. Blood Urea Nitrogen (test code = 3094-0) 20 mg/dl 7-22 Creatinine Lvl (test code = 2160-0) 1.20 mg/dl 0.50-1.40 Sodium Level (test code = 2951-2) 142 {mEq/l} 135-145 Potassium Level (test code = 2823-3) 4.9 {mEq/l} 3.5-5.1 Chloride Level (test code = 2075-0) 106 {mEq/l} 95-109 Carbon Dioxide (test code = 2027-9) 30 {mEq/l} 24-32 AGAP (test code = 68159-5) 10.9 {mEq/l} 10.0-20.0 Calcium Level Total (test code = 59769-0) 9.9 mg/dl 8.5-10.5 eGFR (test code = 79773-7) 41 {ML/MIN/1.7} The eGFR is calculated using the CKD-EPI formula. In most young, healthyindividuals the eGFR will be >90 mL/min/1.73m2. The eGFR declines with age. AneGFR of 60-89 may be normal in some populations, particularly the elderly, forwhom the CKD-EPI formula has not been extensively validated. Use of the eGFR isnot recommended in the following populations:Individuals with unstable creatinine concentrations, including patients and those with serious co-morbid conditions.Patients with extremes in muscle mass or diet.The data above are obtained from the National Kidney Disease Education Program(NKDEP) which additionally recommends that when the eGFR is used in patientswith extremes of body mass index for purposes of drug dosing, the eGFR shouldbe multiplied by the estimated BMI. [facility]] SSBQZXJJP4252-97-87 11:10:01* Test Item Value Reference Range Interpretation Comments Magnesium Level (test code = 29255-1) 1.8 mg/dl 1.8-2.4 [facility]] TSH, 3RD GENERATION W/REFLEX TO FT4 2019-09-18 11:10:01* Test Item Value Reference Range Interpretation Comments TSH (test code = 70981-9) 2.500 {uIU/ml} 0.360-3.740 [facility][] UYCZQCX5266-20-28 11:04:01* Test Item Value Reference Range Interpretation Comments Calcium Level Total (test code = 03462-6) Cancel Reason: System Can baron [facility] JsvqwmsnneNPVGNQYGQI6692-53-27 17:03:00* Test Item Value Reference Range Interpretation Comments POC INR (test code = POC INR) 3.9 1 0.9-1.2 [facility]MnosvofWWWYJVONTN5937-40-38 17:03:00* Test Item Value Reference Range Interpretation Comments POC PT (test code = POC PT) 43.6 s 12.0-14.7 [facility] HermannCARDIAC TEEXJJG2196-88-88 15:56:00<0.02[facility]annCHEM TBVWY8192-56-03 09:15:001.6[facility]annCHEM NTABU0597-13-99 09:15:003.2 [facility]annCHE[facility] NQIYP4072-22-50 09:15:0097[facility] HermannCHEM PANEL 2019-08-25 09:15:0015[facility] HermannCHEM ECIRB8353-39-08 09:15:000.71[facility]annCHEM PIGMV3663-50-16 09:15:24012Gjwyvyuw HermannCHEM DSLJJ6363-85-30 09:15:003.4[facility]annCHEM HZABY6180-77-59 09:15:45254Ktxevvch HermannCHEM LQHQJ4576-55-24 09:15:0030[facility] HermannCHEM OAZEK5753-39-16 09:15:009.4 [facility]annCHE[facility] GBVWW7763-66-88 09:15:008.0[facility]annCHEM PANEL 2019-08-25 09:15:00* Test Item Value Reference Range Interpretation Comments B/C Ratio (test code = B/C Ratio) 21 1 6-25 [facility] HermannCHEM QBOVY8545-99-07 09:15:006.7[facility] HermannCHEM PANEL 2019-08-25 09:15:002.9[facility] HermannCHEM GYPLF1100-96-56 09:15:003.8[facility] HermannCHEM WRZQU2190-30-24 09:15:00* Test Item Value Reference Range Interpretation Comments A/G Ratio (test code = A/G Ratio) 0.8 1 0.7-1.6 [facility] HermannCHEM OGVKK1007-66-04 09:15:0020[facility] HermannCHEM PANEL 2019-08-25 09:15:0020[facility]annCHEM EENYM3969-54-87 09:15:0063[facility]annCHEM FXWYW3261-49-66 09:15:000.4[facility]annCHEM GJNWP5408-18-45 09:15:0077[facility] KpokpozVAXCETCOPN5911-60-14 09:15:008.4[facility] LTZEBHJCAG4908-46-66 09:15:003.60[facility] AajqjknRZNAFSIHTC8725-40-69 09:15:00 10.6[facility] VwzxdqpZOIVMCRRNP1256-61-90 09:15:0031.6[facility]annHEMATOLOGY 2019-08-25 09:15:0087.9[facility] PcppeopEEUWNJVPYK3271-93-49 09:15:00* Test Item Value Reference Range Interpretation Comments MCH (test code = MCH) 29.4 pg 27.0-31.0 [facility]VzqvfbuUKATKFJSWH0538-72-49 09:15:0033.4[facility]annHEMATOLOGY 2019-08-25 09:15:0013.6[facility] ZibtvugJRVGLPMDCL7267-82-75 09:15:10581Nbaytbcc NoppramXFZAMXFEYQ4579-38-48 09:15:009.8[facility] MbpgwyyIRZTRHYVNE1829-68-16 09:15:00* Test Item Value Reference Range Interpretation Comments PTT (test code = PTT) 43.4 s 22.9-35.8 [facility] HospitalLvwocrwETUNXCULBA9375-51-63 09:15:00* Test Item Value Reference Range Interpretation Comments PT (test code = PT) 33.0 s 12.0-14.7 [facility] SftnasmLTIMMKDLTU4627-26-00 09:15:00* Test Item Value Reference Range Interpretation Comments INR (test code = INR) 3.14 1 0.85-1.17 [facility]annCHEM QGXNU3745-79-87 05:04:0035.8[facility] HermannPARATHYROID NRMCWLL5247-40-38 05:04:93587.6[facility] HermannPARATHYROID ZVOVEOE4430-49-88 05:04:000.88[facility] HermannPARATHYROID XPJJQVK1784-74-46 05:04:000.89[facility] HermannCARDIAC JOFENXJ6610-98-06 00:09:00<0.02[facility]annCARDIAC ENZYMES 2019-08-25 00:09:94212Mykntkef HermannCHEM KCQWY3768-29-87 00:09:50530Fkpgarfv HermannCHEM SEGLM2619-00-72 00:09:0017[facility]annCHEM BIQJC2366-16-51 00:09:000.95[facility]annCHEM IJWYU8213-84-40 00:09:04722Cbailvfc HermannCHEM EIHWY0282-85-89 00:09:003.7[facility]annCHEM OPSYN7301-55-64 00:09:51234 [facility]annCHE[facility] HWNZW7212-81-06 00:09:0025[facility]annCHEM PANEL 2019-08-25 00:09:0012.7[facility]annCHEM PSPLP4937-61-68 00:09:006.9[facility]annCHEM OFZKR5759-44-32 00:09:00* Test Item Value Reference Range Interpretation Comments B/C Ratio (test code = B/C Ratio) 18 1 6-25 [facility]annCHEM MHMVU7524-05-68 00:09:007.7[facility]annCHEM PANEL 2019-08-25 00:09:003.2[facility]annCHEM ECDBY1014-86-98 00:09:004.5[facility]annCHEM ITWDY8703-47-66 00:09:00* Test Item Value Reference Range Interpretation Comments A/G Ratio (test code = A/G Ratio) 0.7 1 0.7-1.6 [facility]annCHEM COJHU0958-70-04 00:09:0026[facility]annCHEM PANEL 2019-08-25 00:09:0033[facility]annCHEM SRVAZ0758-97-32 00:09:0076[facility]annCHEM SMGQZ8038-60-60 00:09:000.4[facility]annCHEM PNULK9356-79-06 00:09:0054[facility]annCHEM WAWNG4715-90-05 00:09:07870Utjamevp HermannCHEM IKQTD3524-01-11 00:09:000.8[facility]annCHEM MRFYB0075-74-89 00:09:002.6 [facility] DbgsfeyNSOLWQEQAZ4688-15-77 00:09:0011.5[facility] HermannHEMATOLOGY 2019-08-25 00:09:004.03[facility] QitrrwmZVDFCHEJBF8947-21-22 00:09:0012.0[facility] ZuauqyjLRVPJDMFOY7045-31-12 00:09:0036.0[facility] LbvzlqpVSKVXKOWGQ7237-26-31 00:09:0089.1[facility] GndmlqrVNPSWVNNJL4864-59-13 00:09:00* Test Item Value Reference Range Interpretation Comments MCH (test code = MCH) 29.7 pg 27.0-31.0 [facility] DnjggthQKGEIWJUNQ8187-14-32 00:09:0033.3[facility] HermannHEMATOLOGY 2019-08-25 00:09:0013.7[facility] RiaadacDNLJWGVZQU6709-47-99 00:09:64300Mnokkhdk NgtwulbJOFELUGCLT9229-46-32 00:09:0010.1[facility] YnqhakrMVLOTWJWSX4665-66-05 00:09:00* Test Item Value Reference Range Interpretation Comments PT (test code = PT) 34.5 s 12.0-14.7 [facility] HospitalEmdgqugJIKUXNZFWN6668-92-36 00:09:00* Test Item Value Reference Range Interpretation Comments INR (test code = INR) 3.32 1 0.85-1.17 [facility] EfwfucgZCTZWAFAAH3823-35-31 00:09:00* Test Item Value Reference Range Interpretation Comments PTT (test code = PTT) 34.8 s 22.9-35.8 [facility] HospitalEhnbumnPLWGWTKTCI6269-73-90 00:09:0061.1[facility] 2019-08-25 00:09:0027.2[facility] XeljrmaLGLPNNTQUJ2046-21-11 00:09:008.1[facility] WdsmsvqJRFHSMYAEL0450-80-03 00:09:002.7[facility] VytybeeTREUXQQOJT5902-95-42 00:09:000.9[facility] WcgexezOANSEIOBIL0875-01-74 00:09:007.0[facility] WLBCIOGWUI6943-48-09 00:09:003.1[facility] JtoijibYARTWPOVFY7015-00-55 00:09:000.9 [facility] IgsuquaCSBZWSIJII3086-89-58 00:09:000.3[facility]ann[facility] 2019-08-25 00:09:000.1[facility] HermannUric Yjqu1904-94-23 14:20:00* Test Item Value Reference Range Interpretation Comments Uric Acid (test code = 3084-1) 5.7 2.6-8.0 [facility] BHKFE8934-41-72 14:04:00 [place] [address] Patient Name: DENIA MORRELL MR #: [id number] : 1929 Age/Sex: 89/F Req #: [id number] Adm Physician: Ordered by: ROCK LIVINGSTON MD Report #: [id number] Location: ER Room/Bed: Procedure: 1220-00 50 DX/WRIST COMPLETE RIGHT Exam Date: 08/17/19 Exam Time: 1339 REPORT STATUS: Signed TECHNIQUE: Frontal, oblique, and lateral views of the right wrist. INDICAT ION: 89-year-old woman with pain and swelling. COMPARISON: None. FINDI NGS: Abnormal osseous structure adjacent to trapezium and second metacarpal. Otherwise, no acute fractures or dislocations. Degenerative changes at the fi rst carpometacarpal joint. Other joint spaces are within normal limits. Calc ifications in the region of the triangular fibrocartilage complex. Soft tissue s are grossly unremarkable. IMPRESSION: Abnormal osseous structure adjace nt to the trapezium and second metacarpal may represent an osteophyte or seque la of age-indeterminate trauma. Degenerative changes at the first carpometa carpal joint. Signed by: Gus Connors MD on 08/17/2019 2:12 PM Di ctated By: GUS CONNORS MD 11 COPY TO: Michelle LIVINGSTON MD CT BRAIN [id number] 14:02:00 [place] [address] Patient Name: DENIA MORRELL MR #: [id number] : 1930 Age/Sex: 89/F Req #: [id number] Adm Physician: Ordered by: MISAEL GRADY MD Report #: [id number] Location: CT Room/Bed: Procedure: [id number] CT/CT BRAIN WO Exam Date: 08/14/19 Exam Time: 1339 REPORT STATUS: Signed History:Fal l, syncope Comparison studies:None Technique: Axial images were obtaine d from the skull base to the vertex. Coronal and sagittal images reconstructed from the axial data. Intravenous contrast: None Dose modulation, iterative reconstruction, and/or weight based adjustment of the mA/kV was utilized to re duce the radiation dose to as low as reasonably achievable. Findings: Scalp/skull: No abnormalities. Extra-axial spaces: No masses. No f luid collections. Brain sulci: Mildly prominent. Ventricles: Mild compens atory dilatation. No hydrocephalus. Parenchyma: Few hypodensities in the supratentorial white matter are small vessel ischemic changes. 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 No masses, hemorrhage, acute or chronic cortical vascular insults. Sellar/suprasellar region: No abnormali ties. Craniocervical junction: Patent foramen magnum. No Chiari one malformat ion. Incidental findings: Atherosclerotic calcifications in the carotid s iphons . Bilateral cataract surgery changes Impression: No acute abnormalities. Chronic findings: 1. Mild generalized volume loss. 2. Mild supratentorial white matter small vessel ischemic changes. Signed by: DR Haseeb Serrato M.D. on 08/14/2019 2:12 PM Dictated By: HASEEB DASILVA MD 11 Transcribed By: SILVINO on 08/14/191411 COPY TO: MISAEL GRADY MD QOTPHDWDPE3779-54-64 15:56:00* Test Item Value Reference Range Interpretation Comments POC INR (test code = POC INR) 2.8 1 0.9-1.2 [facility] HospitalZpvbqxgRXCGQBDIKX5418-34-22 15:56:00* Test Item Value Reference Range Interpretation Comments POC PT (test code = POC PT) 31.8 s 12.0-14.7 [facility] CHEST [id number] 17:31:00 [place] [address] Patient Name: DENIA MORRELL MR #: [id number] : 1930 Age/Sex: 89/F Req #: [id number] Adm Physician: Ordered by: DEISY STACK MD Report #: [id number] Location: [place] Room/Bed: Procedure: [id number] CT/CT CHEST WO Exam Date: 08/03/19 Exam Time: 1619 REPORT STATUS: Signed CT of the chest, without contrast, 08/03/2019. History: Chronic bronchitis. C omparison: 2018, 10/05/2018. Technique: Multidetector CT scanning of the est was performed from the level of the thoracic inlet to the upper abdomen wi thout IV or oral contrast. Dose reduction: The examination was performed a ccording to departmental dose-optimization program which includes automated ex posure control, adjustment of the mA and/or kV according to patient size and/o r use of iterative reconstruction technique. Findings: The visualized portions of the thyroid gland are unremarkable. There is no axillary, mediastinal, or hilar adenopathy The heart is stably enlarged. There is unchanged fluid density structure in the lower left peritra cheal region which may represent fluid within the pericardial recess. The asce nding thoracic aorta is ectatic measuring 3.8 cm in diameter. The main pulm onary artery is stably prominent measuring 3.3 cm in diameter and may be sugge stive of underlying pulmonary hypertension. The trachea and central airways ar e clear. Unchanged tree-in-bud opacities are present in the right upper lob e and are best appreciated on series 3 image 55 and in the right middle lobe w hich are best appreciated on series 3 image 64. No new consolidation or p ulmonary nodules are identified. There is no pleural effusion. There is no pneumothorax. Limited evaluation of the upper abdomen is no focal hepatic l esions in the visualized portions of the liver. The patient is status post cho lecystectomy. No acute osseous abnormalities are identified. IMPRESSIO N: 1. Unchanged tree-in-bud opacities in the right upper and middle lobe. No n ew consolidation or pulmonary nodules. 2. Ectasia of the ascending thoracic aorta, unchanged. 3.Mild prominence of the main pulmonary artery. Correlate wi th underlying pulmonary hypertension. Signed by: Hiram Villalta MD on 08/03/2019 5:40 PM Dictated By: HIRAM VILLALTA MD 3026 Transcribed By: SILVINO on 08/03/19 1 740 COPY TO: DEISY STACK MD VYKVWXCFVL3672-32-13 16:30:00* Test Item Value Reference Range Interpretation Comments POC INR (test code = POC INR) 1.9 1 0.9-1.2 [facility]UVXLPXJSR7769-66-31 16:30:00* Test Item Value Reference Range Interpretation Comments POC PT (test code = POC PT) 22.5 s 12.0-14.7 [facility] System[facility]nlozarGFDMRBWCLR9731-07-59 18:03:00* Test Item Value Reference Range Interpretation Comments POC INR (test code = POC INR) 1.6 1 0.9-1.[address] [facility] [facility]TdmjzbgIPRRIFMQBO9329-91-08 18:03:00* Test Item Value Reference Range Interpretation Comments POC PT (test code = POC PT) 18.5 s 12.0-14.7 [facility]] PROTHROMBIN W/INR + PARTIAL THROMBOPLASTIN [id number] 12:46:00* Test Item Value Reference Range Interpretation Comments PARTIAL THROMBOPLASTIN TIME, ACTIVATED ( test code = PARTIAL THROMBOPLASTIN TIME, ACTIVATED) 36 {sec} 22-34 This test has no t been validated for monitoringunfractionated heparin therapy. For testing thatis validated for this type of therapy, please referto the Heparin Anti-Xa assay (test code 80686). For additional information, please refer tohttp://education.[employer]/faq/TJA695(This link is being provided for informational/educational purposes only.) INR (test code = INR) 2.3 Refere nce Range 0.9-1.1Moderate-intensity Warfarin Therapy 2.0-3.0Higher-intensity Warfarin Therapy 3.0-4.0 PT (test code = PT) 23.5 {sec} 9.0-11.5 [facility]] CBC (INCLUDES DIFF/PLT)2019-07-13 16:31:01* Test Item Value Reference Range Interpretation Comments WBC (test code = 6690-2) 8.1 {K/CMM} 3.7-10.4 RBC; Below Low Threshold (test code = 789-8) 3.83 {M/CMM} 4.20-5.40 Hgb; Below Low Threshold (test code = 718-7) 11.7 g/dl 12.0-16.0 Hct; Below Low Threshold (test code = 23506-9) 34.5 % 36.0-48 .0 MCV (test code = 787-2) 90.1 fL 80.0-98.0 MCH (test code = 785-6) 30.5 pg 27.0-31.0 MCHC (test code = 786-4) 33.9 g/dl 32.0-36.0 RDW (test code = 788-0) 13.2 % 11.5-14.5 Platelet (test code = 19613-0) 286 {K/CMM} 133-450 Mean Platelet Volume (test code = 58870-2) 10.1 fL 7.4-10.4 [facility]] Nmilhgyhjaed1471-54-23 16:31:01* Test Item Value Reference Range Interpretation Comments Segmented Neutrophils (test code = 67685-2) 59.5 % 45.0-75.0 Monocytes (test code = 08201-7) 9.2 % 2.0-12.0 Lymphocytes (test code = 86965-8) 27.1 % 20.0-40.0 Eosinophils (test code = 02802-4) 3.6 % 0.0-4.0 Basophils (test code = 706-2) 0.6 % 0.0-1.0 Segs-Bands # (test code = 74386-2) 4.8 {K/CMM} 1.5-8.1 Lymphocytes # (test code = 88633-7) 2.2 {K/CMM} 1.0-5.5 Monocytes # (test code = 75310-0) 0.7 {K/CMM} 0.0-0.8 Eosinophils # (test code = 49401-7) 0.3 {K/CMM} 0.0-0.5 [facility]] CMP W/[id number] 16:31:01* Test Item Value Reference Range Interpretation Comments Sodium Level; Above High Threshold (test code = 2951-2) 146 {mEq/l} 135-145 Potassium Level (test code = 2823-3) 4.6 {mEq/l} 3.5-5.1 Chloride Level (test code = 5-0) 109 {mEq/l} 95-109 Carbon Dioxide (test code = 2027-9) 28 {mEq/l} 24-32 AGAP (test code = 00842-0) 13.6 {mEq/l} 10.0-20.0 Glucose Lvl; Above High Threshold (test code = 2345-7) 135 mg/dl 70-99 Adult reference range values reflect the clinical guidelinesof the [place] [employer]. Creatinine Lvl (test code = 2160-0) 1.20 mg/dl 0.50-1.40 Blood Urea Nitrogen (test code = 3094-0) 22 mg/dl 7-22 BUN/Creatinine Ratio (test code = 3097-3) 18 6-25 Total Protein (test code = 2885-2) 7.1 g/dl 6.4-8.4 Albumin Lvl (test code = 1751-7) 3.7 g/dl 3.5-5.0 Globulin (test code = 14670-2) 3.4 g/dl 2.7-4.2 A/G Ratio (test code = 1759-0) 1.1 0.7-1.6 Calcium Level Total; Below Low Threshold (test code = 01059- 6) 7.7 mg/dl 8.5-10.5 ALT (test code = 1743-4) 25 u/l 0-65 AST (test code = 63893-4) 30 u/l 0-37 Alk Phos (test code = 1783-0) 75 u/l 39-136 The pediatric reference ranges for this test represent a CLSI-basedtransference of the CALIPER database of pediatric reference intervals to the[facility] analyzer (Clinical Biochemistry 46 (2013): 6842-1081). [facility] [employer] has not internally validated these referenceranges and therefore they should be used only in the context of a thoroughclinical assessment. Bili Total (test code = 1975-2) 0.3 mg/dl 0.2-1.3 eGFR (test code = 55996-2) 41 {ML/MIN/1.7} The eGFR is calculated using the CKD-EPI formula. In most young, healthyindividuals the eGFR will be >90 mL/min/1.73m2. The eGFR declines with age. AneGFR of 60-89 may be normal in some populations, particularly the elderly, forwhom the CKD-EPI formula has not been extensively validated. Use of the eGFR isnot recommended in the following populations:Individuals with unstable creatinine concentrations, including patients and those with serious co-morbid conditions.Patients with extremes in muscle mass or diet.The data above are obtained from the National Kidney Disease Education Program(NKDEP) which additionally recommends that when the eGFR is used in patientswith extremes of body mass index for purposes of drug dosing, the eGFR shouldbe multiplied by the estimated BMI. [facility]] PROTHROMBIN W/INR + PARTIAL THROMBOPLASTIN [id number] 15:43:00* Test Item Value Reference Range Interpretation Comments PARTIAL THROMBOPLASTIN TIME, ACTIVATED ( test code = PARTIAL THROMBOPLASTIN TIME, ACTIVATED) 39 {sec} 22-34 This test has no t been validated for monitoringunfractionated heparin therapy. For testing thatis validated for this type of therapy, please referto the Heparin Anti-Xa assay (test code 53757). For additional information, please refer tohttp://WISHCLOUDS.[employer]/faq/YWL450(This link is being provided for informational/educational purposes only.) INR (test code = INR) 3.0 Refere nce Range 0.9-1.1Moderate-intensity Warfarin Therapy 2.0-3.0Higher-intensity Warfarin Therapy 3.0-4.0 PT (test code = PT) 30.1 {sec} 9.0-11.5 [facility]] PROTHROMBIN W/INR + PARTIAL THROMBOPLASTIN [id number] 16:09:00* Test Item Value Reference Range Interpretation Comments PARTIAL THROMBOPLASTIN TIME, ACTIVATED ( test code = PARTIAL THROMBOPLASTIN TIME, ACTIVATED) 35 {sec} 22-34 This test has no t been validated for monitoringunfractionated heparin therapy. For testing thatis validated for this type of therapy, please referto the Heparin Anti-Xa assay (test code 38275). For additional information, please refer tohttp://WISHCLOUDS.[employer]/faq/TFR244(This link is being provided for informational/educational purposes only.) INR (test code = INR) 2.2 Refere nce Range 0.9-1.1Moderate-intensity Warfarin Therapy 2.0-3.0Higher-intensity Warfarin Therapy 3.0-4.0 PT (test code = PT) 22.4 {sec} 9.0-11.5 [facility]] PROTHROMBIN [id number] 13:30:00* Test Item Value Reference Range Interpretation Comments INR (test code = INR) 2.4 Refere nce Range 0.9-1.1Moderate-intensity Warfarin Therapy 2.0-3.0Higher-intensity Warfarin Therapy 3.0-4.0 PT (test code = PT) 23.7 {sec} 9.0-11.5 For more information on this test, go to:http://education.[employer]/faq/PWH721 [facility]] CMP W/[id number] 09:08:00* Test Item Value Reference Range Interpretation Comments GLUCOSE; Normal (test code = 1547-9) 109 mg/dl 65-139 N Non-fasting reference interval UREA NITROGEN (BUN) (test code = UREA NITROGEN (BUN)) 22 mg/dl 7-25 N CREATININE (test code = CREATININE) 1.04 mg/dl 0.60-0.88 For patients >49 years of age, the reference limitfor Creatinine is approximately 13% higher for peopleidentified as -[place]. eGFR NON- (test code = eGFR NON-LAKSHMI N CITIZEN OF [place]) 49 {ML/MIN/1.7} > OR = 60 eGFR (test code = eGFR ) 56 {ML/MIN/1.7} > OR = 60 BUN/CREATININE RATIO (test code = BUN/CREATININE RATIO) 21 {CALC} 6-22 N SODIUM (test code = SODIUM) 142 mmol/L 135-146 N POTASSIUM (test code = POTASSIUM) 4.5 mmol/L 3.5-5.3 N CHLORIDE (test code = CHLORIDE) 107 mmol/L 98-110 N CARBON DIOXIDE (test code = CARBON DIOXIDE) 27 mmol/L 20-32 N CALCIUM (test code = CALCIUM) 9.5 mg/dl 8.6-10.4 N PROTEIN, TOTAL (test code = PROTEIN, TOTAL) 6.9 g/dl 6.1-8.1 N ALBUMIN (test code = ALBUMIN) 4.1 g/dl 3.6-5.1 N GLOBULIN (test code = GLOBULIN) 2.8 {G/DL CALC} 1.9-3.7 N ALBUMIN/GLOBULIN RATIO (test code = ALBUMIN/GLOBULIN RATIO) 1.5 {CALC} 1.0-2.5 N BILIRUBIN, TOTAL; Normal (test code = 03682-6) 0.4 mg/dl 0.2-1.2 N ALKALINE PHSPHATASE (test code = ALKALINE PHSPHATASE) 55 u/l 33-130 N AST; Normal (test code = 1916-6) 18 u/l 10-35 N ALT; Normal (test code = 1742-6) 13 u/l 6-29 N [facility]] PROTHROMBIN [id number] 15:30:00* Test Item Value Reference Range Interpretation Comments INR (test code = INR) 2.3 Refere nce Range 0.9-1.1Moderate-intensity Warfarin Therapy 2.0-3.0Higher-intensity Warfarin Therapy 3.0-4.0 PT (test code = PT) 23.0 {sec} 9.0-11.5 For more information on this test, go to:http://WISHCLOUDS.[employer]/faq/JLQ177 [facility]] PROTHROMBIN [id number] 16:02:00* Test Item Value Reference Range Interpretation Comments INR (test code = INR) 2.2 Refere nce Range 0.9-1.1Moderate-intensity Warfarin Therapy 2.0-3.0Higher-intensity Warfarin Therapy 3.0-4.0 PT (test code = PT) 22.2 {sec} 9.0-11.5 For more information on this test, go to:http://friendfund/faq/ZOO353 [facility] MO5702-03-51 07:25:00 [place] [address] Patient Name: DENIA MORRELL MR #: [id number] : 1930 Age/Sex: 88/F Req #: [id number] Adm Physician: Ordered by: DEISY FRANKLIN MD Report #: [id number] Location: CT Room/Bed: Procedure: [id number] CT/CT CHEST WO Exam Date: 12/01/18 Exam Time: 1643 REPORT STATUS: Signed EXAM: CT C hest WITHOUT contrast 12/01/2018 4:21 PM INDICATION: [id number] CHRONIC BRONCHITIS COMPARISON: CT chest 10/05/2018 TECHNIQUE: Chest w as scanned utilizing a multidetector helical scanner from the lung apex throug h the level of the adrenal glands without administration of IV contrast. Absen ce of intravenous contrast decreases sensitivity for detection of lymphadenopa thy and vascular pathology. Coronal and sagittal reformations were obtained. Routine protocol was performed. IV CONTRAST: None COMPLICATION S: None RADIATION DOSE: Total DLP: 418.3 mGy*cm Estimated eff ective dose: (DLP x 0.015 x size factor) mSv CTDIvol has been reviewed. I t is below the limits set by the Radiation Protocol Committee (RPC). FIND INGS: LINES/ TUBES: None. LUNGS AND AIRWAYS: Persistent few bilateral small multifocal areas of tree-in-bud and tubular pulmonary nodules, worse in the right middle lobe, and mild central peribronchial wall thickening without bronchiectasis. No new consolidations or suspicious pulmonary nodules. PLEURA: The pleural spaces are clear. HEART AND MEDIASTINUM: The thyroi d gland is normal. Round fluid attenuation structure in the left lower paratr acheal region on series 2, image 47 is unchanged and may reflect fluid in the pericardial recess. No mediastinal, hilar or axillary lymphadenopathy. Left a trium enlargement. There is no pericardial effusion. Mild coronary artery rios cifications. Borderline size of the ascending thoracic aorta (3.8 cm). Mild s cattered atherosclerotic calcifications of the thoracic aorta. The main pulmon jerome artery is mildly enlarged measuring 3.3 cm and suggestive of mild pulmonar y hypertension. UPPER ABDOMEN: Cholecystectomy. Suboptimally evaluated few small subcortical left renal cysts. BONES: Stable T12 compression deformi ty and remote posttraumatic deformity of a few left-sided ribs. SOFT TIS SUES: Unremarkable. IMPRESSION: Stable bilateral few multifocal areas of tree-in-bud and tubular pulmonary nodules, worse in the right middle lobe, reeves ggestive of bronchopulmonary aspergillosis (ABPA) or atypical mycobacterial in fection. Consider correlation with bronchoscopy. No new consolidations or lymphadenopathy in the chest. Signed by: Dr. Dianne Phelps M.D. on 12/04/2018 7:34 AM Dictated By: DIANNE PHELPS MD Electronica lly Signed By: DIANNE PHELPS MD on 12/04/18733 Transcribed By: JAMES BRYANT on 12/04/18733 COPY TO: DEISY FRANKLIN MD, [facility] CT CHEST [id number] 12:26:00 [place] [address] Patient Name: DENIA MORRELL MR #: [id number] : 1930 Age/Sex: 88/F Req #: [id number] Adm Physician: Ordered by: MAL GRADY MD Report #: [id number] Location: CT Room/Bed: Procedure: [id number] CT/CT CHEST WO Exam Date: 10/05/18 Exam Time: 1214 REPORT STATUS: Signed EXAMINATION : CT scan of the chest without contrast. TECHNIQUE: Spiral CT images of th e chest were performed from the lung apices to the level of the adrenal glands . No intravenous contrast was administered per referring physician request. C oronal and sagittal reformatted images were obtained. COMPARISON: CT abdo men and pelvis 09/15/2018 CLINICAL HISTORY:Right middle lobe opacity identif ied on CT abdomen and pelvis DISCUSSION: ABSENCE OF INTRAVENOUS CONTRAST DECREASES SENSITIVITY FOR DETECTION OF FOCAL LESIONS AND VASCULAR PATHOLOGY. LINES/TUBES: None. LUNGS AND AIRWAYS: Cluster of small nodules in a Y shaped configuration in the right middle lobe corresponding to the abnormality identified on the comparison CT abdomen and pelvis. Superolateral to this, al so within the right lower lobe is an additional cluster of nodular opacities i n a tree-in-bud configuration. A cluster of nodules in a similar configuration laterally within the left upper lobe just lateral to the minor fissure seen o n series 3 image 39. A similar tubular/nodular opacity anteriorly within the l eft lower lobe seen on series 3 image 65. Trace groundglass opacity in the dep endent portions of the lower lobes compatible with subsegmental atelectasis. T he trachea, mainstem bronchi, and central lobar bronchi are patent. PLEUR A: No pneumothorax or pleural effusions. HEART AND MEDIASTINUM: Visualiz ed portions of the thyroid gland are normal. There is borderline ectasia of th e ascending thoracic aorta (3.8 cm). Great vessel origins are normal in config uration, with marked tortuosity of the central great vessels. Pulmonary outflo w tract is of normal caliber. No pericardial effusion. H LYMPH NODES: No axillary, hilar, or mediastinal lymphadenopathy. ABDOMEN: Visualized por tions of the liver, spleen, pancreas, and adrenals are unremarkable. BONE S AND SOFT TISSUES: No osseous destructive lesions. Osteopenia with multilevel degenerative disc disease of the thoracic spine. Anterior compression deformi ty of T12 is again noted. Healed fracture deformities of multiple left-sided r ibs. IMPRESSION: Clustered nodules in tree-in-bud/Y shaped and tubula r configurations involving the right middle lobe, right upper lobe, and left l ower lobe. Differential considerations include allergic bronchopulmonary asper gillosis (ABPA) as well as atypical mycobacterial infection. Bronchial atresia or endobronchial neoplasm is felt to be unlikely given the multifocality. Pul monary consultation for possible bronchoscopy is suggested. Atherosclerot ic vascular disease with borderline ectasia of the ascending thoracic aorta (3 .8 cm). Signed by: Dr. Damari Garcia M.D. on 10/05/2018 12:34 PM Dict ated By: DAMARI GARCIA MD 1234 COPY TO: MAL GRADY MD CT ABDOMEN/PELVIS [id number] 09:51:00 [place] [address] Patient Name: DENIA MORRELL MR #: [id number] : 1930 Age/Sex: 88/F Req #: [id number] Adm Physician: Ordered by: MAL GRADY MD Report #: [id number] Location: CT Room/Bed: Procedure: [id number] CT/CT ABDOMEN/PELVIS W Exam Date: 09/15/18 Exam Time : 0936 REPORT STATUS: Signed EXA MINATION: CT of the abdomen and pelvis with contrast. TECHNIQUE: Spiral CT images of the abdomen and pelvis were performed from the lung bases to the lesser trochanters after the intravenous administration of 100 cc of Isovue-37 0 and the oral administration of water. Coronal and sagittal reformatted imag es were obtained. COMPARISON: None. CLINICAL HISTORY:Abdominal pain. Patient reports history of appendectomy, cholecystectomy, hysterectomy, and pr ior intestinal surgery. DISCUSSION: ABDOMEN/PELVIS: LOWER TH ORAX:Patchy opacity in the right middle lobe and lower lobe, partially visuali zed, likely representing atelectasis or scar. HEPATOBILIARY: No focal hepat ic lesions. No intra-or extrahepatic biliary ductal dilation. The gallbladde r has been removed. SPLEEN: No splenomegaly. PANCREAS: No focal bennie s or ductal dilatation. ADRENALS: No adrenal nodules. KIDNEYS/URETERS : Bilateral extrarenal pelves. No hydronephrosis or calculi. 4 cm exophytic hy poattenuating lesion projecting from the interpolar left kidney, average inter nal attenuation 5-10 Hounsfield units compatible with a simple cyst. Additiona l 1.6 cm simple cyst projecting from the lower pole of the left kidney. Additi onal subcentimeter hypoattenuating lesions bilaterally, too small to further c haracterize though likely to represent additional small cysts. PELVIC ORGAN S/BLADDER: The urinary bladder is collapsed and poorly evaluated. The uterus i s not identified and has presumably been removed. Peripherally calcified nodul ar structure in the rectovesical space may represent a calcified lymph node. PERITONEUM/RETROPERITONEUM: No ascites. No pneumoperitoneum. LYMPH NODE S: No pelvic sidewall, retroperitoneal, or mesenteric lymphadenopathy. 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 Celiac and JEMAL origins are patent. Portal vein, splenic vein, and ce ntral superior mesenteric vein are patent. GI TRACT: The large bowel is not able for multiple diverticula scattered along the course of the sigmoid colon, without wall thickening or adjacent inflammatory change. The appendix is not identified compatible with prior appendectomy. There is no small bowel dilatat ion to suggest obstruction. BONES AND SOFT TISSUE: No osseous destructive l esions. Degenerative disc changes and facet arthropathy of the lumbar spine. S tatus post vertebral plasty at L3. Age indeterminate moderate compression defo rmity of T12 with approximately 50% loss of height and small amount of fragmen t retropulsion into the spinal canal. Postsurgical scar of the anterior abdom inal wall. No additional focal soft tissue abnormalities. IMPRESSION: Age-indeterminate moderate compression deformity of T12 with superior endplat e retropulsion into the spinal canal, without significant spinal canal stenosi s. Correlate for point tenderness. No acute intra-abdominal or pelvic CT abnormalities. Large bowel diverticulosis without evidence of diverticuliti s. 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 Partially visualized patchy opacity in the right middle lobe may reflect atelectasis or inflammatory process. CT s can of the chest without contrast should be considered for further evaluation. Signed by: Dr. Damari Garcia M.D. on 09/15/2018 10:03 AM Dictated B y: DAMARI GARCIA MD 1003 Transcribed By: SILVINO on 09/15/18 1003 COPY TO: MAL GRADY MD [[facility]] PROTHROMBIN [id number] 11:39:00* Test Item Value Reference Range Interpretation Comments INR (test code = INR) 2.1 Refere nce Range 0.9-1.1Moderate-intensity Warfarin Therapy 2.0-3.0Higher-intensity Warfarin Therapy 3.0-4.0 PT (test code = PT) 20.7 {sec} 9.0-11.5 For more information on this test, go to:http://[email or web address].Polybiotics/faq/PYS833 [facility]] PROTHROMBIN [id number] 13:59:00* Test Item Value Reference Range Interpretation Comments INR (test code = INR) 2.2 Refere nce Range 0.9-1.1Moderate-intensity Warfarin Therapy 2.0-3.0Higher-intensity Warfarin Therapy 3.0-4.0 PT (test code = PT) 22.0 {sec} 9.0-11.5 For more information on this test, go to:http://WISHCLOUDS.Polybiotics/faq/SOX564 [facility]] PROTHROMBIN [id number] 15:02:00* Test Item Value Reference Range Interpretation Comments INR (test code = INR) 1.8 Refere nce Range 0.9-1.1Moderate-intensity Warfarin Therapy 2.0-3.0Higher-intensity Warfarin Therapy 3.0-4.0 PT (test code = PT) 17.7 {sec} 9.0-11.5 For more information on this test, go to:http://friendfund/faq/FLK003 [facility]] PROTHROMBIN [id number] 15:55:00* Test Item Value Reference Range Interpretation Comments INR (test code = INR) 1.7 Refere nce Range 0.9-1.1Moderate-intensity Warfarin Therapy 2.0-3.0Higher-intensity Warfarin Therapy 3.0-4.0 PT (test code = PT) 17.2 {sec} 9.0-11.5 For more information on this test, go to:http://WISHCLOUDS.Polybiotics/faq/QHN871 [facility]] PROTHROMBIN [id number] 09:56:00* Test Item Value Reference Range Interpretation Comments INR (test code = INR) 1.4 Refere nce Range 0.9-1.1Moderate-intensity Warfarin Therapy 2.0-3.0Higher-intensity Warfarin Therapy 3.0-4.0 PT (test code = PT) 14.5 {sec} 9.0-11.5 For more information on this test, go to:http://friendfund/faq/KZC814 [facility]] PROTHROMBIN [id number] 10:28:00* Test Item Value Reference Range Interpretation Comments INR (test code = INR) 2.0 Refere nce Range 0.9-1.1Moderate-intensity Warfarin Therapy 2.0-3.0Higher-intensity Warfarin Therapy 3.0-4.0 PT (test code = PT) 20.0 {sec} 9.0-11.5 For more information on this test, go to:http://friendfund/faq/YVK315 [facility]] PROTHROMBIN [id number] 07:09:00* Test Item Value Reference Range Interpretation Comments INR (test code = INR) 1.9 Refere nce Range 0.9-1.1Moderate-intensity Warfarin Therapy 2.0-3.0Higher-intensity Warfarin Therapy 3.0-4.0 PT (test code = PT) 19.5 {sec} 9.0-11.5 For more information on this test, go to:http://WISHCLOUDS.Polybiotics/faq/BZF255 [facility]] PROTHROMBIN [id number] 10:34:00* Test Item Value Reference Range Interpretation Comments INR (test code = INR) 2.5 Refere nce Range 0.9-1.1Moderate-intensity Warfarin Therapy 2.0-3.0Higher-intensity Warfarin Therapy 3.0-4.0 PT (test code = PT) 24.4 {sec} 9.0-11.5 For more information on this test, go to:http://friendfund/faq/LUK225 [facility]] PROTHROMBIN [id number] 13:21:00* Test Item Value Reference Range Interpretation Comments INR (test code = INR) 2.2 Refere nce Range 0.9-1.1Moderate-intensity Warfarin Therapy 2.0-3.0Higher-intensity Warfarin Therapy 3.0-4.0 PT (test code = PT) 22.2 {sec} 9.0-11.5 For more information on this test, go to:http://friendfund/faq/WKT048 [facility]] PROTHROMBIN [id number] 11:28:00* Test Item Value Reference Range Interpretation Comments INR (test code = INR) 2.1 Refere nce Range 0.9-1.1Moderate-intensity Warfarin Therapy 2.0-3.0Higher-intensity Warfarin Therapy 3.0-4.0 PT (test code = PT) 20.7 {sec} 9.0-11.5 For more information on this test, go to:http://friendfund/faq/PNF882 [facility] OPFEL4726-15-26 21:01:004[facility] JYRTS4547-89-97 21:01:002[facility] STOOL 2018-01-30 21:01:00Negative (01/30/18 4:01 PM)[facility] 2018-01-30 21:01:00Negative (01/30/18 4:01 PM)[facility] 2018-01-30 21:01:00Negative (01/30/18 4:01 PM)[facility] 2018-01-30 21:01:00* Test Item Value Reference Range Interpretation Comments UA pH (test code = UA pH) 7.0 1 5.0-8.0 [facility] [id number] 21:01:00Negative *NA*(01/30/18 4:01 PM) [facility] [id number] 21:01:00Clear (01/30/18 4:01 PM)[facility] [id number] 21:01:00* Test Item Value Reference Range Interpretation Comments UA Spec Grav (test code = UA Spec Grav) 1.010 1 [facility]annCARDIAC HPNECJS9018-20-74 20:04:00<0.02[facility]annCARDIAC XPTIWPX7357-24-25 20:04:70203Mlmcxmjf HermannCHEM NSUGG3190-33-95 20:04:00* Test Item Value Reference Range Interpretation Comments A/G Ratio (test code = A/G Ratio) 1.1 1 0.7-1.6 [facility]annCHEM QCSCX9926-15-10 20:04:003.8[facility]annCHEM PANEL 2018-01-30 20:04:0010.2[facility]annCHEM ZDDZE6038-27-09 20:04:00* Test Item Value Reference Range Interpretation Comments B/C Ratio (test code = B/C Ratio) 24 1 6-25 [facility]annCHEM OIAQQ9936-67-40 20:04:0055[facility]annCHEM PANEL 2018-01-30 20:04:0044[facility]annCHEM TZSKF4869-18-41 20:04:0045[facility]annCHEM PIJII7037-79-42 20:04:0036[facility]annCHEM MAFDB0585-56-60 20:04:004.0[facility]annCHEM IHCUS8958-98-75 20:04:007.8[facility]annCHEM VJGLB6261-16-59 20:04:009.3[facility]annCHEM SBSMU3483-03-03 20:04:0031 [facility]annCHEM QUEMC8444-93-92 20:04:69674Siwthtpt HermannCHEM PANEL 2018-01-30 20:04:004.2[facility]annCHEM YGPMI0407-81-31 20:04:63386Uyuzfolt HermannCHEM TXSIZ9297-61-10 20:04:000.95[facility]annCHEM QHJTK2504-81-07 20:04:0023[facility]annCHEM JHAYO2881-12-92 20:04:000.5[facility]annCHEM SIJKR2485-58-43 20:04:54365Gagxagwe OccwfaaNUHVVVDDAD7151-21-55 20:04:0010.3 [facility] MlxzfiyURFFGGFISK0444-55-82 20:04:96012Bdkrzfwy HermannHEMATOLOGY 2018-01-30 20:04:0013.9[facility] JzucdekRUBRMRKMPW7377-05-32 20:04:00* Test Item Value Reference Range Interpretation Comments MCH (test code = MCH) 30.3 pg 27.0-31.0 [facility] KorzwnxOHOWFWQIUV9916-46-40 20:04:0089.0[facility]annHEMATOLOGY 2018-01-30 20:04:0036.7[facility] NjhxcieOHBAYILOLL4355-92-16 20:04:0012.5[facility] LahbyvaZIQMXQOBDH0051-85-12 20:04:0034.1[facility] UlcqjxsBIDCYZRKRO5288-74-51 20:04:0012.0[facility] UyygtgqKVCGMCQTXM6585-06-30 20:04:004.12[facility] MXRFSKHSMU4305-55-25 20:04:000.1[facility] MjwugrfSZXWEOHQWL1885-75-95 20:04:000.5 [facility] AszlpovJOCSPZHXBK8689-55-62 20:04:001.5[facility]annHEMATOLOGY 2018-01-30 20:04:009.9[facility] CqqgmriEGHWWHEMFW3761-59-44 20:04:000.4[facility] OxuzcobTRVWKFKLSM7784-88-53 20:04:000.3[facility] LbnivwgXLLGGYLUUJ1505-81-79 20:04:0012.4[facility] EbiixnkBNWMQPLEKA3924-81-75 20:04:004.1[facility] [place] [facility] VNDXKQVKBL6568-86-63 20:04:0082.8[facility]] PROTHROMBIN TIME-INR 2018-01-27 09:14:00* Test Item Value Reference Range Interpretation Comments INR (test code = INR) 2.6 Refere nce Range 0.9-1.1Moderate-intensity Warfarin Therapy 2.0-3.0Higher-intensity Warfarin Therapy 3.0-4.0 PT (test code = PT) 25.9 {sec} 9.0-11.5 For more information on this test, go to:http://friendfund/faq/KPW742 [facility]] PROTHROMBIN [id number] 10:12:00* Test Item Value Reference Range Interpretation Comments INR (test code = INR) 2.1 Refere nce Range 0.9-1.1Moderate-intensity Warfarin Therapy 2.0-3.0Higher-intensity Warfarin Therapy 3.0-4.0 PT (test code = PT) 21.4 {sec} 9.0-11.5 For more information on this test, go to:http://friendfund/faq/JUR155 [facility]] PROTHROMBIN [id number] 10:17:00* Test Item Value Reference Range Interpretation Comments INR (test code = INR) 2.5 Refere nce Range 0.9-1.1Moderate-intensity Warfarin Therapy 2.0-3.0Higher-intensity Warfarin Therapy 3.0-4.0 PT (test code = PT) 25.1 {sec} 9.0-11.5 For more information on this test, go to:http://friendfund/faq/RCG649 [facility]] PROTHROMBIN [id number] 11:03:00* Test Item Value Reference Range Interpretation Comments INR (test code = INR) 3.0 Refere nce Range 0.9-1.1Moderate-intensity Warfarin Therapy 2.0-3.0Higher-intensity Warfarin Therapy 3.0-4.0 PT (test code = PT) 30.0 {sec} 9.0-11.5 For more information on this test, go to:http://WISHCLOUDS.Polybiotics/faq/QJP576 [facility]] PROTHROMBIN [id number] 07:04:00* Test Item Value Reference Range Interpretation Comments INR (test code = INR) 1.6 Refere nce Range 0.9-1.1Moderate-intensity Warfarin Therapy 2.0-3.0Higher-intensity Warfarin Therapy 3.0-4.0 PT (test code = PT) 17.0 {sec} 9.0-11.5 For more information on this test, go to:http://friendfund/faq/EIA940 [facility]] PROTHROMBIN [id number] 07:06:00* Test Item Value Reference Range Interpretation Comments INR (test code = INR) 2.3 Refere nce Range 0.9-1.1Moderate-intensity Warfarin Therapy 2.0-3.0Higher-intensity Warfarin Therapy 3.0-4.0 PT (test code = PT) 23.8 {sec} 9.0-11.5 For more information on this test, go to:http://friendfund/faq/USE232 [facility]] LIPID [id number] 07:04:00* Test Item Value Reference Range Interpretation Comments CHOLESTEROL, TOTAL; Normal (test code = 2093-3) 172 mg/dl <200 N HDL CHOLESTEROL; Below Low Threshold (test code = 2085-9) 48 mg/dl >50 TRIGLYCERIDES; Above High Threshold (test code = 2571-8) 172 mg/dl <150 LDL-CHOLESTEROL; Normal (test code = 08001-1) 97 {MG/DL RIOS} N Reference range: <100 Desirable range <100 mg/dL for patients with CHD ordiabetes and <70 mg/dL for diabetic patients withknown heart disease. LDL-C is now calculated using the Albert-Patino calculation, which is a validated novel method providing better accuracy than the Friedewald equation in the estimation of LDL- C. Albert NAVA et al. VIKRAM. 2013;310(03): 4894-5719 (http://WISHCLOUDS.[employer]/faq/SXC882) CHOL/HDLC RATIO (test code = CHOL/HDLC RATIO) 3.6 {CALC} <5.0 N NON HDL CHOLESTEROL (test code = NON HDL CHOLESTEROL) 124 {MG/DL C AL} <130 N For patients with diabetes plus 1 major ASCVD risk factor, treating to a non-HDL-C goal of <100 mg/dL (LDL-C of <70 mg/dL) is considered a therapeutic option. [facility]] TSH, 3RD [id number] 07:04:00* Test Item Value Reference Range Interpretation Comments TSH; Normal (test code = 34445-3) 3.01 {MIU/L} 0.40-4.50 N [facility]] HEMOGLOBIN [id number] 07:04:00* Test Item Value Reference Range Interpretation Comments HEMOGLOBIN A1c; Normal (test code = 4548-4) 5.3 {% of total} <5.7 N For the purpose of screening for the presence ofdiabetes: <5.7% Consistent with the absence of diabetes5.7-6.4% Consistent with increased risk for diabetes (prediabetes)> or =6.5% Consistent with diabetes This assay result is consistent with a decreased riskof diabetes. Currently, no consensus exists regarding use ofhemoglobin A1c for diagnosis of diabetes in children. According to [place] [employer] (ADA)guidelines, hemoglobin A1c <7.0% represents optimalcontrol in non- diabetic patients. Differentmetrics may apply to specific patient populations. Standards of Medical Care in Diabetes(ADA). [facility]] PROTHROMBIN [id number] 11:38:00* Test Item Value Reference Range Interpretation Comments INR (test code = INR) 3.4 Refere nce Range 0.9-1.1Moderate-intensity Warfarin Therapy 2.0-3.0Higher-intensity Warfarin Therapy 3.0-4.0 PT (test code = PT) 34.1 {sec} 9.0-11.5 For more information on this test, go to:http://friendfund/faq/RPC951 [facility]] PROTHROMBIN [id number] 07:04:00* Test Item Value Reference Range Interpretation Comments INR (test code = INR) 2.5 Refere nce Range 0.9-1.1Moderate-intensity Warfarin Therapy 2.0-3.0Higher-intensity Warfarin Therapy 3.0-4.0 PT (test code = PT) 25.2 {sec} 9.0-11.5 For more information on this test, go to:http://friendfund/faq/QCN179 [facility]] PROTHROMBIN [id number] 10:55:00* Test Item Value Reference Range Interpretation Comments INR (test code = INR) 3.9 Refere nce Range 0.9-1.1Moderate-intensity Warfarin Therapy 2.0-3.0Higher-intensity Warfarin Therapy 3.0-4.0 PT (test code = PT) 39.1 {sec} 9.0-11.5 For more information on this test, go to:http://friendfund/faq/WNA589 [facility]] PROTHROMBIN [id number] 07:05:00* Test Item Value Reference Range Interpretation Comments INR (test code = INR) 1.8 Refere nce Range 0.9-1.1Moderate-intensity Warfarin Therapy 2.0-3.0Higher-intensity Warfarin Therapy 3.0-4.0 PT (test code = PT) 18.8 {sec} 9.0-11.5 For more information on this test, go to:http://friendfund/faq/HNX189 [facility]] PROTHROMBIN [id number] 10:18:00* Test Item Value Reference Range Interpretation Comments INR (test code = INR) 5.3 Verifi ed by repeat analysis. Reference Range 0.9-1.1Moderate-intensity Warfarin Therapy 2.0-3.0Higher-intensity Warfarin Therapy 3.0-4.0 PT (test code = PT) 52.2 {sec} 9.0-11.5 Verified by repeat analysis. For more information on this test, go to:http://WISHCLOUDS.Polybiotics/faq/QBT304 [facility] WcugdwxnjjQJHTMTBPMPWW6866-45-96 15:51:0013.0[facility] RphvhtbMNCBGIFLOKVM5697-15-22 15:51:0069[facility] AxnhfeyKNUJWMEFKZVT6623-09-09 15:51:88622Izwnfxjb VykxjciUAFDMOBNRREX7635-08-68 15:51:0025[facility] PMPEEAFLGZFP5368-95-41 15:51:008.4[facility] MeiwwooVPVYJXDPSUJT6083-98-91 15:51:004.0[facility] IdhxtahVAKGWFQZFURI1749-62-98 15:51:000.79[facility] PUEEUELZQXEE6395-26-44 15:51:77105Ytmcpjhf UlrflmiTNDZMZTPPRPH5444-00-29 15:51:0020[facility] GetlfkqUROLUONTYICX9593-96-87 15:51:97358Oiqtpiqx [place] HVHHNFWAQP6498-93-76 15:51:000.1[facility] YnmpqcnWMFINNMVSU4357-54-99 15:51:000.2 [facility] NjphaeqAOGFJWTCLM1654-29-12 15:51:001.6[facility]annHEMATOLOGY 2017-07-25 15:51:000.5[facility] HbavusbAYVWUECLOE0744-66-72 15:51:00Normal (07/25/17 9:51 AM)[facility] MunbgjiDOIPOZTZER4005-23-63 15:51:00Normal (07/25/17 9:51 AM)[facility] FtbttplIUAEJUNRUE4051-12-15 15:51:0072.4[facility] [place] ZQBBMZRPVH3920-57-10 15:51:000.6[facility] KpmpdohCTPNDTGHMN8416-28-50 15:51:00 19.0[facility] LodjqlcGVZKSSNLAB8279-32-28 15:51:006.2[facility]annHEMATOLOGY 2017-07-25 15:51:001.8[facility] KplgnskZZCUOZODPI5200-00-02 15:51:006.1[facility] QlxqjjgWIEDPCHPDO6411-85-30 15:51:002.42[facility] TeauhajVZLBXUGXAE9351-30-97 15:51:00* Test Item Value Reference Range Interpretation Comments PT (test code = PT) 26.6 s 12.0-14.7 [facility] FljpvxzHHLXJEKYOX8799-14-44 15:51:00* Test Item Value Reference Range Interpretation Comments PTT (test code = PTT) 35.0 s 22.9-35.8 [facility] QabgqvwTSPFGNPVCI2664-71-81 15:51:009.8[facility]annHEMATOLOGY 2017-07-25 15:51:20271Loupvjwv ElxejhoKDFYSMJDJE9294-13-38 15:51:0013.8[facility] GekhhggSCXQMUDANN0956-47-89 15:51:0034.8[facility] LfhglkvOWNLNTYAAX0805-59-95 15:51:00* Test Item Value Reference Range Interpretation Comments MCH (test code = MCH) 31.1 pg 27.0-31.0 [facility] HmkyhdpCYNYPDYVLF8497-03-10 15:51:0089.2[facility]annHEMATOLOGY 2017-07-25 15:51:0037.1[facility] WeocdirSDPDKRSQHR3227-82-35 15:51:008.5[facility] AzjhjouBVUUVDPCLU6987-29-89 15:51:0012.9[facility] XsfjswyOGOIYINNWB8342-69-36 15:51:004.15[facility] HermannCHEM NSMCH2386-94-00 15:47:0059[facility] HermannCHEM BCNJC0864-12-86 15:47:000.9[facility] HermannCHEM DDCSJ3678-19-27 17:55:002.1 [facility] CnbovgqJTWWOIWNHTWV0172-57-95 14:07:299.5[facility] HermannELECTROLYTES 2015-12-26 14:07:2962[facility] FllvbdfCYMIVROOGIHO4396-62-94 14:07:75863Cvibkrrp QkmkiivYMRGIOHLZTYR9587-45-33 14:07:2921[facility] RjhkraxZCUWPRIIEWPL6402-67-59 14:07:61662Mxzwtjjh DzhpyqeDHSNAGNGCJEZ2377-71-11 14:07:290.87[facility] [place] EIQVYCVTRBES1579-96-91 14:07:2927[facility] NetqretBYKLZLXMDSJH1469-49-15 14:07:29 107[facility] HqaypuzVREKQCSZFRDL4503-00-07 14:07:293.5[facility] OXZQQQIOUBZK0212-04-06 14:07:298.4[facility] GqmrgzvFNWPQZVXDS3307-02-80 14:07:29 * Test Item Value Reference Range Interpretation Comments PTT (test code = PTT) 31.9 s 22.9-35.8 [facility] NfoecfuOVEYQZATJW5010-95-50 13:50:002.33[facility]annHEMATOLOGY 2015-12-26 13:50:00* Test Item Value Reference Range Interpretation Comments PT (test code = PT) 25.9 s 12.0-14.7 [facility] OspoeuiMCCUQIFIMI6489-19-21 13:50:0033.1[facility]annHEMATOLOGY 2015-12-26 13:50:0012.8[facility] EcviiyfLYFDCPVLFN8992-40-65 13:50:39733Jisemvwf YfybrisFNVDUHATWF6479-64-15 13:50:0010.8[facility] BnpgxpnGVTEQLECSA4735-08-63 13:50:0014.1[facility] ZjokzwvFORROTDBOP9583-21-31 13:50:0010.9[facility] [place] EAOTAPTNVG1128-40-23 13:50:0032.9[facility] HjdwuloROHBPNMYDA4846-17-81 13:50:00* Test Item Value Reference Range Interpretation Comments MCH (test code = MCH) 29.5 pg 27.0-31.0 [facility] TlhledcVZJLKJUGWC2222-13-49 13:50:0089.0[facility]annHEMATOLOGY 2015-12-26 13:50:003.70[facility] WynihojHIYPVGKNOE8483-10-31 13:50:004.7[facility] WuwahuoJTTIHIEVAD9617-34-26 13:50:0087.1[facility] TusuyuwRPXPJRMOKW3952-30-85 13:50:000.7[facility] EwvcvfvFTOBMVNQFL2029-41-29 13:50:001.0[facility] [place] MAJMVUENBA9887-19-11 13:50:0012.3[facility] ZaujxygHSRLPWYNLM3432-98-38 13:50:00 0.1[facility] SwjzufbRZJLISAWYL4252-64-60 13:50:000.6[facility]annHEMATOLOGY 2015-12-26 13:50:006.8[facility] EvfgjedHMVNSGKVKM8424-94-87 13:50:000.8[facility] YwkzflhGVVRJSHRWC7465-86-42 13:50:000.1[facility] AND NCWBY3208-39-31 13:29:00Negative *NA*(12/26/15 8:29 AM)[facility] YEAVF0584-68-67 13:29:00Moderate *ABN*(12/26/15 8:29 AM)[facility] STOOL 2015-12-26 13:29:001.012[facility] GMTIH0801-23-04 13:29:005.0 [facility] EUOVP3073-51-81 13:29:00Clear (12/26/15 8:29 AM) [facility] NZGGH9647-30-07 13:29:007[facility] AND JRWRQ8842-23-57 13:29:52082Lsofonok HermannURINE AND TUHMW2521-21-91 13:29:00 Negative (12/26/15 8:29 AM)[facility] PEXGL1981-55-91 13:29:00 Moderate *ABN*(12/26/15 8:29 AM)[facility] OtkmuxeCNHRYVECV8140-91-46 11:32:0025.0 [facility] XwegnpbIYRQYXQVT7525-00-86 11:32:009.2[facility] HermannCHEMISTRY 2011-07-13 11:32:96562.0[facility] UaezqldDDEPTSKMQ6132-22-65 11:32:000.9[facility] TqvcnwfDOJJUIOCM3308-35-69 11:32:003.8[facility] LuijijsIBXDNWORN8811-85-92 11:32:69849.0[facility] FphkogpMKSXMPNAV0885-12-04 11:32:0022.0[facility] [place] AZPFRGVYS8947-06-41 11:32:47652.0[facility] GypgxrwBRJSBNFHI7171-31-58 11:32:00 14.8[facility] LviragfMOHGPLFWYZ3455-48-04 11:32:000.0[facility]annHEMATOLOGY 2011-07-13 11:32:000.5[facility] IpnttvkBOQODOIMSV2034-40-04 11:32:000.1[facility] JxtfaysXRCLSOQBBM9916-60-14 11:32:001.3[facility] KoicjuoGJZKFLPKYJ8788-75-59 11:32:002.7[facility] NmlpzheOFMFZIEOXX2893-55-48 11:32:000.5[facility] AEFZNNOQGA1353-63-92 11:32:002.1[facility] FhemubnVTLZKZESNV4793-85-30 11:32:00 10.1[facility] TibbqaiDBUCGYSQRU9525-99-26 11:32:0029.1[facility] 2011-07-13 11:32:0058.2[facility] UuulrjjMWCRIXUZCR4709-41-41 11:32:0010.9[facility] WqxobdwUKFXVUSZXG8178-46-94 11:32:64259.0[facility] OpdoflyLIOCGZIPFV1321-46-38 11:32:0012.7[facility] KycjzpcVMZDKXHQQD1656-95-90 11:32:0036.3[facility] KEZMDVXPXN8472-46-16 11:32:00* Test Item Value Reference Range Interpretation Comments MCH (test code = MCH) 32.5 pg 27.0-31.0 H [facility] UtnhfuuPUJAXVZDMU4534-29-67 11:32:0089.4[facility]annHEMATOLOGY 2011-07-13 11:32:0011.0[facility] GldliwdKSGVYANMWN8755-94-32 11:32:0030.3[facility] RjrnxhyTJWKAOLWWJ6068-52-30 11:32:004.6[facility] NitakdcKXVSYWMUGR8260-42-17 11:32:003.39[facility] ElciqchCRLWWEPGYS1897-61-62 11:32:00* Test Item Value Reference Range Interpretation Comments INR (test code = INR) 1.04 1 0.85-1.17 N [facility] MrineooPLNFOXTSRR5918-18-18 11:32:00* Test Item Value Reference Range Interpretation Comments PT (test code = PT) 13.6 s 12.0-14.7 N [facility] MiaqmblOPRDLFKWGX5096-68-03 22:33:00* Test Item Value Reference Range Interpretation Comments PT (test code = PT) 13.7 s 12.0-14.7 N [facility] WlzxtbtAAWYHPPQOH4236-29-66 22:33:00* Test Item Value Reference Range Interpretation Comments INR (test code = INR) 1.05 1 0.85-1.17 N [facility] CsfhjcwHHNBOYCRAX4673-78-77 09:48:000.5[facility]ann[facility]OLOG[facility] 2011-07-11 09:48:009.3[facility] AvgnneiTXEMRUIROE4808-01-95 09:48:002.6[facility] NrywpavZJEQOXDAIJ8678-54-63 09:48:002.1[facility] TosbaevWKVDVPCOOJ9734-90-93 09:48:002.7[facility] EnsycopPTCMVTYTHD6879-65-41 09:48:0038.8[facility] THJWFYORBB4877-36-15 09:48:0048.7[facility] VmdfzhgZTRXQOZIBH7295-60-71 09:48:00 0.0[facility] YkfstjqJMZLNFMJCY7836-01-68 09:48:000.1[facility]annHE[facility]OLOGY 2011-07-11 09:48:000.5[facility] YkgjynkFVBWXXEYZV5372-61-31 09:48:0035.5[facility] OuycqvqCHWQFKOEUG5847-10-16 09:48:29880.0[facility] RjgnvdhVWUGVFNNHN1326-92-51 09:48:0011.1[facility] NvxzogbSSWITWFXNN1620-86-20 09:48:0031.3[facility] DSEVTKEXSE3832-90-50 09:48:00* Test Item Value Reference Range Interpretation Comments MCH (test code = MCH) 32.3 pg 27.0-31.0 H [facility] NosrkzdFMFIAXFPFX2785-84-11 09:48:0012.8[facility]annHEMATOLOGY 2011-07-11 09:48:0091.2[facility] JkhnpciMFDIEFBAYS5524-45-76 09:48:005.4[facility] ZintcmpOXHIRCJKVU3089-75-90 09:48:0011.1[facility] IyjsthwJGQZBNHZGE9334-25-04 09:48:003.43[facility] JryivqiCPFGZGBZE8034-65-57 12:48:0075.0[facility] NWBIRXQUZ0241-70-36 12:48:000.02[facility] TwehvopFSTTICELZ6441-45-82 12:48:002.4 [facility] TmesvnkYDHFKAXZJ8799-95-61 12:48:004.0[facility]annCHEMISTRY 2011-07-10 12:48:003.8[facility] EauowguPHKMIBXQZ2013-96-67 12:48:0024.0[facility] MvaknoaNTAWLWXCT9053-91-53 12:48:009.6[facility] EopizpsOMEEZQQNB0066-56-05 12:48:0038.0[facility] VtiivdmCFUUHYCQO7602-88-99 12:48:000.4[facility] ZPBRRNQJT5546-32-21 12:48:0015.0[facility] BraeykzQZVVXMIFZ1173-71-02 12:48:0023.0 [facility] LrhjxhxRYMEMQYDX0468-12-86 12:48:000.9[facility]annCHEMISTRY 2011-07-10 12:48:88308.0[facility] GyhugckQNSFTKKKG5878-37-51 12:48:004.3[facility] PqbrhyaAOCHLPWLY7388-36-37 12:48:31363.0[facility] QmkjxrfMLAZJMDBJ8061-77-01 12:48:0026.0[facility] PjwjoqeXUINFNPRN8001-19-30 12:48:007.5[facility] WEJABWETV1706-72-62 12:48:63456.0[facility] GxmopqgDNPBOEIAE3433-50-75 12:48:00* Test Item Value Reference Range Interpretation Comments B/C Ratio (test code = B/C Ratio) 26.0 1 6-25 H [facility] RnrwjxiJCNUFBRZX2942-08-40 12:48:0012.3[facility] HermannCHEMISTRY 2011-07-10 12:48:00* Test Item Value Reference Range Interpretation Comments A/G Ratio (test code = A/G Ratio) 1.0 1 0.7-1.6 N [facility] HiyqkfuIXNZXSZHO7951-57-45 12:48:003.7[facility]annCHEMISTRY 2011-07-10 12:48:001.96[facility] RztpeibSUFKIAOPQA6923-43-58 12:48:0090.6[facility] JdsgmvtVNILGVMYRG4011-94-88 12:48:0031.1[facility] OklmpheRGKEMRQPMP9291-10-34 12:48:003.44[facility] FfjmvoeDEBWZDCBFQ1538-79-69 12:48:0011.1[facility] RPJYQSNXVS2923-14-03 12:48:0010.8[facility] DhqccykPUPOFGZEWZ7715-18-76 12:48:00 209.0[facility] UmidqzvEMEUGAZGCZ2591-65-34 12:48:00* Test Item Value Reference Range Interpretation Comments MCH (test code = MCH) 32.2 pg 27.0-31.0 H [facility] TnifpwaCOTZNXZGQS7136-12-83 12:48:0013.1[facility]annHEMATOLOGY 2011-07-10 12:48:0035.6[facility] BnokjngAGVYLJJYIN7942-39-62 12:48:005.1[facility] QxxytdaBMDQLMEDHJ4949-85-15 12:48:000.1[facility] AfvkcvcOOHYFBUKJE4404-35-67 12:48:002.0[facility] MbsjbafFKHMJVGRBS8030-83-32 12:48:000.0[facility] QOVMNKYDVP2709-16-43 12:48:001.8[facility] ZtmchlxQYJQJMHSVJ7733-35-49 12:48:002.6 [facility] NwkwyzmYZRLIYJQNA6790-12-18 12:48:000.5[facility] HermannHEMATOLOGY 2011-07-10 12:48:000.4[facility] WxkljxpBHFIYZYUWA7191-24-47 12:48:0035.7[facility] KysdfasQDJAGQBQSJ0955-16-35 12:48:0010.5[facility] IthlunhOEVTHUPPQJ7076-28-30 12:48:0051.4[facility] HermannBACTERIAL - OQHHZVBX7093-99-37 09:30:00Negative 1(07/10/2011 03:30:00) ??[facility] JphoildDPYSMKLSA2449-88-55 04:06:01584.0 [facility] ShwtffuXUIWJVUHP9177-40-74 04:06:003.1[facility]annCHEMISTRY 2011-07-10 04:06:001.5[facility] TwiowrbFBETFPWQT6215-48-55 04:06:00<0.02[facility] EcexstgHXSONHSQA6555-33-88 04:06:001.1[facility] IefhqjzEZAVMVNOH9370-73-27 04:06:01314.0[facility] YtvgytlFDIMPKPVO4081-70-78 04:06:000.4[facility] GBNYYRPUJ5043-44-04 04:06:0044.0[facility] ZctjgssEWSGEASES7646-18-23 04:06:0030.0 [facility] BrqhzcpSBBRIAVAM7633-58-09 04:06:004.1[facility]annCHEMISTRY 2011-07-10 04:06:0027.0[facility] XzmwopnWEWEYPMAK5307-04-33 04:06:00* Test Item Value Reference Range Interpretation Comments A/G Ratio (test code = A/G Ratio) 1.0 1 0.7-1.6 N [facility] JkszjrdCRCBPJLAM1412-64-67 04:06:004.0[facility] HermannCHEMISTRY 2011-07-10 04:06:00* Test Item Value Reference Range Interpretation Comments B/C Ratio (test code = B/C Ratio) 24.0 1 6-25 N [facility] IxaeyjdNTLDSLEQD7665-50-44 04:06:0018.4[facility] HermannCHEMISTRY 2011-07-10 04:06:29822.0[facility] AwhrjbrPENFAMXYC1312-50-98 04:06:003.4[facility] DtykcfpWXNAHBXAH5708-00-42 04:06:009.5[facility] PmwwkiyKKYSLCUEW5911-81-15 04:06:0022.0[facility] VjyyehrEKMDMZCTJ5742-42-18 04:06:008.1[facility] FSDEHSSKC1754-37-29 04:06:06008.0[facility] DqxogebLJMBKYCYZ0726-15-71 04:06:00 141.0[facility] XugutpdZTUFDFOSK9686-15-72 04:06:001.0[facility] HermannCHEMISTRY 2011-07-10 04:06:0024.0[facility] PmbqycaNEXGQFAFE7588-69-65 04:06:00* Test Item Value Reference Range Interpretation Comments CK MB Index (test code = CK MB Index) 1.0 1 <=2.5 N [facility]ks[facility]QHIYLDAFD7974-98-44 04:06:00* Test Item Value Reference Range Interpretation Comments PTT (test code = PTT) 25.7 s 22.9-35.8 N [facility]OMRZTETSQY4317-80-03 04:06:00* Test Item Value Reference Range Interpretation Comments PT (test code = PT) 13.0 s 12.0-14.7 N [facility]IjhlzplMHBVSIYLPY1395-88-34 04:06:00* Test Item Value Reference Range Interpretation Comments INR (test code = INR) 0.98 1 0.85-1.17 N [facility]
[2020-07-13 18:37] LABS: BASOPHILS # (AUTO) 0.1 (0.0-0.1); BASOPHILS % 0.6 % (0.0-1.0); EOSINOPHILS # (AUTO) 0.3 (0.0-0.4); EOSINOPHILS % 2.7 % (0.0-6.0); HEMATOCRIT 30.9 % (34.2-44.1); HEMOGLOBIN 10.3 g/dL (12.0-16.0); LYMPHOCYTES # (AUTO) 2.3 (1.0-3.2); LYMPHOCYTES % 22.6 % (18.0-39.1); MEAN CORPUSCULAR HEMOGLOBIN 29.7 pg (28-32); MEAN CORPUSCULAR HGB CONC 33.3 g/dL (31-35); MONOCYTES # (AUTO) 0.8 (0.2-0.8); MONOCYTES % 7.4 % (4.4-11.3); NEUTROPHILS # (AUTO) 6.8 (2.1-6.9); NEUTROPHILS % 66.2 % (38.7-80.0); PLATELET COUNT 400 x10e3/uL (140-360); RED BLOOD COUNT 3.47 x10e6/uL (3.6-5.1); RED CELL DISTRIBUTION WIDTH 13.3 % (11.7-14.4)
[2020-07-13 18:39] LABS: BILIRUBIN,URINE NEGATIVE (NEGATIVE); CLARITY,URINE CLEAR (CLEAR); COLOR,URINE YELLOW (YELLOW); KETONES,URINE NEGATIVE (NEGATIVE); LEUKOCYTE ESTERASE ,URINE NEGATIVE (NEGATIVE); NITRITE,URINE NEGATIVE (NEGATIVE); PROTEIN,URINE DIPSTICK 1+ (NEGATIVE); URINE UROBILINOGEN 0.2 mg/dL (0.2 - 1)
[2020-07-13 18:48] LABS: BACTERIA,URINE RARE /HPF; EPITHELIAL CELLS,URINE FEW /LPF; RBC,URINE 0-5 /HPF (0-5); WBC,URINE (MAN) 0-5 /HPF (0-5)
[2020-07-13 18:58] LABS: ALBUMIN 3.5 g/dL (3.5-5.0); ANION GAP 12.4 mmol/L (8-16); CALCIUM 9.1 mg/dL (8.4-10.2); CREATININE, SERUM 0.95 mg/dL (0.57-1.11); POTASSIUM 4.4 mmol/L (3.5-5.1)
--- NOTE | 2020-07-13 19:29 | Emergency Department Note ---
History of Present Illnes History of Present Illness Chief Complaint: Genitourinary History of Present Illness This is a 89 year old female DX UTI Jun. STARTED A 10 DAY COURSE OF CIPRO 500 MG BID, COMPLETED. SINCE STARTING CIPRO SHE FEELS LIKE FOOD IS GETTING STUCK IN STOMACHE. BURNING, AND CRAMPING IN STOMACHE, FATIGUED, UNABLE TO SLEEP AT NIGHT ALONG WITH NIGHT SWEATS, TINGLING IN LEGS. DAUGHTER IS BLAMING IT ON THE MEDICATION. . 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 Any updates have been documented here. Past Medical History Recent Fever: No Clinical Suspicion of Infectio: No New/Unexplained Change in Ment: No Past Medical History: Hypertension, A-Fib Other Medical History: ESOPHAGEAL STRICTURE Past Surgical History: Cholecysctectomy, Appendectomy, Hysterectomy, Pacer/AICD, Cataract Removal Other Surgery: CARDIAC STENTS X 2 ESOPHAGEAL DIALATION Social History Smoking Cessation: Never Smoker Counseling Performed: No Alcohol Use: None Any Illegal Drug Use: No Other Last Tetanus: OOD Any Pre-Existing Lines (PICC,: No Review of Systems Review of Systems Constitutional: Reports weakness EENTM: Reports no symptoms Cardiovascular: Reports no symptoms Respiratory: Reports no symptoms Gastrointestinal: Reports no symptoms Genitourinary: Reports no symptoms Musculoskeletal: Reports no symptoms Integumentary: Reports no symptoms Neurological: Reports no symptoms Psychological: Reports no symptoms Endocrine: Reports no symptoms Hematological/Lymphatic: Reports no symptoms Physical Exam Related Data Allergies: Coded Allergies: No Known Allergies (Verified , 07/13/20) Triage Vital Signs Vital Signs Date Time Temp Pulse Resp B/P (MAP) Pulse Ox O2 Delivery O2 Flow Rate FiO2 07/13/20 17:59 98.2 69 18 165/68 99 Room Air Vital signs reviewed: Yes Physical Exam CONSTITUTIONAL Constitutional: Present well-developed, Present well-nourished; Absent distressed HENT HENT: Present normocephalic, Present atraumatic, Present oropharynx clear/moist, Present nose normal HENT L/R: Present left ext ear normal, Present right ext ear normal EYES Eyes: Reports PERRL, Reports conjunctivae normal NECK Neck: Present ROM normal PULMONARY Pulmonary: Present effort normal, Present breath sounds normal CARDIOVASCULAR Cardiovascular: Present regular rhythm, Present heart sounds normal, Present capillary refill normal, Present normal rate GASTROINTESTINAL Abdominal: Present soft, Present nontender, Present bowel sounds normal GENITOURINARY Genitourinary: Present exam deferred SKIN Skin: Present warm, Present dry MUSCULOSKELETAL Musculoskeletal: Present ROM normal NEUROLOGICAL Neurological: Present alert, Present oriented x 3, Present no gross motor or sensory deficits PSYCHOLOGICAL Psychological: Present mood/affect normal, Present judgement normal Results Laboratory Result Diagram: 07/13/20 1824 07/13/20 1824 Laboratory Laboratory Tests Test 07/13/20 18:24 07/13/20 17:56 White Blood Count 10.32 x10e3/uL (4.8-10.8) Red Blood Count 3.47 x10e6/uL (3.6-5.1) Hemoglobin 10.3 g/dL (12.0-16.0) Hematocrit 30.9 % (34.2-44.1) Mean Corpuscular Volume 89.0 fL (81-99) Mean Corpuscular Hemoglobin 29.7 pg (28-32) Mean Corpuscular Hemoglobin Concent 33.3 g/dL (31-35) Red Cell Distribution Width 13.3 % (11.7-14.4) Platelet Count 400 x10e3/uL (140-360) Neutrophils (%) (Auto) 66.2 % (38.7-80.0) Lymphocytes (%) (Auto) 22.6 % (18.0-39.1) Monocytes (%) (Auto) 7.4 % (4.4-11.3) Eosinophils (%) (Auto) 2.7 % (0.0-6.0) Basophils (%) (Auto) 0.6 % (0.0-1.0) Neutrophils # (Auto) 6.8 (2.1-6.9) Lymphocytes # (Auto) 2.3 (1.0-3.2) Monocytes # (Auto) 0.8 (0.2-0.8) Eosinophils # (Auto) 0.3 (0.0-0.4) Basophils # (Auto) 0.1 (0.0-0.1) Absolute Immature Granulocyte (auto 0.05 x10e3/uL (0-0.1) Sodium Level 135 mmol/L (136-145) Potassium Level 4.4 mmol/L (3.5-5.1) Chloride Level 103 mmol/L (98-107) Carbon Dioxide Level 24 mmol/L (22-29) Anion Gap 12.4 mmol/L (8-16) Blood Urea Nitrogen 18 mg/dL (7-26) Creatinine 0.95 mg/dL (0.57-1.11) Estimat Glomerular Filtration Rate 56 ML/MIN (60-) BUN/Creatinine Ratio 19 (6-25) Glucose Level 113 mg/dL (74-118) Calcium Level 9.1 mg/dL (8.4-10.2) Magnesium Level 1.6 MG/DL (1.3-2.1) Total Bilirubin 0.2 mg/dL (0.2-1.2) Aspartate Amino Transf (AST/SGOT) 24 IU/L (5-34) Alanine Aminotransferase (ALT/SGPT) 29 IU/L (0-55) Alkaline Phosphatase 72 IU/L (40-150) Total Protein 7.0 g/dL (6.5-8.1) Albumin 3.5 g/dL (3.5-5.0) Globulin 3.5 g/dL (2.3-3.5) Albumin/Globulin Ratio 1.0 (0.8-2.0) Urine Color Yellow (YELLOW) Urine Clarity Clear (CLEAR) Urine pH 7 (5 - 7) Urine Specific [place] 1.015 (1.010-1.025) Urine Protein 1+ (NEGATIVE) Urine Glucose (UA) Negative (NEGATIVE) Urine Ketones Negative (NEGATIVE) Urine Blood Trace (NEGATIVE) Urine Nitrite Negative (NEGATIVE) Urine Bilirubin Negative (NEGATIVE) Urine Urobilinogen 0.2 mg/dL (0.2 - 1) Urine Leukocyte Esterase Negative (NEGATIVE) Urine RBC 0-5 /HPF (0-5) Urine WBC 0-5 /HPF (0-5) Urine Epithelial Cells Few /LPF (NONE) Urine Bacteria Rare /HPF (NONE) Lab results reviewed: Yes Assessment & Plan Medical Decision Making MDM PT WITH VAGUE COMPLAINTS SINCE RECENTLY BEING ON CIPRO CBC. CMP, UA ORDERED TO EVAL FOR LEUKOCYTOSIS, UTI, ELECTROLYTE ABNORMALITY, RENAL FAILURE Assessment & Plan Final Impression: (1) Insomnia (2) Fatigue Depart Disposition: HOME, SELF-CARE Last Vital Signs Date Time Temp Pulse Resp B/P (MAP) Pulse Ox O2 Delivery O2 Flow Rate FiO2 07/13/20 17:59 98.2 69 18 165/68 99 Room Air Home Meds Reported Medications Flecainide Acetate (FLECAINIDE ACETATE) 100 Mg Tablet, 100 MG PO BID, #60 TAB 09/21/19 Losartan Potassium (LOSARTAN POTASSIUM) 25 Mg Tablet, 50 MG PO BID 09/19/19 Warfarin Sodium* (COUMADIN*) 3 Mg Tablet, 1.5 MG PO DAILY, #7 TAB 10/25/16 Alendronate Sodium (FOSAMAX) 70 Mg Tablet, 70 MG PO WKLY 10/25/16 Pravastatin Sodium (PRAVASTATIN SODIUM) 40 Mg Tablet, 40 MG PO HS 10/25/16 Amlodipine Besylate (AMLODIPINE BESYLATE) 5 Mg Tablet, 5 MG PO DAILY, #30 TAB 10/25/16 Pantoprazole Sodium* (PROTONIX) 40 Mg Tablet.dr, 40 MG PO DAILY, TAB 10/25/16 Fenofibrate Nanocrystallized (FENOFIBRATE) 145 Mg Tablet, 145 MG PO DAILY 10/25/16 LUNA IGLESIAS MD Jul 13, 2020 19:29
== END 2020-07-13 20:00 | disposition home or self-care (01) ==
LOC: ER 18:15
DX: G47.00 Insomnia, unspecified (principal); R53.83 Other fatigue; I10 Essential (primary) hypertension; I48.91 Unspecified atrial fibrillation; Z95.5 Presence of coronary angioplasty implant and graft
CPT/HCPCS: 36415; 80053; 81001; 83735; 85025; 87086; 99284

== ENCOUNTER → 2021-02-02 | Outpatient (CLI) | payer MEDICARE, OTHER | LOC: CT 09:34 | PROVIDERS: ATTEND Internal Medicine Critical Care Medicine | DX: R06.09 Other forms of dyspnea (principal); J42 Unspecified chronic bronchitis; J98.4 Other disorders of lung; K21.9 Gastro-esophageal reflux disease without esophagitis | CPT/HCPCS: 71250 ==

== ENCOUNTER → 2021-09-07 | Day surgery (SDC) | payer MEDICARE, OTHER ==
[2021-09-04 13:27] LABS: BASOPHILS % 0.3 % (0.0-1.0); EOSINOPHILS # (AUTO) 0.1 (0.0-0.4); EOSINOPHILS % 0.8 % (0.0-6.0); HEMATOCRIT 34.6 % (34.2-44.1); HEMOGLOBIN 11.6 g/dL (12.0-16.0); LYMPHOCYTES # (AUTO) 2.1 (1.0-3.2); LYMPHOCYTES % 19.4 % (18.0-39.1); MEAN CORPUSCULAR HEMOGLOBIN 30.4 pg (28-32); MEAN CORPUSCULAR HGB CONC 33.5 g/dL (31-35); MEAN CORPUSCULAR VOLUME 90.8 fL (81-99); MONOCYTES # (AUTO) 0.8 (0.2-0.8); MONOCYTES % 7.8 % (4.4-11.3); NEUTROPHILS # (AUTO) 7.6 (2.1-6.9); NEUTROPHILS % 71.3 % (38.7-80.0); PLATELET COUNT 316 x10e3/uL (140-360); RED BLOOD COUNT 3.81 x10e6/uL (3.6-5.1); RED CELL DISTRIBUTION WIDTH 13.4 % (11.7-14.4)
[2021-09-04 13:52] LABS: ANION GAP 15.5 mmol/L (8-16); CALCIUM 9.8 mg/dL (8.4-10.2); CREATININE, SERUM 1.26 mg/dL (0.57-1.11); POTASSIUM 4.5 mmol/L (3.5-5.1)
[~2021-09-07] MED LIST changes: +ALBUTEROL HFA INH; +ATORVASTATIN CA40 MG PO; +COUMADIN PO; +FENTANYL CITRATE/PF 100MCG/2 ML INJ ONE; +LIDOCAINE HCL 2% LOCAL INJ 5 ML SDV VIAL INJ ONE; +METOPROLOL SUCC25 MG PO; +NITROGLYCERIN0.4 MG SL; +PLAVIX75 MG PO; +PROPOFOL IV EMULSION 10 MG/ML 20 ML VIAL ONE
[2021-09-07 11:16] LABS: INR 0.97; PROTHROMBIN TIME 13.7 seconds (11.9-14.5)
[2021-09-07 11:33] LABS: ALBUMIN 3.9 g/dL (3.5-5.0); ALBUMIN/GLOBULIN RATIO 1.1 (0.8-2.0); ANION GAP 12.4 mmol/L (8-16); CALCIUM 9.9 mg/dL (8.4-10.2); CREATININE, SERUM 1.15 mg/dL (0.57-1.11); POTASSIUM 4.4 mmol/L (3.5-5.1)
[2021-09-07 12:39] VITALS: BP 157/68
== END | disposition home or self-care (01) ==
LOC: ENDO 10:18
PROVIDERS: ATTEND Internal Medicine Gastroenterology
DX: R13.10 Dysphagia, unspecified (principal); K31.7 Polyp of stomach and duodenum; K29.50 Unspecified chronic gastritis without bleeding; K21.9 Gastro-esophageal reflux disease without esophagitis; I25.10 Atherosclerotic heart disease of native coronary artery without angina pectoris; I11.0 Hypertensive heart disease with heart failure; I50.9 Heart failure, unspecified; I48.91 Unspecified atrial fibrillation; E78.00 Pure hypercholesterolemia, unspecified; M81.0 Age-related osteoporosis without current pathological fracture; F41.9 Anxiety disorder, unspecified; Z01.810 Encounter for preprocedural cardiovascular examination; Z01.812 Encounter for preprocedural laboratory examination; Z20.822 Contact with and (suspected) exposure to COVID-19; Z79.01 Long term (current) use of anticoagulants; Z79.02 Long term (current) use of antithrombotics/antiplatelets; Z79.899 Other long term (current) drug therapy; Z95.0 Presence of cardiac pacemaker; Z95.5 Presence of coronary angioplasty implant and graft; Z80.0 Family history of malignant neoplasm of digestive organs
CPT/HCPCS: 36415 ×2; 43239; 43251; 43450; 80048; 80053; 85025; 85610; 85730; 93005; C9113; J2001; J2704; J3010; U0002

== ENCOUNTER 2021-09-20 10:05 | Emergency (ER) | payer MEDICARE, OTHER ==
[~2021-09-20] VITALS: Ht 152.4 cm; Wt 51.3 kg
[~2021-09-20 10:05] MED LIST changes: -FENTANYL CITRATE/PF 100MCG/2 ML INJ ONE; -LIDOCAINE HCL 2% LOCAL INJ 5 ML SDV VIAL INJ ONE; -PROPOFOL IV EMULSION 10 MG/ML 20 ML VIAL ONE
== END 2021-09-20 10:28 | disposition home or self-care (01) ==
LOC: ER 10:10
DX: F41.9 Anxiety disorder, unspecified (principal); I10 Essential (primary) hypertension; I48.91 Unspecified atrial fibrillation; Z95.5 Presence of coronary angioplasty implant and graft
CPT/HCPCS: 99282

== ENCOUNTER → 2021-09-30 | Outpatient (CLI) | payer MEDICARE, OTHER | LOC: DX 10:32 | PROVIDERS: ATTEND Internal Medicine Gastroenterology | DX: R13.10 Dysphagia, unspecified (principal); K21.9 Gastro-esophageal reflux disease without esophagitis; Z20.822 Contact with and (suspected) exposure to COVID-19 | CPT/HCPCS: 74230; 92526; 92611; U0002 ==